=== PATIENT | female | born 1940 | race Caucasian/White ===

== ENCOUNTER 2016-03-04 13:37 | Inpatient (IN) | payer MEDICARE, OTHER ==
[2016-03-04] VITALS (7 sets, daily range): BP systolic 94–186; BP diastolic 56–78; PULSE 72–94; RESP 18–20; O2SAT 92–100
[~2016-03-04] VITALS: Ht 175.3 cm; Wt 72.9 kg
[~2016-03-04 13:37] MED LIST: ALBU8.5H2 INHALATION; AMLO5TAB2 PO; ASPI-973 PO; CHOL400T30 PO; ESOM40CA41 PO; FLUC100T4 PO; HYDR20TA2 PO; HYDR2TAB27 PO; LEVO100T6 PO; LISI-567 PO; LORA-302 PO; METO25TA99 PO; Magic Mouth Wash PO; POTA20TA7 PO; RES30 PO; SLOW MAG PO
[2016-03-04] MEDS ORDERED: Albuterol 2.5 mg/3 mL Inhalation Solution NEB ONE (14:13)
[2016-03-04 14:14] LABS: BASOPHILS % (AUTO) 0.3 % (0-3); EOSINOPHILS % (AUTO) 1.3 % (0-5); MONOCYTES % (AUTO) 7.2 % (4-12); Mean Corpuscular Hemoglobin 31.7 pg (27.0-35.0); Mean Corpuscular Volume 99.8 fL (81-100); NEUTROPHILS % (AUTO) 74.8 % (40-74); Platelet Count 226 bil/L (150-400)
--- NOTE | 2016-03-04 14:25 | ED.REPORT ---
HPI-Dyspnea / Wheezing Date of Service Mar 04, 2016 ED Provider: Liam Gomez MD Pt is a 76 year old female with a hx of HTN, breast cancer left side, and tongue cancer presenting to the ED complaining of a non productive cough onset 2 weeks ago worsened today. Associated symptoms include increasing SOB, and bilateral LE edema. Denies hx of blood clot, recent surgery or travel, fever, sore throat, chest pain, diarrhea, hemoptysis. Pt was seen in UC 1 week ago and had a negative X ray. She is currently taking Levaquin and has 1 dose left. She had a normal echocardiogram in September 2015. Pt denied influenza swab. Nursing Notes Stated Complaint: COUGH Chief Complaint: Respiratory Distress Nursing Notes Reviewed: Yes Allergies: Coded Allergies: morphine (Verified Allergy, Severe, Anxiety and panic attack, 01/16/16) Sulfa (Sulfonamide Antibiotics) (Verified Allergy, Unknown, 01/16/16) Pt. was unable recall reaction to sulfa Scheduled ([Slow-Mag71.5-119 Mg]) 2 TAB PO DAILY Amlodipine (Amlodipine) 5 Mg Tablet 5 MG PO DAILY Aspirin (Aspirin) 81 Mg Tablet 81 MG PO DAILY Cholecalciferol (Vitamin D3) (Vitamin D) 400 Unit Tablet 400 UNIT PO DAILY Esomeprazole Magnesium (Nexium) 40 Mg Capsule.dr 40 MG PO DAILY Fluconazole (Fluconazole) 100 Mg Tablet 100 MG PO DAILY Hydrocortisone (Hydrocortisone) 20 Mg Tablet 60 MG PO BID Levothyroxine (Levothyroxine) 100 Mcg Tablet 100 MCG PO DAILY Lisinopril (Lisinopril) 20 Mg Tablet 20 MG PO DAILY Metoprolol Succinate ER (Metoprolol Succinate ER) 25 Mg Tab.er.24h 25 MG PO DAILY Potassium Chloride ER (Klor-Con M20) 20 Meq Tablet 20 MEQ PO TID Scheduled PRN ([Magic Mouth Wash]) 5 ML PO Q4H PRN PRN Esophageal spasm Albuterol HFA (Proair HFA) 8.5 Gm Hfa.aer.ad 2 PUFFS INHALATION Q4H PRN PRN For Shortness of Breath Hydromorphone (Dilaudid) 2 Mg Tablet 4 MG PO Q4H PRN PRN For Pain Lorazepam (Ativan) 0.5 Mg Tablet 0.5 MG PO DAILY PRN PRN For Insomnia Temazepam (Temazepam) 30 Mg Cap 30 MG PO HS PRN PRN For Insomnia General Time Seen by MD: 13:43 Chief Complaint Cough Hx Obtained From: Patient Arrived By: Walk-in Sudden in Onset?: No Onset Occurred: More than a week ago... (2 weeks) Symptom Duration: Since onset Severity: Current: No pain currently Severity: Maximum: No pain Recent Healthcare: No recent doctor visit, No recent hospitalization Similar Sx Previous: No Past Medical History Past Medical History Hypothyroidism 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 Parathyroid adenoma Reports: Cancer, GERD, Hypertension Reports: Depression Past Surgical History Tongue resection Total mastectomy Reports: Knee replacement Family History Noncontributory Smoking History Former Smoker Social History Resides at [facility] Drug Use: Denies drug use Other Social History: Local resident Ambulatory Status Independent Review of Systems Constitutional: Denies: Fever Ears / Nose / Throat: Denies: Sore throat Respiratory: Reports: Non-productive cough, Shortness of breath Cardiovascular: Denies: Chest pain Musculoskeletal: Reports: Extremity swelling Complete sys rev & neg: except as marked. GI: Denies: Diarrhea Physical Exam Initial Vital Signs Vital Signs (First) Date Time Temp Pulse Resp B/P Pulse Ox O2 Delivery O2 Flow Rate FiO2 03/04/16 13:39 37.1 94 20 94/61 94 Room Air 03/04/16 14:18 2.5 Initial VS: Reviewed Head / Eyes: Atraumatic, Normocephalic, PERRL ENT: Mucous membranes moist, Conjunctiva normal, No scleral icterus Abdomen / GI: Soft, No guarding, No rebound Skin: Warm, Dry, No cyanosis Neurologic: Alert, Oriented, Nonfocal Psychiatric: Mood/affect normal, Behavior normal, Normal thought content General/Constitutional: Awake, Alert Neck: Supple Respiratory / Chest: No respiratory distress Wheezing / Retractions: Positive: Wheeze insp/exp diffuse Scattered wheezes bilaterally Cardiovascular: Heart rate NL, Regular rhythm, Heart sounds NL, No gallop, No murmurs, No rubs Interpretation & Diagnostics Lab Results Interpretation Result Diagram: 03/04/16 1355 03/04/16 1355 Test 03/04/16 13:55 White Blood Count 9.4th/mm3 (3.8-10.1) Red Blood Count 4.54mil/mm3 (3.90-5.20) Hemoglobin 14.4g/dL (12.0-15.6) Hematocrit 45.3% (35.0-46.0) Mean Corpuscular Volume 99.8fL (81-100) Mean Corpuscular Hemoglobin 31.7pg (27.0-35.0) Mean Corpuscular Hemoglobin Concent 31.8% (32.0-37.0) Red Cell Distribution Width 16.7% (12.3-15.4) Platelet Count 226bil/L (150-400) Neutrophils (%) (Auto) 74.8% (40-74) Lymphocytes (%) (Auto) 14.8% (14-46) Monocytes (%) (Auto) 7.2% (4-12) Eosinophils (%) (Auto) 1.3% (0-5) Basophils (%) (Auto) 0.3% (0-3) D-Dimer 4.8mg/L (<0.50) Sodium Level 141mEq/L (134-144) Potassium Level 3.7mEq/L (3.5-5.2) Chloride Level 96mEq/L (97-108) Carbon Dioxide Level 31mmol/L (18-29) Blood Urea Nitrogen 19mg/dL (8-27) Creatinine 1.13mg/dL (0.57-1.00) Estimat Glomerular Filtration Rate 67mL/min (>59) Glucose Level 132mg/dL (60-99) Lactic Acid Level 2.6mmol/L (0.4-2.0) Calcium Level 9.5mg/dL (8.5-10.1) Total Bilirubin 0.9mg/dL (0.0-1.2) Aspartate Amino Transf (AST/SGOT) 21U/L (0-50) Alanine Aminotransferase (ALT/SGPT) 20U/L (0-32) Alkaline Phosphatase 90U/L (25-165) Troponin T < 0.010ug/L (0.0-0.011) Pro-B-Type Natriuretic Peptide 1033pg/mL (0-738) Total Protein 6.0g/dL (6.4-8.4) Albumin 3.4g/dL (3.4-5.0) ECG Interpretation ECG Interpretation: Piked T waves V4V5. No ST elevations or depressions. Time: 14:23 Interpreted by: ED physician Normal ECG Interpretation: Normal rate (84), Normal sinus rhythm X-Ray Chest Interpretation Chest Xray Interpretation: IMPRESSION: A new spiculated density in the right lower lobe medially, most likely related to atelectasis. Recommend followup to resolution. Dictated by: Daniel Delgado M.D. on 03/04/2016 at 14:32 View: Portable, 1 view Interpretation / Wet Read by: Interpret - Radiologist Re-Eval/Medical Decision Med Decision/Clinical Course 76-year-old female history of hypertension, breast cancer status post mastectomy, chemotherapy, radiation presenting with dry cough for 2 weeks. Patient is status post Levaquin. Oxygen 88-94% room air. Patient refusing flu swab and additional IV. She is refusing CT angiogram chest given that would have to put a larger IV in her she is refusing additional IV. Labs with lactic acidosis 2.6. D-dimer is 4.8. Chest x-ray with right lower lobe spiculated density. Complicated patient as she is refusing aspects of her workup but is willing to be admitted. Given her elevated d-dimer, lactic acidosis and hypoxemia, we will admit. I discussed with hospitalist and will place on heparin drip to cover for possible PE and they will attempt to place IV later for CT Angio chest to rule out PE. We will place on one dose Levaquin to cover possible pneumonia given questionable chest x-ray findings. She will be hydrated with IV fluids. Patient is DNR/DNI per patient report. Re-Evaluation/Progress : Time of Eval: 15:38 Patient Status: Condition improved Re-Evaluation/Progress Note: Discussed the importance of the CT scan. Pt is unwilling to have a new IV line, but would like to be admitted. Consultation : Referral / Consult Name: Artur Alegria MD Consulted With: Hospitalist Call Returned at: 15:45 Crystallography Teacher: Will see patient, Agrees with plan, Accepts admit Counseled Regarding: Diagnosis, Lab results, Need for follow-up, When/why to return to ED Discharge & Departure Impression: Primary Impression: Hypoxemia Additional Impressions: Lactic acidosis Elevated d-dimer Pneumonia Aspiration pneumonia type: unspecified Laterality: unspecified laterality Lung location: unspecified part of lung Disposition: ADMITTED TO HOSPITAL Discharge Condition All VS Reviewed: Yes Condition: Improved Referrals: Carlos Edouard MD (PCP) Crit Care Except Billable Proc Time Spent: 30-74 minutes Services Performed: Patient management by me, Time spent at bedside, Reviewing test results, Reviewing imaging, Discussing patient care, Documentation in record Scribe Attestation Portions of this note were transcribed by Marti. I, Dr. Gomez personally performed the history, physical exam and medical decision-making; I reviewed and confirmed the accuracy of the information in the transcribed note. Signed by: Angeles Whalen, 03/04/2016 and 1554. copies to: Carlos Edouard MD, Ben M MD Mar 04, 2016 14:25 MARTI TERAN Mar 04, 2016 14:55
--- NOTE | 2016-03-04 14:35 | DRSVH ---
PROCEDURE: X-RAY CHEST ONE VIEW, PORTABLE ([id number]) INDICATIONS: cough, dyspnea TECHNIQUE: One view of the chest was acquired. COMPARISON: [facility], CR, XR CHEST 2VW, 02/26/2016, 10:48. [facility], CR , XR CHEST 1VW (PORTABLE), 09/05/2015, 19:10. FINDINGS: Surgical changes and devices: Left mastectomy. Multiple surgical clips in the left axilla. Lungs and pleura: There is a spiculated linear density in the right lower lobe medially, new since t he last exam, most likely atelectasis. No pleural effusions or pneumothorax. Mediastinum: Mediastinal contours appear normal. Heart size is normal. Bones and chest wall: No suspicious bony lesions. Overlying soft tissues appear unremarkable. IMPRESSION: A new spiculated density in the right lower lobe medially, most likely related to atelect asis. Recommend followup to resolution. Dictated by: Daniel Delgado M.D. on 03/04/2016 at 14:32 Approved by: Daniel Delgado M.D. on 03/04/2016 at 14:35
[2016-03-04 14:39] LABS: TROPONIN T < 0.010 ug/L (0.0-0.011)
[2016-03-04] MEDS ORDERED: 0.9% Sodium Chloride 1,000 ML IV ONE (14:55)
[2016-03-04] MEDS ORDERED: Heparin 25K Unit/500mL 0.45 NS 25,000 UNIT in IV Premix 1 EACH IV ONE (15:55)
[2016-03-04] MEDS ORDERED: Heparin 5,000 Unit/mL Inj IVPUSH ONE (15:55)
[2016-03-04] MEDS ORDERED: Ondansetron 2 mg/mL 2 mL Inj IVPUSH PRN ×2 (16:00→19:10)
[2016-03-04] MEDS ORDERED: Alum-Mag Hydrox-Simeth 30 mL Suspension PO PRN ×2 (16:00→19:10)
[2016-03-04] MEDS ORDERED: levoFLOXacin Inj 750 MG in IV Premix 1 EACH IV ONE (16:00)
[2016-03-04] MEDS ORDERED: Polyethylene Glycol (PEG) 17 Gm Powder PO PRN (16:10)
[2016-03-04] MEDS ORDERED: Heparin 25K Unit/500mL 0.45 NS 25,000 UNIT in IV Premix 1 EACH IV SCH (16:10)
[2016-03-04] MEDS: 0.9% Sodium Chloride 1,000 ML IV SCH ×2 (16:10→20:06)
--- NOTE | 2016-03-04 16:57 | DRSVH ---
PROCEDURE: US VENOUS LEG DUPLEX BILATERAL INDICATIONS: rule out DVT TECHNIQUE: Real-time imaging, as well as color and pulse Doppler interrogation, were performed of the deep veins of both legs from the inguinal ligament to the popliteal fossa. COMPARISON: None. FINDINGS: The deep veins are normally compressible, and free of intraluminal thrombus. Color and pu lse Doppler demonstrate normal phasic intravascular flow. There is normal augmentation response to d istal compression maneuver. IMPRESSION: No DVT in lower extremities bilaterally. Dictated by: Daniel Delgado M.D. on 03/04/2016 at 16:56 Approved by: Daniel Delgado M.D. on 03/04/2016 at 16:57
[2016-03-04] MEDS ORDERED: OXYC10SY PO (18:21)
--- NOTE | 2016-03-04 18:35 | NUR ---
Admit Pt admitted to PCC at 1800. A&Ox3, Vitals stable, purse at the bedside. Oriented to room and call light. PT voided upon arrival. Tele placed and is in SR 80's with a peaked T. Heparin running at 18 un/kg/hr. No c/o pain. Didn't want anything to eat just some ice water. Will inform MD patient arrived to floor and any questions.
--- NOTE | 2016-03-04 18:36 | PCM.HPMED ---
Subjective Date of Service Mar 04, 2016 Primary Provider: Admitting Physician: Artur Alegria MD Primary Care Physician: Carlos Edouard MD Attending Physician: Artur Alegria MD Allergies Coded Allergies: morphine (Verified Allergy, Severe, Anxiety and panic attack, 01/16/16) Sulfa (Sulfonamide Antibiotics) (Verified Allergy, Unknown, 01/16/16) Pt. was unable recall reaction to sulfa PMH Social History Hx Alcohol Use: Yes Alcoholic Drinks Per Day: a glass of whisky a day Hx Substance Use: No Hx Tobacco Use: No Smoking Status: Former Smoker Exam Vital Signs Vital Sign - Last Date Time Temp Pulse Resp B/P Pulse Ox O2 Delivery O2 Flow Rate FiO2 03/04/16 18:14 80 03/04/16 18:07 36.6 20 156/78 92 1.00 03/04/16 17:23 Nasal Cannula Lab and Diagnostics Result Diagram: 03/04/16 1355 03/04/16 1355 Artur Alegria MD Mar 04, 2016 18:36 1. Decreased but not resolved right lower lobe pneumonia. 2. Mild diffuse interstitial infiltrates and mild cardiomegaly, suggesting mild superimposed congestive heart failure. Artur Alegria MD Mar 04, 2016 18:36 03/04/16 1355 X-Rays, CTs and MRIs CXR: IMPRESSION: 1. Decreased but not resolved right lower lobe pneumonia. 2. Mild diffuse interstitial infiltrates and mild cardiomegaly, suggesting mild superimposed congestive heart failure. Artur Alegria MD Mar 04, 2016 18:36 Result Diagram: 03/04/16 1355 03/04/16 1355 X-Rays, CTs and MRIs CXR: IMPRESSION: 1. Decreased but not resolved right lower lobe pneumonia. 2. Mild diffuse interstitial infiltrates and mild cardiomegaly, suggesting mild superimposed congestive heart failure. Assessment & Plan Elevated troponin - ? NSTEMI - Started on heparin drip Pneumonia - Likely HCAP due to recent admission - Will start on broad spectrum antibiotics, vancomycin and zosyn - Blood culture x 2, Sputum culture CHF exacerbation - elevated pro BNP of 11,887 - Will start on IV lasix GI ppx: Pantoprazole DVT ppx: on heparin Anti emetics / Analgesics prn as per protocol Code: Full code Status: To be admitted as inpatient due to complexity of medical condition that will require more than two days of hospital stay. Pain Evaluation: Adequate Pain Control GI Prophylaxis: H2 morgan VTE Prophylaxis: Sub-Q Heparin (Unfractionated) Resuscitation Status: CPR: Attempt Resuscitation Artur Alegria MD Mar 04, 2016 18:36
--- NOTE | 2016-03-04 19:01 | PCM.HPMED ---
Subjective Date of Service Mar 04, 2016 Primary Provider: Admitting Physician: Artur Alegria MD Primary Care Physician: Carlos Edouard MD Attending Physician: Artur Alegria MD Chief Complaint: Worsening cough and dyspnea 2 weeks History of Present Illness: Pt is a 76 year old female with a hx of HTN, breast cancer left side, and tongue cancer presenting to the ED complaining of a non productive cough onset 2 weeks ago worsened today. Associated symptoms include increasing SOB, and bilateral LE edema. Denies hx of blood clot, recent surgery or travel, fever, sore throat, chest pain, diarrhea, hemoptysis. Pt was seen in 1 week ago and had a negative X ray. She is currently taking Levaquin and has 1 dose left. She had a normal echocardiogram in September 2015. Pt denied influenza swab. Review of Systems: Gen.: No fevers chills weight loss weight gain Eyes: no visual disturbances or blurring vision HEENT: No nose/throat drainage, no pain in ears or throat, no hearing loss Lymph: No lymph nodes noted Cardiac: No chest pain, orthopnea, PND, palpitations , ++pedal edema or dyspnea on exertion Pulmonary: no wheezing or bringing up of sputum + cough/dyspnea GI: No anorexia nausea vomiting blood or black in the stool : no dysuria hematuria urinary frequency or decrease in urine output Musculoskeletal: Joint swelling no joint pain no new muscle aches or back pain Neuro: No syncope, seizures no loss of consciousness no new focal weakness, numbness or tingling Psychiatric: New new anxiety insomnia or depression Endocrine: No new heat or cold intolerances polyuria or polydipsia Hematology: No lymphadenopathy or easy bleeding or bruising noted skin: No new rashes, stasis dermatitis Allergies Coded Allergies: morphine (Verified Allergy, Severe, Anxiety and panic attack, 01/16/16) Sulfa (Sulfonamide Antibiotics) (Verified Allergy, Unknown, 01/16/16) Pt. was unable recall reaction to sulfa Home Medications Scheduled ([Slow-Mag71.5-119 Mg]) 2 TAB PO DAILY Amlodipine (Amlodipine) 5 Mg Tablet 5 MG PO DAILY Aspirin (Aspirin) 81 Mg Tablet 81 MG PO DAILY Cholecalciferol (Vitamin D3) (Vitamin D) 400 Unit Tablet 400 UNIT PO DAILY Esomeprazole Magnesium (Nexium) 40 Mg Capsule.dr 40 MG PO DAILY Fluconazole (Fluconazole) 100 Mg Tablet 100 MG PO DAILY Hydrocortisone (Hydrocortisone) 20 Mg Tablet 60 MG PO BID Levothyroxine (Levothyroxine) 100 Mcg Tablet 100 MCG PO DAILY Lisinopril (Lisinopril) 20 Mg Tablet 20 MG PO DAILY Metoprolol Succinate ER (Metoprolol Succinate ER) 25 Mg Tab.er.24h 25 MG PO DAILY Potassium Chloride ER (Klor-Con M20) 20 Meq Tablet 20 MEQ PO TID Scheduled PRN ([Magic Mouth Wash]) 5 ML PO Q4H PRN PRN Esophageal spasm Albuterol HFA (Proair HFA) 8.5 Gm Hfa.aer.ad 2 PUFFS INHALATION Q4H PRN PRN For Shortness of Breath Hydromorphone (Dilaudid) 2 Mg Tablet 4 MG PO Q4H PRN PRN For Pain Lorazepam (Ativan) 0.5 Mg Tablet 0.5 MG PO DAILY PRN PRN For Insomnia Temazepam (Temazepam) 30 Mg Cap 30 MG PO HS PRN PRN For Insomnia PMH PAST MEDICAL HISTORY: Significant for history of orthostatic hypotension, currently on hydrocortisone therapy, history of hypertension, history of hypothyroidism, history of tongue cancer, status post resection and radiation therapy, history of breast cancer on the left, status post total mastectomy, chemotherapy and radiation, history of parathyroid adenoma, history of GERD, history of depression. ALLERGIES: 1. SULFA. 2. MORPHINE. SOCIAL HISTORY: Lives alone. Smoking, quit in 1991. Alcohol, 1-2 drinks daily. FAMILY MEDICAL HISTORY: No history of coronary artery disease or diabetes. Social History Hx Alcohol Use: Yes Alcoholic Drinks Per Day: a glass of whisky a day Hx Substance Use: No Hx Tobacco Use: No Smoking Status: Former Smoker Exam Vital Signs Vital Sign - Last Date Time Temp Pulse Resp B/P Pulse Ox O2 Delivery O2 Flow Rate FiO2 03/04/16 18:14 80 03/04/16 18:07 36.6 20 156/78 92 1.00 03/04/16 17:23 Nasal Cannula Exam Gen.- A+ O 3 no apparent distress. Thin female lying in bed Eyes- open conjunctiva clear, pupils equal nonicteric Mouth- oral mucosa moist, no exudate, tongue slightly distorted. Definitely been a chunk cut out from the left hip ENT- ears normal, nose normal Neck- supple/trach midline CVS- RRR no murmur or gallop, 1+ edema bilaterally Lungs slight wheeze no accessory muscle usage or evidence of respiratory distress GI- NABS/NT soft Musc- moving 4 no obvious deformity Neuro- cranial nerves II through XII intact to gross examination, nonfocal Skin- warm and dry, no rashes/lesions/wounds noted Psych- pleasant and appropriate, Lab and Diagnostics Labs D-dimer 4.8, PTT 26.1, BNP 1033, troponin less than 0.01, LFTs normal, lactate 2.6 Result Diagram: 03/04/16 1355 03/04/16 1355 X-Rays, CTs and MRIs cxr A new spiculated density in the right lower lobe medially, most likely related to atelectasis. Recommend followup to resolution. 03/04 personally/concurrently reviewed by Dwayne 12-lead ECG Personal/concurrently reviewed by Dwayne 03/04 . Sinus rhythm rate of 84 QTC [address] elevation, anterolateral leads Markedly different from 09/05/15 also personally/concurrently reviewed by me Cardiac Echo Impressions EF 60-65%, normal LV size and function, mild tricuspid regurgitation right ventricular pressure 35 mmHg 09/06/15 [place] Additional Diagnostics: IMPRESSION: No DVT in lower extremities bilaterally. Doppler lower extremities 03/04 Assessment & Plan 76-year-old female admitted with cough and some dyspnea and worsening pedal edema. Her BNP is only slightly elevated, but she does have marked EKG changes different from her August EKG. Her first troponin is normal but were going to check these and CKs. I am also little bit worried about acutely related abnormality on her chest x-ray that will require follow-up and perhaps if there is anything a CAT scan without contrast here. Dyspnea/cough- patient's not any better after 5 days of Levaquin will finish it today, perhaps she has lisinopril/REINA cough so I am going to stop the lisinopril and start losartan in its place. EKG abnormality- patient had a normal echo in September, but the EKG changes are substantial enough that I am going to at least check cardiac enzymes. We will check another EKG hopefully it will normalize/resolved. Elevated d-dimer- patient is bilaterally swollen legs and no DVT but she is on a heparin drip because she did not want a larger bore IV as they had a hard time getting the small one in her to get CT scan so she is settling for a VQ scan. Cancer is certainly a risk factor for PE. Pedal edema/slightly elevated BNP- for now I am not going to pursue that but an echocardiogram repeat might be warranted if there is further evidence of cardiac event. Abnormal chest x-ray- patient's finishing 5 days worth of Levaquin and an albuterol MDI and it is not helping, if this is ongoing and CT of the chest may be warranted given the spiculated mass that is commented on there. I am not going to continue any further antibiotics as there is very little evidence that there is an infectious process. Prophylaxis- DVT patients on a heparin drip and she is getting SCDs, GI not indicated Disposition- patient's full code in from home was independent Ghanhsyam Rice MD Mar 04, 2016 19:01
[2016-03-04] MEDS ORDERED: HYDROcodone-APAP 5-325 mg Tablet PO PRN (19:10)
[2016-03-04] MEDS ORDERED: levoFLOXacin 750 mg Tablet PO ONE (19:50)
[2016-03-04] MEDS ORDERED: Codeine-guaiFENesin 10 mL Syrup PO PRN (19:50)
[2016-03-04] MEDS: Albuterol 2.5 mg/3 mL Inhalation Solution NEB SCH (20:00)
[2016-03-04] MEDS ORDERED: Senna-Docusate 8.6-50 mg Tablet PO PRN (20:10)
[2016-03-04] MEDS ORDERED: Potassium Chloride 20 mEq SR Tablet PO SCH (20:30)
[2016-03-04 20:58] LABS: APPEARANCE,URINE CLEAR (CLEAR,HAZY); COLOR,URINE YELLOW (YELLOW); OCCULT BLOOD,URINE NEGATIVE (NEGATIVE); UROBILINOGEN,URINE NORMAL (NORMAL)
[2016-03-04] MEDS ORDERED: Diphen-Lido-Mylanta 1:1:1 Susp 120 mL PO PRN (22:00)
[2016-03-04 22:28] LABS: Creatine Kinase 11 U/L (21-215)
[2016-03-05] VITALS (8 sets, daily range): BP systolic 148–162; BP diastolic 74–90; PULSE 68–89; RESP 16–18; O2SAT 90–96
[2016-03-05] MEDS: Sodium Chloride LOK Flush 10 mL Syringe IVFLUSH SCH ×4 (00:30→20:33)
[2016-03-05] MEDS: 0.9% Sodium Chloride 1,000 ML IV SCH ×3 (02:10→11:51)
[2016-03-05 02:54] LABS: BASOPHILS % (AUTO) 0.8 % (0-3); EOSINOPHILS % (AUTO) 1.9 % (0-5); MONOCYTES % (AUTO) 9.1 % (4-12); Mean Corpuscular Hemoglobin 30.7 pg (27.0-35.0); NEUTROPHILS % (AUTO) 69.1 % (40-74); Platelet Count 149 bil/L (150-400)
[2016-03-05 03:25] LABS: Creatine Kinase 11 U/L (21-215)
--- NOTE | 2016-03-05 05:31 | NUR ---
Critical Lab Value/Pain/ Lab called with critical lab value at 0330 of: CALCIUM 6.8. was paged and notified of this critical lab value. An albumin level was added to the pt's last blood draw and results are pending. Pt has been c/o lower back pain and was given 15mg roxycodone for 8/10 pain. Pt has been frequently urinating throughout the night and has mentioned that this is not her normal. A UA has been sent and results are pending. Pt's PTT heparin draw at 0530 is 50.7Units/kg/hr and pt's DVT/PE Heparin drip has been increased by 1Units/kg/hr. The new Heparin drip rate is now 16Units/kg/hr. The next PTT heparin draw is ordered for 1130.
[2016-03-05] MEDS: Albuterol 2.5 mg/3 mL Inhalation Solution NEB SCH ×2 (07:00→11:00)
[2016-03-05] MEDS ORDERED: levoFLOXacin Inj 750 MG in IV Premix 1 EACH IV SCH (08:30)
[2016-03-05] MEDS ORDERED: [UNRECOGNIZED DRUG - MIXTURE] PO SCH (08:30)
--- NOTE | 2016-03-05 09:18 | PCM.PNMED ---
Subjective Date of Service Mar 05, 2016 Subjective Patient feels like her cough got better she denies chest pain, dyspnea, nausea vomiting Exam Vital Signs Vital Sign - Last Date Time Temp Pulse Resp B/P Pulse Ox O2 Delivery O2 Flow Rate FiO2 03/05/16 03:48 37.3 89 18 148/86 96 1.00 03/04/16 22:00 Supplement Oxygen Intake and Output 03/04/16 03/04/16 03/05/16 Cumulative From/Thru 15:00 23:00 07:00 03/04/16 13:39 - 03/05/16 06:49 Intake Total 1000 ml 1410 ml 2410 ml Output Total 1200 ml 1200 ml Balance 1000 ml 210 ml 1210 ml Intake Oral 275 ml 275 ml IV Total 1000 ml 1135 ml 2135 ml Output Urine Total 1200 ml 1200 ml # Voids 1 1 Exam Gen.- A+ O 3 no apparent distress. Thin female lying in bed Eyes- open conjunctiva clear, pupils equal nonicteric ENT- ears normal, nose normal Neck- supple/trach midline CVS- RRR Lungs- normal rate no accessory muscle usage or evidence of respiratory distress GI-flat Musc- moving 4 no obvious deformity Neuro- cranial nerves II through XII intact to gross examination, nonfocal Skin- warm and dry, no rashes/lesions/wounds noted Psych- pleasant but flat Lab and Diagnostics TSH 10.6, TRIG 156, HDL 37, LDL 29, ALB 2.3 03/05 Result Diagram: 03/05/16 0230 03/05/16 0230 X-Rays, CTs and MRIs cxr A new spiculated density in the right lower lobe medially, most likely related to atelectasis. Recommend followup to resolution. 03/04 personally/concurrently reviewed by Dwayne 12-lead ECG Personal/concurrently reviewed by Dwayne 03/04 . Sinus rhythm rate of 84 QTC [address] elevation, anterolateral leads Markedly different from 09/05/15 also personally/concurrently reviewed by nh Cardiac Echo Impressions EF 60-65%, normal LV size and function, mild tricuspid regurgitation right ventricular pressure 35 mmHg 09/06/15 [place] Additional Diagnostics IMPRESSION: No DVT in lower extremities bilaterally. Doppler lower extremities 03/04 Assessment & Plan 76-year-old female admitted with cough and some dyspnea and worsening pedal edema. Her BNP is only slightly elevated, but she does have marked EKG changes different from her August EKG. Her first troponin is normal but were going to check these and CKs. I am also little bit worried about acutely related abnormality on her chest x-ray that will require follow-up and perhaps if there is anything a CAT scan without contrast here. HTN- patient on metoprolol 25 mg twice a day, Norvasc 5 mg, SBP is still around 150 starting losartan 50 mg today 03/05 Hypocalcemia-with low albumin corrects to normal no action Hypokalemia-replace and follow up and check magnesium in the morning Anemia-likely dilutional will keep hydrating her will follow up in the morning I am not getting anemia panel just yet. Dyspnea/cough- patient's not any better after 5 days of Levaquin will finish it today, perhaps she has lisinopril/MERRITT cough so I am going to stop the lisinopril and start losartan in its place. Cough is much better 03/05 is not clear why but the Merritt was discontinued she is also gotten cough medicine. EKG abnormality- patient had a normal echo in September, but the EKG changes are substantial enough that I am going to at least check cardiac enzymes. Repeat EKG similar but not read is sinus with ectopics and no concern about the J point type elevations in leads V3 through V6. Elevated d-dimer- patient is bilaterally swollen legs and no DVT but she is on a heparin drip because she did not want a larger bore IV as they had a hard time getting the small one in her to get CT scan or VQ scan was indeterminate . She is reluctant to consider CT I am going to get ultrasound of her upper extremities as well and perhaps will simply discharge her if she refuses further diagnostics and let her decide whether she will be anticoagulated 03/06 if we find no definitive source. Pedal edema/slightly elevated BNP- for now I am not going to pursue that but an echocardiogram repeat might be warranted if there is further evidence of cardiac event. Abnormal chest x-ray- patient's finishing 5 days worth of Levaquin and an albuterol MDI and it is not helping, if this is ongoing and CT of the chest may be warranted given the spiculated mass that is commented on there. I am not going to continue any further antibiotics as there is very little evidence that there is an infectious process. Prophylaxis- DVT patients on a heparin drip and she is getting SCDs, GI not indicated Disposition- patient's full code in from home was independent 35 minutes circling back in evaluating this patient and her labs and trying to talk to her. Ghanshyam Rice MD Mar 05, 2016 09:18
[2016-03-05] MEDS: Pantoprazole 40 mg ER24 Tablet PO SCH (09:39)
[2016-03-05] MEDS: Magnesium Chloride SR 64 mg ER24 Tablet PO SCH (09:40)
[2016-03-05] MEDS: Hydrocortisone 10 mg Tablet PO SCH ×2 (09:41→16:59)
[2016-03-05] MEDS: MeTOProlol XL 25 mg ER24 Tablet PO SCH (09:42)
[2016-03-05] MEDS ORDERED: Potassium Chloride 20 mEq SR Tablet PO ONE (10:20)
[2016-03-05] MEDS: Potassium Chloride 20 mEq SR Tablet PO SCH ×2 (14:48→20:32)
--- NOTE | 2016-03-05 15:50 | DRSVH ---
PROCEDURE: NM LUNG VQ RADIOPHARMACEUTICAL: 26.7 mCi Tc-99m DTPA aerosol by inhalation and 5.2 mCi Tc-99m MAA intravenously. INDICATIONS: shortness of breath positive d-dimer TECHNIQUE: Ventilation images were obtained first with Tc-99m DTPA aerosol. Subsequently, perfusion images were acquired after intravenous injection of Tc-99m MAA. Anterior, posterior, MOHAN, TUVALUAN, RPO, LPO, left and right lateral views were obtained. COMPARISON: [facility], CR, XR CHEST 2VW, 02/26/2016, 10:48. [facility], CR , XR CHEST 1VW (PORTABLE), 03/04/2016, 13:55. FINDINGS: Multiple small to moderate sized matched perfusion and ventilation defects are seen within the bilateral mid and lower lungs. There are moderate defects in perfusion within the left mid lung p osteriorly and left lung base anteriorly, with only mildly reduced ventilation in those locations. IMPRESSION: Intermediate probability for pulmonary embolus. Dictated by: Brandin Godoy M.D. on 03/05/2016 at 15:43 Approved by: Brandin Godoy M.D. on 03/05/2016 at 15:48
--- NOTE | 2016-03-05 16:50 | NUR ---
Social Work: Attempted Assessment D: Per EMR review, pt is a 76 year old female admitted for Pneumonia, Hypoxemia, Lactic Acidosis. Pt is Medicare with [facility] [place] Supplement. PCP is Carlos Edouard MD. NOK is Shilo Watkins, son, . Advanced directives not on file. Readmit score is high, 5/8. MATTING PRESS TENDER attempted to meet with pt at bedside to complete initial assessment; pt is not in room. Nursing notes do not suggest pt is off the floor at this time. MATTING PRESS TENDER unable to locate pt for assessment and will return to complete assessment when pt is present. A: Pt who lives in [place] and has been I during admission. P: Anticipate pt to discharge home via POV once medically stable; MATTING PRESS TENDER to follow up with pt to complete initial assessment and dcp. DEYA Rowell
--- NOTE | 2016-03-05 18:09 | NUR ---
IV Pt had a VQ scan done that showed a possible PE. MD rounded and talked to her about needing a CT done to confirm that there is a PE, with this she would need a larger bore IV. Pt said she would think about it. I asked even if IV therapy would do it and she asked me to leave her be and she would let me know when she comes to a conclusion. Till then the MD ordered a Venous duplex both arms and legs. Pt informed me at 1800 she is declining the IV and CT, she will do a venous duplex of her arms only because she had her legs done yesterday. I will mention this update to MD.
[2016-03-06 04:17] VITALS: BP 182/80; PULSE 66; RESP 16; O2SAT 96
--- NOTE | 2016-03-06 05:13 | NUR ---
Hypertension Pt BP 162/86 at HS; 50mg Cozaar administered with HS medications d/t being unavailable from pharmacy priorly. Pt refused midnight vitals; 0400 vital signs revealed BP of 182/80. PRN 25mg PO hydralazine administered. Pt stated "How bad was my blood pressure? It's been worse than that." Tele SR 60s-70s. Pt on 2L NC at HS d/t RA SPO2 of 90%; SpO2 on 2L NC 96% throughout shift.
[2016-03-06 06:08] LABS: Mean Corpuscular Hemoglobin 30.8 pg (27.0-35.0)
[2016-03-06] MEDS: Pantoprazole 40 mg ER24 Tablet PO SCH (06:20)
[2016-03-06 06:40] LABS: Magnesium 2.2 mg/dL (1.6-2.6)
[2016-03-06 08:30] VITALS: BP 121/77; PULSE 78; O2SAT 93
[2016-03-06] MEDS: Sodium Chloride LOK Flush 10 mL Syringe IVFLUSH SCH (08:30)
--- NOTE | 2016-03-06 08:37 | PCM.DC.MED ---
Discharge Summary Date of Service Mar 06, 2016 Dates of Hospitalization Date of Hospital Admission Mar 04, 2016 at 16:16 Date of Discharge: Mar 06, 2016 Providers: Admitting Physician: Artur Alegria MD Primary Care Physician: Carlos Edouard MD Attending Physician: Artur Alegria MD Diagnosis at Time of Discharge Diagnosis at Time of Discharge Cough and dyspnea, unable to rule out pulmonary embolism as patient refused large-bore IV for CT angiogram and VQ scan was indeterminate Consultations None Procedures XRay, CTs & MRIs cxr A new spiculated density in the right lower lobe medially, most likely related to atelectasis. Recommend followup to resolution. 03/04 personally/concurrently reviewed by Dwayne ECG 12 Lead Personal/concurrently reviewed by Dwayne 03/04 . Sinus rhythm rate of 84 QTC [address] elevation, anterolateral leads Markedly different from 09/05/15 also personally/concurrently reviewed by wy Cardiac Echo Impression EF 60-65%, normal LV size and function, mild tricuspid regurgitation right ventricular pressure 35 mmHg 09/06/15 [place] Other Diagnostics IMPRESSION: No DVT in lower extremities bilaterally. Doppler lower extremities 03/04 Brief History Sudden worsening of dyspnea in a patient with 2 week history of cough being treated for pneumonia Hospital Course 76-year-old female admitted with cough and some dyspnea and worsening pedal edema. Elevated d-dimer the desire was to rule out PE. Unfortunately this was not possible VQ scan was indeterminate, patient had Dopplers done of all extremities to touch show any clots no definitive indication for anticoagulation was found. I discussed the dilemma with the patient and she still did not want to have another IV line to get the CT angiogram and elected to discharge without any anticoagulation. She was warned that more than likely this would be fine but if it were not was concerned about a life threatening event that might precipitate her demise that we could not rule out due to the fact that she did not want the IV to get the defining test. She agreed to accept this risk so I discharged her and gave her a new prescription for losartan. Her cough may have been secondary to reina she is getting better now. HTN- patient on metoprolol 25 mg twice a day, Norvasc 5 mg, SBP is still around 150 losartan 50 mg today 03/05, SBP 121-145 03/06 Hypocalcemia-with low albumin corrects to normal no action. Hypokalemia-replace and follow up and check magnesium in the morning, corrected K+ 3.5, mg 2.2 03/06 Anemia-likely dilutional will keep hydrating her will follow up in the morning I am not getting anemia panel just yet. Hg 11.3 03/06 Dyspnea/cough- patient's not any better after 5 days of Levaquin will finish it today, perhaps she has lisinopril/REINA cough so I am going to stop the lisinopril and start losartan in its place. Cough is much better 03/05 is not clear why but the Reina was discontinued she is also gotten cough medicine. EKG abnormality- patient had a normal echo in September, but the EKG changes trops x3 wnl 03/06. Repeat EKG similar but not read is sinus with ectopics and no concern about the J point type elevations in leads V3 through V6. 03/05 Elevated d-dimer- patient is bilaterally swollen legs and no DVT but she is on a heparin drip because she did not want a larger bore IV as they had a hard time getting the small one in her to get CT scan or VQ scan was indeterminate . She is reluctant to consider CT I am going to get ultrasound of her upper extremities as well and perhaps will simply discharge her if she refuses further diagnostics and let her decide whether she will be anticoagulated 03/06 if we find no definitive source. Pedal edema/slightly elevated BNP- for now I am not going to pursue that but an echocardiogram repeat might be warranted if there is further evidence of cardiac event. Abnormal chest x-ray- patient's finishing 5 days worth of Levaquin and an albuterol MDI and it is not helping, if this is ongoing and CT of the chest may be warranted given the spiculated mass that is commented on there. I am not going to continue any further antibiotics as there is very little evidence that there is an infectious process. Prophylaxis- DVT patients on a heparin drip and she is getting SCDs, GI not indicated Disposition- patient's full code in from home was independent 1) patient to see primary care provider for BP follow-up in the next 2 weeks 2) patient should have follow-up chest x-ray in the next month or 2 Exam Vital Signs (Last) Date Time Temp Pulse Resp B/P Pulse Ox O2 Delivery O2 Flow Rate FiO2 1/30/17 04:17 37.0 66 16 182/80 96 Nasal Cannula 2.00 Exam Gen.- A+ O 3 no apparent distress. Thin female lying in bed Eyes- open conjunctiva clear, pupils equal nonicteric ENT- ears normal, nose normal Neck- supple/trach midline CVS- RRR no murmur or gallop, 1+ edema bilaterally Lungs slight wheeze no accessory muscle usage or evidence of respiratory distress GI- NABS/NT soft Musc- moving 4 no obvious deformity Neuro- cranial nerves II through XII intact to gross examination, nonfocal Skin- warm and dry, no rashes/lesions/wounds noted Psych- pleasant and appropriate, Test 03/04/16 13:55 03/04/16 20:44 03/04/16 21:30 03/05/16 02:30 D-Dimer 4.8mg/L (<0.50) Lactic Acid Level 2.6mmol/L (0.4-2.0) Total Bilirubin 0.9mg/dL (0.0-1.2) Aspartate Amino Transf (AST/SGOT) 21U/L (0-50) Alanine Aminotransferase (ALT/SGPT) 20U/L (0-32) Alkaline Phosphatase 90U/L (25-165) Pro-B-Type Natriuretic Peptide 1033pg/mL (0-738) Total Protein 6.0g/dL (6.4-8.4) Urine Color Yellow (YELLOW) Urine Appearance Clear (CLEAR,HAZY) Urine pH 7.0 (5.0-8.0) Urine Specific [place] 1.020 (1.003-1.035) Urine Protein Negativemg/dL (NEG,TRACE) Urine Glucose (UA) Negativemg/dL (NEGATIVE) Urine Ketones Negativemg/dL (NEGATIVE) Urine Occult Blood Negative (NEGATIVE) Urine Nitrite Negative (NEGATIVE) Urine Bilirubin Negative (NEGATIVE) Urine Urobilinogen Normalmg/dL (NORMAL) Urine Leukocyte Esterase Trace (NEGATIVE) Urine RBC 0-2/hpf (0-2) Urine WBC 6-10/hpf (0-5) Urine Epithelial Cells Moderate/hpf (NONE-MOD) Urine Crystals None seen (NONE SEEN) Urine Bacteria None/hpf (NONE-FEW) Urine Hyaline Casts None/lpf (NONE) Urine Granular Casts None seen (NONE SEEN) Urine Waxy Casts None seen (NONE SEEN) Urine Red Blood Cell Casts None seen (NONE SEEN) Urine White Blood Cell Casts None seen (NONE SEEN) Urine Mucus None seen (None Seen) Urine Trichomonas None seen (NONE SEEN) Urine Yeast None (NONE SEEN) Urinalysis Comment None Urine Culture Reflexed Indicated Thyroid Stimulating Hormone (TSH) 10.610uIU/mL (0.450-4.500) Hold Seay Top Tube Received (Received) Neutrophils (%) (Auto) 69.1% (40-74) Lymphocytes (%) (Auto) 16.4% (14-46) Monocytes (%) (Auto) 9.1% (4-12) Eosinophils (%) (Auto) 1.9% (0-5) Basophils (%) (Auto) 0.8% (0-3) Total Creatine Kinase 11U/L (21-215) Creatine Kinase MB 1.0ng/mL (0.0-5.3) Creatine Kinase MB % % (0.0-5.0) Troponin T 0.010ug/L (0.0-0.011) Albumin 2.3g/dL (3.4-5.0) Triglycerides Level 156mg/dL (0-149) Cholesterol Level 98mg/dL (100-199) LDL Cholesterol, Calculated 29.800mg/dL (0-99) VLDL Cholesterol 31.200mg/dL HDL Cholesterol 37mg/dL (>39) Cholesterol/HDL Ratio 2.65 (0.0-4.4) Test 03/06/16 05:45 White Blood Count 4.5th/mm3 (3.8-10.1) Red Blood Count 3.67mil/mm3 (3.90-5.20) Hemoglobin 11.3g/dL (12.0-15.6) Hematocrit 35.6% (35.0-46.0) Mean Corpuscular Volume 97.0fL (81-100) Mean Corpuscular Hemoglobin 30.8pg (27.0-35.0) Mean Corpuscular Hemoglobin Concent 31.7% (32.0-37.0) Red Cell Distribution Width 15.8% (12.3-15.4) Platelet Count 133bil/L (150-400) Activated Partial Thromboplast Time 128.6sec (22.8-33.0) Sodium Level 143mEq/L (134-144) Potassium Level 3.5mEq/L (3.5-5.2) Chloride Level 105mEq/L (97-108) Carbon Dioxide Level 26mmol/L (18-29) Blood Urea Nitrogen 12mg/dL (8-27) Creatinine 0.79mg/dL (0.57-1.00) Estimat Glomerular Filtration Rate 101mL/min (>59) Glucose Level 120mg/dL (60-99) Calcium Level 8.5mg/dL (8.5-10.1) Magnesium Level 2.2mg/dL (1.6-2.6) Free Thyroxine 1.50ng/dL (0.82-1.77) Discharge Medications Discharge Medications ([Slow-Mag71.5-119 Mg]) 2 TAB PO DAILY (Reported) Amlodipine (Amlodipine) 5 Mg Tablet 5 MG PO DAILY (Reported) Aspirin (Aspirin) 81 Mg Tablet 81 MG PO DAILY (Reported) Cholecalciferol (Vitamin D3) (Vitamin D) 400 Unit Tablet 400 UNIT PO DAILY ( Reported) Esomeprazole Magnesium (Nexium) 40 Mg Capsule.dr 40 MG PO DAILY (Reported) Fluconazole (Fluconazole) 100 Mg Tablet 100 MG PO DAILY (Reported) Hydrocortisone (Hydrocortisone) 20 Mg Tablet 60 MG PO BID (Reported) Levothyroxine (Levothyroxine) 100 Mcg Tablet 100 MCG PO DAILY (Reported) Losartan Potassium (Cozaar) 50 Mg Tablet 50 MG PO DAILY Prescribed by: KRISTAL GREY MD Metoprolol Succinate ER (Metoprolol Succinate ER) 25 Mg Tab.er.24h 25 MG PO DAILY (Reported) Potassium Chloride ER (Klor-Con M20) 20 Meq Tablet 20 MEQ PO TID (Reported) As needed ([Magic Mouth Wash]) 5 ML PO Q4H PRN PRN Esophageal spasm (Reported) Albuterol HFA (Proair HFA) 8.5 Gm Hfa.aer.ad 2 PUFFS INHALATION Q4H PRN PRN For Shortness of Breath Prescribed by: LIZETT DUNBAR MD Benzonatate (Benzonatate) 100 Mg Capsule 100 MG PO TID PRN PRN For Cough Prescribed by: KRISTAL GREY MD Guaifenesin/Codeine Phosphate (Guaifenesin-Codeine Syrup) 10 Ml Liquid 10 ML PO Q4H PRN PRN For Cough Prescribed by: KRISTAL GREY MD Oxycodone HCl (Oxycodone HCl) 10 Mg/0.5 Ml Syringe 15 MG PO QID PRN PRN For Pain (Reported) Temazepam (Temazepam) 30 Mg Cap 30 MG PO HS PRN PRN For Insomnia Prescribed by: [facility] LEE DO Followup Plan Disposition: To home Follow-up plan 1) patient to see primary care provider for BP follow-up in the next 2 weeks 2) patient should have follow-up chest x-ray in the next month or 2 Follow-up Provider: Carlos Edouard MD Follow-up with PCP in: 2 weeks Time spent Greater than 30 minutes copies to: Carlos Edouard MD, Andris E MD Mar 06, 2016 08:36
[2016-03-06] MEDS: Potassium Chloride 20 mEq SR Tablet PO SCH (08:40)
[2016-03-06] MEDS: Hydrocortisone 10 mg Tablet PO SCH (08:41)
[2016-03-06] MEDS: MeTOProlol XL 25 mg ER24 Tablet PO SCH (08:41)
[2016-03-06] MEDS: Magnesium Chloride SR 64 mg ER24 Tablet PO SCH (08:41)
--- NOTE | 2016-03-06 11:09 | DRSVH ---
PROCEDURE: US VENOUS ARM DUPLEX, BILATERAL INDICATIONS: positive d-dimer indeterminant V/Q TECHNIQUE: Real-time imaging, as well as color and pulse Doppler interrogation, was performed of both upper extr emity deep veins from the inferior neck to the antecubital fossa. COMPARISON: None. FINDINGS: The internal jugular veins, visualized portions of the subclavian veins, axillary veins, a nd brachial veins are free of intraluminal thrombus. Where physically possible, the veins are normal ly compressible. Color and pulse Doppler demonstrate normal intraluminal flow, with expected phasici ty and pulsatility. Additional scanning of the cephalic and basilic veins of the superficial system demonstrate normal compressibility, without thrombus. IMPRESSION: Normal upper extremity venous thrombosis present bilaterally. Dictated by: Allen RODGERS Interpreted: Samia Agosto MD on 03/06/2016 at 11:08 Transcribed by: SWATI on 03/06/2016 at 11:08 Approved by: Samia Agosto MD, PhD on 03/06/2016 at 17:08
[2016-03-06 11:22] VITALS: PULSE 60
--- NOTE | 2016-03-06 11:44 | NUR ---
BRANDON Verbal consent DEYA Sharp
--- NOTE | 2016-03-06 11:53 | NUR ---
Social Work Note: Initial Assessment Data& Assessment: EMR reviewed. SW met with pt at bedside to discuss discharge planning, SW role explained. Melva Watkins is a 76 year old female admitted on 03/04/2016 for pneumonia and hypoxemia. Pt has Medicare and [employer] [place] supplement insurance coverage. Pt sees Carlos Edouard MD for primary care. Pt lives in a two story home, but remains on the main level, alone. Pt is independent at baseline. Pt does own a wheelchair at home. Pt is ambulating SBA in her room at this time. Pt has has [facility] in the past and has been to [facility] in the past as well for rehab. Pt does not have LTC insurance or VA benefits. Pt provided with DPOA paperwork to take home and review. SW confirmed with pt son Shilo, he is able to transport pt home when medically ready. Pt denies any other needs. No other discharge needs identified. SW to continue to follow if any needs arise. Plan: Anticipated discharge home via POV when medically ready. Pt denies any other needs. No other discharge needs identified. SW to continue to follow if any needs arise. DEYA Sharp Addendum: 03/06/16 at 1156 by JUANA HARDWICK Amended: Links added.
[2016-03-06 11:55] VITALS: BP 145/68; PULSE 66; RESP 19; O2SAT 92
--- NOTE | 2016-03-06 13:34 | PCM.DIMED ---
Discharge Instructions Date of Service Mar 06, 2016 Dates of Hospitalization Mar 04, 2016 at 16:16 Discharge Diagnosis Discharge Diagnosis Dyspnea, cough, positive d-dimer indeterminant VQ scan, cannot diagnose pulmonary embolism without CT angiogram which requires large bore IV which patient is refusing Test Results Doppler supplement and lower extremities are negative for DVT VQ scan indeterminant Chest x-ray spot likely atelectasis/spiculated mass requires follow-up next month or 2 Diet No restrictions, Heart Healthy Activity No restrictions Call your provider Shortness of breath, Chest pain Patient Instructions Call your primary care provider, explained the situation. He may need a follow- up appointment you might not. You should have a chest x-ray in a month or 2 to follow up on the abnormalities noted this visit. Follow-up Provider: Carlos Edouard MD Follow-up with PCP in: Other (call probably in a month to 6 weeks after repeat chest x-ray done) Attending's Statement Patient refused large bore IV after multiple sticks were difficult to get small bore, therefore CT angiogram was not obtainable to definitively diagnose or rule out pulmonary embolism Ghanshyam Rice MD Mar 06, 2016 13:34
[2016-03-06] MEDS ORDERED: BENZ100C8 PO (13:37)
[2016-03-06] MEDS ORDERED: GUAI10LI PO (13:37)
[2016-03-06] MEDS ORDERED: LOSA50TA3 PO (13:37)
--- NOTE | 2016-03-06 15:42 | NUR ---
Social Work Note: Discharge Data& Assessment: Per pt is medically ready to discharge. Melva Watkins is a 76 year old female admitted on 03/04/2016 for pneumonia, hypoxemia and lactic acidosis. Per pt is medically improved and ready to discharge home via POV. SW met with pt at bedside to confirm discharge plan and assess for any unmet needs. Pt denies any other needs. Pt son Shilo coming to transport pt home. No other discharge needs identified. All updated and agreeable to plan. Plan: SW to follow up with pt regarding home health preferences. Pt denies any other needs at this time. SW to continue to follow. Pt denies any other needs. No other discharge needs identified. All updated and agreeable to plan. DEYA Sharp
--- NOTE | 2016-03-06 15:43 | NUR ---
Discharge The pt discharged from the unit at 1540 with all her belongings and her packet of discharge info. the pt verbalized understanding of all presented discharge teaching, including new scripts and follow up appointment information. The pt left the unit by wheelchair to a private vehicle. Her son will be transporting her home. The pt left with vitals WNL and A&O x3.
--- NOTE | 2016-03-06 16:45 | NUR ---
NEURO UROLOGIST order received. Pt was discharged before evaluation could be completed. Recommend outpatient evaluation due to hx of head/neck cancer s/p resection.
== END 2016-03-06 15:45 | disposition home or self-care (01) | DRG 204 ==
LOC: SED 13:37 → PCC 16:16
PROVIDERS: ADMIT Internal Medicine; ATTEND Internal Medicine
DX: R06.00 Dyspnea, unspecified (principal); R05 Cough; E83.51 Hypocalcemia; E87.6 Hypokalemia; R94.31 Abnormal electrocardiogram [ECG] [EKG]; I10 Essential (primary) hypertension; Z79.51 Long term (current) use of inhaled steroids; Z79.82 Long term (current) use of aspirin; Z87.891 Personal history of nicotine dependence; Z66 Do not resuscitate; Z85.3 Personal history of malignant neoplasm of breast; Z85.810 Personal history of malignant neoplasm of tongue

== ENCOUNTER 2016-03-27 00:51 | Inpatient (IN) | payer MEDICARE, OTHER ==
[~2016-03-27] VITALS: Ht 175.3 cm; Wt 70.0 kg
[2016-03-27] VITALS (10 sets, daily range): BP systolic 121–184; BP diastolic 53–73; PULSE 58–88; RESP 16–22; O2SAT 90–97
[~2016-03-27 00:51] MED LIST changes: +BENZ100C8 PO; +GUAI10LI PO; -HYDR2TAB27 PO; -LISI-567 PO; -LORA-302 PO; +LOSA50TA3 PO; +OXYC10SY PO
--- NOTE | 2016-03-27 01:06 | ED.REPORT ---
HPI-General Illness Date of Service Mar 27, 2016 ED Provider: Dr. Francois Barnes M.D. A 76 year old female with a medical history including hypothyroidism, hypertension, tongue cancer, breast cancer, and parathyroid adenoma presents to the ED via EMS accompanied by her son with shortness of breath onset just prior to arrival. Three days ago the patient twisted her back while getting dressed, aggravating a previous injury and resulting in constant back pain since then. The patient has also gotten progressively more confused. EMS found the patient hypertensive (148/66) and hypoxic with O2 sats of 79% on room air. She was in the hospital recently on 03/04/16 for two night stay with worsening dyspnea. The patient's history is limited due to her confusion. She takes oxycodone regularly. Nursing Notes Stated Complaint: BACK PAIN,DIFF BREATHING Chief Complaint: Respiratory Complaints Nursing Notes Reviewed: Yes Allergies: Coded Allergies: morphine (Verified Allergy, Severe, Anxiety and panic attack, 01/16/16) Sulfa (Sulfonamide Antibiotics) (Verified Allergy, Unknown, 01/16/16) Pt. was unable recall reaction to sulfa Scheduled ([Slow-Mag71.5-119 Mg]) 2 TAB PO DAILY Amlodipine (Amlodipine) 5 Mg Tablet 5 MG PO DAILY Aspirin (Aspirin) 81 Mg Tablet 81 MG PO DAILY Cholecalciferol (Vitamin D3) (Vitamin D) 400 Unit Tablet 400 UNIT PO DAILY Esomeprazole Magnesium (Nexium) 40 Mg Capsule.dr 40 MG PO DAILY Fluconazole (Fluconazole) 100 Mg Tablet 100 MG PO DAILY Hydrocortisone (Hydrocortisone) 20 Mg Tablet 60 MG PO BID Levothyroxine (Levothyroxine) 100 Mcg Tablet 100 MCG PO DAILY Lisinopril (Lisinopril) 20 Mg Tablet 20 MG PO DAILY Metoprolol Succinate ER (Metoprolol Succinate ER) 25 Mg Tab.er.24h 25 MG PO DAILY Nystatin (Nystatin) 100,000 Unit/1 Ml Oral.susp 500,000 UNIT PO 5XD Potassium Chloride ER (Klor-Con M20) 20 Meq Tablet 20 MEQ PO TID Scheduled PRN ([Magic Mouth Wash]) 5 ML PO Q4H PRN PRN Esophageal spasm Albuterol HFA (Proair HFA) 8.5 Gm Hfa.aer.ad 2 PUFFS INHALATION Q4H PRN PRN For Shortness of Breath Oxycodone (Roxicodone) 15 Mg Tablet 1-2 TAB PO QID PRN PRN For Pain Temazepam (Temazepam) 30 Mg Cap 30 MG PO HS PRN PRN For Insomnia General Time Seen by MD: 01:05 Chief Complaint Other (Shortness of Breath) Hx Obtained From: Patient, Son, EMS Arrived By: Ambulance Sudden in Onset?: Yes Onset Occurred: Just prior to arrival Symptom Duration: Since onset Location: : Back Quality: Painful Severity: Current: Moderate Severity: Maximum: Moderate Associated with: Denies: Fever Pertinent Negative: Relieved by nothing Context Related History: Reports Cancer, Reports GERD, Reports Psychiatric history Recent Healthcare: Recent doctor visit, Recent hospitalization Past Medical History Past Medical History Hypothyroidism 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 Parathyroid adenoma Reports: Cancer, GERD, Hypertension Reports: Depression Past Surgical History Tongue resection Total mastectomy Reports: Knee replacement Family History Noncontributory Smoking History Former Smoker Social History Resides at [facility] Alcohol Use: >5 per day Drug Use: Denies drug use Other Social History: Good social support, Local resident Ambulatory Status Independent Review of Systems + Hypertensive (148/66), hypoxic with O2 sats of 79% on room air Full Review of Systems Constitutional: Denies: Fever Respiratory: Reports: Shortness of breath GI: Denies: Vomiting Musculoskeletal: Reports: Back pain Psychiatric: Reports: Confusion Complete sys rev & neg: except as marked. Physical Exam Vital Signs Vital Signs Date Time Temp Pulse Resp B/P Pulse Ox O2 Delivery O2 Flow Rate FiO2 03/27/16 01:00 36.6 88 16 159/64 97 Nasal Cannula 2 Initial VS: Reviewed Head / Eyes: Atraumatic, Normocephalic Respiratory: Breath sounds normal, Clear to auscultation, No respiratory distress Abdomen / GI: Soft, Non-tender Skin: Warm, Dry General/Constitutional: Awake, Alert Alertness: Positive: Confused Distress / Hydration: Positive: Dehydration mild ENT: Airway patent Mouth: Positive: Mucous membranes dry Constricted speech and dysphonia residual from previous cancer treatments Neck: Full range of motion Scarring and radiation gore present from previous cancer treatments Cardiovascular: Heart rate NL, Regular rhythm, Heart sounds NL Trace edema bilaterally Interpretation & Diagnostics Lab Results Interpretation Result Diagram: 03/27/165 03/27/16114 Test 03/27/16 01:15 03/27/16 03:55 White Blood Count 10.4th/mm3 (3.8-10.1) Red Blood Count 4.02mil/mm3 (3.90-5.20) Hemoglobin 12.6g/dL (12.0-15.6) Hematocrit 39.6% (35.0-46.0) Mean Corpuscular Volume 98.5fL (81-100) Mean Corpuscular Hemoglobin 31.3pg (27.0-35.0) Mean Corpuscular Hemoglobin Concent 31.8% (32.0-37.0) Red Cell Distribution Width 16.7% (12.3-15.4) Platelet Count 142bil/L (150-400) Neutrophils (%) (Auto) 79.7% (40-74) Lymphocytes (%) (Auto) 9.4% (14-46) Monocytes (%) (Auto) 9.1% (4-12) Eosinophils (%) (Auto) 0.7% (0-5) Basophils (%) (Auto) 0.3% (0-3) Prothrombin Time 11.6sec (8.1-12.5) Prothromb Time International Ratio 1.08ratio Sodium Level 139mEq/L (134-144) Potassium Level 2.8mEq/L (3.5-5.2) Chloride Level 95mEq/L (97-108) Carbon Dioxide Level 30mmol/L (18-29) Blood Urea Nitrogen 12mg/dL (8-27) Creatinine 1.19mg/dL (0.57-1.00) Estimat Glomerular Filtration Rate 63mL/min (>59) Glucose Level 92mg/dL (60-99) Calcium Level 8.5mg/dL (8.5-10.1) Magnesium Level 2.1mg/dL (1.6-2.6) Total Bilirubin 1.5mg/dL (0.0-1.2) Aspartate Amino Transf (AST/SGOT) 20U/L (0-50) Alanine Aminotransferase (ALT/SGPT) 24U/L (0-32) Alkaline Phosphatase 88U/L (25-165) Ammonia 27ug/dL (18-53) Troponin T 0.010ug/L (0.0-0.011) Pro-B-Type Natriuretic Peptide 736.0pg/mL (0-738) Total Protein 5.6g/dL (6.4-8.4) Albumin 3.2g/dL (3.4-5.0) Hold Seay Top Tube Received (Received) Activated Partial Thromboplast Time 28.4sec (22.8-33.0) Alcohol, Quantitative < 10mg/dL (0-10) ECG Interpretation ECG Interpretation: Sinus rhythm rate 84 No LVH Time: 01:38 Interpreted by: ED physician X-Ray Chest Interpretation Chest Xray Interpretation: Rotated poorly shot film with prominence in right lower lobe Elevated right hemidiaphragm Left mastectomy Lots of clips View: Portable, 1 view Interpretation / Wet Read by: Wet read ED physician CT Head Interpretation CONCLUSION: Mild cerebral/cerebellar atrophy and moderate chronic small vessel disease with no acute intracranial abnormality. Transmitted to ED at 03/27/2016 - 3:11:58 AM PST Study: Head CT no contrast Interpretation / Wet Read by: Interpret - Radiologist CT Chest Interpretation CONCLUSION: Small right lung base pulmonary embolism. Some mild dependent lung changes and more diffuse interstitial abnormality, the latter could indicate some mild edema. Findings discussed with Dr. Barnes at 03/27/2016 - 3:19:47 AM PST Transmitted to ED by Jaxon Henderson D.O. at 03/27/2016 - 3:20:10 AM PST Study type: CT pulm angiogram Interpretation / Wet Read by: Interpret - Radiologist, Discussed w radiologist Re-Eval/Medical Decision Med Decision/Clinical Course 76-year-old female with breast cancer and tongue cancer previously treated, presents with an acute confusional state, hypoxemia, and chest pain. She proves to have a small pulmonary embolus in the right lower lung. Her mental status is really not improve very much and she remained somewhat confused and garbled. CT of the cranium is unrevealing. It is not impossible, given her background history of alcoholism, that she is confused because of a postictal state from withdrawal. No other significant neurological findings. Her oxygen is adequate on supplemental O2 but was quite low in the field. That may also have accounted for some of her symptoms, but her mental status is improved only minimally since correction of her hypoxemia. She is admitted now for heparinized lesion and further evaluation of her mental status. Transported in stable condition. Source of Hx: Old records Time of Eval: 03:23 Patient Status: Condition improved Re-Evaluation/Progress Note: Discussed with patient x-ray, lab, and CT results, diagnosis, and plan admit. Patient agrees with plan for care and all questions were addressed. Consultation : Referral / Consult Name: yJoti Montanez DO Consulted With: Hospitalist Call Returned at: 04:03 Scorer Helper: Agrees with eval, Agrees with plan, Accepts admit Counseled Regarding: Diagnosis, Lab results, Need for admission Discharge & Departure Primary Impression: Acute pulmonary embolism Pulmonary embolism type: other Acute cor pulmonale presence: without acute cor pulmonale Qualified Code: I26.99 - Other pulmonary embolism without acute cor pulmonale Additional Impressions: Respiratory distress Alcohol abuse Altered mental status Altered mental status type: disorientation Qualified Code: R41.0 - Disorientation, unspecified Disposition: ADMITTED TO HOSPITAL Discharge Condition All VS Reviewed: Yes Condition: Improved Referrals: Carlos Edouard MD (PCP) Scribe Attestation Portions of this note were transcribed by Gwen Walters. I, Dr. Barnes, personally performed the history, physical exam, and medical decision-making; I reviewed and confirmed the accuracy of the information in the transcribed note. Signed by: Angeles Gasca, 03/27/2016, 04:51 copies to: Carlos Edouard MD, Christopher W MD Mar 27, 2016 01:06 GWEN WALTERS Mar 27, 2016 01:20
[2016-03-27] MEDS ORDERED: 0.9% Sodium Chloride 1,000 ML IV ONE (01:10)
[2016-03-27] MEDS ORDERED: Ondansetron 2 mg/mL 2 mL Inj IVPUSH ONE (01:10)
[2016-03-27 01:26] LABS: BASOPHILS % (AUTO) 0.3 % (0-3); EOSINOPHILS % (AUTO) 0.7 % (0-5); MONOCYTES % (AUTO) 9.1 % (4-12); Mean Corpuscular Hemoglobin 31.3 pg (27.0-35.0); Mean Corpuscular Volume 98.5 fL (81-100); NEUTROPHILS % (AUTO) 79.7 % (40-74); Platelet Count 142 bil/L (150-400)
[2016-03-27 01:50] LABS: INR 1.08 ratio
[2016-03-27 02:02] LABS: Ammonia 27 ug/dL (18-53)
[2016-03-27 02:14] LABS: Magnesium 2.1 mg/dL (1.6-2.6); TROPONIN T 0.01 ug/L (0.0-0.011)
[2016-03-27] MEDS ORDERED: Heparin 25K Unit/500mL 0.45 NS 25,000 UNIT in IV Premix 1 EACH IV ONE (03:35)
[2016-03-27] MEDS ORDERED: Heparin 1,000 Units/mL 10 mL DVT/PE Bolus Inj IVPUSH ONE (03:35)
[2016-03-27] MEDS ORDERED: Heparin 25K Unit/500mL 0.45 NS 25,000 UNIT in IV Premix 1 EACH IV SCH (04:15)
[2016-03-27] MEDS ORDERED: Polyethylene Glycol (PEG) 17 Gm Powder PO PRN (04:15)
[2016-03-27] MEDS ORDERED: Alum-Mag Hydrox-Simeth 30 mL Suspension PO PRN (04:15)
[2016-03-27] MEDS ORDERED: Ondansetron 2 mg/mL 2 mL Inj IVPUSH PRN (04:15)
--- NOTE | 2016-03-27 05:21 | NUR ---
Admit Patient admitted to room 3003 at 0440 from ED. Answered most admit questions. MED LIST NOT COMPLETED- patient stated that her son has a list and took it home, she does not know her meds. SKIN CHECK NOT COMPLETED- patient refused full assessment because of severe back pain, could not assess backside. Barrington score of 12, will start pressure sore protocol. Oriented to room, call light, plan of care. [place] alarm in place. Call light within reach. Heparin infusion started in ED.
[2016-03-27] MEDS ORDERED: Acetaminophen IV 1,000 MG in IV Premix 1 EACH IV PRN (05:25)
--- NOTE | 2016-03-27 05:37 | PCM.HPMED ---
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 When asked, pt states that she is in the ER due to her chronic back pain. Pt denies any chest pain, shortness of breath, fevers, chills, nausea, vomiting, diarrhea, dysuria or myalgias. Pt reports that her primary concern is her back pain. No family was available at the time of admission/interview. Per ER physician and records, pt called her son due to back pain and shortness of breath, when he arrived at her home, she was found to be confused and ill appearing. Paramedics were called, and patient was found to be hypoxic with saturation of 79% on room air, and supplemental oxygen was provided to the patient. Review of Systems: A comprehensive review of systems was not obtained secondary to patient's confusion. Some questions were answered and are above in the History of Present Illness. Allergies Coded Allergies: morphine (Verified Allergy, Severe, Anxiety and panic attack, 01/16/16) Sulfa (Sulfonamide Antibiotics) (Verified Allergy, Unknown, 01/16/16) Pt. was unable recall reaction to sulfa Home Medications Per list provided to ER physician Amlodipine 5 mg Aspirin 81 mg Fluconazole 100 mg Hydrocortisone 60 mg twice a day Klor-Con M 20,20 mEq 3 times a day Lisinopril 20 mg Metoprolol succinate ER 25 mg Magic mouthwash Nexium 40 mg Nystatin 100,000 units per mL 5 times daily Oxycodone 15 mg 1-2 tablets as needed 4 times daily Pro-air 2 puffs as needed Slo mag 2 tablets daily Synthroid 100 MCG Temazepam 30 mg daily at bedtime Vitamin D 400 units daily PMH Below list obtained from previous records. Hypertension Hypothyroidism Squamous cell cancer of the tongue- status post resection and radiation Breast cancer status post mastectomy and chemotherapy and radiation History of parathyroid adenoma GERD Depression Surgical History Unable to obtain Family History Unable to obtain Social History Hx Alcohol Use: Yes (pt reports 2 drinks whiskey daily, family reported to ER 5 -6 drinks daily) Hx Substance Use: No Hx Tobacco Use: Yes (quit in 1991 per previous records) Smoking Status: Former Smoker Living Arrangement: Alone Exam Vital Signs Vital Sign - Last Date Time Temp Pulse Resp B/P Pulse Ox O2 Delivery O2 Flow Rate FiO2 03/27/16 04:28 79 16 146/53 95 Room Air 2 03/27/16 01:00 36.6 Intake and Output 03/26/16 03/26/16 03/27/16 Cumulative From/Thru 15:00 23:00 07:00 03/27/16 01:00 - 03/27/16 01:43 Intake Total 1000 ml 1000 ml Balance 1000 ml 1000 ml Intake IV Total 1000 ml 1000 ml Exam General: Patient is confused, and forgetful. No acute distress, well-developed, well-nourished. HEENT: Nasal canula in place. Normocephalic, atraumatic. External ears without defect. Pupils equal, round, and reactive to light and accommodation. Moist conjunctivae. Oropharynx with moist mucosa. Neck: Supple with full range of motion.No lymphadenopathy Cardiovascular: Regular rate and rhythm with no murmurs, rubs, or gallops appreciated Pulmonary: Clear to auscultation bilaterally with no crackles, wheezes, or rhonchi. Normal respiratory effort with no use of accessory muscles. Abdomen: Bowel tones present. Soft, nontender, nondistended. Extremities: Trace lower extremity edema bilaterally Skin: Normal temperature, turgor, and texture; no rash, ulcers, or subcutaneous nodules appreciated. Psychiatric: Forgetful and somewhat confused at times. Oriented to person and place, not time. Normal mood and affect. Lab and Diagnostics Result Diagram: 03/27/1611403/27/16 011 X-Rays, CTs and MRIs Imaging done in ER, no formal radiology reports available. CXR Brain CT Angio CT- Reported to ER physician as having right lung base pulmonary embolism Assessment & Plan Acute right lower lung base pulmonary embolism, present on admission, ongoing -Pt was hypoxemic in ER, and started on supplemental oxygen -CT angio done in ER, and reported to ER physician as positive for PE. Formal radiology report not yet available -Pt started on PE heparin protocol in the ER, we will continue this -Pt was recently hospitalized, it is possible this is due to inactivity, will need more information from family to assess -Review of records demonstrate that patient refused VQ scan or CT to assess for PE at her previous hospitalization -Wean O2 as able -Continue to monitor Acute hypoxemia likely secondary to pulmonary embolism, present on admission, ongoing -Pt does not use supplemental oxygen at baseline/home -BNP not elevated, last ECHO demonstrated EF -Pt presented to ER with sat 79% on RA -Currently pt requiring 2L -Will attempt to wean as able Alcohol use, present on admission, ongoing -Pt reports 2 drinks of whiskey daily, and denies any history of seizures or tremors -Per ER report, family reports pt drinks 5-6 glasses daily -Blood alcohol in ER was <10 -CIWA protocol initiated -Continue to monitor Acute encephalopathy, present on admission, ongoing -Pt had CT brain in ER, no formal report available yet -Confusion may be connected to alcohol use, medications(pt is narcotics and benzodiazepines), infection, or hypoxemia from PE -Ammonia 27, glucose within normal range -TSH ordered -UA ordered -Need to speak with family to assess her baseline mentation -Avoiding narcotics and other medications that can worsen confusion Elevated creatinine, present on admission, ongoing -Cr on admission 1.19 -Review of records demonstrate patient had normal creatinine at time of her prior discharge ( 03/06/16) -Avoid nephrotoxic medications -IVF fluids, gentle hydration -Continue to monitor with daily labs Elevated total bilirubin, present on admission, ongoing -Total bili elevated at 1.5 -Review of records demonstrate patient had normal total bilirubin at time of her prior discharge ( 03/06/16) -AST and ALT are normal -No jaundice noted on exam -Continue to monitor with daily labs 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 GERD -Once medication reconciliation is complete, will continue home medications. Hypothyroidism -Once medication reconciliation is complete, will continue home medications. Code Status: Pt is not able to discuss code status at time of admission, thus she is made Full Code, until POLST available or information from family. PCP: Dr Cleveland Patient is admitted under inpatient status with expected length of stay greater than 2 midnights due to severity of presenting symptoms, risk of adverse event, and complexity of treatment plan. Resuscitation Status: CPR: Attempt Resuscitation (NEEDS TO BE DISCUSSED WITH FAMILY, PT UNABLE TO ANSWER) Attending Statement The patient was seen and examined together with house staff on 03/27/2016\ and I agree with the history, exam and plan as outlined in the note above. copies to: Carlos Edouard MD, Tara L DO Mar 27, 2016 05:20 Jyoti Montanez DO Mar 27, 2016 06:39
[2016-03-27] MEDS: Lidocaine Topical 5% Patch TOPICAL SCH ×2 (05:50→14:57)
[2016-03-27] MEDS ORDERED: OXYC15TA45 PO (06:00)
[2016-03-27] MEDS ORDERED: METO25TA99 PO (06:00)
[2016-03-27] MEDS ORDERED: NYST1000 PO (06:00)
[2016-03-27] MEDS ORDERED: LISI-567 PO (06:00)
--- NOTE | 2016-03-27 06:02 | NUR ---
Med List Patient's medication list was found in paper chart. Entered into computer from list.
[2016-03-27] MEDS ORDERED: Albuterol HFA 60 Puff 8 Gm Inhaler INHALATION PRN (07:35)
[2016-03-27] MEDS ORDERED: Albuterol 2.5 mg/3 mL Inhalation Solution NEB PRN (07:50)
--- NOTE | 2016-03-27 08:04 | DRSVH ---
PROCEDURE: CT BRAIN WITHOUT CONTRAST ([id number]) INDICATIONS: 76 year-old woman with confusion. TECHNIQUE: Noncontrast 4.5 mm thick angled axial sections acquired from the foramen magnum to the vertex, with c oronal reformats. COMPARISON: [facility], MR, MR STROKE PROTOCOL, 09/06/2015, 17:08. [facility], CT, CT BRAIN WO CON, 09/05/2015, 20:07. FINDINGS: Image quality: Excellent. CSF spaces: Basal cisterns are patent. No extra-axial fluid collections. The ventricles are symmet rod in size and shape. Brain: No intracranial bleeds or masses. There is mild cerebral volume loss for age, with resultant ventricular and sulcal prominence. There are moderate periventricular and deep white matter chronic small vessel ischemic changes. There is intracranial internal carotid artery atherosclerosis. Skull and face: Calvarium and visualized facial bones appear intact, without suspicious lesions. Sinuses: Visualized sinuses and mastoids are clear. IMPRESSION: 1. No acute intracranial abnormalities. 2. Cerebral volume loss and chronic microvascular ischemic changes. No significant discrepancy with the welder 2nd shift radiology preliminary report. Dictated by: Daniel Delgado M.D. on 03/27/2016 at 8:00 Approved by: Daniel Delgado M.D. on 03/27/2016 at 8:02
[2016-03-27] MEDS ORDERED: Diphen-Lido-Mylanta 1:1:1 Susp 15 mL Syringe PO PRN (08:05)
--- NOTE | 2016-03-27 08:29 | DRSVH ---
PROCEDURE: CT ANGIO CHEST PULMONARY EMBOLISM ([id number]) INDICATIONS: 76 year-old woman with dyspnea and back pain. TECHNIQUE: After the administration of intravenous contrast, 2 mm thick sections acquired from the pulmonary api salma to the posterior costophrenic angles. 3-dimensional maximum intensity projection (MIP) coronal a nd sagittal reformats were then acquired through the thorax. For radiation dose reduction, the follo wing was used: automated exposure control, adjustment of mA and/or kV according to patient size. COMPARISON: [facility], MR, MR THORACIC SPINE W&WO CON, 01/16/2016, 9:15. [facility], NM, NM LUNG VQ, 03/05/2016, 15:11. [facility], CR, XR CHEST 1VW (PORTABLE), , 1:18. [facility], CT, CT ANGIO CHEST PE, 09/05/2015, 21:14. FINDINGS: Image quality: Excellent. Pulmonary arteries: There are small filling defects involving the basal segmental arteries of the rig ht lower lobe consistent with central pulmonary embolism. Lungs and pleura: Bibasilar dependent atelectasis. No focal consolidation or pleural effusion. Lungs are clear. No pleural effusions or pneumothorax. Central and peripheral airways are patent. Mediastinum: Heart size is normal, without pericardial effusion. No mediastinal or hilar adenopathy . Thoracic aorta is normal in caliber and enhancement. Esophagus is normal in caliber, without hiat al hernia. Bones and chest wall: No suspicious bony lesions. There are multiple facial fractures, severe at T7, moderate at T10, and mild at T4. Compared to the prior MRI dated 01/16/2016, severity of compressio n fractures or unchanged. Thyroid gland is not visualized. No axillary or supraclavicular adenopathy . Abdomen: Visualized upper abdominal solid organs appear normal in the early arterial phase of enhanc ement. IMPRESSION: 1. Small pulmonary emboli involving the basilar segment arteries off of the right lower lobe. 2. Bibasilar dependent atelectasis. 3. Multiple non-acute compression fractures seen throughout the spine. No significant discrepancy with the shift commander radiology preliminary report. Dictated by: Daniel Delgado M.D. on 03/27/2016 at 8:18 Approved by: Daniel Delgado M.D. on 03/27/2016 at 8:28
[2016-03-27] MEDS ORDERED: [UNRECOGNIZED DRUG - MIXTURE] PO SCH (08:30)
[2016-03-27] MEDS: Magnesium Chloride SR 64 mg ER24 Tablet PO SCH (08:30)
[2016-03-27] MEDS: Potassium Chloride 20 mEq SR Tablet PO SCH ×3 (08:30→20:30)
[2016-03-27] MEDS ORDERED: HYDROCORTISONE PO SCH (08:30)
[2016-03-27] MEDS: Multivit-Miner-Folic Acid-Iron Tablet PO SCH (08:30)
[2016-03-27 08:45] LABS: BASOPHILS % (AUTO) 0.1 % (0-3); EOSINOPHILS % (AUTO) 1.1 % (0-5); MONOCYTES % (AUTO) 7.9 % (4-12); Mean Corpuscular Hemoglobin 30.9 pg (27.0-35.0); Mean Corpuscular Volume 98.7 fL (81-100); NEUTROPHILS % (AUTO) 77.4 % (40-74); Platelet Count 140 bil/L (150-400)
[2016-03-27] MEDS: 0.9% Sodium Chloride 1,000 ML IV SCH ×2 (09:59→23:57)
[2016-03-27] MEDS: Nystatin 100,000 Unit/mL 59 mL Suspension PO SCH ×4 (10:00→22:00)
[2016-03-27] MEDS: Pantoprazole 40 mg ER24 Tablet PO SCH (10:02)
[2016-03-27] MEDS: MeTOProlol XL 25 mg ER24 Tablet PO SCH (10:04)
--- NOTE | 2016-03-27 10:08 | DRSVH ---
PROCEDURE: X-RAY CHEST ONE VIEW, PORTABLE ([id number]) INDICATIONS: p TECHNIQUE: One view of the chest was acquired. COMPARISON: [facility], CR, XR CHEST 1VW (PORTABLE), 03/04/2016, 13:55. FINDINGS: Surgical changes and devices: Right neck and left axillary surgical clips. Lungs and pleura: No pleural effusions or pneumothorax. Interstitium is prominent and mild edema lee spected. Mediastinum: Mediastinal contours appear normal. Heart size is normal. Bones and chest wall: No suspicious bony lesions. Overlying soft tissues appear unremarkable. IMPRESSION: Interstitial prominence and mild edema is suspected. Dictated by: Allen RODGERS Interpreted: Katelynn Bacon MD on 03/27/2016 at 10:07 Transcribed by: YOBANI on 03/27/2016 at 10:07 Approved by: Katelynn Bacon M.D. on 03/27/2016 at 16:28
[2016-03-27] MEDS: Hydrocortisone 10 mg Tablet PO SCH ×2 (10:14→21:54)
--- NOTE | 2016-03-27 11:07 | NUR ---
Back pain Pt unable to sit up right due to back pain 7/10 on pain scale. Pt sts "I take (3) 15 mg tablets of Oxycodone TID". Per med rec, Rx reads Oxycodone 15 mg PO 1-2 tabs QID PRN pain. Pt unable to recall when last dose was taken. MD notified, order for pain medication generated. Call light with in reach, will continue to monitor.
--- NOTE | 2016-03-27 11:53 | NUR ---
ELECTRIC SCREW DRIVER OPERATOR consultation received. Per case hx interview, baseline diet is likely dysphagia mechanical/thin. Pt would not agree to raise HOB for assessment. Given hx of radiation and chronic dysphagia, it is recommended that the pt be NPO with meds via IV until she can reposition for safe PO intake. Discussed with pt, son, and RN. ELECTRIC SCREW DRIVER OPERATOR will follow and evaluate when appropriate.
[2016-03-27] MEDS ORDERED: HYDROmorphone 1 mg/mL Inj IV PRN (12:15)
--- NOTE | 2016-03-27 12:48 | NUR ---
Social Work Initial Assessment: SW met with patient at bedside to discuss discharge plan. Patient was resting at bedside and requested that contact to son Shilo, be made. Patient resides in [facility] alone. Patient son resides next door to patient and checks in to assist with care. needs. Patient payer as Medicare and [employer]. Patient has no [facility] disability nor VA benefits. Patient PCP as MD Edouard. Patient resides in a 2 story home alone. Patient has previous SNF history at [facility]. Patient primarily uses a wheelchair at baseline. Patient also has a walker at baseline. Patient has no previous HHC history at this time. Patient has AD on file, per son. Patient also active with [employer]. 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 SW met with patient at bedside and provided HHC choice list. SW also presented patient with resource handbook. Patient denied need for services at this time, but SW discussed benefits of HHC services at discharge. SW will continue to follow up with patient to rule out HHC at discharge. SW will continue to follow. PLAN: Home alone with r/o for HHC at discharge. Active with [employer]. Patient denied HHC at this time. Choice list provided. ROMERO will continue to follow pending further clinical course to re-discuss discharge options Estefania FALK Addendum: 03/27/16 at 1259 by CARMITA HARDWICK Amended: Links added.
--- NOTE | 2016-03-27 15:14 | NUR ---
Wound Care [facility] Patient assessed for pressure ulcer protocol. Patient currently using P500 bed. No redness or other skin issues/breakdown noted. Recommend continued P500 bed and q2 hour turning schedule. Reconsult wound care if additional follow up is needed.
[2016-03-27 15:27] LABS: APPEARANCE,URINE HAZY (CLEAR,HAZY); COLOR,URINE STRAW (YELLOW)
[2016-03-27 15:28] LABS: OCCULT BLOOD,URINE TRACE (NEGATIVE); UROBILINOGEN,URINE NORMAL (NORMAL)
[2016-03-27] MEDS: Heparin 5,000 Unit/mL Inj IVPUSH PRN (18:34)
[2016-03-28] VITALS (7 sets, daily range): BP systolic 127–154; BP diastolic 56–80; PULSE 59–86; RESP 16–18; O2SAT 90–99
[2016-03-28] MEDS: Nystatin 100,000 Unit/mL 59 mL Suspension PO SCH ×6 (06:00→20:24)
[2016-03-28] MEDS: Lidocaine Topical 5% Patch TOPICAL SCH (06:02)
[2016-03-28] MEDS: Pantoprazole 40 mg ER24 Tablet PO SCH (06:13)
--- NOTE | 2016-03-28 06:33 | NUR ---
Uneventful Night: Pt rested intermittently through the night. No complaints of back pain or discomfort. NPO until swallow evaluation. CIWA:3 Heparin drip: 24.5 ml/hr. Pt refused Q2 turns. RN educated pt on importance of turning. [place] alarm for safety. Call light within reach, using appropriately.
[2016-03-28 07:41] LABS: BASOPHILS % (AUTO) 0.6 % (0-3); EOSINOPHILS % (AUTO) 0.6 % (0-5); MONOCYTES % (AUTO) 3.7 % (4-12); Mean Corpuscular Hemoglobin 31.6 pg (27.0-35.0); Mean Corpuscular Volume 96.7 fL (81-100); NEUTROPHILS % (AUTO) 87.1 % (40-74); Platelet Count 142 bil/L (150-400)
[2016-03-28 07:51] LABS: Magnesium 1.9 mg/dL (1.6-2.6)
[2016-03-28] MEDS: Heparin 5,000 Unit/mL Inj IVPUSH PRN (08:13)
[2016-03-28] MEDS: Magnesium Chloride SR 64 mg ER24 Tablet PO SCH (10:09)
[2016-03-28] MEDS: Multivit-Miner-Folic Acid-Iron Tablet PO SCH (10:10)
[2016-03-28] MEDS: Hydrocortisone 10 mg Tablet PO SCH ×2 (10:12→20:16)
[2016-03-28] MEDS ORDERED: APIX5TAB PO ×3 (10:16→15:35)
[2016-03-28] MEDS: MeTOProlol XL 25 mg ER24 Tablet PO SCH (10:18)
[2016-03-28] MEDS: Potassium Chloride 20 mEq SR Tablet PO SCH ×3 (10:31→20:17)
--- NOTE | 2016-03-28 12:56 | NUR ---
Social Work Continued Discharge Planning: SW met with patient at bedside to discuss discharge plan. Patient was provided with HHC choice list for review for possible care and assistance at home. Per report in rounds, PT to be consulted for further home safety eval. Patient states that decision has yet to be made at this time regarding need for services. SW to await therapy eval.SW acknowledged script for Eliquis. ROMERO faxed script to [facility], [phone]. SW to follow up with pharmacy to determine copay costs and coverage. SW to follow. PLAN: Home alone. Rule out for possible HHC, pending further therapy eval and clinical course. Patient denies HHC need at this time. ROMERO will continue to follow for further assistance Estefania FALK Addendum: 03/28/16 at 1454 by CARMITA ROMERO SS ROMERO spoke to pharmacist at [facility] who states that patient has a $25 co pay for Eliquis. Patient to obtain medication upon discharge. ROMERO following for therapy eval for home safety. SW to follow. Estefania FALK
[2016-03-28] MEDS: 0.9% Sodium Chloride 1,000 ML IV SCH ×2 (14:38→19:20)
--- NOTE | 2016-03-28 15:10 | NUR ---
Evaluation completed. Please go to "Notes" then click on "Assessments and Notes" (bottom left corner of screen). Then select appropriate discipline tab on top of screen.
[2016-03-28] MEDS ORDERED: Heparin 25K Unit/500mL 0.45 NS 25,000 UNIT in IV Premix 1 EACH IV SCH (16:40)
--- NOTE | 2016-03-28 16:46 | PCM.PNMED ---
Subjective Date of Service Mar 28, 2016 Subjective Patient denied chest pain, palpitation, difficulty breathing No signs of bleeding on heparin drip plan to start Eliquis tomorrow, copay$25, pt is okay Exam Vital Signs Vital Sign - Last Date Time Temp Pulse Resp B/P Pulse Ox O2 Delivery O2 Flow Rate FiO2 03/28/16 13:38 36.7 61 17 144/70 92 Nasal Cannula 2.00 Intake and Output 03/27/16 03/27/16 03/28/16 Cumulative From/Thru 15:00 23:00 07:00 03/27/16 01:00 - 03/28/16 06:27 Intake Total 1217 ml 1752 ml 3969 ml Output Total 1150 ml 1150 ml Balance 1217 ml 602 ml 2819 ml Intake Oral 100 ml 300 ml 400 ml IV Total 667 ml 1452 ml 3119 ml TPN/PPN 450 ml 450 ml Output Urine Total 1150 ml 1150 ml # Bowel Movements 0 0 0 Exam NAD, comfortably laying down on the bed no JVD, MMM, no LAD RRR, nl s1, s2 no mrg CTAB, no w,c S,ND,NT,normoactive BS+ warm, no edema, pulses 2/2 IVs and Medications Medications Reviewed: Medications were reviewed in detail Lab and Diagnostics Result Diagram: 03/28/16 0530 03/28/16 0530 X-Rays, CTs and MRIs Imaging done in ER, no formal radiology reports available. CXR Brain CT Angio CT- Reported to ER physician as having right lung base pulmonary embolism Assessment & Plan acute, active #Acute PE in the setting of immobility, some hospitalization, history of malignancy, CTPE protocol positive for PE, pt was hypoxemic in ER, and started on supplemental oxygen -today pt remained hemodynamically stable, H&H is stable, no s/s of bleeding -Pt started on PE heparin protocol in the ER, with continued until tomorrow morning, switch to Apixaban given stable renal function, 10mg bid for 7d then 5mg bid. #Acute worsening of transaminitis, AST>ALT, could be alcoholic hepatitis given ratio. asymptomatic. -will trends LFT daily for now chronic, stable Acute hypoxemia likely secondary to pulmonary embolism, present on admission -Pt does not use supplemental oxygen at baseline/home -BNP not elevated, last ECHO demonstrated EF -Pt presented to ER with sat 79% on RA -Currently pt requiring 2L -Will attempt to wean as able Alcohol use, present on admission -Pt reports 2 drinks of whiskey daily, and denies any history of seizures or tremors -Per ER report, family reports pt drinks 5-6 glasses daily -Blood alcohol in ER was <10 -CIWA protocol initiated -Continue to monitor Acute encephalopathy, present on admission -Pt had CT brain in ER, no formal report available yet -Confusion may be connected to alcohol use, medications(pt is narcotics and benzodiazepines), infection, or hypoxemia from PE -Ammonia 27, glucose within normal range -TSH ordered -UA ordered -Need to speak with family to assess her baseline mentation -Avoiding narcotics and other medications that can worsen confusion Elevated creatinine, present on admission -Cr on admission 1.19 -Review of records demonstrate patient had normal creatinine at time of her prior discharge ( 03/06/16) -Avoid nephrotoxic medications -IVF fluids, gentle hydration -Continue to monitor with daily labs Elevated total bilirubin, present on admission -Total bili elevated at 1.5 -Review of records demonstrate patient had normal total bilirubin at time of her prior discharge ( 03/06/16) -AST and ALT are normal -No jaundice noted on exam -Continue to monitor with daily labs 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 GERD -Once medication reconciliation is complete, will continue home medications. Hypothyroidism -Once medication reconciliation is complete, will continue home medications. Code Status: Pt is not able to discuss code status at time of admission, thus she is made Full Code, until POLST available or information from family. PCP: Dr Cleveland dispo:d/c being delayed given acute worsening transaminitis, will d/c if it's trending down. diet: advance as tolerated dvt ppx: systemic AC Resuscitation Status: CPR: Attempt Resuscitation (NEEDS TO BE DISCUSSED WITH FAMILY, PT UNABLE TO ANSWER) Time spent 35 minutes Maik Salinas MD Mar 28, 2016 16:46
--- NOTE | 2016-03-28 18:12 | NUR ---
Resp. status/PE- Patient denies chest pain or shortness of breath. Room air Spo2 >92%. Lungs clear. Patient upset at times regarding having VS taken, diet, and having to be in the hospital. Heparin infusing per PE/DVT protocol. No signs of bleeding noted.
[2016-03-29] MEDS: Lidocaine Topical 5% Patch TOPICAL SCH (04:42)
[2016-03-29 04:43] VITALS: BP 161/75; PULSE 78; RESP 18; O2SAT 94
[2016-03-29] MEDS: 0.9% Sodium Chloride 1,000 ML IV SCH (04:43)
[2016-03-29] MEDS: Nystatin 100,000 Unit/mL 59 mL Suspension PO SCH ×3 (06:00→14:00)
[2016-03-29] MEDS: Pantoprazole 40 mg ER24 Tablet PO SCH (06:55)
--- NOTE | 2016-03-29 07:18 | NUR ---
Activities Up to BSC SBA and tolerated well. Pt incompliant with O2 NC. She removes O2 occasionally and SPO2 90-88% Heparin gtt per PE/DVT protocol. Recent Heparin rate = 16 units/kg/hr. No overt complications noted.
[2016-03-29 08:00] LABS: BASOPHILS % (AUTO) 0.2 % (0-3); EOSINOPHILS % (AUTO) 0.2 % (0-5); MONOCYTES % (AUTO) 6.1 % (4-12); Mean Corpuscular Hemoglobin 31.5 pg (27.0-35.0); Mean Corpuscular Volume 97.5 fL (81-100); NEUTROPHILS % (AUTO) 78.7 % (40-74); Platelet Count 133 bil/L (150-400)
[2016-03-29 08:35] LABS: Magnesium 1.9 mg/dL (1.6-2.6); Phosphorus 1.9 mg/dL (2.5-4.9)
[2016-03-29 08:45] VITALS: PULSE 70
[2016-03-29] MEDS: Hydrocortisone 10 mg Tablet PO SCH (08:46)
[2016-03-29] MEDS: Potassium Chloride 20 mEq SR Tablet PO SCH ×2 (08:48→14:30)
[2016-03-29] MEDS: Magnesium Chloride SR 64 mg ER24 Tablet PO SCH (08:49)
[2016-03-29] MEDS: Multivit-Miner-Folic Acid-Iron Tablet PO SCH (08:49)
[2016-03-29] MEDS: MeTOProlol XL 25 mg ER24 Tablet PO SCH (08:49)
[2016-03-29 09:54] VITALS: BP 145/67; PULSE 65; RESP 18; O2SAT 97
[2016-03-29 10:03] VITALS: PULSE 72
--- NOTE | 2016-03-29 10:34 | NUR ---
Social Work: Readiness for d/c Data: Pt is on day 2 of hospitalization. EMR reviewed, pt discussed in rounds. states pt likely to d/c today. PT was previously ordered to see pt, RN requested to walk pt to see how pt is moving. Pt has declined HH. RT to evaluate pt for home O2 needs. INVESTMENT STRATEGIST will continue to follow. Assessment: Pt who is independent at baseline. Plan: Pt will d/c home via POV when medically stable. Pt declining HH. RT to evaluate for home O2. INVESTMENT STRATEGIST will continue to follow. DEYA Mcmahon
--- NOTE | 2016-03-29 12:37 | NUR ---
Heparin Drip At approximately 0900, per PCP orders pt was removed from heparin drip. At time of removal current rate was 16 units/kg/hr. aPTT was 61.1.
--- NOTE | 2016-03-29 14:26 | NUR ---
road test done on pt. RA SaO2 resting is 95%. Pt amb on RA with lowest SaO2 91%. SaO2 93% resting on RA after amb. RN notifed.
--- NOTE | 2016-03-29 14:37 | PCM.DIMED ---
Discharge Instructions Date of Service Mar 29, 2016 Dates of Hospitalization Mar 27, 2016 at 04:10 Discharge Diagnosis Discharge Diagnosis new onset acute pulmonary embolism Medication Instructions Please take Apixaban on 10 mg twice a day for 7days, then 5mg twice a day afterwards Stop taking aspirin to decrease risks of bleeding Diet No restrictions Activity No restrictions Call your provider Shortness of breath, Bleeding Patient Instructions You were hospitalized with both clots in the lungs, treated successfully with blood thinner. Please follow medicine instruction as above Please monitor symptoms of bleeding such as bloody stools, stools, sudden onset of headache or dizziness. If it happens stopped taking blood thinner, return to emergency room. Follow-up plan Please follow-up with your primary doctor in 2 weeks Follow-up Provider: Calros Edouard MD Follow-up with PCP in: 2 weeks Maik Salinas MD Mar 29, 2016 14:37
--- NOTE | 2016-03-29 15:00 | NUR ---
Discharge Reviewed d/c instructions with pt including care notes and new prescriptions, pt signed and given originals, copies to chart. IV d/c intact, tele removed. VS stable at d/c. All belongings packed by pt. Pt's son to worm picker JUDAH and take her home. Care continues in meantime. Addendum: 03/29/16 at 1609 by DANA DUENAS RN Pt taken off unit via WC to son's car by CARISSA with all belongings
--- NOTE | 2016-03-29 15:21 | NUR ---
Social Work: Discharge Data: Pt is on day 2 of hospitalization. EMR reviewed. Pt continues to decline HH. Pt currently has [facility] [facility] and in a wheel chair at baseline. No further d/c planning needs at this time. FIELD ADJUSTER will continue to follow. Assessment: Pt who is independent at baseline, in wheel chair. Plan: Pt discharged home via POV. Pt continues to decline HH. Pt currently has [employer] and in a wheel chair at baseline. No further d/c planning needs at this time. FIELD ADJUSTER will continue to follow. DEYA Mcmahon
--- NOTE | 2016-03-29 16:28 | NUR ---
Discharge 1445 - Pt was discharge was received. Pt was given educational handouts and rx transcripts. IV removed, catheter intact. Tele removed. Pt was sent home without oxygen, pt was 92% on RA. Pt's son arrived to take home via car.
--- NOTE | 2016-03-31 14:02 | PCM.DC.MED ---
Discharge Summary Date of Service Mar 29, 2016 Dates of Hospitalization Date of Hospital Admission Mar 27, 2016 at 04:10 Date of Discharge: Mar 29, 2016 Providers: Admitting Physician: Jyoti Montanez DO Primary Care Physician: Carlos Edouard MD Attending Physician: Jyoti Montanez DO Diagnosis at Time of Discharge Diagnosis at Time of Discharge new onset acute pulmonary embolism, subsegmental transient transaminitis Acute encephalopathy,likely thought to be multifactorial PAULA,likely prerenal, hyperbilirubinemia, likely due to biliary sludge in the setting of acute stress/ illness chronic, stable #Alcohol use #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 TECHNIQUE: After the administration of intravenous contrast, 2 mm thick sections acquired from the pulmonary apices to the posterior costophrenic angles. 3-dimensional maximum intensity projection (MIP) coronal and sagittal reformats were then acquired through the thorax. For radiation dose reduction, the following was used: automated exposure control, adjustment of mA and/or kV according to patient size. COMPARISON: [facility], MR, MR THORACIC SPINE W&WO CON, 01/16/2016 , 9:15. [facility], NM, NM LUNG VQ, 03/05/2016, 15:11. [facility], CR, XR CHEST 1VW (PORTABLE), 03/27/2016, 1:18. [facility], CT, CT ANGIO CHEST PE, 09/05/2015, 21:14. FINDINGS: Image quality: Excellent. Pulmonary arteries: There are small filling defects involving the basal segmental arteries of the right lower lobe consistent with central pulmonary embolism. Lungs and pleura: Bibasilar dependent atelectasis. No focal consolidation or pleural effusion. Lungs are clear. No pleural effusions or pneumothorax. Central and peripheral airways are patent. Mediastinum: Heart size is normal, without pericardial effusion. No mediastinal or hilar adenopathy. Thoracic aorta is normal in caliber and enhancement. Esophagus is normal in caliber, without hiatal hernia. Bones and chest wall: No suspicious bony lesions. There are multiple facial fractures, severe at T7, moderate at T10, and mild at T4. Compared to the prior MRI dated 01/16/2016, severity of compression fractures or unchanged. Thyroid gland is not visualized. No axillary or supraclavicular adenopathy. Abdomen: Visualized upper abdominal solid organs appear normal in the early arterial phase of enhancement. IMPRESSION: 1. Small pulmonary emboli involving the basilar segment arteries off of the right lower lobe. 2. Bibasilar dependent atelectasis. 3. Multiple non-acute compression fractures seen throughout the spine. No significant discrepancy with the cnc machinist 2nd shift radiology preliminary report. Dictated by: Daniel Delgado M.D. on 03/27/2016 at 8:18 Approved by: Daniel Delgado M.D. on 03/27/2016 at 8:28 PROCEDURE: CT BRAIN WITHOUT CONTRAST ([id number]) INDICATIONS: 76 year-old woman with confusion. TECHNIQUE: Noncontrast 4.5 mm thick angled axial sections acquired from the foramen magnum to the vertex, with coronal reformats. COMPARISON: [facility], MR, MR STROKE PROTOCOL, 09/06/2015, 17:08. [facility], CT, CT BRAIN WO CON, 09/05/2015, 20:07. FINDINGS: Image quality: Excellent. CSF spaces: Basal cisterns are patent. No extra-axial fluid collections. The ventricles are symmetric in size and shape. Brain: No intracranial bleeds or masses. There is mild cerebral volume loss for age, with resultant ventricular and sulcal prominence. There are moderate periventricular and deep white matter chronic small vessel ischemic changes. There is intracranial internal carotid artery atherosclerosis. Skull and face: Calvarium and visualized facial bones appear intact, without suspicious lesions. Sinuses: Visualized sinuses and mastoids are clear. IMPRESSION: 1. No acute intracranial abnormalities. 2. Cerebral volume loss and chronic microvascular ischemic changes. No significant discrepancy with the cnc machinist 2nd shift radiology preliminary report. PROCEDURE: X-RAY CHEST ONE VIEW, PORTABLE ([id number]) INDICATIONS: p TECHNIQUE: One view of the chest was acquired. COMPARISON: [facility], CR, XR CHEST 1VW (PORTABLE), 03/04/2016, 13: 55. FINDINGS: Surgical changes and devices: Right neck and left axillary surgical clips. Lungs and pleura: No pleural effusions or pneumothorax. Interstitium is prominent and mild edema suspected. Mediastinum: Mediastinal contours appear normal. Heart size is normal. Bones and chest wall: No suspicious bony lesions. Overlying soft tissues appear unremarkable. IMPRESSION: Interstitial prominence and mild edema is suspected. Dictated by: Allen Pollack RRA Interpreted: Katelynn Bacon MD on 03/27/2016 at 10: 07 Transcribed by: YOBANI on 03/27/2016 at 10:07 Approved by: Katelynn Bacon M.D. on 03/27/2016 at 16:28 Brief History HPI obtained by on 03/27 76 yr old female with history of breast cancer s/p radiation, chemotherapy, mastectomy and squamous cell cancer of tongue s/t radiation, chemo and surgery presented with confusion. When asked, pt states that she is in the ER due to her chronic back pain. Pt denies any chest pain, shortness of breath, fevers, chills, nausea, vomiting, diarrhea, dysuria or myalgias. Pt reports that her primary concern is her back pain. No family was available at the time of admission/interview. Per ER physician and records, pt called her son due to back pain and shortness of breath, when he arrived at her home, she was found to be confused and ill appearing. Paramedics were called, and patient was found to be hypoxic with saturation of 79% on room air, and supplemental oxygen was provided to the patient. Hospital Course acute problems #Acute PE in the setting of immobility, some hospitalization, history of malignancy, CTPE protocol positive for PE, small filling defects involving the basal segmental arteries of the right lower lobe. pt was hypoxemic in ER, and started on supplemental oxygen, Pt started on PE heparin protocol in the ER, switch to Apixaban given stable renal function, 10mg bid for 7d then 5mg bid. patient remained hemodynamically stable, H&H is stable, no s/s of bleeding, deemed safe for d/c. At this point, despite small PE, initial hypoxia, clinical improvement with AC, seemed reasonable to continue AC upon d/c #transient transaminitis, AST>ALT, could be alcoholic hepatitis given ratio. remain asymptomatic, quickly resolved upon d/c, no intervention required. #Acute encephalopathy, CT brain no acute findings, likely thought to be multifactorial-alcohol use, medications(pt is narcotics and benzodiazepines), infection, or hypoxemia from PE, MS back to baseline as pt clinically improved. 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 #History of breast cancer, s/p chemotherapy/radiation/mastectomy, not active #Chronic hypertension, present on admission, ongoing, stable #GERD, continued home medications. #Hypothyroidism, continued home medications. Exam Vital Signs (Last) Date Time Temp Pulse Resp B/P Pulse Ox O2 Delivery O2 Flow Rate FiO2 03/29/16 10:03 72 03/29/16 09:54 36.4 18 145/67 97 Nasal Cannula 2.00 Exam NAD, comfortably laying down on the bed no JVD, MMM, no LAD RRR, nl s1, s2 no mrg CTAB, no w,c S,ND,NT,normoactive BS+ warm, no edema, pulses 2/2 Test 03/27/16 01:15 03/27/16 03:55 03/27/16 08:33 03/27/16 15:08 Prothrombin Time 11.6sec (8.1-12.5) Prothromb Time International Ratio 1.08ratio Ammonia 27ug/dL (18-53) Troponin T 0.010ug/L (0.0-0.011) Pro-B-Type Natriuretic Peptide 736.0pg/mL (0-738) Hold Seay Top Tube Received (Received) Alcohol, Quantitative < 10mg/dL (0-10) Prealbumin 12mg/dL (20-40) Urine Color Straw (YELLOW) Urine Appearance Hazy (CLEAR,HAZY) Urine pH 6.0 (5.0-8.0) Urine Specific [place] 1.015 (1.003-1.035) Urine Protein Negativemg/dL (NEG,TRACE) Urine Glucose (UA) Negativemg/dL (NEGATIVE) Urine Ketones 15mg/dL (NEGATIVE) Urine Occult Blood Trace (NEGATIVE) Urine Nitrite Negative (NEGATIVE) Urine Bilirubin Negative (NEGATIVE) Urine Urobilinogen Normalmg/dL (NORMAL) Urine Leukocyte Esterase Negative (NEGATIVE) Urine RBC 0-2/hpf (0-2) Urine WBC 0-5/hpf (0-5) Urine Epithelial Cells Occasional/hpf (NONE-MOD) Urine Crystals None seen (NONE SEEN) Urine Bacteria Moderate/hpf (NONE-FEW) Urine Hyaline Casts None/lpf (NONE) Urine Granular Casts None seen (NONE SEEN) Urine Waxy Casts None seen (NONE SEEN) Urine Red Blood Cell Casts None seen (NONE SEEN) Urine White Blood Cell Casts None seen (NONE SEEN) Urine Mucus None seen (None Seen) Urine Trichomonas None seen (NONE SEEN) Urine Yeast None (NONE SEEN) Urinalysis Comment None Urine Culture Reflexed Indicated Test 03/29/16 07:40 White Blood Count 5.3th/mm3 (3.8-10.1) Red Blood Count 3.56mil/mm3 (3.90-5.20) Hemoglobin 11.2g/dL (12.0-15.6) Hematocrit 34.7% (35.0-46.0) Mean Corpuscular Volume 97.5fL (81-100) Mean Corpuscular Hemoglobin 31.5pg (27.0-35.0) Mean Corpuscular Hemoglobin Concent 32.3% (32.0-37.0) Red Cell Distribution Width 15.9% (12.3-15.4) Platelet Count 133bil/L (150-400) Neutrophils (%) (Auto) 78.7% (40-74) Lymphocytes (%) (Auto) 14.2% (14-46) Monocytes (%) (Auto) 6.1% (4-12) Eosinophils (%) (Auto) 0.2% (0-5) Basophils (%) (Auto) 0.2% (0-3) Activated Partial Thromboplast Time 61.1sec (22.8-33.0) Sodium Level 141mEq/L (134-144) Potassium Level 3.7mEq/L (3.5-5.2) Chloride Level 104mEq/L (97-108) Carbon Dioxide Level 25mmol/L (18-29) Blood Urea Nitrogen 13mg/dL (8-27) Creatinine 0.63mg/dL (0.57-1.00) Estimat Glomerular Filtration Rate 131mL/min (>59) Glucose Level 152mg/dL (60-99) Calcium Level 7.9mg/dL (8.5-10.1) Phosphorus Level 1.9mg/dL (2.5-4.9) Magnesium Level 1.9mg/dL (1.6-2.6) Total Bilirubin 0.7mg/dL (0.0-1.2) Aspartate Amino Transf (AST/SGOT) 13U/L (0-50) Alanine Aminotransferase (ALT/SGPT) 14U/L (0-32) Alkaline Phosphatase 76U/L (25-165) Total Protein 4.5g/dL (6.4-8.4) Albumin 2.8g/dL (3.4-5.0) Discharge Medications Discharge Medications ([Slow-Mag71.5-119 Mg]) 2 TAB PO DAILY (Reported) Amlodipine (Amlodipine) 5 Mg Tablet 5 MG PO DAILY (Reported) Apixaban (Eliquis) 5 Mg Tablet 5 MG PO DIRECTED take 2tab 10mg twice a day for 7days take 1tab 5mg twice a day afterwards Prescribed by: MAIK BERGERON MD Cholecalciferol (Vitamin D3) (Vitamin D) 400 Unit Tablet 400 UNIT PO DAILY ( Reported) Esomeprazole Magnesium (Nexium) 40 Mg Capsule.dr 40 MG PO DAILY (Reported) Fluconazole (Fluconazole) 100 Mg Tablet 100 MG PO DAILY (Reported) Hydrocortisone (Hydrocortisone) 20 Mg Tablet 60 MG PO BID (Reported) Levothyroxine (Levothyroxine) 100 Mcg Tablet 100 MCG PO DAILY (Reported) Lisinopril (Lisinopril) 20 Mg Tablet 20 MG PO DAILY (Reported) Metoprolol Succinate ER (Metoprolol Succinate ER) 25 Mg Tab.er.24h 25 MG PO DAILY (Reported) Nystatin (Nystatin) 100,000 Unit/1 Ml Oral.susp 500,000 UNIT PO 5XD (Reported) Potassium Chloride ER (Klor-Con M20) 20 Meq Tablet 20 MEQ PO TID (Reported) As needed ([Magic Mouth Wash]) 5 ML PO Q4H PRN PRN Esophageal spasm (Reported) Albuterol HFA (Proair HFA) 8.5 Gm Hfa.aer.ad 2 PUFFS INHALATION Q4H PRN PRN For Shortness of Breath Prescribed by: LIZETT DUNBAR MD Oxycodone (Roxicodone) 15 Mg Tablet 1-2 TAB PO QID PRN PRN For Pain (Reported) Temazepam (Temazepam) 30 Mg Cap 30 MG PO HS PRN PRN For Insomnia Prescribed by: VA LEE, DO Additional med instructions Please take Apixaban on 10 mg twice a day for 7days, then 5mg twice a day afterwards Stop taking aspirin to decrease risks of bleeding Followup Plan Follow-up plan Please follow-up with your primary doctor in 2 weeks Discharge Diet: No restrictions Discharge Activity: No restrictions Patient Instructions You were hospitalized with both clots in the lungs, treated successfully with blood thinner. Please follow medicine instruction as above Please monitor symptoms of bleeding such as bloody stools, stools, sudden onset of headache or dizziness. If it happens stopped taking blood thinner, return to emergency room. Follow-up Provider: Carlos Edouard MD Follow-up with PCP in: 2 weeks Maik Bergeron MD Mar 29, 2016 17:02
== END 2016-03-29 15:21 | disposition home or self-care (01) | DRG 175 ==
LOC: SED 00:51 → MPC 04:10
PROVIDERS: ADMIT Internal Medicine; ATTEND Internal Medicine
DX: I26.99 Other pulmonary embolism without acute cor pulmonale (principal); G93.40 Encephalopathy, unspecified; N17.8 Other acute kidney failure; R17 Unspecified jaundice; Z85.810 Personal history of malignant neoplasm of tongue; Z79.82 Long term (current) use of aspirin; Z85.3 Personal history of malignant neoplasm of breast; Z87.891 Personal history of nicotine dependence; Z90.10 Acquired absence of unspecified breast and nipple; Z72.89 Other problems related to lifestyle; I10 Essential (primary) hypertension; K21.9 Gastro-esophageal reflux disease without esophagitis; E03.9 Hypothyroidism, unspecified

== ENCOUNTER 2016-05-24 14:28 | Inpatient (IN) | payer MEDICARE, OTHER ==
[~2016-05-24] VITALS: Ht 175.3 cm; Wt 69.0 kg
[~2016-05-24 14:28] MED LIST changes: +APIX5TAB PO; -ASPI-973 PO; -BENZ100C8 PO; -GUAI10LI PO; +LISI-567 PO; -LOSA50TA3 PO; +NYST1000 PO; -OXYC10SY PO; +OXYC15TA45 PO
[2016-05-24 14:44] VITALS: BP 118/62; PULSE 67; RESP 14; O2SAT 95
[2016-05-24 15:42] LABS: BASOPHILS % (AUTO) 0.2 % (0-3); EOSINOPHILS % (AUTO) 0.8 % (0-5); MONOCYTES % (AUTO) 8.8 % (4-12); Mean Corpuscular Hemoglobin 28.5 pg (27.0-35.0); Mean Corpuscular Volume 91.3 fL (81-100); NEUTROPHILS % (AUTO) 75.3 % (40-74); Platelet Count 265 bil/L (150-400)
[2016-05-24 15:58] LABS: INR 1.07 ratio
--- NOTE | 2016-05-24 16:05 | ED.REPORT ---
HPI-General Illness Date of Service May 24, 2016 ED Provider: Dez Lr Iliana DO 76 y/o female with a hx of EtOH use, compression fractures and on Eloquis who presents to the ED via EMS complaining of low back pain, onset 5 days ago. Pt also reports difficulty getting out of bed for the past 5 days and is only able to walk a very short distance. As per the EMS, the pt has had a fall but the pt denies any recent fall, abd pain and chest pain. As per the pt's son "in the last 8 or 9 months, she has been falling frequently" but that has decreased since he bought her a walker. Pt lives alone. Pt's son also reports that she has been taking oxycodone for approximately 12 years but was recently denied prescription by her PCP. Pt denies headache, and loss of bowel or bladder function. Nursing Notes Stated Complaint: CHRONIC BACK PAIN Chief Complaint: General Complaint Nursing Notes Reviewed: Yes Allergies: Coded Allergies: morphine (Verified Allergy, Severe, Anxiety and panic attack, 01/16/16) Sulfa (Sulfonamide Antibiotics) (Verified Allergy, Unknown, 01/16/16) Pt. was unable recall reaction to sulfa Scheduled ([Slow-Mag71.5-119 Mg]) 2 TAB PO DAILY Amlodipine (Amlodipine) 5 Mg Tablet 5 MG PO DAILY Apixaban (Eliquis) 5 Mg Tablet 5 MG PO BID Calcitonin [place] (Miacalcin) 30 [place]/3.7 Ml Nasalspr 1 SPRAY NA DAILY [place] in 1 Nostril (Alternating Nostrils) Daily Cholecalciferol (Vitamin D3) (Vitamin D) 400 Unit Tablet 400 UNIT PO DAILY Esomeprazole Magnesium (Nexium) 40 Mg Capsule.dr 40 MG PO DAILY Hydrocortisone (Hydrocortisone) 20 Mg Tablet 60 MG PO BID Levothyroxine (Levothyroxine) 125 Mcg Tablet 125 MCG PO DAILY Lisinopril (Lisinopril) 20 Mg Tablet 20 MG PO DAILY Losartan Potassium (Losartan Potassium) 50 Mg Tablet 50 MG PO DAILY Metoprolol Succinate ER (Metoprolol Succinate ER) 25 Mg Tab.er.24h 25 MG PO DAILY Potassium Chloride ER (Klor-Con M20) 20 Meq Tablet 20 MEQ PO TID Tamsulosin (Flomax) 0.4 Mg Capsule 0.4 MG PO DAILY Scheduled PRN Albuterol HFA (Proair HFA) 8.5 Gm Hfa.aer.ad 2 PUFFS INHALATION Q4H PRN PRN For Shortness of Breath Oxycodone (Roxicodone) 15 Mg Tablet 1-2 TAB PO QID PRN PRN For Pain Temazepam (Temazepam) 30 Mg Cap 30 MG PO HS PRN PRN For Insomnia General Time Seen by MD: 16:00 Chief Complaint Back pain Hx Obtained From: Patient Arrived By: Ambulance Sudden in Onset?: No Onset Occurred: 5 days ago Symptom Duration: Since onset Location: : Back Quality: Painful Severity: Current: Moderate Severity: Maximum: Moderate Past Medical History Past Medical History Hypothyroidism 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 Parathyroid adenoma Reports: Cancer, GERD, Hypertension Reports: Depression Past Surgical History Tongue resection Total mastectomy Reports: Knee replacement Family History Noncontributory Smoking History Former Smoker Social History Resides at [facility] Alcohol Use: >5 per day Drug Use: Denies drug use Other Social History: Good social support, Local resident Ambulatory Status Independent Review of Systems Full Review of Systems Constitutional: Denies: Fever Respiratory: Denies: Shortness of breath Cardiovascular: Denies: Chest pain Musculoskeletal: Reports: Lumbar pain Neurologic: Denies: Bladder dysfunction, Bowel dysfunction, Change LOC, Headache Complete sys rev & neg: except as marked. Physical Exam Vital Signs Vital Signs Date Time Temp Pulse Resp B/P Pulse Ox O2 Delivery O2 Flow Rate FiO2 05/24/16 18:21 60 18 142/69 85 Nasal Cannula 2 05/24/16 17:00 90 14 127/47 93 Room Air 05/24/16 14:44 35.9 67 14 118/62 95 Room Air Initial VS: Reviewed General/Constitutional: Well-developed, Well-nourished Head / Eyes: Atraumatic, Normocephalic, PERRL ENT: Mucous membranes moist, Conjunctiva normal, No scleral icterus Neck: Supple, Non-tender, Full range of motion Respiratory: Breath sounds normal, Clear to auscultation, No respiratory distress Cardiovascular: Regular rate & rhythm, Heart sounds normal, Intact distal pulses Abdomen / GI: Soft, Non-tender, No guarding, No rebound, No distention Extremities: Vascular intact, Neuro intact, No swelling, No tenderness Skin: Warm, Dry, No cyanosis Neurologic: Alert, Oriented, Nonfocal Psychiatric: Mood/affect normal, Behavior normal, Normal thought content Back: Bruising to L posterior rib cage Midlumbar TTP Lower Extremity / Pelvis / MS: Neurologic intact, Vascular intact Intact motosensory in LE. Interpretation & Diagnostics Lab Results Interpretation Result Diagram: 05/24/16 1535 05/24/16 1535 Test 05/24/16 15:35 White Blood Count 8.7th/mm3 (3.8-10.1) Red Blood Count 4.03mil/mm3 (3.90-5.20) Hemoglobin 11.5g/dL (12.0-15.6) Hematocrit 36.8% (35.0-46.0) Mean Corpuscular Volume 91.3fL (81-100) Mean Corpuscular Hemoglobin 28.5pg (27.0-35.0) Mean Corpuscular Hemoglobin Concent 31.3% (32.0-37.0) Red Cell Distribution Width 16.0% (12.3-15.4) Platelet Count 265bil/L (150-400) Neutrophils (%) (Auto) 75.3% (40-74) Lymphocytes (%) (Auto) 14.0% (14-46) Monocytes (%) (Auto) 8.8% (4-12) Eosinophils (%) (Auto) 0.8% (0-5) Basophils (%) (Auto) 0.2% (0-3) Prothrombin Time 11.5sec (8.1-12.5) Prothromb Time International Ratio 1.07ratio Sodium Level 140mEq/L (134-144) Potassium Level 2.9mEq/L (3.5-5.2) Chloride Level 99mEq/L (97-108) Carbon Dioxide Level 27mmol/L (18-29) Blood Urea Nitrogen 18mg/dL (8-27) Creatinine 1.03mg/dL (0.57-1.00) Estimat Glomerular Filtration Rate 74mL/min (>59) Glucose Level 92mg/dL (60-99) Calcium Level 9.5mg/dL (8.5-10.1) Total Bilirubin 0.5mg/dL (0.0-1.2) Aspartate Amino Transf (AST/SGOT) 20U/L (0-50) Alanine Aminotransferase (ALT/SGPT) 20U/L (0-32) Alkaline Phosphatase 101U/L (25-165) Troponin T < 0.010ug/L (0.0-0.011) Pro-B-Type Natriuretic Peptide 1131pg/mL (0-738) Total Protein 5.8g/dL (6.4-8.4) Albumin 3.4g/dL (3.4-5.0) Hold Seay Top Tube Received (Received) Alcohols < 10mg/dL (0-10) General Lab Results Interp 1: Labs reviewed ECG Interpretation ECG Interpretation: Sinus rhythm. Rate 62. Time: 18:53 Interpreted by: ED physician X-Ray Chest Interpretation Chest Xray Interpretation: IMPRESSION: 1. Limited study demonstrates pulmonary vascular prominence compatible with vascular crowding or mild edema. Recommend a repeat PA and lateral study when clinically feasible if indicated. Dictated by: Rayo Arias M.D. on 05/24/2016 at 17:21 View: AP & lat Interpretation / Wet Read by: Interpret - Radiologist X-Ray Interpretation Xray Interpretation: IMPRESSION: 1. Transitional anatomy at the lumbar spine redemonstrated. 2. Superior endplate compression fracture of the L3 vertebral body of indeterminate acuity but new compared to the prior study. No retropulsed bony fragments. 3. Mild aneurysmal dilatation of the abdominal aorta. Dictated by: Rayo Arias M.D. on 05/24/2016 at 17:15 Study Performed: Lumbar spine Interpretation / Wet Read by: Interpret - Radiologist CT Head Interpretation IMPRESSION: 1. No acute intracranial abnormality. 2. Moderate chronic white matter small vessel ischemic changes and mild cerebral volume loss. Dictated by: Rayo Arias M.D. on 05/24/2016 at 19:14 Study: Head CT no contrast Interpretation / Wet Read by: Interpret - Radiologist CT Chest Interpretation IMPRESSION: 1. No evidence of central pulmonary embolism. 2. Septal thickening and scattered groundglass opacities in the lungs compatible with pulmonary edema. 3. Small region of atelectasis or consolidation in the inferior right middle lobe. 4. Multiple compression fractures redemonstrated in the thoracic spine including a severe compression fracture at T7 with associated slight posterior displacement of the vertebral body and associated moderate spinal canal narrowing. Dictated by: Rayo Arias M.D. on 05/24/2016 at 19:44 Study type: CT pulm angiogram Interpretation / Wet Read by: Interpret - Radiologist Re-Eval/Medical Decision Med Decision/Clinical Course Patient has underlying hypoxia which is new and she is not oxygen dependent previously , she should be admitted for supplement oxygen and further delineation as the cause of this. She has back injury and fracture of unclear chronicity without overt signs of cauda equina syndrome or central spinal cord compression of any significance. She is generally been resistant to medical treatment which somewhat obscured our ability to do a workup initially however she has agreed to become more compliant. It should be noted that he was ordered however never given. The admitted. Time of Eval: 16:58 Re-Evaluation/Progress Note: Recheck to talk with son regarding plan. Pt has been denying imaging. Time of Eval: 17:36 Re-Evaluation/Progress Note: updated of imaging. Time of Eval: 18:16 Re-Evaluation/Progress Note: Pt requesting admission, but still refusing medical care. Time of Eval: 18:06 Re-Evaluation/Progress Note: Updated family. Pt o2 sats noted to be 86%. Pt is hypoxic. Needs to be on O2. Time of Eval: 18:28 Re-Evaluation/Progress Note: Plan for admission. Refuses to go home but is also refusing medical care. Consultation : Referral / Consult Name: Jyoti Montanez DO Consulted With: Hospitalist Call Returned at: 19:59 Blanket Weaver: Will see patient, Agrees with eval, Agrees with plan, Accepts admit Counseled Regarding: Diagnosis, Lab results, Need for admission Discharge & Departure Primary Impression: Back injury Encounter type: initial encounter Qualified Code: S39.92XA - Unspecified injury of lower back, initial encounter Additional Impression: Multiple falls Disposition: ADMITTED TO HOSPITAL Discharge Condition All VS Reviewed: Yes Referrals: Carlos Edouard MD (PCP) Scribe Attestation Portions of this note were transcribed by Misty Tomlinson and Christiano Mabry I, (Dr. Nubia Castro) personally performed the history, physical exam and medical decision- making; I reviewed and confirmed the accuracy of the information in the transcribed note. Signed by: Misty Tomlinson. [place], 05/24/20162005 copies to: Carlos Edouadr MD, Timothy S DO May 24, 2016 16:05 Christiano Gaona May 24, 2016 16:08 Misty Tomlinson May 24, 2016 19:43
[2016-05-24] MEDS ORDERED: 0.9% Sodium Chloride 500 ML IV ONE (16:10)
[2016-05-24] MEDS ORDERED: Potassium Chloride 20 mEq SR Tablet PO ONE (16:10)
[2016-05-24 17:00] VITALS: BP 127/47; PULSE 90; RESP 14; O2SAT 93
--- NOTE | 2016-05-24 17:27 | DRSVH ---
PROCEDURE: X-RAY LUMBAR SPINE, 2 OR 3 VIEW INDICATIONS: back pain TECHNIQUE: 3 views of the lumbar spine were acquired. COMPARISON: [facility], CR, XR LUMBAR SPINE 2 OR 3VW, 01/15/2016, 12:27. FINDINGS: Bones: There is transitional anatomy with 4 [id number] lumbar vertebrae redemonstrated. There i s minimal retrolisthesis of T12 on L1 and L1 on L2. There is a superior endplate compression fractur e of the L3 vertebral body which is of indeterminate acuity but new compared to the prior study. Thi s demonstrates approximately 40% loss of height. No retropulsed fragments in the spinal canal. Ther e is a rudimentary disc at the lumbosacral junction. Mild facet arthropathy is demonstrated in the l umbar spine. Soft tissues: Overlying bowel gas pattern is normal. There is extensive vascular calcification with borderline fusiform aneurysm of the abdominal aorta measuring up to 3.0 cm. IMPRESSION: 1. Transitional anatomy at the lumbar spine redemonstrated. 2. Superior endplate compression fracture of the L3 vertebral body of indeterminate acuity but new c ompared to the prior study. No retropulsed bony fragments. 3. Mild aneurysmal dilatation of the abdominal aorta. Dictated by: Rayo Arias M.D. on 05/24/2016 at 17:15 Approved by: Rayo Arias M.D. on 05/24/2016 at 17:21
--- NOTE | 2016-05-24 17:28 | DRSVH ---
PROCEDURE: X-RAY CHEST, TWO VIEWS ([id number]) INDICATIONS: bruising on left posterior rib cage TECHNIQUE: 2 views of the chest were acquired. COMPARISON: [facility], CR, XR CHEST 2VW, 02/26/2016, 10:48. FINDINGS: Surgical changes and devices: Multiple surgical clips are redemonstrated in the left axilla. Lungs and pleura: The medial lung apices are obscured by the patient's neck soft tissues. There are also low lung volumes. No pleural effusions. There is pulmonary vascular prominence compatible wit h mild edema or vascular crowding. Mediastinum: Mediastinal contours are prominent likely due to low lung findings and technique. Hear t size is normal. Bones and chest wall: No suspicious bony abnormalities. Soft tissues appear unremarkable. IMPRESSION: 1. Limited study demonstrates pulmonary vascular prominence compatible with vascular crowding or mil d edema. Recommend a repeat PA and lateral study when clinically feasible if indicated. Dictated by: Rayo Arias M.D. on 05/24/2016 at 17:21 Approved by: Rayo Arias M.D. on 05/24/2016 at 17:22
[2016-05-24 18:21] VITALS: BP 142/69; PULSE 60; RESP 18; O2SAT 85
[2016-05-24] MEDS ORDERED: Ketamine 10 mg/mL 20 mL Inj IM ONE (18:30)
[2016-05-24] MEDS ORDERED: Ketamine 10 mg/mL 20 mL Inj IV ONE (18:45)
--- NOTE | 2016-05-24 19:17 | DRSVH ---
PROCEDURE: CT BRAIN WITHOUT CONTRAST ([id number]) INDICATIONS: fall TECHNIQUE: Noncontrast 4.5 mm thick angled axial sections acquired from the foramen magnum to the vertex, with c oronal reformats. COMPARISON: [facility], CT, HEAD WITHOUT CONTRAST, 05/14/2016, 12:02. FINDINGS: Image quality: Excellent. CSF spaces: Basal cisterns are patent. No extra-axial fluid collections. The ventricles are symmet rod in size and shape. There is mild cerebral volume loss, with resultant ventricular and sulcal pro minence. Brain: No intracranial hemorrhage, mass, or mass effect. There are subcortical, periventricular and deep white matter hypodensities consistent with moderate chronic small vessel ischemic changes. The re is intracranial internal carotid artery atherosclerosis. Skull and face: Calvarium and visualized facial bones appear intact, without suspicious lesions. Sinuses: Visualized sinuses and mastoids are clear. IMPRESSION: 1. No acute intracranial abnormality. 2. Moderate chronic white matter small vessel ischemic changes and mild cerebral volume loss. Dictated by: Rayo Arias M.D. on 05/24/2016 at 19:14 Approved by: Rayo Arias M.D. on 05/24/2016 at 19:15
--- NOTE | 2016-05-24 19:54 | DRSVH ---
PROCEDURE: CT ANGIO CHEST PULMONARY EMBOLISM ([id number]) INDICATIONS: hypoxia TECHNIQUE: After the administration of intravenous contrast, 2 mm thick sections acquired from the pulmonary api salma to the posterior costophrenic angles. 3-dimensional maximum intensity projection (MIP) coronal a nd sagittal reformats were then acquired through the thorax. For radiation dose reduction, the follo wing was used: automated exposure control, adjustment of mA and/or kV according to patient size. COMPARISON: [facility], CT, PE STUDY (CTA CHEST), 04/30/2016, 15:05. FINDINGS: Image quality: There is mild motion artifact. Pulmonary arteries: Pulmonary arteries are normal in size, and demonstrate no intraluminal filling d efects to suggest central pulmonary embolism. Lungs and pleura: There is a small region of consolidation or atelectasis in the inferior right middl e lobe. Mild dependent atelectasis is present bilaterally. There is mild septal thickening and scat tered groundglass opacities consistent with mild pulmonary edema. No pleural effusions or pneumothor ax. Central and peripheral airways are patent. Mediastinum: Heart size is enlarged, without pericardial effusion. There is coronary arterial vascu lar calcification. No mediastinal or hilar adenopathy. Thoracic aorta is normal in caliber and enha ncement. Esophagus is normal in caliber, without hiatal hernia. Bones and chest wall: There is osteopenia. Multiple compression fractures are redemonstrated within the gastric spine including a severe compression fracture of the T7 vertebral body with associated s light posterior displacement of the vertebral body resulting in moderate spinal canal narrowing. Mil d superior endplate compression fractures are also redemonstrated at T4 and T10. No axillary or supr aclavicular adenopathy. Abdomen: Visualized upper abdominal solid organs appear normal in the early arterial phase of enhanc ement. IMPRESSION: 1. No evidence of central pulmonary embolism. 2. Septal thickening and scattered groundglass opacities in the lungs compatible with pulmonary jd a. 3. Small region of atelectasis or consolidation in the inferior right middle lobe. 4. Multiple compression fractures redemonstrated in the thoracic spine including a severe compressio n fracture at T7 with associated slight posterior displacement of the vertebral body and associated m oderate spinal canal narrowing. Dictated by: Rayo Arias M.D. on 05/24/2016 at 19:44 Approved by: Rayo Arias M.D. on 05/24/2016 at 19:53
[2016-05-24 20:02] VITALS: BP 151/93; PULSE 71; RESP 16; O2SAT 95
[2016-05-24] MEDS ORDERED: Polyethylene Glycol (PEG) 17 Gm Powder PO PRN (20:05)
[2016-05-24] MEDS ORDERED: Ondansetron 2 mg/mL 2 mL Inj IVPUSH PRN (20:05)
[2016-05-24] MEDS ORDERED: Alum-Mag Hydrox-Simeth 30 mL Suspension PO PRN (20:05)
[2016-05-24] MEDS ORDERED: LORazepam 1 mg Tablet PO ONE (20:05)
[2016-05-24] MEDS ORDERED: APIX5TAB PO (20:11)
[2016-05-24] MEDS ORDERED: LEVO125T6 PO (20:14)
[2016-05-24] MEDS ORDERED: TAMS0.4C98 PO (20:14)
[2016-05-24] MEDS ORDERED: LOSA50TA37 PO (20:17)
[2016-05-24] MEDS ORDERED: CLC200SP2 (20:17)
[2016-05-24 20:20] VITALS: BP 151/93; PULSE 71; RESP 16; O2SAT 95
--- NOTE | 2016-05-24 20:40 | NUR ---
Admit Took report from [facility] in ED @ 2019, arrived now via tech decline to attempt oob d/t back pain, so did transfer slide.Dx back injury confirmed by imaging new comp fax & mult. falls as evident by multiple bruises and abrasions though patient denies any falls, emanuel alarm placed and bed in lowest position
[2016-05-24 20:55] VITALS: BP 199/76; PULSE 59; RESP 18
--- NOTE | 2016-05-24 23:52 | PCM.HPMED ---
Subjective Date of Service May 24, 2016 Primary Provider: Admitting Physician: Jyoti Montanez DO Primary Care Physician: Carlos Edouard MD Attending Physician: Jyoti Montanez DO Admit Status: From the Emergency Department Chief Complaint: Low Back Pain History of Present Illness: 76yo woman with history of chronic opioid therapy, daily EtOH use, pulmonary embolism, compression fractures, presented to our ER vis EMS with complaint of worsening low back pain over the last 5 days since running out of Oxycodone which her PCP will no longer prescribe for her. She has been using a wheelchair for the last three months and can only take a few steps because of the pain, but has no pain seated or lying down. The pain with weight bearing is in the mid-line low back and does not radiate. She denies falling recently, but according to the ED note her son who lives across the street reports she had been falling frequently until he bought her a walker and then the wheelchair. The son also reported to the ED that she had been taking oxycodone for 12 years and was recently denied by her PCP. She took her last oxycodone last Sunday she reports. She states this happened because her son told the doctor she was drinking 4 to 5 shots of whiskey daily. She says she only has one whiskey before dinner every day. She also states that her son no longer wants to take care of her, that he has a family, and does not have time to take her to her appointments. She reports that she had her last Oxycodone last 05/19/16. She states that she is willing to go to a nursing home facility. She has been incontinent of bladder for some time and did also have problems of urinary retention that have gone away with Flomax. She denies loss of bowel control, denies numbness, tingling, or weakness. In the ED she was found to be hypoxic and did have a negative CTA for PE. Review of Systems: 14 point ROS is negative except as noted above. Allergies Coded Allergies: morphine (Verified Allergy, Severe, Anxiety and panic attack, 01/16/16) Sulfa (Sulfonamide Antibiotics) (Verified Allergy, Unknown, 01/16/16) Pt. was unable recall reaction to sulfa Home Medications Scheduled ([Slow-Mag71.5-119 Mg]) 2 TAB PO DAILY Amlodipine (Amlodipine) 5 Mg Tablet 5 MG PO DAILY Apixaban (Eliquis) 5 Mg Tablet 5 MG PO BID Calcitonin [place] (Miacalcin) 30 [place]/3.7 Ml Nasalspr 1 SPRAY NA DAILY [place] in 1 Nostril (Alternating Nostrils) Daily Cholecalciferol (Vitamin D3) (Vitamin D) 400 Unit Tablet 400 UNIT PO DAILY Esomeprazole Magnesium (Nexium) 40 Mg Capsule.dr 40 MG PO DAILY Hydrocortisone (Hydrocortisone) 20 Mg Tablet 60 MG PO BID Levothyroxine (Levothyroxine) 125 Mcg Tablet 125 MCG PO DAILY Lisinopril (Lisinopril) 20 Mg Tablet 20 MG PO DAILY Losartan Potassium (Losartan Potassium) 50 Mg Tablet 50 MG PO DAILY Metoprolol Succinate ER (Metoprolol Succinate ER) 25 Mg Tab.er.24h 25 MG PO DAILY Potassium Chloride ER (Klor-Con M20) 20 Meq Tablet 20 MEQ PO TID Tamsulosin (Flomax) 0.4 Mg Capsule 0.4 MG PO DAILY Scheduled PRN Albuterol HFA (Proair HFA) 8.5 Gm Hfa.aer.ad 2 PUFFS INHALATION Q4H PRN PRN For Shortness of Breath Temazepam (Temazepam) 30 Mg Cap 30 MG PO HS PRN PRN For Insomnia PMH Hypothyroidism 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 Parathyroid adenoma Reports: Cancer, GERD, Hypertension Reports: Depression Surgical History Tongue resection Total mastectomy Reports: Knee replacement Family History Father of [place] Mother of anal cancer Social History Hx Alcohol Use: Yes (pt reports 2 drinks whiskey daily, family reported to ER 5 -6 drinks daily) Hx Substance Use: No Hx Tobacco Use: Yes (quit in 1991 per previous records) Smoking Status: Former Smoker Exam Vital Signs Vital Sign - Last Date Time Temp Pulse Resp B/P Pulse Ox O2 Delivery O2 Flow Rate FiO2 05/24/16 20:55 36.4 59 18 199/76 Nasal Cannula 2.50 05/24/16 20:20 95 Exam General: Alert, Oriented X3, Cooperative, No Acute Distress Head: Normocephalic, atraumatic. External ears normal. Eyes: PERRLA, EOMI. Anicteric sclerae. Mouth: Mouth Normal, Mucous Membranes Moist/[place] Neck: Neck supple with full range of motion. Chest & Lungs: Clear to auscultation bilaterally with no crackles, wheezes, or rhonchi, poor effort Cardiovascular: Regular Rate/Rhythm, Normal S1, Normal S2, No Murmurs/Rubs/ Gallops Abdomen: Non-tender, Non-distended, No masses, Normoactive bowel tones, Soft Musculoskeletal: midline tenderness of lumbar spine Extremities: 1+edema bilaterally Neurological: Grossly Neurologically Intact, Cranial Nerves 2-12 Intact, Normal Speech, Strength Normal 4/4 in UE, 3/4 in LE, Sensation Intact, Cerebellar Function nl Finger-Nose, unable to perform Cerebellar Function Heel- Ashley due to pain, 1/4 patellar and achilles reflexes. Lab and Diagnostics Labs Laboratory Tests Test 05/24/16 15:35 White Blood Count 8.7th/mm3 (3.8-10.1) Red Blood Count 4.03mil/mm3 (3.90-5.20) Hemoglobin 11.5g/dL (12.0-15.6) Hematocrit 36.8% (35.0-46.0) Mean Corpuscular Volume 91.3fL (81-100) Mean Corpuscular Hemoglobin 28.5pg (27.0-35.0) Mean Corpuscular Hemoglobin Concent 31.3% (32.0-37.0) Red Cell Distribution Width 16.0% (12.3-15.4) Platelet Count 265bil/L (150-400) Neutrophils (%) (Auto) 75.3% (40-74) Lymphocytes (%) (Auto) 14.0% (14-46) Monocytes (%) (Auto) 8.8% (4-12) Eosinophils (%) (Auto) 0.8% (0-5) Basophils (%) (Auto) 0.2% (0-3) Prothrombin Time 11.5sec (8.1-12.5) Prothromb Time International Ratio 1.07ratio Sodium Level 140mEq/L (134-144) Potassium Level 2.9mEq/L (3.5-5.2) Chloride Level 99mEq/L (97-108) Carbon Dioxide Level 27mmol/L (18-29) Blood Urea Nitrogen 18mg/dL (8-27) Creatinine 1.03mg/dL (0.57-1.00) Estimat Glomerular Filtration Rate 74mL/min (>59) Glucose Level 92mg/dL (60-99) Calcium Level 9.5mg/dL (8.5-10.1) Total Bilirubin 0.5mg/dL (0.0-1.2) Aspartate Amino Transf (AST/SGOT) 20U/L (0-50) Alanine Aminotransferase (ALT/SGPT) 20U/L (0-32) Alkaline Phosphatase 101U/L (25-165) Troponin T < 0.010ug/L (0.0-0.011) Pro-B-Type Natriuretic Peptide 1131pg/mL (0-738) Total Protein 5.8g/dL (6.4-8.4) Albumin 3.4g/dL (3.4-5.0) Hold Seay Top Tube Received (Received) Alcohols < 10mg/dL (0-10) Result Diagram: 05/24/16 1535 05/24/16 1535 X-Rays, CTs and MRIs Chest Xray Interpretation: IMPRESSION: 1. Limited study demonstrates pulmonary vascular prominence compatible with vascular crowding or mild edema. Recommend a repeat PA and lateral study when clinically feasible if indicated. Lumbar spine Xray IMPRESSION: 1. Transitional anatomy at the lumbar spine redemonstrated. 2. Superior endplate compression fracture of the L3 vertebral body of indeterminate acuity but new compared to the prior study. No retropulsed bony fragments. 3. Mild aneurysmal dilatation of the abdominal aorta. CT Head Interpretation IMPRESSION: 1. No acute intracranial abnormality. 2. Moderate chronic white matter small vessel ischemic changes and mild cerebral volume loss. CTA Chest IMPRESSION: 1. No evidence of central pulmonary embolism. 2. Septal thickening and scattered groundglass opacities in the lungs compatible with pulmonary edema. 3. Small region of atelectasis or consolidation in the inferior right middle lobe. 4. Multiple compression fractures redemonstrated in the thoracic spine including a severe compression fracture at T7 with associated slight posterior displacement of the vertebral body and associated moderate spinal canal narrowing. 12-lead ECG NSR with rate of 62 Assessment & Plan 76yo woman with history of chronic opioid therapy, daily EtOH use, pulmonary embolism, compression fractures, presented to our ER vis EMS with complaint of worsening low back pain over the last 5 days. She has been using a wheelchair for the last three months and can only take a few steps because of back pain. Family reports frequent falls which patient denies. PCP has stopped her opioids due to family reporting heavy drinking. She was noted to be hypoxic, with O2 sat of 85 in the ER, but has no complaint of SOB. She states that she is willing to go to a nursing home facility. She has been incontinent of bladder for several months she thinks and did also have problems of urinary retention that have gone away with Flomax. 1. Low back pain, POA, new fracture of L3 vertebral body, no pain at rest when not moving -Consider starting a short taper of Prednisone and starting Gabapentin. -She has just withdrawn from opioids so starting them again now may be contraindicated until her living situation is settled. 2. Hypoxia, POA. Patient is asymptomatic, not complaining of SOB or [place] ROSA. CTA negative for PE. CXR indicates low lung volumes and vascular prominence, no indication for pneumonia. No mention of CHF, COPD, Asthma in patient's hospital records. She does have an albuterol inhaler which she uses infrequently. She denies any home O2 use and has not complained of dyspnea. DDX includes hypoxia from low lung volumes and immobility causing chronic alveolar hypoventilation vs new onset CHF which is unlikely with no JVD, no orthopnea, minimal edema. Immobility is also at the top of the DDx because she has undoubtedly become less mobile due to increasing pain over the last 5 days since her supply of Oxycodone ran out. Her mild elevation of BNP at 1131 can also be related to increased work of the heart against low lung volumes. -Continue O2 by nasal cannula -Incentive Spirometer ordered to expand lung volume -Repeat BNP ordered to r/o CHF -repeat CBC w/diff in the morning to r/o infection -Consider Echo if BNP is rising after a night on oxygen 3. Hypertension, POA. Patient not sure which medications she is taking, Lisinopril or Losartan or both -Clarify this in the morning with her pharmacy or PCP, Dr Edouard -Nevertheless Losartan 50mg is ordered for the morning as her pressures were high last night. -Continuing Amlodipine 5mg daily, Metoprolol 25mg daily 4. Hypothyroidism, POA. -continuing home levothyroxine 5.Hypokalemia, POA. Level is 2.9 here. Patient does have ongoing KCl 10mg TID on her list, but cannot say if she has been taking it. -Replete now per protocol -BMP in the morning -Mg ordered, replete as needed. -Patient placed on remote telemetry 6. History of PE. Apixaban held and Heparin 5000units subq q8h started. Patient cannot confirm that she is taking Apixaban currently. -Clarify Apixaban use and start if it has been continued. 7. Disposition. Patient is not likely to do well at home being wheel chair bound and her son apparently no longer willing to enable her drinking or take her to appointments. Past notes state she has been unwilling to have home health or go to SNF, but she says now she is willing as she thinks her son will not be able to do everything she needs. -Social work consult ordered. 8. GERD, POA, -continue pantoprazole. PRN medications for nausea, dyspepsia, constipation: ondansetron, maalox, senna , miralax. Pain Evaluation: Adequate Pain Control Resuscitation Status: DNR/DNI:Do Not Resuscitate/Intubate Limited Interventions: Medications and IV Fluid Attending Statement The patient was seen and examined together with Dr. Frias on 05/25/16 and I agree with the history and exam. The plan as outlined in the note above will have continued discussion with update in addendum. Grady Frias DO May 24, 2016 22:20 Jyoti Montanez DO May 25, 2016 06:26
[2016-05-25] VITALS (11 sets, daily range): BP systolic 122–180; BP diastolic 63–82; PULSE 52–94; RESP 14–20; O2SAT 92–98
[2016-05-25] MEDS ORDERED: Albuterol 2.5 mg/3 mL Inhalation Solution NEB PRN (07:00)
[2016-05-25 07:22] LABS: BASOPHILS % (AUTO) 0.4 % (0-3); EOSINOPHILS % (AUTO) 1.9 % (0-5); MONOCYTES % (AUTO) 9.3 % (4-12); Mean Corpuscular Volume 93.1 fL (81-100); NEUTROPHILS % (AUTO) 73.9 % (40-74); Platelet Count 250 bil/L (150-400)
--- NOTE | 2016-05-25 07:36 | NUR ---
Elevated BP/Diet Contacted Dr. Adorno with the following cook page: Patient's most recent BP 180/79, no PRN meds ordered at this time. Patient does not have a diet ordered at this time. Please advise. Thank you. Elba NEWMAN [id number]
--- NOTE | 2016-05-25 07:41 | NUR ---
BP Meds Received return call from Dr. Adorno, she stated to just give morning BP meds at this time, if HR is above 60 she can have the Metoprolol. Dr. Adorno stated she has put in a diet for patient as well.
--- NOTE | 2016-05-25 08:02 | NUR ---
Pain/Med Request Contacted Dr. Adorno with the following cook page: Patient is complaining of 8/10 lower back pain, no PRN pain medications ordered at this time. Issues with chronic opioid use and ETOH use per hx. Please advise. Thank you. Elba NEWMAN
[2016-05-25 08:12] LABS: Magnesium 2.3 mg/dL (1.6-2.6)
[2016-05-25] MEDS: MeTOProlol XL 25 mg ER24 Tablet PO SCH (08:12)
[2016-05-25] MEDS: Pantoprazole 40 mg ER24 Tablet PO SCH (08:12)
[2016-05-25] MEDS: Ketorolac 15 mg/mL Inj IVPUSH PRN ×3 (08:27→21:48)
[2016-05-25] MEDS ORDERED: Calcitonin 200 IU 3.7 mL Nasal Spray NASAL SCH (08:30)
[2016-05-25] MEDS ORDERED: Potassium Chloride 20 mEq SR Tablet PO SCH (08:30)
--- NOTE | 2016-05-25 09:40 | NUR ---
Social Work Note - Initial Assessment: D/A: See Initial Assessment. The Pt is a 76 y/o female that was admitted under observation status for a back injury. The Pt's PCP is MD Carlos Edouard and her primary insurance is Medicare with a [employer] supplement, no LTC or VA benefits. EMR reviewed. ROMERO met with the Pt to explain role and discuss discharge planning. SW telephone written on white board. The Pt lives at home alone in [place]. Advanced Directive requested. She reports that her son Shilo Watkins [phone] lives nearby and provides some help but is "getting tired of helping". The Pt uses and wheelchair and walker and relies on family to help with transportation. [facility] Notes also report that the Pt has a history of etoh use, 12 year usage of oxycodone (PCP recently denied additional prescription as per notes), and falls. Pt was seen by DEYA in ED, see note. Referral, access, and F2F provided to [facility] (RN/PT) as per Pt request. PT eval to be requested during rounds. SW to follow. P: The Pt is not medically ready for discharge, PT eval to be requested. Pt likely to discharge home with [facility] (RN/PT) vs SNF. SW to follow. DEYA Reardon Ham Passer Addendum: 05/25/16 at 0946 by KHADAR BAIRD SS Amended: Links added.
--- NOTE | 2016-05-25 11:28 | NUR ---
Case Management: BRANDON delivered and explained to pt. Original placed in chart. Copy left at bedside. Zandra Fofana RN
[2016-05-25] MEDS: Lidocaine Topical 5% Patch TOPICAL SCH (13:20)
--- NOTE | 2016-05-25 14:00 | NUR ---
MD on the floor Spoke with Dr. Adorno regarding patient's continued complaints of pain and that current pain medications are not effective, even though history reflects patient's PCP stopped prescribing opioids due to patient drinking daily. Dr. Adorno stated she will assess patient and add medications as necessary.
[2016-05-25] MEDS ORDERED: Furosemide 10 mg/mL 2 mL Inj IVPUSH SCH (14:40)
[2016-05-25] MEDS ORDERED: Furosemide 10 mg/mL 2 mL Inj IVPUSH ONE (14:45)
[2016-05-25] MEDS: Multivit-Miner-Folic Acid-Iron Tablet PO SCH (17:52)
--- NOTE | 2016-05-25 20:41 | PCM.PNMED ---
Subjective Date of Service May 25, 2016 Subjective Patient is seen and examined. She has a lot of back pain states. L4-L5 area. She was given Lidoderm patch ketorolac earlier in the day but it did not provide her with enough relief. Her PCP Dr. mercedes called this a.m. to discuss his new finding of her extreme alcohol usage. Patient denies drinking alcohol at home. She denies tachycardia, chest pain, dyspnea. She denies diaphoresis and anxiety. Exam Vital Signs Vital Sign - Last Date Time Temp Pulse Resp B/P Pulse Ox O2 Delivery O2 Flow Rate FiO2 05/25/16 06:20 36.5 62 18 180/79 94 Nasal Cannula 2.00 Intake and Output 05/24/16 05/24/16 05/25/16 Cumulative From/Thru 15:00 23:00 07:00 05/24/16 14:44 - 05/25/16 06:22 Intake Total 160 ml 120 ml 280 ml Output Total 500 ml 500 ml Balance 160 ml -380 ml -220 ml Intake Oral 160 ml 120 ml 280 ml Output Urine Total 500 ml 500 ml Exam General: NAD, laying in bed HEENT: NCAT, poor dentition Eyes: [place] conjunctivae. No ptosis Neck: No masses, trachea midline, no thyromegaly Lungs: normal respiratory effort, bilateral crackles CV: RRR, no murmurs/rubs/gallops, normal PMI GI: Soft, non-tender with no hepatosplenomegaly Skin: Warm and dry. Psych: A&O X3, with approprate affect IVs and Medications IV Fluids None Medications Reviewed: Medications were reviewed in detail Lab and Diagnostics Result Diagram: 05/25/16 0636 05/24/16 1535 X-Rays, CTs and MRIs Chest Xray Interpretation: IMPRESSION: 1. Limited study demonstrates pulmonary vascular prominence compatible with vascular crowding or mild edema. Recommend a repeat PA and lateral study when clinically feasible if indicated. Lumbar spine Xray IMPRESSION: 1. Transitional anatomy at the lumbar spine redemonstrated. 2. Superior endplate compression fracture of the L3 vertebral body of indeterminate acuity but new compared to the prior study. No retropulsed bony fragments. 3. Mild aneurysmal dilatation of the abdominal aorta. CT Head Interpretation IMPRESSION: 1. No acute intracranial abnormality. 2. Moderate chronic white matter small vessel ischemic changes and mild cerebral volume loss. CTA Chest IMPRESSION: 1. No evidence of central pulmonary embolism. 2. Septal thickening and scattered groundglass opacities in the lungs compatible with pulmonary edema. 3. Small region of atelectasis or consolidation in the inferior right middle lobe. 4. Multiple compression fractures redemonstrated in the thoracic spine including a severe compression fracture at T7 with associated slight posterior displacement of the vertebral body and associated moderate spinal canal narrowing. 12-lead ECG NSR with rate of 62 Assessment & Plan 76yo woman with history of chronic opioid therapy, daily EtOH use, pulmonary embolism, compression fractures, presented to our ER vis EMS with complaint of worsening low back pain over the last 5 days. She has been using a wheelchair for the last three months and can only take a few steps because of back pain. Family reports frequent falls which patient denies. PCP has stopped her opioids due to family reporting heavy drinking. She was noted to be hypoxic, with O2 sat of 85 in the ER, but has no complaint of SOB. She states that she is willing to go to a shelter facility. She has been incontinent of bladder for several months she thinks and did also have problems of urinary retention that have gone away with Flomax. 1. Low back pain, POA, new fracture of L3 vertebral body, no pain at rest when not moving -Consider starting a short taper of Prednisone and starting Gabapentin. -She has just withdrawn from opioids so starting them again now may be contraindicated until her living situation is settled.: She does have an acute lumbar spine fracture, no pain relief with ketorolac and Lidoderm patch. Oxycodone 5 mg every 4 when necessary 2. Hypoxia, POA. Patient is asymptomatic, not complaining of SOB or DE [place] ROS[place]. CTA negative for PE. CXR indicates low lung volumes and vascular prominence, no indication for pneumonia. No mention of CHF, COPD, Asthma in patient's hospital records. She does have an albuterol inhaler which she uses infrequently. She denies any home O2 use and has not complained of dyspnea. DDX includes hypoxia from low lung volumes and immobility causing chronic alveolar hypoventilation vs new onset CHF which is unlikely with no JVD, no orthopnea, minimal edema. Immobility is also at the top of the DDx because she has undoubtedly become less mobile due to increasing pain over the last 5 days since her supply of Oxycodone ran out. Her mild elevation of BNP at 1131 can also be related to increased work of the heart against low lung volumes. -Continue O2 by nasal cannula -Incentive Spirometer ordered to expand lung volume -Repeat BNP ordered to r/o CHF: Echocardiogram is ordered as well as 20 IV Lasix one time -repeat CBC w/diff in the morning to r/o infection -Consider Echo if BNP is rising after a night on oxygen: echocardiogram is ordered 3. Hypertension, POA. Patient not sure which medications she is taking, Lisinopril or Losartan or both -Clarify this in the morning with her pharmacy or PCP, Dr Edouard -Nevertheless Losartan 50mg is ordered for the morning as her pressures were high last night. -Continuing Amlodipine 5mg daily, Metoprolol 25mg daily 4. Hypothyroidism, POA. -continuing home levothyroxine 5.Hypokalemia, POA. Level is 2.9 here. Patient does have ongoing KCl 10mg TID on her list, but cannot say if she has been taking it. Likely due to alcoholism -Replete now per protocol -BMP in the morning -Mg ordered, replete as needed. -Patient placed on remote telemetry 6. History of PE. Apixaban held and Heparin 5000units subq q8h started. Patient cannot confirm that she is taking Apixaban currently. -Clarify Apixaban use and start if it has been continue: They will call PCP Dr. edouard tomorrow a.m. at [phone] 7. Disposition. Patient is not likely to do well at home being wheel chair bound and her son apparently no longer willing to enable her drinking or take her to appointments. Past notes state she has been unwilling to have home health or go to SNF, but she says now she is willing as she thinks her son will not be able to do everything she needs. -Social work consult ordered. 8. GERD, POA, -continue pantoprazole. PRN medications for nausea, dyspepsia, constipation: ondansetron, maalox, senna , miralax. Pain Evaluation: Pain not Controlled VTE Prophylaxis: Sub-Q Heparin (Unfractionated) Resuscitation Status: DNR/DNI:Do Not Resuscitate/Intubate Limited Interventions: Medications and IV Fluid Lizette Adorno DO May 25, 2016 08:05
[2016-05-25] MEDS: Heparin 5,000 Unit/mL Inj SUBQ SCH (23:46)
[2016-05-26] VITALS (7 sets, daily range): BP systolic 124–190; BP diastolic 63–82; PULSE 64–92; RESP 16–18; O2SAT 92–94
[2016-05-26] MEDS: Pantoprazole 40 mg ER24 Tablet PO SCH (07:32)
[2016-05-26] MEDS: MeTOProlol XL 25 mg ER24 Tablet PO SCH (09:04)
[2016-05-26] MEDS: Heparin 5,000 Unit/mL Inj SUBQ SCH ×2 (09:05→17:27)
[2016-05-26] MEDS: Multivit-Miner-Folic Acid-Iron Tablet PO SCH (09:06)
--- NOTE | 2016-05-26 13:52 | NUR ---
Social work note - Continued d/c planning QUALITY IMPROVEMENT COORDINATOR completed EMR review: Pt lives at home alone, pt's son lives nearby and worries that pt is not able to safely return home due to weakness and pain. QUALITY IMPROVEMENT COORDINATOR asked MD in rounds to order PT evaluation. Pt has new lumbar Fx - painful and would benefit from SNF for rehab. MD identifies that pt will likely require hospitalization for 1-2 more days. Plan: Continue to follow - [facility] RN/PT vs SNF for rehab. MAN Delacruz
[2016-05-26] MEDS: Lidocaine Topical 5% Patch TOPICAL SCH (14:19)
[2016-05-26] MEDS: Ketorolac 15 mg/mL Inj IVPUSH PRN (14:19)
[2016-05-26] MEDS ORDERED: Potassium Chloride 20 mEq SR Tablet PO ONE (15:00)
--- NOTE | 2016-05-26 16:40 | DRSVH ---
[facility] [address] [place] [address] Echocardiogram Report Name: COURTNEY ROBIN LStudy Date: 05/26/2016 Height: 69 in Hospital Exam Location: [facility] Weight: 152 lb Gender: Female BSA: 1.8 m2 : 1940 Age: 76 yrs BP: 156/78 mm Hg Reason For Study: ELEVATED BNP, PULM EDEMA Ordering Physician: HOSPITALIST [facility] Performed By: Melanie Rios Referring Physician: Dr. Carlos Edouard Interpretation Summary Left ventricular wall thickness is borderline increased. The ejection fraction is estimated to be 65-70%. There is no significant valvular heart disease. Procedure: A two-dimensional transthoracic echocardiogram with color flow and Doppler was performed. The study quality was technically adequate. Comparison is made with the echocardiogram of 09-06-2015. The subcostal views were difficult to obtain and are suboptimal in quality. The patient was in normal sinus rhythm during the exam. Left Ventricle: The left ventricular cavity is small. Left ventricular wall thickness is borderline increased. Left ventricular systolic function is normal. The ejection fraction is estimated to be 65-70%. Spectral Doppler of the mitral valve is reversed, with an E/A wave ratio < 1.0. Right Ventricle: The right ventricle is normal in size and function. Atria: Both atria are normal in size. There is no Doppler evidence for an atrial septal defect. Mitral Valve: There is mild mitral annular calcification. The mitral valve leaflets appear mildly thickened, but open well. There is no mitral regurgitation noted. Aortic Valve: The aortic valve is trileaflet. The aortic valve opens well. There is mild aortic valve sclerosis. The patient unable to valsalva. No aortic regurgitation is present. Tricuspid Valve: The tricuspid valve leaflets are thin and pliable. Pulmonic Valve: The pulmonic valve leaflets are thin and pliable; valve motion is normal. There is no pulmonic valvular regurgitation. Great Vessels: The aortic root is normal size. Mobile echolucency in the root/prox aorta appears to be artifactual. The dimensions of the ascending aorta are normal. The pulmonary artery is normal size. The inferior vena cava was not visualized. Pericardium/ Pleura There is no pericardial effusion. There is probable pericardial fat pad noted. There is no pleural effusion. MMode/2D Measurements & Calculations LVIDd: 3.5 cm LA dimension: 3.3 cm RA long axis LVOT diam: 2.0 cm LVIDs: 2.3 cm AoV Opening FS: 34.1 % LA A2 area: 18.9 cm RA area EPSS: 0.58 cm LA A4 area: 19.5 cm Ao root diam IVSd: 1.3 cm LA length (vol) : 10.5 cm LVPWd: 1.2 cm RA vol Aortic Jxn: 2.6 cm LA vol: 52.9 ml : 22.0 ml asc Aorta Diam LA vol index RA : 12.0 mm/ Ao Arch Diam (Prox : 28.8 ml/m2 RVDd major Trans): 2.4 cm : 5.2 cm LV raymundo. diameter/BSA LV sys. diameter/BSA RVD1 (basal) RVD2 (mid): 3.0 cm (cm/m^2): 1.9 (cm/m^2): 1.2 Doppler Measurements & Calculations Ao V2 max MV E max ariel MV E/A: 0.52 TR max ariel : 155.7 cm/sec : 54.7 cm/sec Med Peak E' Ariel : 251.8 cm/sec Ao max P.7 mmHg MV A max ariel TR max PG Ao mean P.8 mmHg : 105.2 cm/sec E/E' med: 12.8 : 25.4 mmHg LVOT Max Ariel MV P1/2t: 88.8 msec Lat Peak E' Ariel PA V2 max : 148.8 cm/sec : 100.3 cm/sec SMILEY(I,D): 2.6 cm E/E' lat: 9.2 PA mean PG sev ratio: 0.80 E/e' average PA Accel Time Pulm A Revs Dur : 0.10 sec MV A dur : 0.13 sec MV P1/2t max ariel Ao V2 mean LV V1 max PG PA V2 mean : 103.3 cm/sec : 69.9 cm/sec MVA(P1/2t): 2.5 cm2 Ao V2 VTI: 31.5 cm LV V1 VTI SMILEY(V,D): 3.0 cm2 : 25.2 cm SMILEY indexed to JAY Mcfadden Dur - MV A (cm^2/m^2): 1.4 Dur: -0.01 msec Electronically signed by: Terrance Acevedo on Reading Physician:05/26/2016 04:39 PM
--- NOTE | 2016-05-26 19:30 | PCM.PNMED ---
Subjective Date of Service May 26, 2016 Subjective Patient is seen and examined. Pain is well controlled on oxycodone. She has not triggered the CIWA score overnight. At her last drink could have been before she left home which would be a shot of whiskey. She denies that it is as big a problem as people are making it out to be. She denies tachycardia, diaphoresis and anxiety. She states that going problem because her son is not willing to support. No other concerns today Exam Vital Signs Vital Sign - Last Date Time Temp Pulse Resp B/P Pulse Ox O2 Delivery O2 Flow Rate FiO2 05/26/16 03:56 64 05/25/16 23:32 36.5 18 143/69 95 Room Air 05/25/16 17:51 2.00 Intake and Output 05/25/16 05/25/16 05/26/16 Cumulative From/Thru 15:00 23:00 07:00 05/24/16 14:44 - 05/25/16 19:45 Intake Total 600 ml 880 ml Output Total 775 ml 1275 ml Balance -175 ml -395 ml Intake Oral 600 ml 880 ml IV Total 0 ml 0 ml Output Urine Total 775 ml 1275 ml Exam General: NAD, laying in bed, very calm HEENT: NCAT Eyes: [place] conjunctivae. No ptosis Neck: No masses, trachea midline, no thyromegaly, negative for JVD Lungs: CTA with normal respiratory effort, no crackles or wheezes CV: RRR, no murmurs/rubs/gallops, normal PMI GI: Nondistended MSK: 4 out of 5 in lower extremities bilaterally Vascular: 2+ dorsalis pedis bilaterally Skin: Warm and dry. No rash, lesions or ulcers Psych: A&O X3, with appropriate affect IVs and Medications IV Fluids None Medications Reviewed: Medications were reviewed in detail Lab and Diagnostics Laboratory Tests Test 05/26/16 06:20 Sodium Level 139mEq/L (134-144) Potassium Level 3.3mEq/L (3.5-5.2) Chloride Level 97mEq/L (97-108) Carbon Dioxide Level 25mmol/L (18-29) Blood Urea Nitrogen 15mg/dL (8-27) Creatinine 0.82mg/dL (0.57-1.00) Estimat Glomerular Filtration Rate 97mL/min (>59) Glucose Level 68mg/dL (60-99) Calcium Level 9.0mg/dL (8.5-10.1) Magnesium Level 2.0mg/dL (1.6-2.6) Result Diagram: 05/25/1636 05/25/1636 X-Rays, CTs and MRIs Chest Xray Interpretation: IMPRESSION: 1. Limited study demonstrates pulmonary vascular prominence compatible with vascular crowding or mild edema. Recommend a repeat PA and lateral study when clinically feasible if indicated. Lumbar spine Xray IMPRESSION: 1. Transitional anatomy at the lumbar spine redemonstrated. 2. Superior endplate compression fracture of the L3 vertebral body of indeterminate acuity but new compared to the prior study. No retropulsed bony fragments. 3. Mild aneurysmal dilatation of the abdominal aorta. CT Head Interpretation IMPRESSION: 1. No acute intracranial abnormality. 2. Moderate chronic white matter small vessel ischemic changes and mild cerebral volume loss. CTA Chest IMPRESSION: 1. No evidence of central pulmonary embolism. 2. Septal thickening and scattered groundglass opacities in the lungs compatible with pulmonary edema. 3. Small region of atelectasis or consolidation in the inferior right middle lobe. 4. Multiple compression fractures redemonstrated in the thoracic spine including a severe compression fracture at T7 with associated slight posterior displacement of the vertebral body and associated moderate spinal canal narrowing. 12-lead ECG NSR with rate of 62 Assessment & Plan 76yo woman with history of chronic opioid therapy, daily EtOH use, pulmonary embolism, compression fractures, presented to our ER vis EMS with complaint of worsening low back pain over the last 5 days. She has been using a wheelchair for the last three months and can only take a few steps because of back pain. Family reports frequent falls which patient denies. PCP has stopped her opioids due to family reporting heavy drinking. She was noted to be hypoxic, with O2 sat of 85 in the ER, but has no complaint of SOB. She states that she is willing to go to a detention facility. She has been incontinent of bladder for several months she thinks and did also have problems of urinary retention that have gone away with Flomax. 1. Vertebral fractures, POA, new fracture of L3 vertebral body, no pain at rest when not moving -She has just withdrawn from opioids so starting them again now may be contraindicated until her living situation is settled.: She does have an acute lumbar spine fracture, no pain relief with ketorolac and Lidoderm patch. Oxycodone 5 to 10 mg every 4 when necessary -- Calcitonin spray home medication, vitamin D3 increased to 800 daily -- Consulted with Johny LAWSON. PA were discussed case with : We reviewed the images, do not recommend TLSO brace or surgical procedures on this frail patient. They recommended good pain control and physical therapy. We appreciate their recommendations. 2. Hypoxia, POA. Patient is asymptomatic, not complaining of SOB or [place] ROS[place]. CTA negative for PE. CXR indicates low lung volumes and vascular prominence, no indication for pneumonia. No mention of CHF, COPD, Asthma in patient's hospital records. She does have an albuterol inhaler which she uses infrequently. She denies any home O2 use and has not complained of dyspnea. DDX includes hypoxia from low lung volumes and immobility causing chronic alveolar hypoventilation versus anemia vs new onset CHF which is unlikely with no JVD, no orthopnea, minimal edema. Immobility is also at the top of the DDx because she has undoubtedly become less mobile due to increasing pain over the last 5 days since her supply of Oxycodone ran out. Her mild elevation of BNP at 1131 can also be related to increased work of the heart against low lung volumes. -Continue O2 by nasal cannula -Incentive Spirometer ordered to expand lung volume -Repeat BNP ordered to r/o CHF: Echocardiogram is ordered as well as 20 IV Lasix one time: Echo showed no concern for CHF -Physical Therapy 3. Hypertension, POA. Patient not sure which medications she is taking, Lisinopril or Losartan or both -Clarify this in the morning with her pharmacy or PCP, Dr Edouard -Nevertheless Losartan 50mg is ordered for the morning as her pressures were high last night. - Amlodipine increased to 10 mg to better control her blood pressures - Metoprolol 25mg daily: Increase to 50 daily, and she had a couple of runs of SVT overnight. 4. Tachycardia : Reported from telemetry, could be due to pain versus alcohol withdrawal, increased metoprolol dose as above 5. Hypothyroidism, POA. -continuing home levothyroxine 6.Hypokalemia, POA. Likely due to alcoholism - Continue to monitor -Replete now per protocol -BMP in the morning -Mg ordered, replete as needed. 7. History of PE. Apixaban held and Heparin 5000units subq q8h started. Patient cannot confirm that she is taking Apixaban currently. - I did not hear back from her PCP regarding this however, admission nurse did confirm eliquis on patient's formulary. This really started it today. Discontinue heparin subcutaneous 8. Disposition. Patient is not likely to do well at home being wheel chair bound and her son apparently no longer willing to enable her drinking or take her to appointments. Past notes state she has been unwilling to have home health or go to SNF, but she says now she is willing as she thinks her son will not be able to do everything she needs. -Social work consult ordered. As well as physical therapy 8. GERD, POA, -continue pantoprazole. PRN medications for nausea, dyspepsia, constipation: ondansetron, maalox, senna , miralax. Pain Evaluation: Adequate Pain Control VTE Prophylaxis: Sub-Q Heparin (Unfractionated) Limited Interventions: Medications and IV Fluid Lizette Adorno DO May 26, 2016 05:41
[2016-05-26] MEDS: Magnesium Chloride SR 64 mg ER24 Tablet PO SCH ×2 (21:00→21:22)
[2016-05-26] MEDS: Calcitonin 200 IU 3.7 mL Nasal Spray NASAL SCH (21:31)
[2016-05-27 00:30] VITALS: BP 156/69; PULSE 64; RESP 17; O2SAT 93
[2016-05-27] MEDS: Ketorolac 15 mg/mL Inj IVPUSH PRN ×2 (02:11→16:50)
[2016-05-27 04:28] VITALS: BP 148/72; PULSE 66; RESP 17; O2SAT 93
--- NOTE | 2016-05-27 05:50 | NUR ---
PAIN Pt. complaining of back pain 07/15, repositioned q2, cold compress applied and given prn pain meds with effective results, Calm, pleasant and cooperative to staff and care, Pt. have been slept most of the night, hourly rounds, call light in reach and all needs attended.
[2016-05-27] MEDS: Pantoprazole 40 mg ER24 Tablet PO SCH (06:16)
[2016-05-27 07:50] VITALS: BP 155/80; PULSE 65; RESP 16; O2SAT 88
[2016-05-27] MEDS: MeTOProlol XL 25 mg ER24 Tablet PO SCH (07:58)
[2016-05-27] MEDS: Multivit-Miner-Folic Acid-Iron Tablet PO SCH (07:58)
[2016-05-27] MEDS: Lidocaine Topical 5% Patch TOPICAL SCH ×2 (08:00→08:03)
[2016-05-27] MEDS: Calcitonin 200 IU 3.7 mL Nasal Spray NASAL SCH ×2 (08:01→20:55)
--- NOTE | 2016-05-27 09:36 | NUR ---
Evaluation completed. Please go to "Notes" then click on "Assessments and Notes" (bottom left corner of screen). Then select appropriate discipline tab on top of screen.
--- NOTE | 2016-05-27 10:32 | NUR ---
Evaluation completed. Please go to "Notes" then click on "Assessments and Notes" (bottom left corner of screen). Then select appropriate discipline tab on top of screen.
--- NOTE | 2016-05-27 12:56 | NUR ---
Incont Pt has been incont x2 this am. Informed patient the pros and cons of getting up and voiding in the BSC. Plan to get pt up at 2 pm to BS and start toileting schedule. Addendum: 05/27/16 at 1413 by ALMAZ JACKSON RN Pt refused to get up to try BSC. I have already worked with PT, I don't have to get up anymore. Re-inforced the importance of getting up and PT encourages. Pt abruptly pulled covers back over her.
--- NOTE | 2016-05-27 12:57 | NUR ---
lido patch Pt refuesed lidoderm patch, it doesn't work at all.
--- NOTE | 2016-05-27 13:37 | NUR ---
Son Son called and updated on patient status.
--- NOTE | 2016-05-27 15:40 | NUR ---
BRANDON BRANDON Signed
--- NOTE | 2016-05-27 15:40 | NUR ---
Social Work: Continued Discharge Planning Data & Assessment: SW met with patient at bedside and notified her that PT was recommending SNF as discharge plan. SW provided patient with a choice list and patient stated that she wanted to be referred to [facility] because she has been there before. SW gave [facility] to patient's chart and faxed pace sheet. SW will continue to follow patient for discharge planning needs. Plan: Patient is likely to discharge to SNF. SW will continue to follow. Liz Beckham LMSW, CURLY
[2016-05-27 17:00] VITALS: BP 169/76; PULSE 62; RESP 20; O2SAT 96
--- NOTE | 2016-05-27 18:09 | NUR ---
pain/mobility/O2 PO oxy given every 4 hours. Pain rated between 6-10. Agreed to take toradol, but refused lido patch. pt able to sit at edge of bed with out assistance. Did transfer with 1 assist to BSC x1 Reports unable to transfer with second attempt. Laid back down and incont/joya care provided. Pt continued to require 1 liter of O2. Sats on RA 88%, 1 liter 92-96%. Per MD will attempt to wean in the morning.
[2016-05-27 20:15] VITALS: BP 112/64; PULSE 62; RESP 17; O2SAT 96
--- NOTE | 2016-05-27 20:27 | PCM.PNMED ---
Subjective Date of Service May 27, 2016 Subjective Patient is juan j and examined. Pain is well controlled. non-dyspneic. saturating at 88% on 1L of oxygen. Denies GI problems, denies fevers, chills. Physical therapy has seen the patient and feel that she has good rehabilitation potential Exam Vital Signs Vital Sign - Last Date Time Temp Pulse Resp B/P Pulse Ox O2 Delivery O2 Flow Rate FiO2 05/27/16 04:28 37.0 66 17 148/72 93 Nasal Cannula 1.00 Intake and Output 05/26/16 05/26/16 05/27/16 Cumulative From/Thru 14:59 22:59 06:59 05/24/16 14:44 - 05/27/16 04:28 Intake Total 1120 ml Output Total 150 ml 2075 ml Balance -150 ml -955 ml Intake Oral 1120 ml IV Total 0 ml Output Urine Total 150 ml 2075 ml Exam General: NAD, laying in bed HEENT: NCAT, missing dentition Eyes: [place] conjunctivae. No ptosis Neck: No masses, trachea midline, no thyromegaly, negative for JVD Lungs: CTA with normal respiratory effort, no crackles or wheezes CV: RRR, no murmurs/rubs/gallops, normal PMI GI: Nondistended Skin: Warm and dry. Psych: A&O X3, with appropriate affect Neuro: No focal deficits Extremities negative for edema IVs and Medications IV Fluids None Medications Reviewed: Medications were reviewed in detail Lab and Diagnostics Laboratory Tests Test 05/27/16 07:05 Sodium Level 137mEq/L (134-144) Potassium Level 3.8mEq/L (3.5-5.2) Chloride Level 97mEq/L (97-108) Carbon Dioxide Level 26mmol/L (18-29) Blood Urea Nitrogen 17mg/dL (8-27) Creatinine 0.86mg/dL (0.57-1.00) Estimat Glomerular Filtration Rate 92mL/min (>59) Glucose Level 95mg/dL (60-99) Calcium Level 9.1mg/dL (8.5-10.1) Result Diagram: 05/25/16 0636 05/26/16 0620 X-Rays, CTs and MRIs Chest Xray Interpretation: IMPRESSION: 1. Limited study demonstrates pulmonary vascular prominence compatible with vascular crowding or mild edema. Recommend a repeat PA and lateral study when clinically feasible if indicated. Lumbar spine Xray IMPRESSION: 1. Transitional anatomy at the lumbar spine redemonstrated. 2. Superior endplate compression fracture of the L3 vertebral body of indeterminate acuity but new compared to the prior study. No retropulsed bony fragments. 3. Mild aneurysmal dilatation of the abdominal aorta. CT Head Interpretation IMPRESSION: 1. No acute intracranial abnormality. 2. Moderate chronic white matter small vessel ischemic changes and mild cerebral volume loss. CTA Chest IMPRESSION: 1. No evidence of central pulmonary embolism. 2. Septal thickening and scattered groundglass opacities in the lungs compatible with pulmonary edema. 3. Small region of atelectasis or consolidation in the inferior right middle lobe. 4. Multiple compression fractures redemonstrated in the thoracic spine including a severe compression fracture at T7 with associated slight posterior displacement of the vertebral body and associated moderate spinal canal narrowing. 12-lead ECG NSR with rate of 62 Assessment & Plan 76yo woman with history of chronic opioid therapy, daily EtOH use, pulmonary embolism, compression fractures, presented to our ER vis EMS with complaint of worsening low back pain over the last 5 days. She has been using a wheelchair for the last three months and can only take a few steps because of back pain. Family reports frequent falls which patient denies. PCP has stopped her opioids due to family reporting heavy drinking. She was noted to be hypoxic, with O2 sat of 85 in the ER, but has no complaint of SOB. She states that she is willing to go to a [facility] facility. She has been incontinent of bladder for several months she thinks and did also have problems of urinary retention that have gone away with Flomax. 1. Vertebral fractures, POA, new fracture of L3 vertebral body, no pain at rest when not moving -She has just withdrawn from opioids so starting them again now may be contraindicated until her living situation is settled.: She does have an acute lumbar spine fracture, no pain relief with ketorolac and Lidoderm patch. Oxycodone 5 to 10 mg every 4 when necessary -- Calcitonin spray home medication, vitamin D3 increased to 800 daily -- Consulted with Johny LAWSON. PA were discussed case with : We reviewed the images, do not recommend TLSO brace or surgical procedures on this frail patient. They recommended good pain control and physical therapy. We appreciate their recommendations. -- Calcium supplementation 1000 mg daily -- We will consider Fosamax if there are no contraindications to it -- Encouraged patient to also take nonopiate form of pain control to relieve her pain symptoms to stay ahead of her pain 2. Hypoxia, POA. Patient is asymptomatic, not complaining of SOB or DE [place] ROSA. CTA negative for PE. CXR indicates low lung volumes and vascular prominence, no indication for pneumonia. No mention of CHF, COPD, Asthma in patient's hospital records. She does have an albuterol inhaler which she uses infrequently. She denies any home O2 use and has not complained of dyspnea. DDX includes hypoxia from low lung volumes and immobility causing chronic alveolar hypoventilation versus anemia vs new onset CHF which is unlikely with no JVD, no orthopnea, minimal edema. Immobility is also at the top of the DDx because she has undoubtedly become less mobile due to increasing pain over the last 5 days since her supply of Oxycodone ran out. Her mild elevation of BNP at 1131 can also be related to increased work of the heart against low lung volumes. -Continue O2 by nasal cannula -Incentive Spirometer ordered to expand lung volume -Repeat BNP ordered to r/o CHF: Echocardiogram is ordered as well as 20 IV Lasix one time: Echo showed no concern for CHF -Physical Therapy -- incentive spirometry 3. Hypertension, POA. Patient not sure which medications she is taking, Lisinopril or Losartan or both -Clarify this in the morning with her pharmacy or PCP, Dr Edouard -Nevertheless Losartan 50mg is ordered for the morning as her pressures were high last night. - Amlodipine increased to 10 mg to better control her blood pressures - Metoprolol 25mg daily: Increase to 50 daily, and she had a couple of runs of SVT overnight 05/25/16 4. Tachycardia : Reported from telemetry, could be due to pain versus alcohol withdrawal, increased metoprolol dose as above -- Tolerated changed dose of metoprolol well. 5. Hypothyroidism, POA. -continuing home levothyroxine 6.Hypokalemia, POA. Likely due to alcoholism - Continue to monitor -Replete now per protocol -BMP in the morning -Mg ordered, replete as needed. 7. History of PE. Apixaban held and Heparin 5000units subq q8h started. Patient cannot confirm that she is taking Apixaban currently. - I did not hear back from her PCP regarding this however, admission nurse did confirm eliquis on patient's formulary. This really started it today. Discontinue heparin subcutaneous 8. Disposition. Patient is not likely to do well at home being wheel chair bound and her son apparently no longer willing to enable her drinking or take her to appointments. Past notes state she has been unwilling to have home health or go to SNF, but she says now she is willing as she thinks her son will not be able to do everything she needs. She will be [facility] to [facility] on 05[facility]16 -Social work consult ordered. As well as physical therapy 8. GERD, POA, -continue pantoprazole. PRN medications for nausea, dyspepsia, constipation: ondansetron, maalox, senna , miralax. Pain Evaluation: Adequate Pain Control VTE Prophylaxis: Sub-Q Heparin (Unfractionated) Limited Interventions: Medications and IV Fluid Lizette Adorno DO May 27, 2016 05:16
[2016-05-27] MEDS: Magnesium Chloride SR 64 mg ER24 Tablet PO SCH (20:55)
[2016-05-28 00:30] VITALS: BP 123/72; PULSE 70; RESP 17; O2SAT 97
--- NOTE | 2016-05-28 02:28 | NUR ---
Shift Note Pt. uses call light for assistance, LN assisted pt. to BSC a few times, able to stand with FWW 1 PA, Given prn temazepam upon request, able to sleep, awakened by back pain 5/10 managed by prn oxycodone, repositioning helpful to decrease back discomfort, hourly rounds, call light in reach, all needs attended.
[2016-05-28 04:30] VITALS: BP 133/70; PULSE 68; RESP 17; O2SAT 97
[2016-05-28] MEDS: Pantoprazole 40 mg ER24 Tablet PO SCH (05:50)
[2016-05-28 08:04] VITALS: BP 156/74; PULSE 70; RESP 18; O2SAT 96
[2016-05-28] MEDS: Lidocaine Topical 5% Patch TOPICAL SCH (08:07)
[2016-05-28] MEDS: Ketorolac 15 mg/mL Inj IVPUSH PRN (08:08)
[2016-05-28] MEDS: MeTOProlol XL 25 mg ER24 Tablet PO SCH (08:08)
[2016-05-28] MEDS: Multivit-Miner-Folic Acid-Iron Tablet PO SCH (08:09)
--- NOTE | 2016-05-28 10:29 | NUR ---
Social Work: Continued Discharge Planning Data & Assessment: Syrup Maker spoke with Nancy at [facility] regarding patient's acceptance or denial and Nancy stated that she needed to review the patient more and she would call the SW back with an answer. SW will continue to follow and assist patient. Plan: Patient is likely to discharge to [facility] if accepted. SW will continue to follow. Liz Beckham LMSW, CURLY
[2016-05-28 12:26] VITALS: BP 116/68; PULSE 69; RESP 17; O2SAT 93
[2016-05-28 17:02] VITALS: BP 101/55; PULSE 66; RESP 16; O2SAT 94
--- NOTE | 2016-05-28 17:43 | NUR ---
pain, activity pt. c/o 6-09/14 back pain; receiving prn oxycodone q4hr for pain control; pt. states pain comes down with medication; ice pack to back this afternoon pt. stated helped with the pain; lidocaine patch in place. Pt. stood at eob with 1pa and fww; tolerated standing for several minutes. Worked with PT this afternoon.
[2016-05-28] MEDS ORDERED: LORazepam 0.5 mg Tablet PO ONE (19:35)
[2016-05-28] MEDS: Magnesium Chloride SR 64 mg ER24 Tablet PO SCH (20:05)
[2016-05-28] MEDS: Calcitonin 200 IU 3.7 mL Nasal Spray NASAL SCH (20:05)
--- NOTE | 2016-05-28 20:50 | PCM.PNMED ---
Subjective Date of Service May 28, 2016 Subjective Patient is tearful today, stating that she is very anxious. She does not know why she is very anxious. She is not worried about having to go to the [facility] [place] upon her discharge. States pain is not bothering her. She denies dyspnea and chest pain, denies missing her drinks. Exam Vital Signs Vital Sign - Last Date Time Temp Pulse Resp B/P Pulse Ox O2 Delivery O2 Flow Rate FiO2 05/28/16 04:40 Supplement Oxygen 05/28/16 04:30 36.5 68 17 133/70 97 05/28/16 00:30 1.00 Intake and Output 05/27/16 05/27/16 05/28/16 Cumulative From/Thru 15:00 23:00 07:00 05/24/16 14:44 - 05/28/16 04:40 Intake Total 840 ml 2200 ml Output Total 2075 ml Balance 840 ml 125 ml Intake Oral 840 ml 2200 ml IV Total 0 ml Output Urine Total 2075 ml # Voids 5 7 # Bowel Movements 0 0 Exam General: NAD, laying in bed HEENT: NCAT, missing dentition Eyes: [place] conjunctivae. No ptosis Neck: No masses, trachea midline, no thyromegaly, negative for JVD Lungs: CTA with normal respiratory effort, no crackles or wheezes CV: RRR, no murmurs/rubs/gallops, normal PMI GI: Nondistended Skin: Warm and dry. Psych: A&O X3, tearful and anxious Neuro: No focal deficits Extremities negative for edema IVs and Medications IV Fluids None Medications Reviewed: Medications were reviewed in detail Lab and Diagnostics Result Diagram: 05/25/16 0636 05/27/16 0705 X-Rays, CTs and MRIs Chest Xray Interpretation: IMPRESSION: 1. Limited study demonstrates pulmonary vascular prominence compatible with vascular crowding or mild edema. Recommend a repeat PA and lateral study when clinically feasible if indicated. Lumbar spine Xray IMPRESSION: 1. Transitional anatomy at the lumbar spine redemonstrated. 2. Superior endplate compression fracture of the L3 vertebral body of indeterminate acuity but new compared to the prior study. No retropulsed bony fragments. 3. Mild aneurysmal dilatation of the abdominal aorta. CT Head Interpretation IMPRESSION: 1. No acute intracranial abnormality. 2. Moderate chronic white matter small vessel ischemic changes and mild cerebral volume loss. CTA Chest IMPRESSION: 1. No evidence of central pulmonary embolism. 2. Septal thickening and scattered groundglass opacities in the lungs compatible with pulmonary edema. 3. Small region of atelectasis or consolidation in the inferior right middle lobe. 4. Multiple compression fractures redemonstrated in the thoracic spine including a severe compression fracture at T7 with associated slight posterior displacement of the vertebral body and associated moderate spinal canal narrowing. 12-lead ECG NSR with rate of 62 Assessment & Plan 76yo woman with history of chronic opioid therapy, daily EtOH use, pulmonary embolism, compression fractures, presented to our ER vis EMS with complaint of worsening low back pain over the last 5 days. She has been using a wheelchair for the last three months and can only take a few steps because of back pain. Family reports frequent falls which patient denies. PCP has stopped her opioids due to family reporting heavy drinking. She was noted to be hypoxic, with O2 sat of 85 in the ER, but has no complaint of SOB. She states that she [facility]. She has been incontinent of bladder for several months she thinks and did also have problems of urinary retention that have gone away with Flomax. 1. Vertebral fractures, POA, new fracture of L3 vertebral body, no pain at rest when not moving -She has just withdrawn from opioids so starting them again now may be contraindicated until her living situation is settled.: She does have an acute lumbar spine fracture, no pain relief with ketorolac and Lidoderm patch. Oxycodone 5 to 10 mg every 4 when necessary -- Calcitonin spray home medication, vitamin D3 increased to 800 daily -- Consulted with Johny LAWSON. PA were discussed case with : We reviewed the images, do not recommend TLSO brace or surgical procedures on this frail patient. They recommended good pain control and physical therapy. We appreciate their recommendations. -- Calcium supplementation 1000 mg daily -- We will consider Fosamax if there are no contraindications to it -- Encouraged patient to also take nonopiate form of pain control to relieve her pain symptoms to stay ahead of her pain 2. Hypoxia, POA. Patient is asymptomatic, not complaining of SOB or [place]. CTA negative for PE. CXR indicates low lung volumes and vascular prominence, no indication for pneumonia. No mention of CHF, COPD, Asthma in patient's hospital records. She does have an albuterol inhaler which she uses infrequently. She denies any home O2 use and has not complained of dyspnea. DDX includes hypoxia from low lung volumes and immobility causing chronic alveolar hypoventilation versus anemia vs new onset CHF which is unlikely with no JVD, no orthopnea, minimal edema. Immobility is also at the top of the DDx because she has undoubtedly become less mobile due to increasing pain over the last 5 days since her supply of Oxycodone ran out. Her mild elevation of BNP at 1131 can also be related to increased work of the heart against low lung volumes. -Continue O2 by nasal cannula -Incentive Spirometer ordered to expand lung volume -Repeat BNP ordered to r/o CHF: Echocardiogram is ordered as well as 20 IV Lasix one time: Echo showed no concern for CHF -Physical Therapy -- incentive spirometry -- Asked staff to keep oxygen saturations between 80-92% and wean her oxygen 3 Acute anxiety: It appears Dr. Short has already ordered 0.5 of Ativan, agree with that management. Asked staff also to watch for CIwa and administer medication as needed 4 Hypertension, POA. Patient not sure which medications she is taking, Lisinopril or Losartan or both -Clarify this in the morning with her pharmacy or PCP, Dr Edouard -Nevertheless Losartan 50mg is ordered for the morning as her pressures were high last night. - Amlodipine increased to 10 mg to better control her blood pressures - Metoprolol 25mg daily: Increase to 50 daily, and she had a couple of runs of SVT overnight 05/25/16 5 . Acute Tachycardia : Reported from telemetry, could be due to pain versus alcohol withdrawal, increased metoprolol dose as above -- Tolerated changed dose of metoprolol well. -- Resolved 6. Hypothyroidism, POA. -continuing home levothyroxine 7.Hypokalemia, POA. Likely due to alcoholism - Continue to monitor -Replete now per protocol -BMP in the morning -Mg ordered, replete as needed. 8. History of PE. Apixaban held and Heparin 5000units subq q8h started. Patient cannot confirm that she is taking Apixaban currently. - I did not hear back from her PCP regarding this however, admission nurse did confirm eliquis on patient's formulary. This really started it today. Discontinue heparin subcutaneous 9. Disposition. Patient is not likely to do well at home being wheel chair bound and her son apparently no longer willing to enable her drinking or take her to appointments. Past notes state she has been unwilling to have home health or go to SNF, but she says now she is willing as she thinks her son will not be able to do everything she needs. [facility] -Social work consult ordered. As well as physical therapy 10 GERD, POA, -continue pantoprazole. PRN medications for nausea, dyspepsia, constipation: ondansetron, maalox, senna , miralax. Pain Evaluation: Adequate Pain Control VTE Prophylaxis: Sub-Q Heparin (Unfractionated) Limited Interventions: Medications and IV Fluid Lizette Adorno DO May 28, 2016 05:25
[2016-05-28] MEDS ORDERED: METO25TA99 PO (20:57)
[2016-05-28] MEDS ORDERED: CALC3.8S NASAL (20:57)
[2016-05-28] MEDS ORDERED: LIDO700A6 TOPICAL (20:57)
[2016-05-28] MEDS ORDERED: CALC500T53 PO (20:57)
[2016-05-28] MEDS ORDERED: Hydrocortisone 10 mg Tablet PO SCH (21:00)
[2016-05-28 22:22] VITALS: BP 156/73; PULSE 72; RESP 16; O2SAT 99
--- NOTE | 2016-05-29 05:08 | NUR ---
Anxiety/CIWA Pt had severe anxiety, pt stated there were no precipitating factors, but just that they were very anxious. Pt expressed some suicidal thoughts during this episode as well. Got a one time ativan dose from NOC hospitalist, which was minimally effective. Pt's anxiety then continued to increase, pt became sweaty and had mild tremor, CIWA of 10, given valium dose w/ good anxiety relief and pt has been resting well all night, no returning anxiety.
[2016-05-29] MEDS: Pantoprazole 40 mg ER24 Tablet PO SCH (05:58)
[2016-05-29 06:22] VITALS: BP 124/78; PULSE 61; RESP 16; O2SAT 93
[2016-05-29 07:39] VITALS: BP 121/73; PULSE 67; RESP 17; O2SAT 95
[2016-05-29] MEDS: Lidocaine Topical 5% Patch TOPICAL SCH (08:30)
[2016-05-29] MEDS: Ketorolac 15 mg/mL Inj IVPUSH PRN ×3 (08:35→23:01)
[2016-05-29] MEDS: MeTOProlol XL 25 mg ER24 Tablet PO SCH (08:35)
[2016-05-29] MEDS: Multivit-Miner-Folic Acid-Iron Tablet PO SCH (08:36)
[2016-05-29] MEDS: Hydrocortisone 10 mg Tablet PO SCH ×2 (08:41→21:33)
[2016-05-29 13:16] VITALS: BP 123/66; PULSE 72; RESP 19; O2SAT 90
--- NOTE | 2016-05-29 13:23 | NUR ---
Social Work: Continued Discharge Planning Data & Assessment: Data Entry Associate spoke with Jalyn at [facility] and the are able to accept the patient. SW spoke with patient's attending physician and she reported that the patient may be ready for discharge on 05/31/15. SW notified Jalyn that per patient's attending physician the patient may discharge on 05/30/16. SW also spoke with patient and patient's son to notify them of the estimated discharge date and that the patient was accepted to [facility]. Patient PASRR complete and paperwork on chart. SW will continue to follow patient throughout stay. Plan: Patient will likely discharge to [facility] via cabulance when medically ready. SW will continue to follow. Liz Beckham LMSW, ACRomy
--- NOTE | 2016-05-29 14:07 | NUR ---
[facility] signed
--- NOTE | 2016-05-29 14:54 | NUR ---
Voiding Pt has been calling every half hour to void. She is refusing to get out of bed and use the BSC, pt states she is in to much pain. Pt is getting regularly medicated with pain medication. When pt calls she voids 10ml at at a time, but complains that she feels like she's went. UA and RN have told her she is dry, and we will check on her regularly to see if she is wet.
[2016-05-29 17:07] VITALS: BP 159/74; PULSE 68; RESP 16; O2SAT 91
[2016-05-29 19:53] VITALS: BP 103/61; PULSE 98; RESP 20; O2SAT 95
--- NOTE | 2016-05-29 20:06 | PCM.PNMED ---
Subjective Date of Service May 29, 2016 Subjective Patient is seen and examined. She is currently off of oxygen. She states that she never got anxious like she did last night. She is still saying that she has some residual pain with movement and she was unable to sit with PT OT in the wheelchair for as long as she did the day before. She is hoping to be discharged to correction tomorrow. Denies tachycardia, anxiety, tremors Exam Vital Signs Vital Sign - Last Date Time Temp Pulse Resp B/P Pulse Ox O2 Delivery O2 Flow Rate FiO2 05/29/16 19:53 36.8 98 20 103/61 95 Room Air 05/29/16 07:39 1.00 Intake and Output 05/28/16 05/28/16 05/29/16 Cumulative From/Thru 15:00 23:00 07:00 05/24/16 14:44 - 05/29/16 06:22 Intake Total 420 ml 600 ml 3700 ml Output Total 250 ml 650 ml 2975 ml Balance 170 ml -50 ml 725 ml Intake Oral 600 ml 3280 ml IV Total 420 ml 420 ml Output Urine Total 250 ml 650 ml 2975 ml # Voids 2 1 14 # Bowel Movements 0 Exam General: NAD, laying in bed HEENT: NCAT, missing dentition Eyes: Burrows conjunctivae. No ptosis Neck: No masses, trachea midline, no thyromegaly, negative for JVD Lungs: CTA with normal respiratory effort, no crackles or wheezes CV: Irregularly irregular, no murmurs/rubs/gallopsI GI: Nondistended Skin: Warm and dry. Psych: A&O X3, negative for anxiety Neuro: No focal deficits Extremities negative for edema IVs and Medications IV Fluids None Medications Reviewed: Medications were reviewed in detail Lab and Diagnostics Result Diagram: 05/25/16 0636 05/27/16 0705 X-Rays, CTs and MRIs Chest Xray Interpretation: IMPRESSION: 1. Limited study demonstrates pulmonary vascular prominence compatible with vascular crowding or mild edema. Recommend a repeat PA and lateral study when clinically feasible if indicated. Lumbar spine Xray IMPRESSION: 1. Transitional anatomy at the lumbar spine redemonstrated. 2. Superior endplate compression fracture of the L3 vertebral body of indeterminate acuity but new compared to the prior study. No retropulsed bony fragments. 3. Mild aneurysmal dilatation of the abdominal aorta. CT Head Interpretation IMPRESSION: 1. No acute intracranial abnormality. 2. Moderate chronic white matter small vessel ischemic changes and mild cerebral volume loss. CTA Chest IMPRESSION: 1. No evidence of central pulmonary embolism. 2. Septal thickening and scattered groundglass opacities in the lungs compatible with pulmonary edema. 3. Small region of atelectasis or consolidation in the inferior right middle lobe. 4. Multiple compression fractures redemonstrated in the thoracic spine including a severe compression fracture at T7 with associated slight posterior displacement of the vertebral body and associated moderate spinal canal narrowing. 12-lead ECG NSR with rate of 62 Assessment & Plan 76yo woman with history of chronic opioid therapy, daily EtOH use, pulmonary embolism, compression fractures, presented to our ER vis EMS with complaint of worsening low back pain over the last 5 days. She has been using a wheelchair for the last three months and can only take a few steps because of back pain. Family reports frequent falls which patient denies. PCP has stopped her opioids due to family reporting heavy drinking. She was noted to be hypoxic, with O2 sat of 85 in the ER, but has no complaint of SOB. She states that she is willing to go to a fpc facility. She has been incontinent of bladder for several months she thinks and did also have problems of urinary retention that have gone away with Flomax. 1. Vertebral fractures, POA, new fracture of L3 vertebral body, no pain at rest when not moving -She has just withdrawn from opioids so starting them again now may be contraindicated until her living situation is settled.: She does have an acute lumbar spine fracture, no pain relief with ketorolac and Lidoderm patch. Oxycodone 5 to 10 mg every 4 when necessary -- Calcitonin spray home medication, vitamin D3 increased to 800 daily -- Consulted with Johny LAWSON. PA were discussed case with : We reviewed the images, do not recommend TLSO brace or surgical procedures on this frail patient. They recommended good pain control and physical therapy. We appreciate their recommendations. -- Calcium supplementation 1000 mg daily -- We will consider Fosamax if there are no contraindications to it -- Encouraged patient to also take nonopiate form of pain control to relieve her pain symptoms to stay ahead of her pain 2. Orthostatic hypotension, chronic: -- Discussed home medication hydrocortisone/Solu-Cortef with the PCP on 05/29. He states that he had to have her on it for her chronic orthostatic hypotension nausea and vomiting. Every time he tries to take her off of it she exhibits these symptoms. He is agreeable to her taper of 40 mg twice a day. He states that he will follow up outside and taper her down further to 20 twice a day. He feels that she should be maintained on the dosages for some time in spite of her vertebral fractures. -- Patient was put on twice a day 40 mg Solu-Cortef by mouth last night. 3. Hypoxia, POA. Patient is asymptomatic, not complaining of SOB or [place]. CTA negative for PE. CXR indicates low lung volumes and vascular prominence, no indication for pneumonia. No mention of CHF, COPD, Asthma in patient's hospital records. She does have an albuterol inhaler which she uses infrequently. She denies any home O2 use and has not complained of dyspnea. DDX includes hypoxia from low lung volumes and immobility causing chronic alveolar hypoventilation versus anemia vs new onset CHF which is unlikely with no JVD, no orthopnea, minimal edema. Immobility is also at the top of the DDx because she has undoubtedly become less mobile due to increasing pain over the last 5 days since her supply of Oxycodone ran out. Her mild elevation of BNP at 1131 can also be related to increased work of the heart against low lung volumes. -Continue O2 by nasal cannula -Incentive Spirometer ordered to expand lung volume -Repeat BNP ordered to r/o CHF: Echocardiogram is ordered as well as 20 IV Lasix one time: Echo showed no concern for CHF -Physical Therapy -- incentive spirometry -- Asked staff to keep oxygen saturations between 80-92% and wean her oxygen : She is currently off of her oxygen 4 Acute anxiety: It appears Dr. Short has already ordered 0.5 of Ativan, agree with that management. Asked staff also to watch for CIwa and administer medication as needed 5 Hypertension, POA. Patient not sure which medications she is taking, Lisinopril or Losartan or both -Clarify this in the morning with her pharmacy or PCP, Dr Edouard -Nevertheless Losartan 50mg is ordered for the morning as her pressures were high last night. - Amlodipine increased to 10 mg to better control her blood pressures - Metoprolol 25mg daily: Increase to 50 daily, and she had a couple of runs of SVT overnight 05/25/16 6. Acute Tachycardia : Reported from telemetry, could be due to pain versus alcohol withdrawal, increased metoprolol dose as above -- Tolerated changed dose of metoprolol well. -- Resolved 7. Hypothyroidism, POA. -continuing home levothyroxine 8.Hypokalemia, POA. Likely due to alcoholism - Continue to monitor -Replete now per protocol -BMP in the morning -Mg ordered, replete as needed. 9. History of PE. Apixaban held and Heparin 5000units subq q8h started. Patient cannot confirm that she is taking Apixaban currently. - I did not hear back from her PCP regarding this however, admission nurse did confirm eliquis on patient's formulary. This really started it today. Discontinue heparin subcutaneous : PCP has confirmed her dose of the eliquis this a.m. 10. Disposition. Patient is not likely to do well at home being wheel chair bound and her son apparently no longer willing to enable her drinking or take her to appointments. Past notes state she has been unwilling to have home health or go to SNF, but she says now she is willing as she thinks her son will not be able to do everything she needs. She will be discharged to [facility] home on 05/30/16. Her discharge was held today due to concern for alcohol withdrawal, if it is just a one-time incident last night she is likely okay to go to snf tomorrow -Social work consult ordered. As well as physical therapy 10 GERD, POA, -continue pantoprazole. PRN medications for nausea, dyspepsia, constipation: ondansetron, maalox, senna , miralax. VTE Prophylaxis: Sub-Q Heparin (Unfractionated) Limited Interventions: Medications and IV Fluid Lizette Adorno DO May 29, 2016 20:06
[2016-05-29] MEDS: Magnesium Chloride SR 64 mg ER24 Tablet PO SCH (21:32)
[2016-05-29] MEDS: Calcitonin 200 IU 3.7 mL Nasal Spray NASAL SCH (21:33)
[2016-05-30 01:30] VITALS: BP 153/70; PULSE 57; RESP 20; O2SAT 92
--- NOTE | 2016-05-30 02:01 | NUR ---
PAIN/IV Upon initial assessment patient was quite agitated and refused a full assessment. Continues to report pain at 6-7/10, relieved with toradol and oxycodone. Patient continues to refuse to get out of bed to the bathroom and has been incontinent in her brief and at times will ask for the bedpan. Patient's IV infiltrated and she refused to allow another one to be placed at this time and stated she would decide in the morning if she wanted it placed again. Patient understands that she would not be able to receive any more toradol unless replaced. She is turning herself in the bed and does not need assistance to do so. Will continue to monitor.
[2016-05-30] MEDS: Pantoprazole 40 mg ER24 Tablet PO SCH (05:57)
[2016-05-30 06:19] LABS: Mean Corpuscular Hemoglobin 27.6 pg (27.0-35.0); Mean Corpuscular Volume 88.4 fL (81-100)
[2016-05-30 08:00] VITALS: BP 149/83; PULSE 57; O2SAT 93
[2016-05-30] MEDS: Hydrocortisone 10 mg Tablet PO SCH (08:03)
[2016-05-30] MEDS: MeTOProlol XL 25 mg ER24 Tablet PO SCH (08:04)
[2016-05-30] MEDS: Multivit-Miner-Folic Acid-Iron Tablet PO SCH (08:04)
[2016-05-30] MEDS: Lidocaine Topical 5% Patch TOPICAL SCH (08:08)
--- NOTE | 2016-05-30 13:42 | NUR ---
Social Work Note - Readiness for Discharge: D/A: The Pt is a 76 y/o female that is now on day 6 of admission for back injury. The Pt has been accepted to [facility] with MD Ordoñez to follow. PASSR in folder. Pt's last CIWA is 10, SW informed by that the Pt will likely to hospitalized for an additional 3-5 days. SW to follow. P: The Pt will likely discharge to [facility] with MD Ordoñez to follow when medically stable. CIWA is at 10, will likely need an additional 3-5 days as per . SW to follow. Mandy Andrews, OPERATIONS CLERK [employer]
--- NOTE | 2016-05-30 14:56 | NUR ---
Rosey CURRY called MD as pt asking about discharge. She returned call. DANIELARHONDA scores reviewed with her. Stating she will be over to write orders. Called [facility] program planner re: discharge today. Addendum: 05/30/16 at 1505 by ALMAZ JACKSON RN Plan for transfer around 4:30 pm. Pt calling son to inform him.
--- NOTE | 2016-05-30 15:14 | NUR ---
Social Work Note - Discharge: D/A: The Pt is a 76 y/o female that is now on day 6 of admission for back injury. ROMERO informed from RN that the Pt is to be released today, working on discharge orders. SW placed call to [employer]ining [employer] Operator to update. Refining Still Operator informed SW that [facility] is able to accept Pt today, transportation scheduled for 4:30pm. RN informed. Pt and Pt's son informed and agreeable to plan. No other needs identified at this time, SW to follow if needs arise. P: Pt to discharge to [facility] today at 4:30pm with MD Ordoñez to follow. No other needs identified at this time, SW to follow if needs arise. DEYA Reardon [employer] Bank[employer] Addendum: 05/30/16 at 1550 by MIRTHA LILLY SS ROMERO intern architect note reviewed. DEYA Shi
[2016-05-30] MEDS ORDERED: PREN1TAB25 PO (15:39)
[2016-05-30] MEDS ORDERED: CHOL400T PO (15:39)
[2016-05-30] MEDS ORDERED: Thiamine PO (15:39)
[2016-05-30] MEDS ORDERED: OXYC5TAB72 PO ×2 (15:41→15:52)
--- NOTE | 2016-05-30 15:49 | PCM.DIMED ---
Discharge Instructions Date of Service May 30, 2016 Dates of Hospitalization May 24, 2016 at 19:06 Discharge Diagnosis Discharge Diagnosis Lumbar L3 Fracture, acute , Thoracic compression old fractures, Orthostatic Hypotension, Chronic hypokalemia, alcoholism, anxiety, chronic anticoagulation due to PE Diet Heart Healthy Activity Other (PT/OT at the SNF) Call your provider Fever or Chills, Shortness of breath, Bleeding, Chest pain, Vomitting, Excessive diarrhea, Weakness (unilateral), Other Patient Instructions Assessment * Pt initally agreeable to participate in skilled PT this pm, although after positioned at EOB, pt refused to attempt standing, citing pain as the limiting factor. Per NS report, pt has been transfer[place] [facility] [place] [facility] PT recommendation remains for SNF via cabulance for daily PT and progression of fucntional ind with mobility. Tolerance to Treatment * Poor Current Discharge Recommendations * Long Term Facility Discharge Mode of Transportaion * Cabulance Follow-up plan To be seen by SNF attending upon arrival. She needs a taper protocol for her solucortef. Currently on 20 mg BID PO. We recommend that you manage this dose for 5 more days, then drop to 30 mg PO BID. After a week of that, assess her orthostatic pressures prior to another 20% decrease in dose. Her prev PCP Dr. Edouard feels she will need some level of corticosteroids permanently. Lizette Adorno DO May 30, 2016 15:49
--- NOTE | 2016-05-30 15:58 | PCM.DC.MED ---
Discharge Summary Date of Service May 30, 2016 Dates of Hospitalization Date of Hospital Admission May 24, 2016 at 19:06 Date of Discharge: May 30, 2016 Providers: Admitting Physician: Jyoti Montanez DO Primary Care Physician: Carlos Edouard MD Attending Physician: Jyoti Montanez DO Diagnosis at Time of Discharge Diagnosis at Time of Discharge Lumbar L3 Fracture, acute , Thoracic compression old fractures, Orthostatic Hypotension, Chronic hypokalemia, alcoholism, anxiety, chronic anticoagulation due to PE Consultations PT/OT Procedures XRay, CTs & MRIs Chest Xray Interpretation: IMPRESSION: 1. Limited study demonstrates pulmonary vascular prominence compatible with vascular crowding or mild edema. Recommend a repeat PA and lateral study when clinically feasible if indicated. Lumbar spine Xray IMPRESSION: 1. Transitional anatomy at the lumbar spine redemonstrated. 2. Superior endplate compression fracture of the L3 vertebral body of indeterminate acuity but new compared to the prior study. No retropulsed bony fragments. 3. Mild aneurysmal dilatation of the abdominal aorta. CT Head Interpretation IMPRESSION: 1. No acute intracranial abnormality. 2. Moderate chronic white matter small vessel ischemic changes and mild cerebral volume loss. CTA Chest IMPRESSION: 1. No evidence of central pulmonary embolism. 2. Septal thickening and scattered groundglass opacities in the lungs compatible with pulmonary edema. 3. Small region of atelectasis or consolidation in the inferior right middle lobe. 4. Multiple compression fractures redemonstrated in the thoracic spine including a severe compression fracture at T7 with associated slight posterior displacement of the vertebral body and associated moderate spinal canal narrowing. ECG 12 Lead NSR with rate of 62 Cardiac Echo Impression [facility] Diagnostic Imaging Department [place], [place] [id number] Patient Name: COURTNEY ROBIN MR#: [id number] Location: [facility] [place] Ordering Phys: Lizette Domínguez DO Date of Service: 05/26/[address] [place] [id number] Echocardiogram Report Name: COURTNEY ROBIN LStudy Date: 05/26/2016 Height: 69 in Hospital Exam Location: [facility] Weight: 152 lb Gender: Female BSA: 1.8 m2 : 1940 Age: 76 yrs BP: 156/78 mm Hg Reason For Study: ELEVATED BNP, PULM EDEMA Ordering Physician: HOSPITALIST [facility] Performed By: Melanie Rios Referring Physician: Dr. Carlos Edouard Interpretation Summary Left ventricular wall thickness is borderline increased. The ejection fraction is estimated to be 65-70%. There is no significant valvular heart disease. Procedure: A two-dimensional transthoracic echocardiogram with color flow and Doppler was performed. The study quality was technically adequate. Comparison is made with the echocardiogram of 09-06-2015. The subcostal views were difficult to obtain and are suboptimal in quality. The patient was in normal sinus rhythm during the exam. Left Ventricle: The left ventricular cavity is small. Left ventricular wall thickness is borderline increased. Left ventricular systolic function is normal. The ejection fraction is estimated to be 65-70%. Spectral Doppler of the mitral valve is reversed, with an E/A wave ratio < 1.0. Right Ventricle: The right ventricle is normal in size and function. Atria: Both atria are normal in size. There is no Doppler evidence for an atrial septal defect. Mitral Valve: There is mild mitral annular calcification. The mitral valve leaflets appear mildly thickened, but open well. There is no mitral regurgitation noted. Aortic Valve: The aortic valve is trileaflet. The aortic valve opens well. There is mild aortic valve sclerosis. The patient unable to valsalva. No aortic regurgitation is present. Tricuspid Valve: The tricuspid valve leaflets are thin and pliable. Pulmonic Valve: The pulmonic valve leaflets are thin and pliable; valve motion is normal. There is no pulmonic valvular regurgitation. Great Vessels: The aortic root is normal size. Mobile echolucency in the root/prox aorta appears to be artifactual. The dimensions of the ascending aorta are normal. The pulmonary artery is normal size. The inferior vena cava was not visualized. Pericardium/ Pleura There is no pericardial effusion. There is probable pericardial fat pad noted. There is no pleural effusion. MMode/2D Measurements & Calculations LVIDd: 3.5 cm LA dimension: 3.3 cm RA long axis LVOT diam: 2.0 cm LVIDs: 2.3 cm AoV Opening FS: 34.1 % LA A2 area: 18.9 cm RA area EPSS: 0.58 cm LA A4 area: 19.5 cm Ao root diam IVSd: 1.3 cm LA length (vol) : 10.5 cm LVPWd: 1.2 cm RA vol Aortic Jxn: 2.6 cm LA vol: 52.9 ml : 22.0 ml asc Aorta Diam LA vol index RA : 12.0 mm/ Ao Arch Diam (Prox : 28.8 ml/m2 RVDd major Trans): 2.4 cm : 5.2 cm LV raymundo. diameter/BSA LV sys. diameter/BSA RVD1 (basal) RVD2 (mid): 3.0 cm (cm/m^2): 1.9 (cm/m^2): 1.2 Doppler Measurements & Calculations Ao V2 max MV E max ariel MV E/A: 0.52 TR max ariel : 155.7 cm/sec : 54.7 cm/sec Med Peak E' Ariel : 251.8 cm/sec Ao max P.7 mmHg MV A max ariel TR max PG Ao mean P.8 mmHg : 105.2 cm/sec E/E' med: 12.8 : 25.4 mmHg LVOT Max Ariel MV P1/2t: 88.8 msec Lat Peak E' Ariel PA V2 max : 148.8 cm/sec : 100.3 cm/sec SMILEY(I,D): 2.6 cm E/E' lat: 9.2 PA mean PG sev ratio: 0.80 E/e' average PA Accel Time Pulm A Revs Dur : 0.10 sec MV A dur : 0.13 sec MV P1/2t max ariel Ao V2 mean LV V1 max PG PA V2 mean : 103.3 cm/sec : 69.9 cm/sec MVA(P1/2t): 2.5 cm2 Ao V2 VTI: 31.5 cm LV V1 VTI SMILEY(V,D): 3.0 cm2 : 25.2 cm SMILEY indexed to BSA Pulm A Revs Dur - MV A (cm^2/m^2): 1.4 Dur: -0.01 msec Electronically signed by: Terrance Acevedo on Reading Physician:05/26/2016 04:39 PM Brief History 76yo woman with history of chronic opioid therapy, daily EtOH use, pulmonary embolism, compression fractures, presented to our ER vis EMS with complaint of worsening low back pain over the last 5 days since running out of Oxycodone which her PCP will no longer prescribe for her. She has been using a wheelchair for the last three months and can only take a few steps because of the pain, but has no pain seated or lying down. The pain with weight bearing is in the mid-line low back and does not radiate. She denies falling recently, but according to the ED note her son who lives across the street reports she had been falling frequently until he bought her a walker and then the wheelchair. The son also reported to the ED that she had been taking oxycodone for 12 years and was recently denied by her PCP. She took her last oxycodone last Sunday she reports. She states this happened because her son told the doctor she was drinking 4 to 5 shots of whiskey daily. She says she only has one whiskey before dinner every day. She also states that her son no longer wants to take care of her, that he has a family, and does not have time to take her to her appointments. She reports that she had her last Oxycodone last 05/19/16. She states that she is willing to go to a usp facility. She has been incontinent of bladder for some time and did also have problems of urinary retention that have gone away with Flomax. She denies loss of bowel control, denies numbness, tingling, or weakness. In the ED she was found to be hypoxic and did have a negative CTA for PE. Hospital Course 76yo woman with history of chronic opioid therapy, daily EtOH use, pulmonary embolism, compression fractures, presented to our ER vis EMS with complaint of worsening low back pain over the last 5 days. She has been using a wheelchair for the last three months and can only take a few steps because of back pain. Family reports frequent falls which patient denies. PCP has stopped her opioids due to family reporting heavy drinking. She was noted to be hypoxic, with O2 sat of 85 in the ER, but has no complaint of SOB. She states that she is willing to go to a usp facility. She has been incontinent of bladder for several months she thinks and did also have problems of urinary retention that have gone away with Flomax. 1. Vertebral fractures, POA, new fracture of L3 vertebral body, no pain at rest when not moving -She has just withdrawn from opioids so starting them again now may be contraindicated until her living situation is settled.: She does have an acute lumbar spine fracture, no pain relief with ketorolac and Lidoderm patch. Oxycodone 5 to 10 mg every 4 when necessary -- Calcitonin spray home medication, vitamin D3 increased to 800 daily -- Consulted with Johny LAWSON. PA were discussed case with : We reviewed the images, do not recommend TLSO brace or surgical procedures on this frail patient. They recommended good pain control and physical therapy. We appreciate their recommendations. -- Calcium supplementation 1000 mg daily -- We will consider Fosamax if there are no contraindications to it -- Encouraged patient to also take nonopiate form of pain control to relieve her pain symptoms to stay ahead of her pain 2. Orthostatic hypotension, chronic: -- Discussed home medication hydrocortisone/Solu-Cortef with the PCP on 05/29. He states that he had to have her on it for her chronic orthostatic hypotension nausea and vomiting. Every time he tries to take her off of it she exhibits these symptoms. He is agreeable to her taper of 40 mg twice a day. He states that he will follow up outside and taper her down further to 20 twice a day. He feels that she should be maintained on the dosages for some time in spite of her vertebral fractures. -- Patient was put on twice a day 40 mg Solu-Cortef by mouth last night. 3. Hypoxia, POA. Patient is asymptomatic, not complaining of SOB or [place]. CTA negative for PE. CXR indicates low lung volumes and vascular prominence, no indication for pneumonia. No mention of CHF, COPD, Asthma in patient's hospital records. She does have an albuterol inhaler which she uses infrequently. She denies any home O2 use and has not complained of dyspnea. DDX includes hypoxia from low lung volumes and immobility causing chronic alveolar hypoventilation versus anemia vs new onset CHF which is unlikely with no JVD, no orthopnea, minimal edema. Immobility is also at the top of the DDx because she has undoubtedly become less mobile due to increasing pain over the last 5 days since her supply of Oxycodone ran out. Her mild elevation of BNP at 1131 can also be related to increased work of the heart against low lung volumes. -Continue O2 by nasal cannula -Incentive Spirometer ordered to expand lung volume -Repeat BNP ordered to r/o CHF: Echocardiogram is ordered as well as 20 IV Lasix one time: Echo showed no concern for CHF -Physical Therapy -- incentive spirometry -- Asked staff to keep oxygen saturations between 80-92% and wean her oxygen : She is currently off of her oxygen at the time of d/c, she is saturating fully on RA 4 Acute anxiety: It appears Dr. Short has already ordered 0.5 of Ativan, agree with that management. -- Patient only needed benzo on one day during this admission for one episode of anxiety on 05/28. -- We request that SNF staff monitor for this. She is completely free of anxiety on the day of discharge. 5 Hypertension, POA. Patient not sure which medications she is taking, Lisinopril or Losartan or both -Clarify this in the morning with her pharmacy or PCP, Dr Edouard -Nevertheless Losartan 50mg is ordered for the morning as her pressures were high last night. - Amlodipine increased to 10 mg to better control her blood pressures - Metoprolol 25mg daily: Increase to 50 daily, and she had a couple of runs of SVT overnight 05/25/16 6. Acute Tachycardia : Reported from telemetry, could be due to pain versus alcohol withdrawal, increased metoprolol dose as above -- Tolerated changed dose of metoprolol well. -- Resolved 7. Hypothyroidism, POA. -continuing home levothyroxine 8.Hypokalemia, POA. Likely due to alcoholism - Continue to monitor -Replete now per protocol -BMP in the morning -Mg ordered, replete as needed. 9. History of PE. Apixaban held and Heparin 5000units subq q8h started. Patient cannot confirm that she is taking Apixaban currently. - I did not hear back from her PCP regarding this however, admission nurse did confirm eliquis on patient's formulary. This really started it today. Discontinue heparin subcutaneous : PCP has confirmed her dose of the eliquis this a.m. 10 GERD, POA, -continue pantoprazole. PRN medications for nausea, dyspepsia, constipation: ondansetron, maalox, senna , miralax. Exam Vital Signs (Last) Date Time Temp Pulse Resp B/P Pulse Ox O2 Delivery O2 Flow Rate FiO2 05/30/16 15:22 Supplement Oxygen 05/30/16 08:00 36.6 57 149/83 93 05/30/16 01:30 20 05/29/16 07:39 1.00 Exam General: NAD, laying in bed HEENT: NCAT, missing dentition Eyes: [place] conjunctivae. No ptosis Neck: No masses, trachea midline, no thyromegaly, negative for JVD Lungs: CTA with normal respiratory effort, no crackles or wheezes CV: Irregularly irregular, no murmurs/rubs/gallopsI GI: Nondistended Skin: Warm and dry. Psych: A&O X3, negative for anxiety Neuro: No focal deficits Extremities negative for edema Test 05/24/16 15:35 05/25/16 06:36 05/26/16 06:20 05/30/16 05:32 Prothrombin Time 11.5sec (8.1-12.5) Prothromb Time International Ratio 1.07ratio Total Bilirubin 0.5mg/dL (0.0-1.2) Aspartate Amino Transf (AST/SGOT) 20U/L (0-50) Alanine Aminotransferase (ALT/SGPT) 20U/L (0-32) Alkaline Phosphatase 101U/L (25-165) Troponin T < 0.010ug/L (0.0-0.011) Total Protein 5.8g/dL (6.4-8.4) Albumin 3.4g/dL (3.4-5.0) Hold Seay Top Tube Received (Received) Alcohols < 10mg/dL (0-10) Neutrophils (%) (Auto) 73.9% (40-74) Lymphocytes (%) (Auto) 13.3% (14-46) Monocytes (%) (Auto) 9.3% (4-12) Eosinophils (%) (Auto) 1.9% (0-5) Basophils (%) (Auto) 0.4% (0-3) Pro-B-Type Natriuretic Peptide 796.0pg/mL (0-738) Magnesium Level 2.0mg/dL (1.6-2.6) White Blood Count 6.5th/mm3 (3.8-10.1) Red Blood Count 4.06mil/mm3 (3.90-5.20) Hemoglobin 11.2g/dL (12.0-15.6) Hematocrit 35.9% (35.0-46.0) Mean Corpuscular Volume 88.4fL (81-100) Mean Corpuscular Hemoglobin 27.6pg (27.0-35.0) Mean Corpuscular Hemoglobin Concent 31.2% (32.0-37.0) Red Cell Distribution Width 15.7% (12.3-15.4) Platelet Count 232bil/L (150-400) Sodium Level 137mEq/L (134-144) Potassium Level 4.1mEq/L (3.5-5.2) Chloride Level 97mEq/L (97-108) Carbon Dioxide Level 28mmol/L (18-29) Blood Urea Nitrogen 16mg/dL (8-27) Creatinine 1.09mg/dL (0.57-1.00) Estimat Glomerular Filtration Rate 70mL/min (>59) Glucose Level 142mg/dL (60-99) Calcium Level 9.6mg/dL (8.5-10.1) Discharge Medications Discharge Medications ([Slow-Mag71.5-119 Mg]) 2 TAB PO DAILY (Reported) ([Thiamine]) 100 MG TABLET 100 MG PO DAILY Prescribed by: LIZETTE DOMÍNGUEZ DO Amlodipine (Amlodipine) 5 Mg Tablet 5 MG PO DAILY (Reported) Apixaban (Eliquis) 5 Mg Tablet 5 MG PO BID (Reported) Calcitonin,Sherrill,Synthetic (Calcitonin-Sherrill) 3.7 Ml [place].pump 1 SPRAY NASAL HS Prescribed by: LIZETTE DOMÍNGUEZ DO Calcium Carbonate (Calcium Carbonate) 200 Mg Tab.chew 500 MG PO BIDWM Prescribed by: LIZETTE DOMÍNGUEZ DO Cholecalciferol (Vitamin D3) (Vitamin D) 400 Unit Tablet 400 UNIT PO DAILY ( Reported) Cholecalciferol (Vitamin D3) (Vitamin D3) 400 Unit Tablet 800 UNIT PO DAILY Prescribed by: LIZETTE DOMÍNGUEZ DO Esomeprazole Magnesium (Nexium) 40 Mg Capsule.dr 40 MG PO DAILY (Reported) Levothyroxine (Levothyroxine) 125 Mcg Tablet 125 MCG PO DAILY (Reported) Lidocaine (Lidoderm) 700 Mg Adh..patch 1 PATCH TOPICAL DAILY Prescribed by: LIZETTE DOMÍNGUEZ DO Losartan Potassium (Losartan Potassium) 50 Mg Tablet 50 MG PO DAILY (Reported) Metoprolol Succinate ER (Metoprolol Succinate ER) 25 Mg Tab.er.24h 50 MG PO DAILY Prescribed by: LIZETTE DOMÍNGUEZ DO Potassium Chloride ER (Klor-Con M20) 20 Meq Tablet 20 MEQ PO TID (Reported) Vit#96/Ferrous Fum/FA ( Tablet) 1 Each Tablet 1 TABLET PO DAILY Prescribed by: LIZETTE DOMÍNGUEZ DO Tamsulosin (Flomax) 0.4 Mg Capsule 0.4 MG PO DAILY (Reported) As needed Albuterol HFA (Proair HFA) 8.5 Gm Hfa.aer.ad 2 PUFFS INHALATION Q4H PRN PRN For Shortness of Breath Prescribed by: LIZETT DUNBAR MD Temazepam (Temazepam) 30 Mg Cap 30 MG PO HS PRN PRN For Insomnia Prescribed by: VA LEE DO oxyCODONE (oxyCODONE) 5 Mg Tablet 1-2 MG PO Q4H PRN PRN For Severe Pain Prescribed by: LIZETTE DOMÍNGUEZ DO Followup Plan Follow-up plan To be seen by SNF attending upon arrival. She needs a taper protocol for her solucortef. Currently on 20 mg BID PO. We recommend that you manage this dose for 5 more days, then drop to 30 mg PO BID. After a week of that, assess her orthostatic pressures prior to another 20% decrease in dose. Her prev PCP Dr. Edouard feels she will need some level of corticosteroids permanently. Discharge Diet: Heart Healthy Discharge Activity: Other (PT/OT at the SNF) Patient Instructions Assessment * Pt initally agreeable to participate in skilled PT this pm, although after positioned at EOB, pt refused to attempt standing, citing pain as the limiting factor. Per NSG report, pt has been transfering to [facility] with assist from NSG. PT [facility] and progression of fucntional ind with mobility. Tolerance to Treatment * Poor Current Discharge Recommendations * [facility] Facility Discharge Mode of Transportaion * CabLizette Rucker DO May 30, 2016 15:56
--- NOTE | 2016-05-30 16:35 | NUR ---
Discharge Called report to Samantha at [facility], answered all questions. Nasal spray sent with belongings. Hard script sent in packet for scheduled medications. Pt taken in w/ch, by carry me, to [facility] via [facility]. All belongings including phone and cord in bag with patient. 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
== END 2016-05-30 16:35 | DRG 543 ==
LOC: SED 14:28 → EDUNIT# 14:28 → EDBD 14:28 → OBSVTOIN 19:06 → MOC 19:06
PROVIDERS: ADMIT Internal Medicine; ATTEND Internal Medicine
DX: M48.54XA Collapsed vertebra, not elsewhere classified, thoracic region, initial encounter for fracture (principal); F10.239 Alcohol dependence with withdrawal, unspecified; S32.039A Unspecified fracture of third lumbar vertebra, initial encounter for closed fracture; R29.6 Repeated falls; Z79.51 Long term (current) use of inhaled steroids; E03.9 Hypothyroidism, unspecified; K21.9 Gastro-esophageal reflux disease without esophagitis; I10 Essential (primary) hypertension; Z96.659 Presence of unspecified artificial knee joint; Z87.891 Personal history of nicotine dependence; J45.909 Unspecified asthma, uncomplicated; E87.6 Hypokalemia; Z99.3 Dependence on wheelchair; R32 Unspecified urinary incontinence; R09.02 Hypoxemia; W18.30XA Fall on same level, unspecified, initial encounter; Y92.009 Unspecified place in unspecified non-institutional (private) residence as the place of occurrence of the external cause

== ENCOUNTER 2016-08-23 18:01 | Emergency (ER) | payer MEDICARE, OTHER ==
[~2016-08-23] VITALS: Ht 175.3 cm; Wt 77.3 kg
[~2016-08-23 18:01] MED LIST changes: +CALC3.8S NASAL; +CALC500T53 PO; +CHOL400T PO; -FLUC100T4 PO; -HYDR20TA2 PO; -LEVO100T6 PO; +LEVO125T6 PO; +LIDO700A6 TOPICAL; -LISI-567 PO; +LOSA50TA37 PO; -Magic Mouth Wash PO; -NYST1000 PO; -OXYC15TA45 PO; +OXYC5TAB72 PO; +PREN1TAB25 PO; +TAMS0.4C98 PO; +Thiamine PO
[2016-08-23 18:11] VITALS: BP 162/77; PULSE 70; RESP 16; O2SAT 96
== END 2016-08-23 19:21 | disposition left against medical advice (07) ==
LOC: SED 18:01
DX: Z53.21 Procedure and treatment not carried out due to patient leaving prior to being seen by health care provider (principal)

== ENCOUNTER 2016-08-30 08:20 | Inpatient (IN) | payer MEDICARE, OTHER ==
[2016-08-30] VITALS (9 sets, daily range): BP systolic 137–191; BP diastolic 64–83; PULSE 77–86; RESP 15–22; O2SAT 90–100
[~2016-08-30] VITALS: Ht 175.3 cm; Wt 75.2 kg
--- NOTE | 2016-08-30 08:26 | ED.REPORT ---
HPI-Trauma Minor / Fall Date of Service Aug 30, 2016 ED Provider: Dez Robledo DO The pt is a 76 y/o female w/ a hx of hypothyroidism, HTN, alcoholism, PE, a lumbar spine compression fracture, and depression presenting to the ED via EMS due to a ground level fall last night. She reports sleeping on the floor, waking up and rolled on an ottoman to call EMS. She does not remember how she fell but does not think she hit her head. She has also been experiencing lower back pain for the last week and has skin tears on her arms. Denies chills, vomiting, or diarrhea. Nursing Notes Stated Complaint: GLF Chief Complaint: Multiple Trauma/Fall Nursing Notes Reviewed: Yes Allergies: Coded Allergies: morphine (Verified Allergy, Severe, Anxiety and panic attack, 08/30/16) Sulfa (Sulfonamide Antibiotics) (Verified Allergy, Unknown, 08/30/16) Pt. was unable recall reaction to sulfa Scheduled ([Slow-Mag71.5-119 Mg]) 2 TAB PO DAILY Amlodipine (Amlodipine) 5 Mg Tablet 5 MG PO DAILY Apixaban (Eliquis) 5 Mg Tablet 5 MG PO BID Calcium Carbonate (Calcium Carbonate) 200 Mg Tab.chew 500 MG PO BIDWM Esomeprazole Magnesium (Nexium) 40 Mg Capsule.dr 40 MG PO DAILY Fentanyl 25 mcg/hr Patch (Fentanyl 25 mcg/hr Patch) 1 Each Patch.td72 25 MCG TOPICAL Q72H Gabapentin (Gabapentin) 100 Mg Capsule 300 MG PO TID Hydrocortisone (Hydrocortisone) 20 Mg Tablet 30 MG PO BID Levothyroxine (Levothyroxine) 125 Mcg Tablet 125 MCG PO DAILY Losartan Potassium (Losartan Potassium) 50 Mg Tablet 50 MG PO DAILY Metoprolol Succinate ER (Metoprolol Succinate ER) 50 Mg Tab.er.24h 50 MG PO DAILY Potassium Chloride ER (Klor-Con M20) 20 Meq Tablet 20 MEQ PO TID Vit#96/Ferrous Fum/FA ( Tablet) 1 Each Tablet 1 TABLET PO DAILY Thiamine Mononitrate (Vitamin B-1) 100 Mg Tablet 100 MG PO DAILY Scheduled PRN Albuterol HFA (Proair HFA) 8.5 Gm Hfa.aer.ad 2 PUFFS INHALATION Q4H PRN PRN For Shortness of Breath Hydrocodone-Acetaminophen 5-325 mg (Hydrocodone-Acetaminophen 5-325 mg) 1 Each Tablet 1 EACH PO QID PRN PRN For Pain Temazepam (Temazepam) 30 Mg Cap 30 MG PO HS PRN PRN For Insomnia General Time Seen by MD: 08:25 Chief Complaint Fall Hx Obtained From: Patient, EMS Arrived By: Ambulance Onset Occurred: Yesterday Symptom Duration: Since onset Recent Healthcare: Recent doctor visit, Recent hospitalization Similar Sx Previous: Yes Past Medical History Past Medical History Hypothyroidism 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 Parathyroid adenoma Reports: Cancer, GERD, Hypertension Reports: Depression Past Surgical History Tongue resection Total mastectomy Reports: Knee replacement Family History Noncontributory Smoking History Former Smoker Social History Resides at [facility] Alcohol Use: >5 per day Drug Use: Denies drug use Other Social History: Good social support, Local resident Ambulatory Status Independent Review of Systems Skin tears on arms Constitutional: Denies: Chills Musculoskeletal: Reports: Back pain Complete sys rev & neg: except as marked. GI: Denies: Diarrhea, Vomiting Physical Exam Initial Vital Signs Vital Signs (First) Date Time Temp Pulse Resp B/P Pulse Ox O2 Delivery O2 Flow Rate FiO2 08/30/16 08:20 36.5 77 18 183/67 100 Room Air Initial VS: Reviewed General/Constitutional: Awake, Alert Tremulous Malodorous Diffuse muscle tenderness Neck: Atraumatic, Supple, Full range of motion Head / Eyes: Atraumatic, Normocephalic, PERRL ENT: Atraumatic, Airway patent, Mucous membranes moist Respiratory / Chest: Atraumatic, Breath sounds NL, Breath sounds = bilat Cardiovascular: Heart rate NL, Regular rhythm, Heart sounds NL Abdomen: Atraumatic, Soft, Non-tender Upper Extremity / MS: Full range of motion, No deformity Skin: Warm, Dry Facial telangiectasia Neurologic: Oriented X3, Speech NL Normal motor and sensory from L1-S1 Interpretation & Diagnostics Lab Results Interpretation Result Diagram: 08/30/16 1020 08/30/16 1020 Test 08/30/16 10:20 08/30/16 12:37 White Blood Count 7.6th/mm3 (3.8-10.1) Red Blood Count 3.68mil/mm3 (3.90-5.20) Hemoglobin 11.7g/dL (12.0-15.6) Hematocrit 36.5% (35.0-46.0) Mean Corpuscular Volume 99.2fL (81-100) Mean Corpuscular Hemoglobin 31.8pg (27.0-35.0) Mean Corpuscular Hemoglobin Concent 32.1% (32.0-37.0) Red Cell Distribution Width 19.0% (12.3-15.4) Platelet Count 247bil/L (150-400) Neutrophils (%) (Auto) 70.1% (40-74) Lymphocytes (%) (Auto) 17.4% (14-46) Monocytes (%) (Auto) 9.9% (4-12) Eosinophils (%) (Auto) 0.8% (0-5) Basophils (%) (Auto) 0.5% (0-3) D-Dimer 0.97mg/L FEU (<0.50) Sodium Level 142mEq/L (134-144) Potassium Level 3.6mEq/L (3.5-5.2) Chloride Level 100mEq/L (97-108) Carbon Dioxide Level 19mmol/L (18-29) Blood Urea Nitrogen 20mg/dL (8-27) Creatinine 0.66mg/dL (0.57-1.00) Estimat Glomerular Filtration Rate 124mL/min (>59) Glucose Level 50mg/dL (60-99) Calcium Level 8.4mg/dL (8.5-10.1) Magnesium Level 1.9mg/dL (1.6-2.6) Total Bilirubin 0.5mg/dL (0.0-1.2) Aspartate Amino Transf (AST/SGOT) 28U/L (0-50) Alanine Aminotransferase (ALT/SGPT) 15U/L (0-32) Alkaline Phosphatase 112U/L (25-165) Total Creatine Kinase 154U/L (21-215) Troponin T 0.010ug/L (0.0-0.011) Pro-B-Type Natriuretic Peptide 351.8pg/mL (0-738) Total Protein 5.7g/dL (6.4-8.4) Albumin 3.3g/dL (3.4-5.0) Procalcitonin 2.03ng/mL (0.00-0.08) Alcohols 31mg/dL (0-10) Urine Color Straw (YELLOW) Urine Appearance Hazy (CLEAR,HAZY) Urine pH 5.5 (5.0-8.0) Urine Specific [place] 1.025 (1.003-1.035) Urine Protein Negativemg/dL (NEG,TRACE) Urine Glucose (UA) Negativemg/dL (NEGATIVE) Urine Ketones 40mg/dL (NEGATIVE) Urine Occult Blood Trace (NEGATIVE) Urine Nitrite Negative (NEGATIVE) Urine Bilirubin Negative (NEGATIVE) Urine Urobilinogen Normalmg/dL (NORMAL) Urine Leukocyte Esterase Trace (NEGATIVE) Urine RBC 0-2/hpf (0-2) Urine WBC 6-10/hpf (0-5) Urine Epithelial Cells Occasional/hpf (NONE-MOD) Urine Crystals None seen (NONE SEEN) Urine Bacteria Moderate/hpf (NONE-FEW) Urine Hyaline Casts None/lpf (NONE) Urine Granular Casts None seen (NONE SEEN) Urine Waxy Casts None seen (NONE SEEN) Urine Red Blood Cell Casts None seen (NONE SEEN) Urine White Blood Cell Casts None seen (NONE SEEN) Urine Mucus None seen (None Seen) Urine Trichomonas None seen (NONE SEEN) Urine Yeast None (NONE SEEN) Urinalysis Comment None Urine Culture Reflexed Indicated ECG Interpretation ECG Interpretation: Rate 73 NSR Abnormal R-wave progression, early transition Left ventricular hypertrophy Time: 09:34 Interpreted by: ED physician X-Ray Chest Interpretation Chest Xray Interpretation: IMPRESSION: 1. Indistinct reticular opacities in the left upper lung zone increased in prominence from the prior study. Findings nonspecific and the differential includes pneumonia or possible contusion. Recommend correlation clinically and CT if clinical concern persists. Dictated by: Rayo Arias M.D. on 08/30/2016 at 11:15 Approved by: Rayo Arias M.D. on 08/30/2016 at 11:37 View: Portable, 1 view Interpretation / Wet Read by: Interpret - Radiologist X-Ray Interpretation Xray Interpretation: IMPRESSION: 1. Increasing degree of compression at the L2 level and a new superior endplate compression deformity of L4 are likely acute. Please correlate clinically. 2. Unchanged L3 compression deformity. 3. Osteopenia and degenerative changes of the number spine are similar to the prior study. 4. A few borderline prominent air-filled small bowel loops within the midabdomen are of doubtful significance and may represent focal ileus. If the patient is experiencing continued bowel symptoms, please consider abdominal radiographs and/or CT of the abdomen and pelvis for further evaluation. Dictated by: Shola Fortune M.D. on 08/30/2016 at 10:16 Approved by: Shola Fortune M.D. on 08/30/2016 at 10:25 Study Performed: PROCEDURE: X-RAY LUMBAR SPINE, 2 OR 3 VIEW Interpretation / Wet Read by: Interpret - Radiologist CT Head Interpretation IMPRESSION: 1. No acute intracranial abnormalities. 2. Mild cerebral volume loss and moderate chronic microvascular ischemic changes. Dictated by: Daniel Delgado M.D. on 08/30/2016 at 13:55 Approved by: Daniel Delgado M.D. on 08/30/2016 at 13:57 Study: Head CT no contrast Interpretation / Wet Read by: Interpret - Radiologist CT Abd / Pelvis Interpretation IMPRESSION: 1. Colonic diverticulosis. There is mild sigmoid colon thickening suggesting mild diverticulitis. 2. Cholecystectomy. There is intrahepatic biliary dilation with the common bile duct measuring up to 17 mm. No common bile duct stones identified. 3. Mild stranding in pancreatic head, suggesting focal pancreatitis. Please correlate with pancreatic enzymes. No evidence for pancreatic necrosis. No pancreatic calcification or pseudocyst. 4. Multiple compression fractures in the lower thoracic and lumbar spine. Dictated by: Daniel Delgado M.D. on 08/30/2016 at 13:57 Approved by: Daniel Delgado M.D. on 08/30/2016 at 14:08 Study type: Abdom CT oral contrast Interpretation / Wet Read by: Interpret - Radiologist Re-Eval/Medical Decision Med Decision/Clinical Course Patient arrives tremulous and somewhat confused after spending the night on the ground due to generalized weakness. She has an elevated lactic acid improved calcitonin suggestive of infection. There is a questionable pneumonia on x-ray. For this reason along with her recent hospitalizations broad-spectrum antibiotics are initiated after blood cultures. Additionally she is likely experiencing signs and symptoms of alcohol withdrawal and was treated with IV Valium for this. His profound recurrent low back pain which is acute on chronic and there is evidence of new lumbar spine fractures likely related to her fall yesterday. She has been hypertensive as opposed to hypotensive. Both a banana bag and subsequent IV fluids have been given. Additionally she had hypoglycemia which did not correct with oral intake, she was given 250 mL bag of IV D10 in order to correct this. Patient will be admitted for pain management, treatment of probable alcohol withdrawal as well as possible pneumonia. Source of Hx: Old records Re-Evaluation/Progress #1: Time of Eval: 09:01 Re-Evaluation/Progress Note: Pt rechecked. Pt agreed to CT scan, X-ray, and an EKG. Re-Evaluation/Progress #2: Time of Eval: 11:06 Re-Evaluation/Progress Note: Called the pts son who reports that the pt has recently stopped taking hydrocodone medication and is on a pain patch. Re-Evaluation/Progress #3: Time of Eval: 11:29 Re-Evaluation/Progress Note: Rechecked pt. Discussed lab results. Re-Evaluation/Progress #4: Time of Eval: 12:15 Re-Evaluation/Progress Note: Pt rechecked and agrees to have a catheter placed. Re-Evaluation/Progress #5: Time of Eval: 13:27 Re-Evaluation/Progress Note: Pt rechecked. Informed pt of need for admission. Pt understands and agrees with plan for admission. All questions addressed. Code status discussed: DNR/DNI Consultation : Referral / Consult Name: Claire Steel Consulted With: Hospitalist Call Returned at: 12:45 Coremaker Machine: Will see patient, Agrees with eval, Agrees with plan, Accepts admit Counseled Regarding: Diagnosis, Lab results, Need for admission Discharge & Departure Impression: Primary Impression: SIRS (systemic inflammatory response syndrome) Additional Impressions: ETOH abuse Pneumonia Lactic acidosis Multiple falls Disposition: ADMITTED TO HOSPITAL Discharge Condition All VS Reviewed: Yes Condition: Stable Referrals: Salome Espinoza PA-C (PCP) Crit Care Except Billable Proc Time Spent: 75-104 minutes Services Performed: Patient management by me, Time spent at bedside, Reviewing test results, Reviewing imaging, Discussing patient care, Documentation in record Critical Care Notes: See MDM Scribe Attestation Portions of this note were transcribed by Nnamdi Vargas. I, Dr. Robledo personally performed the history, physical exam and medical decision-making; I reviewed and confirmed the accuracy of the information in the transcribed note. Signed by : Angeles Brice, 08/30/16 and 1030. copies to: Salome Espinoza PA-C, Timothy S DO Aug 30, 2016 08:26 Nnamdi Vargas Aug 30, 2016 09:14
[2016-08-30] MEDS ORDERED: 0.9% Sodium Chloride 1,000 ML IV ONE ×2 (08:50→11:15)
[2016-08-30 10:44] LABS: Mean Corpuscular Hemoglobin 31.8 pg (27.0-35.0); Mean Corpuscular Volume 99.2 fL (81-100)
[2016-08-30 10:45] LABS: BASOPHILS % (AUTO) 0.5 % (0-3); EOSINOPHILS % (AUTO) 0.8 % (0-5); MONOCYTES % (AUTO) 9.9 % (4-12); NEUTROPHILS % (AUTO) 70.1 % (40-74); Platelet Count 247 bil/L (150-400)
[2016-08-30 11:10] LABS: TROPONIN T 0.01 ug/L (0.0-0.011)
[2016-08-30 11:21] LABS: Magnesium 1.9 mg/dL (1.6-2.6)
[2016-08-30] MEDS: HYDROmorphone 0.5 mg/0.5 mL iSecure Syringe IVPUSH PRN ×10 (11:21→16:55)
--- NOTE | 2016-08-30 11:26 | DRSVH ---
PROCEDURE: X-RAY LUMBAR SPINE, 2 OR 3 VIEW INDICATIONS: back pain, recent fall TECHNIQUE: 2 views of the lumbar spine were acquired. COMPARISON: [facility], CR, XR LUMBAR SPINE 2 OR 3VW, 01/15/2016, 12:27. [facility], CR, XR LUMBAR SPINE 2 OR 3VW, 05/24/2016, 16:46. FINDINGS: Bones: Transitional lumbosacral anatomy is evident. 4 msx-hop-rxalsye vertebral bodies are evident w ithin the lumbar region. The lowest intervertebral disk space is designated as L4-S1. Increasing co mpression is evident involving the L2 vertebral body compared to the prior study dated 05/24/16 with a pproximately 40% of vertical height loss (previously estimated at approximately 20%). There also is new superior endplate compression with associated sclerosis involving the L4 vertebral body with appr oximately 10% vertebral height loss (previously not seen). The degree of compression at L3 is unchan ged approximately 40%. Please note that the lower thoracic levels are not well seen. The bone principal examiner alization is diffusely decreased. Moderate multilevel degenerative changes of the lumbar spine are identified, predominantly noted invo lving the facet joints. There is prominent disc height loss at L4-S1, not significantly changed. De generative changes of the sacroiliac joints and bilateral hips are noted. Soft tissues: Extensive aortic atherosclerosis is present. Clips are seen within the right upper alison drant. A few borderline prominent air-filled small bowel loops are identified measuring up to 3 cm i n diameter within the upper abdomen. Air and stool are seen throughout the colon, however. Otherwis e, the soft tissues of the imaged abdomen and pelvis are within normal limits. IMPRESSION: 1. Increasing degree of compression at the L2 level and a new superior endplate compression deformit y of L4 are likely acute. Please correlate clinically. 2. Unchanged L3 compression deformity. 3. Osteopenia and degenerative changes of the number spine are similar to the prior study. 4. A few borderline prominent air-filled small bowel loops within the midabdomen are of doubtful sig nificance and may represent focal ileus. If the patient is experiencing continued bowel symptoms, pl ease consider abdominal radiographs and/or CT of the abdomen and pelvis for further evaluation. Dictated by: Shola Fortune M.D. on 08/30/2016 at 10:16 Approved by: Shola Fortune M.D. on 08/30/2016 at 10:25
[2016-08-30] MEDS ORDERED: 0.9% Sodium Chloride 500 ML IV ONE (11:30)
[2016-08-30 11:34] LABS: TROPONIN T 0.01 ug/L (0.0-0.011)
[2016-08-30] MEDS ORDERED: Thiamine Inj 100 MG, Folic Acid Inj 1 MG, Magnesium Sulfate 50% Inj 2 GM, Multivitamins... IV ONE ×5 (11:35)
--- NOTE | 2016-08-30 11:39 | DRSVH ---
PROCEDURE: X-RAY CHEST ONE VIEW, PORTABLE ([id number]) INDICATIONS: syncope, fall TECHNIQUE: One view of the chest was acquired. COMPARISON: [facility], CR, XR CHEST 2VW, 05/24/2016, 16:46. [facility], CR, XR CHEST 1VW (PORTABLE), 03/27/2016, 1:18. FINDINGS: Surgical changes and devices: Multiple surgical clips are redemonstrated in the left axilla and right neck. Lungs and pleura: No pleural effusions or pneumothorax. There are indistinct reticular opacities in the left upper lung zone laterally. Mediastinum: Mediastinal contours appear unchanged. Heart size is normal. Bones and chest wall: No suspicious bony lesions. Overlying soft tissues appear unremarkable. IMPRESSION: 1. Indistinct reticular opacities in the left upper lung zone increased in prominence from the prior study. Findings nonspecific and the differential includes pneumonia or possible contusion. Recomme nd correlation clinically and CT if clinical concern persists. Dictated by: Rayo Arias M.D. on 08/30/2016 at 11:15 Approved by: Rayo Arisa M.D. on 08/30/2016 at 11:37
[2016-08-30] MEDS ORDERED: Piperacillin-Tazo 3.375 Gm Inj 3.375 GM in Dextrose 5% Minibag Plus 50 ML IV ONE ×2 (12:05→19:20)
[2016-08-30] MEDS ORDERED: Vancomycin Inj 1,500 MG in 0.9% Sodium Chloride 500 ML IV ONE (12:15)
[2016-08-30] MEDS ORDERED: Azithromycin Inj 500 MG in Dextrose 5% w/Vial Mate 250 ML IV ONE (12:25)
[2016-08-30] MEDS ORDERED: Dextrose 10% 250 ML IV ONE (13:00)
[2016-08-30 13:17] LABS: APPEARANCE,URINE HAZY (CLEAR,HAZY); COLOR,URINE STRAW (YELLOW); PH,URINE 5.5 (5.0-8.0)
[2016-08-30 13:18] LABS: OCCULT BLOOD,URINE TRACE (NEGATIVE); UROBILINOGEN,URINE NORMAL (NORMAL)
--- NOTE | 2016-08-30 13:59 | DRSVH ---
PROCEDURE: CT BRAIN WITHOUT CONTRAST ([id number]) INDICATIONS: fall, syncope, on eliquis TECHNIQUE: Noncontrast 4.5 mm thick angled axial sections acquired from the foramen magnum to the vertex, with c oronal reformats. COMPARISON: [facility], CT, CT BRAIN WO CON, 05/24/2016, 19:01. FINDINGS: Image quality: Excellent. CSF spaces: Basal cisterns are patent. No extra-axial fluid collections. The ventricles are symmet rod in size and shape. Brain: No intracranial bleeds or masses. There is mild cerebral volume loss for age, with resultant ventricular and sulcal prominence. There are moderate periventricular and deep white matter chronic small vessel ischemic changes. There is intracranial internal carotid artery atherosclerosis. Skull and face: Calvarium and visualized facial bones appear intact, without suspicious lesions. Sinuses: Visualized sinuses and mastoids are clear. IMPRESSION: 1. No acute intracranial abnormalities. 2. Mild cerebral volume loss and moderate chronic microvascular ischemic changes. Dictated by: Daniel Delgado M.D. on 08/30/2016 at 13:55 Approved by: Daniel Delgado M.D. on 08/30/2016 at 13:57
[2016-08-30] MEDS ORDERED: FENT1PAT7 TOPICAL (14:07)
[2016-08-30] MEDS ORDERED: METO-272 PO (14:07)
[2016-08-30] MEDS ORDERED: HYDR-4003 PO (14:07)
[2016-08-30] MEDS ORDERED: HYDR20TA2 PO (14:07)
[2016-08-30] MEDS ORDERED: GABA-500 PO (14:07)
[2016-08-30] MEDS ORDERED: THIA100T64 PO (14:08)
--- NOTE | 2016-08-30 14:10 | DRSVH ---
PROCEDURE: CT ABDOMEN AND PELVIS WITH CONTRAST ([id number]) INDICATIONS: Lower abdominal pain. TECHNIQUE: After the administration of intravenous contrast, 5 mm thick sections acquired from the diaphragm to the symphysis. 5 mm coronal and sagittal reformats were acquired. For radiation dose reduction, the following was used: automated exposure control, adjustment of mA and/or kV according to patient siz e. COMPARISON: [facility], CR, CHEST 1 VIEW, 05/14/2016, 11:57. [facility], CT, CT ABD PELVIS WO CON, 05/31/2015, 11:47. [facility], CT, CT ANGIO CHEST PE, 05/24/2016, 19:01. [facility], CT, ABD/PELVIS W/CON (PNL), 09/19/2013, 8:27. FINDINGS: Image quality: Excellent. ABDOMEN: Lung bases: Bibasilar atelectasis. Heart size is normal. There is a right mastectomy. Solid organs: Mild hepatic fatty infiltration. Liver and spleen are normal in size and enhancement. Gallbladder is surgically absent. Biliary system is dilated. Common bile duct measures up to 17 mm . Mild stranding of pancreatic head. No pancreatic duct dilation, posterior chain, or pseudocyst.. No adrenal nodules. Kidneys demonstrate normal size and enhancement, without hydronephrosis. Peritoneum and bowel: Bowel loops demonstrate normal wall thickness and caliber. There are scattere d colonic diverticula. There is mild thickening in sigmoid colon. Appendix is not identified. There i s no right lower quadrant stranding, which suggests mild diverticulitis. No free fluid or air. Nodes and vessels: No retroperitoneal or mesenteric adenopathy by size criteria. Aorta and inferior vena cava are normal in size. Severe atherosclerosis in the aorta. Miscellaneous: No ventral hernias. PELVIS: Genitourinary: Bladder is contracted with a Ponce catheter. Miscellaneous: No inguinal hernias or adenopathy. Bones: No suspicious bony lesions. Multiple vertebral body compression fractures, severe at L4, mode rate at T11 and L3 and mild at L5. Nonacute right rib fractures are noted. IMPRESSION: 1. Colonic diverticulosis. There is mild sigmoid colon thickening suggesting mild diverticulitis. 2. Cholecystectomy. There is intrahepatic biliary dilation with the common bile duct measuring up to 17 mm. No common bile duct stones identified. 3. Mild stranding in pancreatic head, suggesting focal pancreatitis. Please correlate with pancreatic enzymes. No evidence for pancreatic necrosis. No pancreatic calcification or pseudocyst. 4. Multiple compression fractures in the lower thoracic and lumbar spine. Dictated by: Daniel Delgado M.D. on 08/30/2016 at 13:57 Approved by: Daniel Delgado M.D. on 08/30/2016 at 14:08
[2016-08-30] MEDS ORDERED: Alum-Mag Hydrox-Simeth 30 mL Suspension PO PRN ×2 (14:15→16:00)
[2016-08-30] MEDS ORDERED: Ondansetron 2 mg/mL 2 mL Inj IVPUSH PRN ×2 (14:15→16:00)
[2016-08-30] MEDS ORDERED: 0.9% Sodium Chloride 1,000 ML IV SCH (14:15)
[2016-08-30] MEDS: 0.9% Sodium Chloride 1,000 ML IV SCH ×2 (15:56→21:32)
[2016-08-30] MEDS ORDERED: Polyethylene Glycol (PEG) 17 Gm Powder PO PRN (16:00)
[2016-08-30 16:20] LABS: Creatine Kinase 152 U/L (21-215); Lipase 10 U/L (13-60)
[2016-08-30] MEDS ORDERED: HYDROcodone-APAP 5-325 mg Tablet PO PRN (16:20)
--- NOTE | 2016-08-30 18:48 | PCM.HPMED ---
Subjective Date of Service Aug 30, 2016 Primary Provider: Admitting Physician: Claire Steel DO Primary Care Physician: Salome Espinoza PA-C Attending Physician: Claire Steel DO Admit Status: From the Emergency Department Chief Complaint: Back Pain History of Present Illness: Melva Watkins is a 76 year old woman with a PMH of EtOH abuse, chronic pain related to multiple compression fractures secondary to multiple falls, breast and mouth cancer s/p mastectomy and resection respectively, hypothyroid, depression and anxiety who presents with severe back pain following an unwitnessed ground level fall. The patient states that she cannot remember the details of her fall, how long she was down, or when she was last normal. She denies any recent alcohol consumption, however her blood alcohol level was elevated after an uncertain but period likely greater than 12 hours. She states that she awoke after an uncertain period to find herself on the floor and unable to get up, she was eventually able to reach a phone and alert EMS to her predicament. She states that she does not think she hit her head. She denies nausea, vomiting, diarrhea, headache, changes in vision or sensation, numbness, or tingling in her extremities. In the ED the patient underwent imaging including a head CT which was negative for acute intracranial process, spinal x-ray which demonstrated likely new L2 and L4 compression fractures, and lab evaluation significant for an elevated lactic acidosis at 4.8 which resolved with IV fluids. Review of Systems: Comprehensive ROS negative except as outlined above in the H&P Allergies Coded Allergies: morphine (Verified Allergy, Severe, Anxiety and panic attack, 08/30/16) Sulfa (Sulfonamide Antibiotics) (Verified Allergy, Unknown, 08/30/16) Pt. was unable recall reaction to sulfa Home Medications ([Slow-Mag71.5-119 Mg]) 2 TAB PO DAILY Amlodipine (Amlodipine) 5 Mg Tablet 5 MG PO DAILY Apixaban (Eliquis) 5 Mg Tablet 5 MG PO BID Calcium Carbonate (Calcium Carbonate) 200 Mg Tab.chew 500 MG PO BIDWM Esomeprazole Magnesium (Nexium) 40 Mg Capsule.dr 40 MG PO DAILY Fentanyl 25 mcg/hr Patch (Fentanyl 25 mcg/hr Patch) 1 Each Patch.td72 25 MCG TOPICAL Q72H Gabapentin (Gabapentin) 100 Mg Capsule 300 MG PO TID Hydrocortisone (Hydrocortisone) 20 Mg Tablet 30 MG PO BID Levothyroxine (Levothyroxine) 125 Mcg Tablet 125 MCG PO DAILY Losartan Potassium (Losartan Potassium) 50 Mg Tablet 50 MG PO DAILY Metoprolol Succinate ER (Metoprolol Succinate ER) 50 Mg Tab.er.24h 50 MG PO DAILY Potassium Chloride ER (Klor-Con M20) 20 Meq Tablet 20 MEQ PO TID Vit#96/Ferrous Fum/FA ( Tablet) 1 Each Tablet 1 TABLET PO DAILY Thiamine Mononitrate (Vitamin B-1) 100 Mg Tablet 100 MG PO DAILY Scheduled PRN Albuterol HFA (Proair HFA) 8.5 Gm Hfa.aer.ad 2 PUFFS INHALATION Q4H PRN PRN For Shortness of Breath Hydrocodone-Acetaminophen 5-325 mg (Hydrocodone-Acetaminophen 5-325 mg) 1 Each Tablet 1 EACH PO QID PRN PRN For Pain Temazepam (Temazepam) 30 Mg Cap 30 MG PO HS PRN PRN For Insomnia . 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 Parathyroid adenoma Reports: Cancer, GERD, Hypertension Reports: Depression . Surgical History Tongue resection Total mastectomy Reports: Knee replacement . Family History Patient unable to recall any family history Social History Hx Alcohol Use: Yes Alcoholic Drinks Per Day: 1-2 DRINKS OF WHISKEY PER DAY Hx Substance Use: Yes (MARIJUANA) Hx Tobacco Use: Yes (quit in 1991 per previous records) Smoking Status: Never Smoker Exam Vital Signs Vital Sign - Last Date Time Temp Pulse Resp B/P Pulse Ox O2 Delivery O2 Flow Rate FiO2 08/30/16 16:23 78 08/30/16 16:00 36.3 20 164/78 94 Room Air Exam Gen: A/O x3 pleasant cooperative elderly woman in moderate acute distress secondary to back pain Neck: Supple, non tender, no thyromegaly, no JVD, Full ROM HEENT: PERRL, EOMI, no scleral icterus, no conjunctival pallor CV: RRR, no murmurs rubs or gallops Resp: Lungs CTA BL, no wheezing rales or rhonchi Abd: Soft, diffuse mild tenderness to palpation most acute in epigastric region Back: Exquisitely tender lumbar region with poor mobility and intolerance of turns or movement Extr: Multiple abrasions and bruises in various stages of healing Neuro: CN 2-12 grossly intact, no focal neurologic deficit Psych: Patient in significant distress secondary to pain Lab and Diagnostics Labs Item Value Date Time Red Blood Count 3.68 mil/mm3 L 08/30/16 1020 Mean Corpuscular Volume 99.2 fL 08/30/16 1020 Mean Corpuscular Hemoglobin 31.8 pg 08/30/16 1020 Mean Corpuscular Hemoglobin Concent 32.1 % 08/30/16 1020 Platelet Count 247 red/L 08/30/16 1020 Red Cell Distribution Width 19.0 % H 08/30/16 1020 Neutrophils (%) (Auto) 70.1 % 08/30/16 1020 Lymphocytes (%) (Auto) 17.4 % 08/30/16 1020 Eosinophils (%) (Auto) 0.8 % 08/30/16 1020 Monocytes (%) (Auto) 9.9 % 08/30/16 1020 Basophils (%) (Auto) 0.5 % 08/30/16 1020 Estimat Glomerular Filtration Rate 124 mL/min 08/30/16 1020 Lactic Acid Level 4.8 mmol/L *H 08/30/16 1020 Lactic Acid Level 1.7 mmol/L 08/30/16 1416 Calcium Level 8.4 mg/dL L 08/30/16 1020 Magnesium Level 1.9 mg/dL 08/30/16 1020 Total Bilirubin 0.5 mg/dL 08/30/16 1020 Aspartate Amino Transf (AST/SGOT) 28 U/L 08/30/16 1020 Alanine Aminotransferase (ALT/SGPT) 15 U/L 08/30/16 1020 Alkaline Phosphatase 112 U/L 08/30/16 1020 Total Creatine Kinase 152 U/L 08/30/16 1020 Troponin T 0.010 ug/L 08/30/16 1020 Pro-B-Type Natriuretic Peptide 351.8 pg/mL 08/30/16 1020 Total Protein 5.7 g/dL L 08/30/16 1020 Albumin 3.3 g/dL L 08/30/16 1020 Amylase Level 17 U/L L 08/30/16 1020 Lipase 10 U/L L 08/30/16 1020 Procalcitonin 2.03 ng/mL H 08/30/16 1020 D-Dimer 0.97 mg/L FEU H 08/30/16 1020 Alcohols 31 mg/dL H 08/30/16 1020 Result Diagram: 08/30/16 1020 08/30/16 1020 Microbiology Blood and urine cultures pending X-Rays, CTs and MRIs CT ABDOMEN AND PELVIS WITH CONTRAST IMPRESSION: 1. Colonic diverticulosis. There is mild sigmoid colon thickening suggesting mild diverticulitis. 2. Cholecystectomy. There is intrahepatic biliary dilation with the common bile duct measuring up to 17 mm. No common bile duct stones identified. 3. Mild stranding in pancreatic head, suggesting focal pancreatitis. Please correlate with pancreatic enzymes. No evidence for pancreatic necrosis. No pancreatic calcification or pseudocyst. 4. Multiple compression fractures in the lower thoracic and lumbar spine. Dictated by: Daniel Delgado M.D. on 08/30/2016 at 13:57 Approved by: Daniel Delgado M.D. on 08/30/2016 at 14:08 X-RAY CHEST ONE VIEW, PORTABLE IMPRESSION: 1. Indistinct reticular opacities in the left upper lung zone increased in prominence from the prior study. Findings nonspecific and the differential includes pneumonia or possible contusion. Recommend correlation clinically and CT if clinical concern persists. Dictated by: Rayo Arias M.D. on 08/30/2016 at 11:15 Approved by: Rayo Arias M.D. on 08/30/2016 at 11:37 CT BRAIN WITHOUT CONTRAST IMPRESSION: 1. No acute intracranial abnormalities. 2. Mild cerebral volume loss and moderate chronic microvascular ischemic changes. Dictated by: Daniel Delgado M.D. on 08/30/2016 at 13:55 Approved by: Daniel Delgado M.D. on 08/30/2016 at 13:57 X-RAY LUMBAR SPINE, 2 OR 3 VIEW IMPRESSION: 1. Increasing degree of compression at the L2 level and a new superior endplate compression deformity of L4 are likely acute. Please correlate clinically. 2. Unchanged L3 compression deformity. 3. Osteopenia and degenerative changes of the number spine are similar to the prior study. 4. A few borderline prominent air-filled small bowel loops within the midabdomen are of doubtful significance and may represent focal ileus. If the patient is experiencing continued bowel symptoms, please consider abdominal radiographs and/or CT of the abdomen and pelvis for further evaluation. Dictated by: Shola Fortune M.D. on 08/30/2016 at 10:16 Approved by: Shola Fortune M.D. on 08/30/2016 at 10:25 . 12-lead ECG NSR with rate 73, possible LVH Assessment & Plan Melva Watkins is a 76 year old woman with a PMH of Breast and tongue cancer, hypothyroid, depression and anxiety, and EtOH abuse with multiple previous falls resulting in multi-level compression fractures who presents following an additional ground level fall following a series of falls in the last week. Imaging of the lumbar spine reveals likely new L2 and L4 compression fractures. Unwitnessed ground level fall, POA, acute on chronic. Active -Patient is unsure how long she was down, or when her last known normal was -She denies EtOH consumption, though her blood alcohol level was positive despite being down for a period likely greater than 12 hours -New L2 and L4 compression fractures -CK normal which renders rhabdo very unlikely -CT head unremarkable -Continue home Fentanyl patch 25 mcg -Increase home Hydrocodone 5-325 q6 to 10-325 q4 -Add Toradol IV PRN -Will obtain palliative consult for pain control and goals of care in the AM Alcohol abuse, POA, chronic. Active -As above patient denies EtOH use, but blood alcohol level was elevated upon arrival despite prolonged period down -CIVA protocol -Will continue to monitor for signs of withdrawal -Any withdrawal would be greatly complicated by above fractures, as patient would be in significant pain and disorientation Hypothyroid, POA, chronic. Active -Continue home thyroid supplementation HTN, POA, chronic. Active -Pressure significantly elevated upon arrival likely secondary to pain -Continue home amlodipine -Continue home Losartan -Continue home Metoprolol History of PE, POA, chronic. Active -Continue home Eliquis Depression and anxiety, POA, chronic. Active -Continue home Temazepam Elevated Procalcitonin, POA, acute. Active -Uncertain source of infection -CXR indicative of either upper lobe pneumonia or pulmonary contusion -Given possible EtOH component of fall will cover for aspiration with Zosyn -Repeat Labs in the AM -Blood culture results pending -UA negative Disposition: Inpatient, anticipated length of stay >2 midnights given severity of condition and complexity of treatment plan. Pain Evaluation: Pain not Controlled (Patient in significant pain, uptitrating dosage) GI Prophylaxis: Not indicated VTE Prophylaxis: Other (Patient on Eliquis) VTE Mechanical Devices: Intermittant Pneumatic CD Resuscitation Status: DNR/DNI:Do Not Resuscitate/Intubate Time spent 1 hour Attending Statement The patient was seen and examined together with Dr. Shearer on 08/30/2016 and I have added additional information to the note above. Finn Shearer DO Aug 30, 2016 18:48 Claire Steel DO Aug 31, 2016 17:08
--- NOTE | 2016-08-30 19:18 | PCM.ADCARE ---
Finn Shearer DO 08/30/168: Advance Care Planning Note Purpose of Encounter: Establish code status and goals of care Parties in Attendance: Patient and Dr. Finn Shearer Decisional Capacity: Patient decisional and lucid Subjective: Patient re-affirms her desire to be DNR/DNI Objective: Patient with evidence of functional decline, self medication with alcohol for pain and depression. Plan: Will continue DNR/DNI status, plan to consult palliative care in the AM for pain management and further elucidation of goals of care. CODE STATUS: DNR/DNI Time Spent Adv.Care Planning: Greater than 16 minutes Claire Steel DO 08/30/162056: Advance Care Planning Note Parties in Attendance: Dr. Steel Objective: Diagnosis: Alcohol dependence Functional decline Multiple fractures Pulmonary Embolism Adv. Care Plan Documenation: The patient was seen and examined together with Dr. Shearer on 08/30/16 and I have added additional information to the note above. Finn Shearer DO Aug 30, 2016 19:18 Claire Steel DO Aug 30, 2016 20:57
--- NOTE | 2016-08-30 19:42 | NUR ---
Admit Pt admitted from the ER, received report from ER nurse. Pt A&O X3, answers questions appropriately. Denies any numbness or tingling. Complains of "12/10" pain. Dilaudid given to pt as well as a fentanyl patch placed and Toradol given IV. Ice pack placed behind patient for comfort. Position changes frequently. Not able to get to wound care for bilat arm skin tears, night RN notified.
[2016-08-30] MEDS: Hydrocortisone 10 mg Tablet PO SCH (20:15)
[2016-08-30] MEDS: HYDROcodone-APAP 10-325 mg PO PRN (20:22)
[2016-08-31] VITALS (9 sets, daily range): BP systolic 163–195; BP diastolic 69–83; PULSE 60–77; RESP 16–22; O2SAT 92–97
[2016-08-31] MEDS: HYDROcodone-APAP 10-325 mg PO PRN ×6 (00:08→22:32)
[2016-08-31] MEDS: Piperacillin-Tazo 3.375 Gm Inj 3.375 GM in Dextrose 5% Minibag Plus 50 ML IV SCH ×3 (02:11→16:57)
--- NOTE | 2016-08-31 04:33 | NUR ---
Pain / wound care Back pain under adequate control with prn Percocet and Toradol along with scheduled meds. Able to transfer safely to [facility] with SBA and FWW; pt moves very well. Using call light appropriately, emanuel alarm engaged for safety related to multiple recent falls. Hourly rounding ongoing.
[2016-08-31] MEDS: Pantoprazole 40 mg ER24 Tablet PO SCH (06:48)
[2016-08-31 07:39] LABS: BASOPHILS % (AUTO) 0.5 % (0-3); EOSINOPHILS % (AUTO) 0.7 % (0-5); MONOCYTES % (AUTO) 7.7 % (4-12); Mean Corpuscular Volume 98.9 fL (81-100); NEUTROPHILS % (AUTO) 71.4 % (40-74); Platelet Count 195 bil/L (150-400)
[2016-08-31] MEDS: Multivit-Miner-Folic Acid-Iron Tablet PO SCH (08:29)
[2016-08-31] MEDS ORDERED: Vancomycin Dose per Pharmacist XX SCH (08:30)
[2016-08-31] MEDS ORDERED: [UNRECOGNIZED DRUG - MIXTURE] PO SCH (08:30)
[2016-08-31] MEDS: MeTOProlol XL 50 mg ER24 Tablet PO SCH (08:32)
[2016-08-31] MEDS: Hydrocortisone 10 mg Tablet PO SCH ×2 (08:32→19:53)
--- NOTE | 2016-08-31 10:23 | NUR ---
Palliative Care Palliative Care received verbal order from Dr Montes (resident) 08/31/16 to assist with pain management. Patient admitted 08/30/16 and may discharge today. Shilo (and Julee) Roland (son) [phone], Lorna (daughter) [phone], Palliative Care to follow. Lakisha Rangel
--- NOTE | 2016-08-31 11:10 | NUR ---
Case Management: IMM given and explained to pt. Agata FLOODRN
--- NOTE | 2016-08-31 11:16 | NUR ---
Evaluation completed. Please go to "Notes" then click on "Assessments and Notes" (bottom left corner of screen). Then select appropriate discipline tab on top of screen.
--- NOTE | 2016-08-31 14:51 | PCM.CONPAL ---
Date of Service Aug 31, 2016 Date of Hospital Admission: Aug 30, 2016 at 13:46 Date of Palliative Consult: Aug 31, 2016 Requesting Provider: Star No DO Reason Palliative Care Consult: Pain Reason for Consultation Palliative Care received verbal order from Dr Montes (resident) 08/31/16 to assist with pain management. Patient admitted 08/30/16 and may discharge today. Shilo (and Julee) Roland (son) [phone], Lorna (daughter) [phone], Hospital Unit @time of consult: [facility] ([id number]) Palliative Care Recommendation Summary of palliative recommendations: -Symptom management (Pain/other): pain appears to be in good control on morning rounds with use of fentanyl patch 25mcg/hr and prn oral pain meds as written. 1. Agree with fentanyl 25mcg/hr for baseline pain 2. Agree with gabapentin 300mg po TID for chronic neuropathic pain 3. Agree with toradol 30mg IV q 8 hours scheduled for acute bone pain/ inflammation. 4. Agree with HC/APAP 10/324 q 4 hours prn breakthrough pain for now, but would try titrate down to q6 hours intervals in the next 24 hours, then q 8 hours after that, due to her past history of rapid affinity for opiate dependence mixed with alcohol dependence. Palliative Care will return tomorrow to f/u pain management. Additional Medical Diagnoses with primary management by Hospitalist team include : Unwitnessed ground level fall, POA, acute on chronic. Active -She denies EtOH consumption, though her blood alcohol level was positive despite being down for a period likely greater than 12 hours -New L2 and L4 compression fractures -CK normal which renders rhabdo very unlikely -CT head unremarkable -Continue home Fentanyl patch 25 mcg -Increase home Hydrocodone 5-325 q6 to 10-325 q4 -Add Toradol PRN Alcohol abuse, POA, chronic. Active -As above patient denies EtOH use, but blood alcohol level was elevated upon arrival despite prolonged period down -[facility] protocol - Hypothyroid, POA, chronic. Active -Continue home thyroid supplementation HTN, POA, chronic. Active History of PE, POA, chronic. Active -Continue home Eliquis Depression and anxiety, POA, chronic. Active -Continue home Temazepam Elevated Procalcitonin, POA, acute. Active -Uncertain source of infection -CXR indicative of either upper lobe pneumonia or pulmonary contusion -Given possible EtOH component of fall will cover for aspiration with Zosyn VTE Prophylaxis: Patient on Eliquis VTE Mechanical Devices: Intermittant Pneumatic CD Problems: Resuscitation Status Resuscitation Status: DNR/DNI:Do Not Resuscitate/Intubate . Pain: Moderate Pt History History of Present Illness Melva Watkins is a 76 year old woman with a PMH of EtOH abuse, chronic pain related to multiple compression fractures secondary to multiple falls, breast and mouth cancer s/p mastectomy and resection respectively, hypothyroid, depression and anxiety who presents with severe back pain following an unwitnessed ground level fall. The patient states that she cannot remember the details of her fall, how long she was down, or when she was last normal. She denies any recent alcohol consumption, however her blood alcohol level was elevated after an uncertain but period likely greater than 12 hours. She states that she awoke after an uncertain period to find herself on the floor and unable to get up, she was eventually able to reach a phone and alert EMS to her predicament. She states that she does not think she hit her head. She denies nausea, vomiting, diarrhea, headache, changes in vision or sensation, numbness, or tingling in her extremities. In the ED the patient underwent imaging including a head CT which was negative for acute intracranial process, spinal x-ray which demonstrated likely new L2 and L4 compression fractures, and lab evaluation significant for an elevated lactic acidosis at 4.8 which resolved with IV fluids. 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 Parathyroid adenoma Reports: GERD, Hypertension Reports: Depression . Surgical History Tongue resection Total mastectomy Reports: Knee replacement . Family History Patient unable to recall relevant family history Social History Hx Alcohol Use: Yes Alcoholic Drinks Per Day: 1-2 DRINKS OF WHISKEY PER DAY Hx Substance Use: Yes (MARIJUANA) Hx Tobacco Use: Yes (quit in 1991 per previous records) Medications Current Medications: Current Medications Hydromorphone HCl 0.25 mg Q15MIN PRN IVPUSH Last administered on 08/30/16t 12: 14; Admin Dose 0.25 MG; Start 08/30/16 at 11:10; Stop 08/30/16 at 18:42; Status DC Pharmacy Consult 1 ea DAILY XX; Start 08/31/16 at 08:30; Stop 08/31/16 at 08:30 ; Status DC Hydromorphone HCl 0.5 mg 0.5 mg Q15MIN PRN IVPUSH Last administered on 16:55; Admin Dose 0.5 MG; Start 08/30/16 at 12:50; Stop 08/30/16 at 18:42; Status DC Sodium Chloride 1,000 ml @ 100 mls/hr Q10H IV Last administered on 08/30/16 16 :12; Admin Dose 100 MLS/HR; Start 08/30/16 at 14:15; Stop 08/30/16 at 18:20; Status DC Al Hydrox/Mg Hydrox/Simethicone 30 ml Q6 PRN PO; Start 08/30/16 at 14:15; Stop 08/30/16 at 16:34; Status DC Ondansetron HCl Dose range: 4 mg to 8 mg Q4H PRN IVPUSH; Start 08/30/16 at 14: 15; Stop 08/30/16 at 16:44; Status DC Sodium Chloride 1,000 ml @ 75 mls/hr [id number] IV Last administered on 08/30/16 21:32; Admin Dose 75 MLS/HR; Start 08/30/16 at 15:56 Famotidine 20 mg BID PO; Start 08/30/16 at 20:30; Stop 08/30/16 at 20:30; Status DC Al Hydrox/Mg Hydrox/Simethicone 30 ml Q6H PRN PO; Start 08/30/16 at 16:00 Ondansetron HCl 4 to 8 mg Q4H PRN IVPUSH Last administered on 08/30/16 21:32; Admin Dose 4 MG; Start 08/30/16 at 16:00 Senna 17.2 mg BID PRN PO; Start 08/30/16 at 16:00 Polyethylene Glycol 17 gm DAILY PRN PO; Start 08/30/16 at 16:00 Amlodipine Besylate 5 mg DAILY PO; Start 08/30/16 at 16:00; Stop 08/30/16 at 16: 07; Status DC Apixaban 5 mg BID PO Last administered on 08/31/16 08:29; Admin Dose 5 MG; Start 08/30/16 at 20:30 Calcium Carbonate 500 mg BIDWM PO Last administered on 08/31/16 08:29; Admin Dose 500 MG; Start 08/30/16 at 17:30 Fentanyl 25 patch Q72H TOPICAL; Start 08/30/16 at 16:00; Stop 08/30/16 at 16:57 ; Status DC Gabapentin 300 mg TID PO Last administered on 08/31/16 14:08; Admin Dose 300 MG ; Start 08/30/16 at 20:30 Acetaminophen/ Hydrocodone Bitart 1 tablet Q6H PRN PO Last administered on 08/30 16:55; Admin Dose 1 TABLET; Start 08/30/16 at 16:20; Stop 08/30/16 at 18: 42; Status DC Levothyroxine Sodium 125 mcg DAILYAC PO Last administered on 08/31/16 06:48; Admin Dose 125 MCG; Start 08/31/16 at 07:30 Losartan Potassium 50 mg DAILY PO; Start 08/31/16 at 08:30; Stop 08/31/16 at 08: 30; Status DC Metoprolol Succinate 50 mg DAILY PO Last administered on 08/31/16 08:32; Admin Dose 50 MG; Start 08/31/16 at 08:30 Prenat Multivit/ Inverform Machine Operator/Iron/Folic Ac 1 tablet DAILY PO Last administered on 08/31 08:29; Admin Dose 1 TABLET; Start 08/31/16 at 08:30 Pantoprazole 40 mg 0630 PO Last administered on 08/31/16 06:48; Admin Dose 40 MG; Start 08/31/16 at 06:30 Hydrocortisone 30 mg BID PO Last administered on 08/31/16 08:32; Admin Dose 30 MG; Start 08/30/16 at 20:30 Temazepam 30 mg HS PRN PO; Start 08/30/16 at 16:25 Non-Formulary Medication 100 mg DAILY PO; Start 08/31/16 at 08:30; Stop at 08:30; Status DC Non-Formulary Medication 2 tab DAILY PO; Start 08/31/16 at 08:30; Stop 08/31/16 at 08:30; Status DC Thiamine HCl 100 mg DAILY PO; Start 09/02/16 at 08:30 Losartan Potassium 50 mg DAILY PO Last administered on 08/31/16 08:32; Admin Dose 50 MG; Start 08/30/16 at 16:05 Amlodipine Besylate 5 mg DAILY PO Last administered on 08/31/16 08:32; Admin Dose 5 MG; Start 08/31/16 at 08:30 Fentanyl 1 patch Q72H TOPICAL Last administered on 08/30/16 17:12; Admin Dose 1 PATCH; Start 08/30/16 at 16:57 Acetaminophen/ Hydrocodone Bitart 1 tablet Q4H PRN PO Last administered on 08/31 14:09; Admin Dose 1 TABLET; Start 08/30/16 at 18:40 Naloxone HCl 0.4 mg PRN PRN IVPUSH; Start 08/30/16 at 19:10 Ketorolac Tromethamine 30 mg 30 mg Q8H PRN IV Last administered on 08/31/16 03 :10; Admin Dose 30 MG; Start 08/30/16 at 19:10; Stop 09/04/16 at 19:11 Piperacillin Sod/ Tazobactam Sod/ Dextrose/Water 50 ml @ 12.5 mls/hr Q8 IV Last administered on 08/31/16 08:32; Admin Dose 12.5 MLS/HR; Start 08/31/16 at 00:30 Scheduled ([Slow-Mag71.5-119 Mg]) 2 TAB PO DAILY Amlodipine (Amlodipine) 5 Mg Tablet 5 MG PO DAILY Apixaban (Eliquis) 5 Mg Tablet 5 MG PO BID Calcium Carbonate (Calcium Carbonate) 200 Mg Tab.chew 500 MG PO BIDWM Esomeprazole Magnesium (Nexium) 40 Mg Capsule.dr 40 MG PO DAILY Fentanyl 25 mcg/hr Patch (Fentanyl 25 mcg/hr Patch) 1 Each Patch.td72 25 MCG TOPICAL Q72H Gabapentin (Gabapentin) 100 Mg Capsule 300 MG PO TID Hydrocortisone (Hydrocortisone) 20 Mg Tablet 30 MG PO BID Levothyroxine (Levothyroxine) 125 Mcg Tablet 125 MCG PO DAILY Losartan Potassium (Losartan Potassium) 50 Mg Tablet 50 MG PO DAILY Metoprolol Succinate ER (Metoprolol Succinate ER) 50 Mg Tab.er.24h 50 MG PO DAILY Potassium Chloride ER (Klor-Con M20) 20 Meq Tablet 20 MEQ PO TID Vit#96/Ferrous Fum/FA ( Tablet) 1 Each Tablet 1 TABLET PO DAILY Thiamine Mononitrate (Vitamin B-1) 100 Mg Tablet 100 MG PO DAILY Scheduled PRN Albuterol HFA (Proair HFA) 8.5 Gm Hfa.aer.ad 2 PUFFS INHALATION Q4H PRN PRN For Shortness of Breath Hydrocodone-Acetaminophen 5-325 mg (Hydrocodone-Acetaminophen 5-325 mg) 1 Each Tablet 1 EACH PO QID PRN PRN For Pain Temazepam (Temazepam) 30 Mg Cap 30 MG PO HS PRN PRN For Insomnia Objective Findings Exam Vital Sign - Last Date Time Temp Pulse Resp B/P Pulse Ox O2 Delivery O2 Flow Rate FiO2 08/31/16 12:14 36.8 61 22 166/83 93 Room Air Intake and Output 08/30/16 08/30/16 08/31/16 Cumulative From/Thru 15:00 23:00 07:00 08/30/16 08:20 - 08/31/16 06:47 Intake Total 2014 ml 750 ml 1751 ml 4516 ml Output Total 2750 ml 1700 ml 4450 ml Balance 2015 ml -1999 ml 51 ml 66 ml Intake Oral 200 ml 200 ml IV Total 2014 ml 550 ml 1551 ml 4116 ml TPN/PPN 200 ml 200 ml Output Urine Total 2750 ml 1700 ml 4450 ml # Bowel Movements 1 1 General: Person, Place, Time, No acute distress, Other ( tender lumbar region with poor mobility and intolerance of turns or movement) HEENT: PERRLA, EOMI, Scleral Anicteric, Mucous Membranes Dry Heart: Normal S1, S2 Lungs: Clear to Auscultation Abdomen: Bowel Tones x4, Soft, Non Tender Neuro: Exam Intact Extremities: Warm Skin: Other Lab/Diagnostics Lab and Imaging results reviewed in detail in EMR. Time spent Total time 30 minutes; >50% face to face with patient and/or family, providing counselling regarding plans and recommendations, and in care coordination with his/her medical teams. Mar Yancey MD Aug 31, 2016 14:51
--- NOTE | 2016-08-31 15:02 | NUR ---
Social Work: Initial Assessment/Multidisciplinary Rounds D: Per EMR review, pt is a 76 year old female admitted for LATISHA, ETOH Abuse. Pt is Medicare and [facility] [place] supplement; Pt has no LTC or VA benefits. PCP is Salome Espinoza PA-C. NOK is is Brisa Watkins, son, . Advanced directives completed- requested copy. Readmit score is high, 6/8. Pt discussed in am rounds. Palliative care consult for pain management. PT Evaluation completed with the jacinto who is recommending SNF. MINISTER OF RELIGION met with the patient and son at bedside. Sw role explained, Contact information and dcp checklist provided. Pt lives at home in [place], [facility]. Pt has multiple readmissions due to ETOH use and related falls. Pt uses a walker for ambulation occasionally but not consistently, per her son. Pt's son lives nearby and checks on the patient daily. PT recommendation for SNF reviewed with the patient and son. Pt adamantly declines SNF placement and states that she will not consider home health or hiring 28/08 care. MINISTER OF RELIGION and son spent a considerable amount of time explaining the risks of readmission, further injury/ if the patient does not make changes in her current level of care. Pt ambivalent about her home needs and ability to care for self. Pt continues to decline all supportive services including SNF, HH and PP caregiving. MINISTER OF RELIGION attempted to discuss pt's substance use. Pt denies regular use and states that she does not have a drinking problem. MINISTER OF RELIGION informed patient of her BAL on time of admission in which the patient continues to deny use. A: Pt who lives home, alone. P: Anticipate pt to discharge home; MINISTER OF RELIGION to continue to follow up with patient re: supportive services to reduce likelihood of readmission. DEYA Rowell Addendum: 08/31/16 at 1516 by DIEGO FOFANA Amended: Links added.
[2016-08-31] MEDS: 0.9% Sodium Chloride 1,000 ML IV SCH (16:57)
--- NOTE | 2016-08-31 18:04 | NUR ---
Pain/POC The pt continues to struggle with back pain. 1 tab norco provides decent relief. The pt was able to get to the [facility] after the carl was pulled this morning with moderate pain - pt reports it's tolerable. The POC is still being determined, as the pt continues to deny alcohol use at home.
--- NOTE | 2016-08-31 18:55 | PCM.PNMED ---
Subjective Date of Service Aug 31, 2016 Subjective Assessment: Patient was sitting up with her legs over the side of bed reading the newspaper upon entering the room. She appears in good spirits, and appears to be able to move her torso without significant pain. Events Overnight: No acute events overnight. ROS: Complains of back pain. Denies fever/chills, nausea/vomiting, headache, weakness, abdominal pain, chest pain, shortness of breath, increased swelling in hands or feet. Exam Vital Signs Vital Sign - Last Date Time Temp Pulse Resp B/P Pulse Ox O2 Delivery O2 Flow Rate FiO2 08/31/16 16:00 36.9 60 22 195/76 96 Room Air Intake and Output 08/30/16 08/30/16 08/31/16 Cumulative From/Thru 15:00 23:00 07:00 08/30/16 08:20 - 08/31/16 06:47 Intake Total 2015 ml 750 ml 1751 ml 4516 ml Output Total 2750 ml 1700 ml 4450 ml Balance 2015 ml -2000 ml 51 ml 66 ml Intake Oral 200 ml 200 ml IV Total 2015 ml 550 ml 1551 ml 4116 ml TPN/PPN 200 ml 200 ml Output Urine Total 2750 ml 1700 ml 4450 ml # Bowel Movements 1 1 Exam General: No acute distress, well-developed, well-nourished HEENT: Normocephalic, atraumatic. External ears without defect. Pupils equal, round, and reactive to light and accommodation. Anicteric sclerae, moist conjunctivae. Cardiovascular: Regular rate and rhythm with no murmurs, rubs, or gallops appreciated Pulmonary: Clear to auscultation bilaterally with no crackles, wheezes, or rhonchi. Normal respiratory effort with no use of accessory muscles. Abdomen: Bowel tones present. Soft, nontender, nondistended. Extremities: No clubbing, cyanosis, edema Skin: Normal temperature, turgor, and texture; no rash, ulcers, or subcutaneous nodules appreciated. Neurological: Cranial nerves grossly intact. Reflexes, coordination, and sensory function within normal limits. Normal muscle strength, tone, and bulk. Psychiatric: Normal mood and affect. Alert and oriented to person, place, and time IVs and Medications IV Fluids 50 mL and given with medications. Medications Reviewed: Medications were reviewed in detail Medications High-risk medications include: Fentanyl Diazepam Temazepam Eliquis Lab and Diagnostics Result Diagram: 08/31/16 0727 08/31/1627 Microbiology Blood and urine cultures pending X-Rays, CTs and MRIs CT ABDOMEN AND PELVIS WITH CONTRAST IMPRESSION: 1. Colonic diverticulosis. There is mild sigmoid colon thickening suggesting mild diverticulitis. 2. Cholecystectomy. There is intrahepatic biliary dilation with the common bile duct measuring up to 17 mm. No common bile duct stones identified. 3. Mild stranding in pancreatic head, suggesting focal pancreatitis. Please correlate with pancreatic enzymes. No evidence for pancreatic necrosis. No pancreatic calcification or pseudocyst. 4. Multiple compression fractures in the lower thoracic and lumbar spine. Dictated by: Daniel Delgado M.D. on 08/30/2016 at 13:57 Approved by: Daniel Delgado M.D. on 08/30/2016 at 14:08 X-RAY CHEST ONE VIEW, PORTABLE IMPRESSION: 1. Indistinct reticular opacities in the left upper lung zone increased in prominence from the prior study. Findings nonspecific and the differential includes pneumonia or possible contusion. Recommend correlation clinically and CT if clinical concern persists. Dictated by: Rayo Arias M.D. on 08/30/2016 at 11:15 Approved by: Rayo Arias M.D. on 08/30/2016 at 11:37 CT BRAIN WITHOUT CONTRAST IMPRESSION: 1. No acute intracranial abnormalities. 2. Mild cerebral volume loss and moderate chronic microvascular ischemic changes. Dictated by: Daniel Delgado M.D. on 08/30/2016 at 13:55 Approved by: Daniel Delgado M.D. on 08/30/2016 at 13:57 X-RAY LUMBAR SPINE, 2 OR 3 VIEW IMPRESSION: 1. Increasing degree of compression at the L2 level and a new superior endplate compression deformity of L4 are likely acute. Please correlate clinically. 2. Unchanged L3 compression deformity. 3. Osteopenia and degenerative changes of the number spine are similar to the prior study. 4. A few borderline prominent air-filled small bowel loops within the midabdomen are of doubtful significance and may represent focal ileus. If the patient is experiencing continued bowel symptoms, please consider abdominal radiographs and/or CT of the abdomen and pelvis for further evaluation. Dictated by: Shola Fortune M.D. on 08/30/2016 at 10:16 Approved by: Shola Fortune M.D. on 08/30/2016 at 10:25 . 12-lead ECG NSR with rate 73, possible LVH Assessment & Plan Melva Watkins is a 76 year old woman with a PMH of Breast and tongue cancer, hypothyroid, depression and anxiety, and EtOH abuse with multiple previous falls resulting in multi-level compression fractures who presents following an additional ground level fall following a series of falls in the last week. Imaging of the lumbar spine reveals likely new L2 and L4 compression fractures. Unwitnessed ground level fall, POA, acute on chronic. Active -Patient is unsure how long she was down, or when her last known normal was -She denies EtOH consumption, though her blood alcohol level was positive despite being down for a period likely greater than 12 hours -New L2 and L4 compression fractures -CK normal which renders rhabdo very unlikely -CT head unremarkable -Continue home Fentanyl patch 25 mcg -Continue Hydrocodone 10-325 q4 PRN -Add Toradol IV PRN -psych social worker consulted, since the patient lives alone and continues to have these episodes of falling at home, after a long discussion with the patient, she is absolutely unwilling to be admitted to [facility], assisted living, or any other outpatient facility. She is also unwilling to live with family members or have family members come live with her. Alcohol abuse, POA, chronic. Active -As above patient denies EtOH use, but blood alcohol level was elevated upon arrival despite prolonged period down -[facility] protocol -Will continue to monitor for signs of withdrawal -Any withdrawal would be greatly complicated by above fractures, as patient would be in significant pain and disorientation Hypothyroid, POA, chronic. Active -Continue home thyroid supplementation -TSH pending HTN, POA, chronic. Active -Pressure significantly elevated upon arrival likely secondary to pain -Continue home amlodipine -Continue home Losartan -Continue home Metoprolol - Pressures continue elevated despite home antihypertension meds. History of PE, POA, chronic. Active -Continue home Eliquis Depression and anxiety, POA, chronic. Active -Continue home Temazepam Elevated Procalcitonin, POA, acute. Active -Uncertain source of infection -CXR indicative of either upper lobe pneumonia or pulmonary contusion -Given possible EtOH component of fall will cover for aspiration with Zosyn -Blood culture results negative x 24 hours -UA questionable, urine culture reflexed pending, expect results tomorrow morning Disposition: Pending results of the urine culture, patient may be discharged tomorrow GI Prophylaxis: Not indicated VTE Prophylaxis: Other (Patient on Eliquis) VTE Mechanical Devices: Intermittant Pneumatic CD Resuscitation Status: DNR/DNI:Do Not Resuscitate/Intubate Attending Statement The patient was seen and examined together with Dr. No on 08/31/16 and I have added additional information to the note above. Star No DO Aug 31, 2016 18:55 Claire Steel DO Aug 31, 2016 20:14
--- NOTE | 2016-08-31 22:55 | NUR ---
Transfer to 3006 Report given to Maggy. Explained to pt need to transfe. Transferred with all belongings, meds and chart to room 3006 via wheelchair. Pt has been using bsc with [facility]. Calls staff frequently for assistance. Alert and oriented x3. Pt gets slightly anxious at times.
[2016-08-31] MEDS ORDERED: HYDROmorphone 1 mg/mL Inj IVPUSH ONE (23:20)
[2016-09-01] VITALS (8 sets, daily range): BP systolic 148–183; BP diastolic 70–88; PULSE 59–70; RESP 16–20; O2SAT 92–95
[2016-09-01] MEDS: Piperacillin-Tazo 3.375 Gm Inj 3.375 GM in Dextrose 5% Minibag Plus 50 ML IV SCH (00:11)
[2016-09-01] MEDS: HYDROcodone-APAP 10-325 mg PO PRN ×3 (02:47→19:31)
--- NOTE | 2016-09-01 05:28 | NUR ---
Blood Pressure Upon arrival from [facility], pt blood pressure 195/75; paged, orders received for 1mg Dilaudid IVP and given to pt along with temazepam per pt request for sleeping aid. Upon reassessment, BP reduced to 161/77; updated with results. Addendum: 09/01/16 at 0627 by ANA MARINO RN This AM, BP increased again to 183/88; upon recheck, BP further increased to 205 systolic. Pt stated "What do you want now? She just took my blood pressure! You guys moved me in the middle of the night, and the door is constantly slamming, and I'm just tired of being nice!" paged, BP rechecked manually with systolic approx. 214; orders given to administered AM blood pressure medications early.
[2016-09-01 05:41] LABS: Mean Corpuscular Hemoglobin 31.2 pg (27.0-35.0); Mean Corpuscular Volume 99.5 fL (81-100)
[2016-09-01] MEDS: MeTOProlol XL 50 mg ER24 Tablet PO SCH (06:12)
[2016-09-01] MEDS: Pantoprazole 40 mg ER24 Tablet PO SCH (06:12)
[2016-09-01] MEDS ORDERED: FENTANYL TOPICAL SCH ×2 (09:50)
[2016-09-01] MEDS: Multivit-Miner-Folic Acid-Iron Tablet PO SCH (09:53)
--- NOTE | 2016-09-01 09:54 | PCM.PALLBR ---
Palliative Care Recommendation Summary of palliative recommendations: -Symptom management (Pain/other): Her pain has been somewhat worse in the last 24 hours and her blood pressure is also increasing, which may be 2ndary to pain (or part of alcohol withdrawal). Her amlodipine has been increased to help with BP control. In the last 24 hours she had 6 doses of 10mg HC/APAP, which is equal to 60mg of morphine or about a 50mcg/hr fentanyl patch. She is currently on 25mcg/hr. Since I am not sure whether her BP elevation is due solely to compression fracture pain, I will only increase her fentanyl patch by 12.5 mcg/ hr for a total dose of 37mcg/hr. 1. I ordered an increase of fentanyl 25mcg/hr to 37.5mcg/hr for baseline pain. Discussed with pharmacist who will put the order in. 2. Continue gabapentin 300mg po TID for chronic neuropathic pain 3. Thank you for discontinuation of Toradol and replacement with ibuprofen last night. Ibuprofen scheduled for acute bone pain/inflammation. 4. Thank you for titrating down HC/APAP 10/324 from q 4 hours prn breakthrough pain to q 6 hours intervals today. I recommend decreasing HC/APAP to q 8 hours tomorrow as her added dose of fentanyl should be activated by then and helping with steady pain relief. We are all mindful of her history of rapid affinity for opiate dependence mixed with alcohol dependence, and once she leaves hospital setting, I prefer she has a higher dose of the patch with a lower number of pain pills. 5. Needs follow-up in outpatient setting with her PCP, SHERLYN Teixeira in [place]. Palliative Care will sign off today. Thank you for the referral. Problems: Resuscitation Status Resuscitation Status: DNR/DNI:Do Not Resuscitate/Intubate Total time 25 minutes; >50% face to face with patient and/or family, providing counselling regarding plans and recommendations, and in care coordination with his/her medical teams. Palliative Brief Note Date of Service Sep 01, 2016 . Patient Identification: Melva Watkins is a 76 year old woman with a PMH of EtOH abuse, chronic pain related to multiple compression fractures secondary to multiple falls, breast and mouth cancer s/p mastectomy and resection respectively, hypothyroid, depression and anxiety who presents with severe back pain following an unwitnessed ground level fall. The patient states that she cannot remember the details of her fall, how long she was down, or when she was last normal. She denies any recent alcohol consumption, however her blood alcohol level was elevated after an uncertain but period likely greater than 12 hours. She states that she awoke after an uncertain period to find herself on the floor and unable to get up, she was eventually able to reach a phone and alert EMS to her predicament. She states that she does not think she hit her head. She denies nausea, vomiting, diarrhea, headache, changes in vision or sensation, numbness, or tingling in her extremities. Hospital Course: Part of her workup included a head CT which was negative for acute intracranial process, and spinal x-ray showing two new L2 and L4 compression fractures, and lab evaluation significant for an elevated lactic acidosis at 4.8 which resolved with IV fluids. She has been complaining of more pain and getting all available prn pain pills as well as having increased systolic BP, which has been addressed by her Attending. (See Plan). Subjective: "I'm ok at lying still, but as soon as I move, I have pain." Denies any cloudiness of consciousness or sleepiness, says she was awake most of the night due to pain. Denies SOB, nausea, constipation. Exam: General: Person, Place, Time, No acute distress, HEENT: PERRLA, EOMI, Scleral Anicteric, Mucous Membranes Dry Back: tender at lower lumbar bilaterally Heart: Normal S1, S2 Lungs: Clear to Auscultation Abdomen: Bowel Tones x4, Soft, Non Tender Neuro: Exam Intact Extremities: Warm, no edema Skin: Other Mar Yancey MD Sep 01, 2016 09:54
[2016-09-01] MEDS: Hydrocortisone 10 mg Tablet PO SCH ×2 (09:56→19:31)
[2016-09-01] MEDS: cefTRIAXone Inj 2,000 MG in Dextrose 5% Minibag Plus 50 ML IV SCH (11:53)
[2016-09-01] MEDS ORDERED: HYDROcodone-APAP 10-325 mg PO PRN (12:40)
--- NOTE | 2016-09-01 14:24 | NUR ---
Social Work: Continued d/c planning Data: Pt is on day 2 of hospitalization. EMR reviewed. Pt discussed in multidisciplinary rounds. PT recommending SNF at this time. RN SHIFT MGR met with pt to provide resources and discuss SNF / HH options. Pt continues to decline SNF at this time. RN SHIFT MGR asked about HH, pt agreeable to this at this time and states she has had [facility] in the past and would like to have them again if needed. Pt accepted [facility] booklet from RN SHIFT MGR. Assessment: Pt who is independent at baseline, currently not capable of self care. Plan: Pt will d/c home via POV, likely with [facility]. RN SHIFT MGR will continue to follow. DEYA Mcmahon
--- NOTE | 2016-09-01 15:10 | PCM.PNMED ---
Subjective Date of Service Sep 01, 2016 Subjective pt c/o back pain, partially controlled required toradol, percocet q4h prn still has chronic incontinence of urine, denied dysuria prelim UCX showed GNR remained afebrile, zosyn switched to ceftriaxone today pt denied cough, sputum, sob refusing SNF again BP noted to have 170-180s, additional [id number] given Exam Vital Signs Vital Sign - Last Date Time Temp Pulse Resp B/P Pulse Ox O2 Delivery O2 Flow Rate FiO2 09/01/16 05:17 36.4 60 18 183/88 95 Room Air Intake and Output 08/31/16 08/31/16 09/01/16 Cumulative From/Thru 15:00 23:00 07:00 08/30/16 08:20 - 09/01/16 05:39 Intake Total 610 ml 68 ml 5194 ml Output Total 650 ml 5100 ml Balance -40 ml 68 ml 94 ml Intake Oral 550 ml 750 ml IV Total 60 ml 68 ml 4244 ml TPN/PPN 200 ml Output Urine Total 650 ml 5100 ml # Bowel Movements 0 1 Exam elderly female, AAOX3 no tremors, tongue fasciculations tenderness on lower L-spines RRR, nl s1, s2 no mrg CTAB, no w,c S,ND,NT,normoactive BS+ warm, no edema, pulses 2/2 IVs and Medications Medications Reviewed: Medications were reviewed in detail Lab and Diagnostics Result Diagram: 09/01/16 0525 08/31/16 0727 Microbiology Blood and urine cultures pending X-Rays, CTs and MRIs CT ABDOMEN AND PELVIS WITH CONTRAST IMPRESSION: 1. Colonic diverticulosis. There is mild sigmoid colon thickening suggesting mild diverticulitis. 2. Cholecystectomy. There is intrahepatic biliary dilation with the common bile duct measuring up to 17 mm. No common bile duct stones identified. 3. Mild stranding in pancreatic head, suggesting focal pancreatitis. Please correlate with pancreatic enzymes. No evidence for pancreatic necrosis. No pancreatic calcification or pseudocyst. 4. Multiple compression fractures in the lower thoracic and lumbar spine. Dictated by: Daniel Delgado M.D. on 08/30/2016 at 13:57 Approved by: Daniel Delgado M.D. on 08/30/2016 at 14:08 X-RAY CHEST ONE VIEW, PORTABLE IMPRESSION: 1. Indistinct reticular opacities in the left upper lung zone increased in prominence from the prior study. Findings nonspecific and the differential includes pneumonia or possible contusion. Recommend correlation clinically and CT if clinical concern persists. Dictated by: Rayo Arias M.D. on 08/30/2016 at 11:15 Approved by: Rayo Arias M.D. on 08/30/2016 at 11:37 CT BRAIN WITHOUT CONTRAST IMPRESSION: 1. No acute intracranial abnormalities. 2. Mild cerebral volume loss and moderate chronic microvascular ischemic changes. Dictated by: Daniel Delgado M.D. on 08/30/2016 at 13:55 Approved by: Daniel Delgado M.D. on 08/30/2016 at 13:57 X-RAY LUMBAR SPINE, 2 OR 3 VIEW IMPRESSION: 1. Increasing degree of compression at the L2 level and a new superior endplate compression deformity of L4 are likely acute. Please correlate clinically. 2. Unchanged L3 compression deformity. 3. Osteopenia and degenerative changes of the number spine are similar to the prior study. 4. A few borderline prominent air-filled small bowel loops within the midabdomen are of doubtful significance and may represent focal ileus. If the patient is experiencing continued bowel symptoms, please consider abdominal radiographs and/or CT of the abdomen and pelvis for further evaluation. Dictated by: Shola Fortune M.D. on 08/30/2016 at 10:16 Approved by: Shola Fortune M.D. on 08/30/2016 at 10:25 . 12-lead ECG NSR with rate 73, possible LVH Assessment & Plan Melva Watkins is a 76 year old woman with a PMH of Breast and tongue cancer, hypothyroid, depression and anxiety, and EtOH abuse with multiple previous falls resulting in multi-level compression fractures who presents following an additional ground level fall following a series of falls in the last week. Imaging of the lumbar spine reveals likely new L2 and L4 compression fractures. acute, active Unwitnessed ground level fall, POA, unclear downtime, likely in the setting of etoh abuse although pt denied(etoh level+ on adm). Fall resulted acute L2 and L4 compression fractures. CTH was unremarkable. -continue pain control, appreciate palliative care input: increased Fentanyl patch 25 mcg to 37.5mcg/hr, percocet 10-325 q4 PRN to q6h prn, q8h tomorrow, dced Toradol IV PRN, switched to ibuprofen. UTI, POA, UCX showed GNR, pt was started zosyn for possible aspiration PNA, CXR indicative of either upper lobe pneumonia or pulmonary contusion. -respiratory status remained unchanged, no overt signs of PNA, therefore, abx switch to ceftriaxone given positive UCX -trend PCT, wbc, fever curve, -awaits final UCX chronic, stable Alcohol abuse, POA, As above patient denies EtOH use, but blood alcohol level was elevated upon arrival despite prolonged period down. pt was [facility] protocol, currently no signs of WD. Hypothyroid, POA, chronic. Active, TSH12, FT4 WNL, will continue home thyroid 125mcg, likely need adjustment in the clinic if TSH continues to high. HTN, uncontrolled at baseline and from pain response, Continue home amlodipine, increased to 10mg, Continue home Losartan, Continue home Metoprolol History of PE, POA, chronic. Active Continue home Eliquis Depression and anxiety, POA, chronic. Active Continue home Temazepam Disposition: d/c home with FRANKO, RN, PT in 1-2days, pt refusing SNF GI Prophylaxis: Not indicated VTE Prophylaxis: Other (Patient on Eliquis) VTE Mechanical Devices: Intermittant Pneumatic CD Resuscitation Status: DNR/DNI:Do Not Resuscitate/Intubate Time spent 35min Maik Salinas MD Sep 01, 2016 09:21
[2016-09-01] MEDS: 0.9% Sodium Chloride 1,000 ML IV SCH (15:59)
[2016-09-02] VITALS (8 sets, daily range): BP systolic 163–219; BP diastolic 75–93; PULSE 50–75; RESP 18; O2SAT 91–98
[2016-09-02] MEDS ORDERED: HYDROmorphone 1 mg/mL Inj IVPUSH ONE (01:20)
--- NOTE | 2016-09-02 01:51 | NUR ---
PAIN Pt complained of back pain 11/14. notified. New order: Dilaudid 1mg Iv pus. One time dose, effective. Pt resting in bed with eyes closed. No s/sx of pain or discomfort at this time. Will continue to monitor. Call light within reach, using appropriately. Frequent rounding in place. Pleasant and cooperative with care.
[2016-09-02] MEDS: HYDROcodone-APAP 10-325 mg PO PRN ×4 (04:36→21:43)
[2016-09-02] MEDS: 0.9% Sodium Chloride 1,000 ML IV SCH ×3 (04:37→23:56)
[2016-09-02] MEDS ORDERED: cloNIDine 0.1 mg Tablet PO SCH (05:03)
[2016-09-02] MEDS: Pantoprazole 40 mg ER24 Tablet PO SCH (05:07)
--- NOTE | 2016-09-02 05:50 | NUR ---
Pain Pt continues to complain of back pain 11/14. Pt refused [place] stating, "It doesn't help there's no point in taking it." RN gave pt an ice pack for back. Within 5 minutes, pt changed her mind and requested [place]. She is resting quietly resting in bed with eyes closed. No s/sx while at rest. Continuing to monitor pt. Call light within reach, using appropriately. Frequent rounding during the night. Pleasant and cooperative with care.
--- NOTE | 2016-09-02 05:56 | NUR ---
BP Pt BP 219/93. notified. New order: Catapress PO. One time dose. Will continue to monitor. Call light within reach. Bed locked, low position. Frequent rounding in place. Care continues.
[2016-09-02 06:05] LABS: BASOPHILS % (AUTO) 0.5 % (0-3); EOSINOPHILS % (AUTO) 0.5 % (0-5); MONOCYTES % (AUTO) 7.6 % (4-12); Mean Corpuscular Hemoglobin 31.8 pg (27.0-35.0); NEUTROPHILS % (AUTO) 69.4 % (40-74); Platelet Count 221 bil/L (150-400)
--- NOTE | 2016-09-02 09:00 | NUR ---
BRANDON signed. DEYA Shi
[2016-09-02] MEDS: cefTRIAXone Inj 2,000 MG in Dextrose 5% Minibag Plus 50 ML IV SCH (10:42)
[2016-09-02] MEDS: Multivit-Miner-Folic Acid-Iron Tablet PO SCH (10:43)
[2016-09-02] MEDS: Hydrocortisone 10 mg Tablet PO SCH ×2 (10:44→21:42)
--- NOTE | 2016-09-02 13:15 | PCM.PNMED ---
Subjective Date of Service Sep 02, 2016 Subjective pt c/o back pain but looked comfortable, oxycodone mildly helped denied any associated LEAL, dizziness, chest pain with BP 200-220s overnight, received clonidine 0.2mg, which was discontinued this AM increased toprol to 100mg and losartan to 100mg q hs pt developed diarrhea, c.diff sent this AM she noted her abdomen became very distended rapidly since she came in , denied n/v, constipation Exam Vital Signs Vital Sign - Last Date Time Temp Pulse Resp B/P Pulse Ox O2 Delivery O2 Flow Rate FiO2 09/02/16 05:41 61 09/02/16 04:43 36.2 18 219/93 94 Room Air Intake and Output 09/01/16 09/01/16 09/02/16 Cumulative From/Thru 15:00 23:00 07:00 08/30/16 08:20 - 09/02/16 06:51 Intake Total 200 ml 962 ml 1301 ml 7657 ml Output Total 830 ml 850 ml 1350 ml 8130 ml Balance -630 ml 112 ml -49 ml -473 ml Intake Oral 200 ml 962 ml 250 ml 2162 ml IV Total 1051 ml 5295 ml TPN/PPN 200 ml Output Urine Total 830 ml 850 ml 1350 ml 8130 ml # Voids 5 5 # Bowel Movements 0 1 Exam Cushinoid face elderly female, AAOX3 no tremors, tongue fasciculations tenderness on lower L-spines RRR, nl s1, s2 no mrg CTAB, no w,c S,distended abdomen,NT,normoactive BS+ warm, no edema, pulses 2/2 IVs and Medications Medications Reviewed: Medications were reviewed in detail Lab and Diagnostics Result Diagram: 09/02/16 0524 08/31/16 0727 Microbiology Blood and urine cultures pending X-Rays, CTs and MRIs CT ABDOMEN AND PELVIS WITH CONTRAST IMPRESSION: 1. Colonic diverticulosis. There is mild sigmoid colon thickening suggesting mild diverticulitis. 2. Cholecystectomy. There is intrahepatic biliary dilation with the common bile duct measuring up to 17 mm. No common bile duct stones identified. 3. Mild stranding in pancreatic head, suggesting focal pancreatitis. Please correlate with pancreatic enzymes. No evidence for pancreatic necrosis. No pancreatic calcification or pseudocyst. 4. Multiple compression fractures in the lower thoracic and lumbar spine. Dictated by: Daniel Delgado M.D. on 08/30/2016 at 13:57 Approved by: Daniel Delgado M.D. on 08/30/2016 at 14:08 X-RAY CHEST ONE VIEW, PORTABLE IMPRESSION: 1. Indistinct reticular opacities in the left upper lung zone increased in prominence from the prior study. Findings nonspecific and the differential includes pneumonia or possible contusion. Recommend correlation clinically and CT if clinical concern persists. Dictated by: Rayo Arias M.D. on 08/30/2016 at 11:15 Approved by: Rayo Arias M.D. on 08/30/2016 at 11:37 CT BRAIN WITHOUT CONTRAST IMPRESSION: 1. No acute intracranial abnormalities. 2. Mild cerebral volume loss and moderate chronic microvascular ischemic changes. Dictated by: Daniel Delgado M.D. on 08/30/2016 at 13:55 Approved by: Daniel Delgado M.D. on 08/30/2016 at 13:57 X-RAY LUMBAR SPINE, 2 OR 3 VIEW IMPRESSION: 1. Increasing degree of compression at the L2 level and a new superior endplate compression deformity of L4 are likely acute. Please correlate clinically. 2. Unchanged L3 compression deformity. 3. Osteopenia and degenerative changes of the number spine are similar to the prior study. 4. A few borderline prominent air-filled small bowel loops within the midabdomen are of doubtful significance and may represent focal ileus. If the patient is experiencing continued bowel symptoms, please consider abdominal radiographs and/or CT of the abdomen and pelvis for further evaluation. Dictated by: Shola Fortune M.D. on 08/30/2016 at 10:16 Approved by: Shola Fortune M.D. on 08/30/2016 at 10:25 . 12-lead ECG NSR with rate 73, possible LVH Assessment & Plan Melva Watkins is a 76 year old woman with a PMH of Breast and tongue cancer, hypothyroid, depression and anxiety, and EtOH abuse with multiple previous falls resulting in multi-level compression fractures who presents following an additional ground level fall following a series of falls in the last week. Imaging of the lumbar spine reveals likely new L2 and L4 compression fractures. acute, active Unwitnessed ground level fall, POA, unclear downtime, likely in the setting of etoh abuse although pt denied(etoh level+ on adm). Fall resulted acute L2 and L4 compression fractures. CTH was unremarkable. -pain is not optimally controlled, although pt looked comfortable -continue pain control, appreciate palliative care input: increased Fentanyl patch 25 mcg to 37.5mcg/hr, percocet 10-325 q4 PRN to q6h prn, q8h tomorrow, dced Toradol IV PRN, switched to ibuprofen. UTI, POA, UCX showed Citrobacter sensitive to CFX, pt was started zosyn for possible aspiration PNA, CXR indicative of either upper lobe pneumonia or pulmonary contusion. -respiratory status remained unchanged, no overt signs of PNA, therefore, abx switch to ceftriaxone given positive UCX, continue until d/c -trend PCT, wbc, fever curve, HTN, uncontrolled likely due to iatrogenic with chronic steroid tx, partially from pain. pt was started on Hydrocortisone 30mg bid by PCP in 06/08/2016 for possible adrenal insufficiency given labile HTN. Plan was to taper it. 30mg bid was resumed on admission. -BP remained uncontrolled 170-200s, metoprolol/losartan increased -will taper off steroid given possible iatrogenic lynda -continue amlodipine 10mg chronic, stable Alcohol abuse, POA, As above patient denies EtOH use, but blood alcohol level was elevated upon arrival despite prolonged period down. pt was CIWA protocol, currently no signs of WD. Hypothyroid, POA, chronic. Active, TSH12, FT4 WNL, will continue home thyroid 125mcg, likely need adjustment in the clinic if TSH continues to high. History of PE, POA, chronic. Active Continue home Eliquis Depression and anxiety, POA, chronic. Active Continue home Temazepam Disposition: d/c home with FRANKO, RN, PT in 1-2days, pt refusing SNF GI Prophylaxis: Not indicated VTE Prophylaxis: Other (Patient on Eliquis) VTE Mechanical Devices: Intermittant Pneumatic CD Resuscitation Status: DNR/DNI:Do Not Resuscitate/Intubate Time spent 35min Maik Salinas MD Sep 02, 2016 08:47
--- NOTE | 2016-09-02 15:07 | NUR ---
Social Work-readiness for discharge: Data:EMR reviewed. Pt is on day 3 of hospitalization for SIRS per H&P. Pt is not medically stable anticipate 1-2 more days. MD order received for SNF. PT continues to recommend SNF placement for pt. SW followed up with pt regarding SNF, choice list provided. Pt realizes that she needs to go to SNF for rehab and is agreeable to a referral to [facility]. SW faxed PASRR and facesheet and provided access in [employer]. SW placed a call to Son Shilo and provided him with update, he is agreeable to plan. Paperwork placed in the chart. SW will continue to follow. Assessment:Pt who would benefit from SNF. Plan:[facility]. Paperwork placed in the chart. SW will continue to follow. DEYA Shi
--- NOTE | 2016-09-02 15:10 | NUR ---
SNF choice list provided. DEYA Shi
--- NOTE | 2016-09-02 19:29 | NUR ---
Activity: Patient refused PT today. She has been up and down out of her bed throughout the day to toilet on her Bedside commode. Her strength has improved since yesterday and she is an easy stand by assist to the commode. Patient has had small loose stools x6 today. Her stool sample results were negative for C Diff.
[2016-09-03] VITALS (10 sets, daily range): BP systolic 149–187; BP diastolic 68–98; PULSE 55–76; RESP 18–20; O2SAT 94–98
[2016-09-03] MEDS ORDERED: HYDROmorphone 1 mg/mL Inj IVPUSH ONE (02:40)
[2016-09-03] MEDS: HYDROcodone-APAP 10-325 mg PO PRN ×4 (03:59→23:41)
[2016-09-03 05:43] LABS: BASOPHILS % (AUTO) 0.4 % (0-3); EOSINOPHILS % (AUTO) 1.1 % (0-5); MONOCYTES % (AUTO) 7.9 % (4-12); Mean Corpuscular Hemoglobin 31.5 pg (27.0-35.0); Mean Corpuscular Volume 100.5 fL (81-100); NEUTROPHILS % (AUTO) 68.3 % (40-74); Platelet Count 214 bil/L (150-400)
[2016-09-03] MEDS: 0.9% Sodium Chloride 1,000 ML IV SCH (05:50)
[2016-09-03 06:14] LABS: Phosphorus 2.3 mg/dL (2.5-4.9)
[2016-09-03] MEDS: Pantoprazole 40 mg ER24 Tablet PO SCH (06:49)
--- NOTE | 2016-09-03 06:51 | NUR ---
Urinary Frequency/Pain/HTN Pt up to [facility] frequently overnight to urinate, only scant stool, pt denies burning w/ urination. Low back pain increased w/ activity, given PRN [place] for pain relief. notified that pt c/o 8-10 low back pain despite fentanyl patches and Q6 [place] which could not yet be given, one time dose of Dilaudid was ordered. Pt was sleeping by this time and did not wake for a couple hours, so Dilaudid not given. Once awake again pt able to take [place] again, effective when at rest as pt appears to sleep but pain returns when pt needs toileting and this also does not allow pt to move much in bed. SBP 170s-180s, notified. No reported symptoms with this. Addendum: 09/03/16 at 0728 by FRANKO MATHUR RN Took over care of pt around midnight.
[2016-09-03] MEDS: Hydrocortisone 10 mg Tablet PO SCH ×2 (07:53→20:52)
[2016-09-03] MEDS: MeTOProlol XL 50 mg ER24 Tablet PO SCH (07:54)
[2016-09-03] MEDS: Multivit-Miner-Folic Acid-Iron Tablet PO SCH (07:54)
[2016-09-03] MEDS: cefTRIAXone Inj 2,000 MG in Dextrose 5% Minibag Plus 50 ML IV SCH (08:02)
[2016-09-03] MEDS ORDERED: Hydrocortisone 10 mg Tablet PO SCH (08:30)
[2016-09-03] MEDS ORDERED: Potassium Chloride 20 mEq SR Tablet PO ONE (10:20)
--- NOTE | 2016-09-03 10:37 | PCM.PNMED ---
Subjective Date of Service Sep 03, 2016 Subjective BP remained 170-180s hydrocortisone tapered to 20mg pt denied LEAL, dizziness, pt still has severe back pain, required percocet q6h, requested changed to q4h however, explained that given overall improvement, decided to keep q6h Exam Vital Signs Vital Sign - Last Date Time Temp Pulse Resp B/P Pulse Ox O2 Delivery O2 Flow Rate FiO2 09/03/16 08:58 73 09/03/16 04:47 36.3 20 180/84 95 Room Air Intake and Output 09/02/16 09/02/16 09/03/16 Cumulative From/Thru 15:00 23:00 07:00 08/30/16 08:20 - 09/03/16 05:52 Intake Total 1302 ml 910 ml 9869 ml Output Total 1650 ml 9780 ml Balance -348 ml 910 ml 89 ml Intake Oral 550 ml 2712 ml IV Total 752 ml 910 ml 6957 ml TPN/PPN 200 ml Output Urine Total 1650 ml 9780 ml # Voids 4 9 # Bowel Movements 2 3 Exam Cushinoid face elderly female, AAOX3 tenderness on lower L-spines RRR, nl s1, s2 no mrg CTAB, no w,c S,distended abdomen,NT,normoactive BS+ warm, no edema, pulses 2/2 IVs and Medications Medications Reviewed: Medications were reviewed in detail Lab and Diagnostics Result Diagram: 09/03/16 0525 09/03/16 0525 Microbiology Blood and urine cultures pending X-Rays, CTs and MRIs CT ABDOMEN AND PELVIS WITH CONTRAST IMPRESSION: 1. Colonic diverticulosis. There is mild sigmoid colon thickening suggesting mild diverticulitis. 2. Cholecystectomy. There is intrahepatic biliary dilation with the common bile duct measuring up to 17 mm. No common bile duct stones identified. 3. Mild stranding in pancreatic head, suggesting focal pancreatitis. Please correlate with pancreatic enzymes. No evidence for pancreatic necrosis. No pancreatic calcification or pseudocyst. 4. Multiple compression fractures in the lower thoracic and lumbar spine. Dictated by: Daniel Delgado M.D. on 08/30/2016 at 13:57 Approved by: Daniel Delgado M.D. on 08/30/2016 at 14:08 X-RAY CHEST ONE VIEW, PORTABLE IMPRESSION: 1. Indistinct reticular opacities in the left upper lung zone increased in prominence from the prior study. Findings nonspecific and the differential includes pneumonia or possible contusion. Recommend correlation clinically and CT if clinical concern persists. Dictated by: Rayo Arias M.D. on 08/30/2016 at 11:15 Approved by: Rayo Arias M.D. on 08/30/2016 at 11:37 CT BRAIN WITHOUT CONTRAST IMPRESSION: 1. No acute intracranial abnormalities. 2. Mild cerebral volume loss and moderate chronic microvascular ischemic changes. Dictated by: Daniel Delgado M.D. on 08/30/2016 at 13:55 Approved by: Daniel Delgado M.D. on 08/30/2016 at 13:57 X-RAY LUMBAR SPINE, 2 OR 3 VIEW IMPRESSION: 1. Increasing degree of compression at the L2 level and a new superior endplate compression deformity of L4 are likely acute. Please correlate clinically. 2. Unchanged L3 compression deformity. 3. Osteopenia and degenerative changes of the number spine are similar to the prior study. 4. A few borderline prominent air-filled small bowel loops within the midabdomen are of doubtful significance and may represent focal ileus. If the patient is experiencing continued bowel symptoms, please consider abdominal radiographs and/or CT of the abdomen and pelvis for further evaluation. Dictated by: Shola Fortune M.D. on 08/30/2016 at 10:16 Approved by: Shola Fortune M.D. on 08/30/2016 at 10:25 . 12-lead ECG NSR with rate 73, possible LVH Assessment & Plan Melva Watkins is a 76 year old woman with a PMH of Breast and tongue cancer, hypothyroid, depression and anxiety, and EtOH abuse with multiple previous falls resulting in multi-level compression fractures who presents following an additional ground level fall following a series of falls in the last week. Imaging of the lumbar spine reveals likely new L2 and L4 compression fractures. acute, active Unwitnessed ground level fall, POA, unclear downtime, likely in the setting of etoh abuse although pt denied(etoh level+ on adm). Fall resulted acute L2 and L4 compression fractures. CTH was unremarkable. -pain is not optimally controlled, although pt looked comfortable -continue pain control, appreciate palliative care input: increased Fentanyl patch 25 mcg to 37.5mcg/hr, percocet 10-325 q4 PRN to q6h prn, q8h tomorrow, dced Toradol IV PRN, switched to ibuprofen. UTI, POA, UCX showed Citrobacter sensitive to CFX, pt was started zosyn for possible aspiration PNA, CXR indicative of either upper lobe pneumonia or pulmonary contusion. -respiratory status remained unchanged, no overt signs of PNA, therefore, abx switch to ceftriaxone given positive UCX, continue until d/c -trend PCT, wbc, fever curve, HTN, uncontrolled likely due to iatrogenic with chronic steroid tx, partially from pain. pt was started on Hydrocortisone 30mg bid by PCP in 06/08/2016 for possible adrenal insufficiency given labile HTN. Plan was to taper it. 30mg bid was resumed on admission. increased metoprolol/losartan dose on 09/03 given uncontrolled BP. -BP remained uncontrolled but trend better with steroid taper, increased metoprolol/losartan 180s, continue current regimen now. -will taper off steroid given possible iatrogenic lynda -continue amlodipine 10mg hypernatremia, hypokalemia, developed 09/03, likely due to mineralocoritocid effect from steroid, replete K as needed chronic, stable Alcohol abuse, POA, As above patient denies EtOH use, but blood alcohol level was elevated upon arrival despite prolonged period down. pt was CIWA protocol, currently no signs of WD. Hypothyroid, POA, chronic. Active, TSH12, FT4 WNL, will continue home thyroid 125mcg, likely need adjustment in the clinic if TSH continues to high. History of PE, POA, chronic. Active Continue home Eliquis Depression and anxiety, POA, chronic. Active Continue home Temazepam Disposition: d/c home with FRANKO, RN, PT in 1-2days, pt refusing SNF GI Prophylaxis: Not indicated VTE Prophylaxis: Other (Patient on Eliquis) VTE Mechanical Devices: Intermittant Pneumatic CD Resuscitation Status: DNR/DNI:Do Not Resuscitate/Intubate Time spent 35min Maik Salinas MD Sep 03, 2016 10:36
--- NOTE | 2016-09-03 11:29 | NUR ---
Patient is tolerate her baseline diet. No further speech therapy is warranted. Please re-refer with any new or worsening condition.
--- NOTE | 2016-09-03 18:27 | NUR ---
Diarrhea: Patient continues to have loose brown stools. She had a large incontinent stool episode today that required 2 people to help clean her up. Patient has been tolerating her diet without nausea. She continues to recieve IV ABT . The source of the diarrhea is unknown and patient is negative for C Diff.
[2016-09-04] VITALS (8 sets, daily range): BP systolic 157–197; BP diastolic 76–94; PULSE 54–73; RESP 14–20; O2SAT 92–97
[2016-09-04] MEDS: 0.9% Sodium Chloride 1,000 ML IV SCH ×2 (02:36→15:56)
[2016-09-04] MEDS: HYDROcodone-APAP 10-325 mg PO PRN ×3 (05:27→17:58)
--- NOTE | 2016-09-04 05:32 | NUR ---
Pain/BP: Pt c/o back pain -10/15, PRN pain medication administered; effective, allows pt to sleep, Fentanyl patch in place. Pt denies chest pain and SOB, slept on/off throughout the night, pleasant and cooperative with care. Pt BP elevated during shift, HS BP meds administered, BP did come down some but remains high. prog note states MD's are aware.
[2016-09-04 05:50] LABS: BASOPHILS % (AUTO) 0.4 % (0-3); EOSINOPHILS % (AUTO) 1.2 % (0-5); MONOCYTES % (AUTO) 8.7 % (4-12); Mean Corpuscular Hemoglobin 31.7 pg (27.0-35.0); Mean Corpuscular Volume 98.7 fL (81-100); NEUTROPHILS % (AUTO) 66.1 % (40-74); Platelet Count 215 bil/L (150-400)
[2016-09-04 06:15] LABS: Magnesium 1.9 mg/dL (1.6-2.6); Phosphorus 3.5 mg/dL (2.5-4.9)
[2016-09-04] MEDS: cefTRIAXone Inj 2,000 MG in Dextrose 5% Minibag Plus 50 ML IV SCH (08:21)
[2016-09-04] MEDS: Multivit-Miner-Folic Acid-Iron Tablet PO SCH (08:21)
[2016-09-04] MEDS: Pantoprazole 40 mg ER24 Tablet PO SCH (08:22)
[2016-09-04] MEDS: Hydrocortisone 10 mg Tablet PO SCH ×2 (08:22→22:21)
[2016-09-04] MEDS: MeTOProlol XL 50 mg ER24 Tablet PO SCH (08:22)
[2016-09-04] MEDS ORDERED: Hydrocortisone 10 mg Tablet PO SCH (08:30)
[2016-09-04] MEDS: Potassium Chloride 20 mEq SR Tablet PO SCH ×2 (08:37→22:20)
--- NOTE | 2016-09-04 08:42 | PCM.PNMED ---
Subjective Date of Service Sep 04, 2016 Subjective pain is slightly better controlled, BP trend generally better but still high 160s this AM noted hypernatremia and hypokalemia on labs, hydrocortisone continued still has loose stools x2 Exam Vital Signs Vital Sign - Last Date Time Temp Pulse Resp B/P Pulse Ox O2 Delivery O2 Flow Rate FiO2 09/04/16 04:41 36.4 68 20 163/92 97 Room Air Intake and Output 09/03/16 09/03/16 09/04/16 Cumulative From/Thru 15:00 23:00 07:00 08/30/16 08:20 - 09/04/16 06:53 Intake Total 300 ml 2250 ml 600 ml 38640 ml Output Total 800 ml 1050 ml 1450 ml 66730 ml Balance -500 ml 1200 ml -850 ml -61 ml Intake Oral 300 ml 2250 ml 600 ml 5862 ml IV Total 6957 ml TPN/PPN 200 ml Output Urine Total 800 ml 1050 ml 1450 ml 28234 ml # Voids 4 7 20 # Bowel Movements 5 2 10 Exam Cushinoid face elderly female, AAOX3 tenderness on lower L-spines RRR, nl s1, s2 no mrg CTAB, no w,c S,distended abdomen,NT,normoactive BS+ warm, no edema, pulses 2/2 IVs and Medications Medications Reviewed: Medications were reviewed in detail Lab and Diagnostics Result Diagram: 09/04/1651909/04/16519 Microbiology Blood and urine cultures pending X-Rays, CTs and MRIs CT ABDOMEN AND PELVIS WITH CONTRAST IMPRESSION: 1. Colonic diverticulosis. There is mild sigmoid colon thickening suggesting mild diverticulitis. 2. Cholecystectomy. There is intrahepatic biliary dilation with the common bile duct measuring up to 17 mm. No common bile duct stones identified. 3. Mild stranding in pancreatic head, suggesting focal pancreatitis. Please correlate with pancreatic enzymes. No evidence for pancreatic necrosis. No pancreatic calcification or pseudocyst. 4. Multiple compression fractures in the lower thoracic and lumbar spine. Dictated by: Daniel Delgado M.D. on 08/30/2016 at 13:57 Approved by: Daniel Delgado M.D. on 08/30/2016 at 14:08 X-RAY CHEST ONE VIEW, PORTABLE IMPRESSION: 1. Indistinct reticular opacities in the left upper lung zone increased in prominence from the prior study. Findings nonspecific and the differential includes pneumonia or possible contusion. Recommend correlation clinically and CT if clinical concern persists. Dictated by: Rayo Arias M.D. on 08/30/2016 at 11:15 Approved by: Rayo Arias M.D. on 08/30/2016 at 11:37 CT BRAIN WITHOUT CONTRAST IMPRESSION: 1. No acute intracranial abnormalities. 2. Mild cerebral volume loss and moderate chronic microvascular ischemic changes. Dictated by: Daniel Delgado M.D. on 08/30/2016 at 13:55 Approved by: Daniel Delgado M.D. on 08/30/2016 at 13:57 X-RAY LUMBAR SPINE, 2 OR 3 VIEW IMPRESSION: 1. Increasing degree of compression at the L2 level and a new superior endplate compression deformity of L4 are likely acute. Please correlate clinically. 2. Unchanged L3 compression deformity. 3. Osteopenia and degenerative changes of the number spine are similar to the prior study. 4. A few borderline prominent air-filled small bowel loops within the midabdomen are of doubtful significance and may represent focal ileus. If the patient is experiencing continued bowel symptoms, please consider abdominal radiographs and/or CT of the abdomen and pelvis for further evaluation. Dictated by: Shola Fortune M.D. on 08/30/2016 at 10:16 Approved by: Shola Fortune M.D. on 08/30/2016 at 10:25 . 12-lead ECG NSR with rate 73, possible LVH Assessment & Plan Melva Watkins is a 76 year old woman with a PMH of Breast and tongue cancer, hypothyroid, depression and anxiety, and EtOH abuse with multiple previous falls resulting in multi-level compression fractures who presents following an additional ground level fall following a series of falls in the last week. Imaging of the lumbar spine reveals likely new L2 and L4 compression fractures. acute, active Unwitnessed ground level fall, POA, unclear downtime, likely in the setting of etoh abuse although pt denied(etoh level+ on adm). Fall resulted acute L2 and L4 compression fractures. CTH was unremarkable. -pain is relatively controlled, pt looked comfortable -continue pain control, appreciate palliative care input: increased Fentanyl patch 25 mcg to 37.5mcg/hr, percocet 10-325 q4 PRN to q6h prn, q8h tomorrow, dced Toradol IV PRN, switched to ibuprofen. UTI, POA, UCX showed Citrobacter sensitive to CFX, pt was started zosyn for possible aspiration PNA, CXR indicative of either upper lobe pneumonia or pulmonary contusion. -respiratory status remained unchanged, no overt signs of PNA, therefore, abx switch to ceftriaxone given positive UCX, continue until d/c -trend PCT, wbc, fever curve, HTN, uncontrolled likely due to iatrogenic with chronic steroid tx, partially from pain. pt was started on Hydrocortisone 30mg bid by PCP in 06/08/2016 for possible adrenal insufficiency given labile HTN. Plan was to taper it. 30mg bid was resumed on admission. increased metoprolol/losartan dose on 09/03 given uncontrolled BP. -BP remained uncontrolled but trend better with steroid taper, increased metoprolol/losartan, continue current regimen now. -will taper off steroid given possible iatrogenic lynda, noted that pt was at least on 30mg bid for 2months, will pursue very slow taper, continue 20mg bid for now -continue amlodipine 10mg hypernatremia, hypokalemia, developed 09/03, likely due to mineralocoritocid effect from steroid, replete K as needed waterry diarrhea, POA, c.diff negative 09/03, but seems unchanged, will sent stool PCR today chronic, stable Alcohol abuse, POA, As above patient denies EtOH use, but blood alcohol level was elevated upon arrival despite prolonged period down. pt was CIWA protocol, currently no signs of WD. Hypothyroid, POA, chronic. Active, TSH12, FT4 WNL, will continue home thyroid 125mcg, likely need adjustment in the clinic if TSH continues to high. History of PE, POA, chronic. Active Continue home Eliquis Depression and anxiety, POA, chronic. Active Continue home Temazepam Disposition: d/c home with FRANKO, RN, PT in 1-2days, pt refusing SNF GI Prophylaxis: Not indicated VTE Prophylaxis: Other (Patient on Eliquis) VTE Mechanical Devices: Intermittant Pneumatic CD Resuscitation Status: DNR/DNI:Do Not Resuscitate/Intubate Time spent 35min Maik Salinas MD Sep 04, 2016 08:42
--- NOTE | 2016-09-04 11:49 | NUR ---
[facility] can accept with Dr. Ordoñez to follow. DEYA Shi
--- NOTE | 2016-09-04 12:20 | NUR ---
Social Work-readiness for discharge: Data:EMR Reviewed. Pt is on day 5 of hospitalization for SIRS per H&P. Pt is not medically stable anticipate 1-2 more days. PT continues to recommend SNF. [facility]. ROMERO updated pt at bedside and she is agreeable to plan, pt requesting a private room if possible. ROMERO updated Jalyn who states she will work on a private room for pt. SW updated pt's son Shilo via phone as well. Paperwork and PASRR in the chart. SW will continue to follow. Assessment:Pt who would benefit from SNF. Plan:Pt to discharge to [facility] when medically stable. Paperwork and PASRR in the chart. SW will continue to follow. DEYA Shi
--- NOTE | 2016-09-04 18:40 | NUR ---
Diet AMA Patient signed a Diet AMA. Explained to patient risk involved in choosing a diet different from what was ordered by speech pathologist (Dysphasia Mechanical). Explained to patient that diet she chosen could lead a aspiration pneumonia. Patient verbalized understanding and signed the paper work.
[2016-09-05] VITALS (7 sets, daily range): BP systolic 154–188; BP diastolic 72–88; PULSE 54–75; RESP 16–17; O2SAT 92–98
[2016-09-05] MEDS: HYDROcodone-APAP 10-325 mg PO PRN ×4 (00:34→20:13)
--- NOTE | 2016-09-05 05:12 | NUR ---
Pain/BP: Pt c/o back pain -09/14, PRN pain medication administered; effective, allows pt to sleep, Fentanyl patch in place. Pt denies chest pain and SOB, slept on/off throughout the night, pleasant and cooperative with care. Pt BP elevated during shift, HS BP meds administered, BP did come down some but remains high. prog note states MD's are aware.
[2016-09-05 06:04] LABS: BASOPHILS % (AUTO) 0.5 % (0-3); MONOCYTES % (AUTO) 6.8 % (4-12); Mean Corpuscular Hemoglobin 31.8 pg (27.0-35.0); Mean Corpuscular Volume 99.5 fL (81-100); NEUTROPHILS % (AUTO) 71.7 % (40-74); Platelet Count 240 bil/L (150-400)
[2016-09-05 06:54] LABS: Magnesium 1.9 mg/dL (1.6-2.6); Phosphorus 4.2 mg/dL (2.5-4.9)
[2016-09-05] MEDS: Pantoprazole 40 mg ER24 Tablet PO SCH (07:54)
[2016-09-05] MEDS: Hydrocortisone 10 mg Tablet PO SCH ×2 (07:56→21:20)
[2016-09-05] MEDS: Multivit-Miner-Folic Acid-Iron Tablet PO SCH (07:56)
[2016-09-05] MEDS: Potassium Chloride 20 mEq SR Tablet PO SCH ×2 (07:57→20:13)
[2016-09-05] MEDS: MeTOProlol XL 50 mg ER24 Tablet PO SCH (07:59)
--- NOTE | 2016-09-05 09:10 | PCM.PNMED ---
Subjective Date of Service Sep 05, 2016 Subjective pt's overall BP trend is better but still hypertensive 160-180s labs showed stable electrolytes on KCL 40meq bid pt still has severe back pain, but pt thinks it's stable pt agreed on SNF pt had diarrhea last time yesterday, no BM yet, recorded having 3BM yesterday, repeat stool PCR neg Exam Vital Signs Vital Sign - Last Date Time Temp Pulse Resp B/P Pulse Ox O2 Delivery O2 Flow Rate FiO2 09/05/16 07:47 36.8 68 16 188/82 92 09/05/16 05:47 Room Air Intake and Output 09/04/16 09/04/16 09/05/16 Cumulative From/Thru 15:00 23:00 07:00 08/30/16 08:20 - 09/05/16 06:33 Intake Total 1575 ml 660 ml 90133 ml Output Total 1450 ml 900 ml 73966 ml Balance 125 ml -240 ml -176 ml Intake Oral 1575 ml 660 ml 8097 ml IV Total 6957 ml TPN/PPN 200 ml Output Urine Total 1450 ml 450 ml 30661 ml Urine/Stool Mix 450 ml 450 ml # Voids 3 23 # Bowel Movements 1 11 Exam Cushinoid face elderly female, AAOX3 tenderness on lower L-spines RRR, nl s1, s2 no mrg CTAB, no w,c S,distended abdomen,NT,normoactive BS+ warm, no edema, pulses 2/2 IVs and Medications Medications Reviewed: Medications were reviewed in detail Lab and Diagnostics Result Diagram: 09/05/16 0520 09/05/16 0520 Microbiology Blood and urine cultures pending X-Rays, CTs and MRIs CT ABDOMEN AND PELVIS WITH CONTRAST IMPRESSION: 1. Colonic diverticulosis. There is mild sigmoid colon thickening suggesting mild diverticulitis. 2. Cholecystectomy. There is intrahepatic biliary dilation with the common bile duct measuring up to 17 mm. No common bile duct stones identified. 3. Mild stranding in pancreatic head, suggesting focal pancreatitis. Please correlate with pancreatic enzymes. No evidence for pancreatic necrosis. No pancreatic calcification or pseudocyst. 4. Multiple compression fractures in the lower thoracic and lumbar spine. Dictated by: Daniel Delgado M.D. on 08/30/2016 at 13:57 Approved by: Daniel Delgado M.D. on 08/30/2016 at 14:08 X-RAY CHEST ONE VIEW, PORTABLE IMPRESSION: 1. Indistinct reticular opacities in the left upper lung zone increased in prominence from the prior study. Findings nonspecific and the differential includes pneumonia or possible contusion. Recommend correlation clinically and CT if clinical concern persists. Dictated by: Rayo Arias M.D. on 08/30/2016 at 11:15 Approved by: Rayo Arias M.D. on 08/30/2016 at 11:37 CT BRAIN WITHOUT CONTRAST IMPRESSION: 1. No acute intracranial abnormalities. 2. Mild cerebral volume loss and moderate chronic microvascular ischemic changes. Dictated by: Daniel Delgado M.D. on 08/30/2016 at 13:55 Approved by: Daniel Delgado M.D. on 08/30/2016 at 13:57 X-RAY LUMBAR SPINE, 2 OR 3 VIEW IMPRESSION: 1. Increasing degree of compression at the L2 level and a new superior endplate compression deformity of L4 are likely acute. Please correlate clinically. 2. Unchanged L3 compression deformity. 3. Osteopenia and degenerative changes of the number spine are similar to the prior study. 4. A few borderline prominent air-filled small bowel loops within the midabdomen are of doubtful significance and may represent focal ileus. If the patient is experiencing continued bowel symptoms, please consider abdominal radiographs and/or CT of the abdomen and pelvis for further evaluation. Dictated by: Shola Fortune M.D. on 08/30/2016 at 10:16 Approved by: Shola Fortune M.D. on 08/30/2016 at 10:25 . 12-lead ECG NSR with rate 73, possible LVH Assessment & Plan Melva Watkins is a 76 year old woman with a PMH of Breast and tongue cancer, hypothyroid, depression and anxiety, and EtOH abuse with multiple previous falls resulting in multi-level compression fractures who presents following an additional ground level fall following a series of falls in the last week. Imaging of the lumbar spine reveals likely new L2 and L4 compression fractures. acute, active Unwitnessed ground level fall, POA, unclear downtime, likely in the setting of etoh abuse although pt denied(etoh level+ on adm). Fall resulted acute L2 and L4 compression fractures. CTH was unremarkable. -pain is relatively controlled, pt looked comfortable -continue pain control, appreciate palliative care input: increased Fentanyl patch 25 mcg to 37.5mcg/hr, percocet 10-325 q4 PRN to q6h prn, q8h tomorrow, dced Toradol IV PRN, switched to ibuprofen. HTN, uncontrolled likely due to iatrogenic with chronic steroid tx, partially from pain. pt was started on Hydrocortisone 30mg bid by PCP in 06/08/2016 for possible adrenal insufficiency given labile HTN. Plan was to taper it. 30mg bid was resumed on admission. increased metoprolol/losartan dose on 09/03 given uncontrolled BP. -BP remained uncontrolled but trend better with steroid taper, increased metoprolol/losartan, continue current regimen now. -will taper off steroid given possible iatrogenic lynda, noted that pt was at least on 30mg bid for 2months, will pursue very slow taper, continue 20mg bid for now -continue amlodipine 10mg hypernatremia, hypokalemia, developed 09/03, likely due to mineralocoritocid effect from steroid, replete K as needed waterry diarrhea, POA, c.diff negative 09/03, but seems unchanged, repeat stool PCR negative. will consider imodium if continues. chronic, stable, resolved UTI, POA, UCX showed Citrobacter sensitive to CFX, pt was started zosyn for possible aspiration PNA, CXR indicative of either upper lobe pneumonia or pulmonary contusion. Respiratory status remained unchanged, no overt signs of PNA, therefore, abx switch to ceftriaxone given positive UCX, received 5days. Alcohol abuse, POA, As above patient denies EtOH use, but blood alcohol level was elevated upon arrival despite prolonged period down. pt was CIWA protocol, currently no signs of WD. Hypothyroid, POA, chronic. Active, TSH12, FT4 WNL, will continue home thyroid 125mcg, likely need adjustment in the clinic if TSH continues to high. History of PE, POA, chronic. Active Continue home Eliquis Depression and anxiety, POA, chronic. Active Continue home Temazepam Disposition: SNF in 1-2days GI Prophylaxis: Not indicated VTE Prophylaxis: Other (Patient on Eliquis) VTE Mechanical Devices: Intermittant Pneumatic CD Resuscitation Status: DNR/DNI:Do Not Resuscitate/Intubate Time spent 35min Maik Salinas MD Sep 05, 2016 09:10
--- NOTE | 2016-09-05 19:42 | NUR ---
Transfer to [facility] [place] arrived to [facility] at 1720 via stretcher. Pt oriented to room and call light. Pt a&ox3, pt states comfort and no needs upon arrival.
[2016-09-06] MEDS: HYDROcodone-APAP 10-325 mg PO PRN ×2 (02:14→09:55)
[2016-09-06 02:15] VITALS: BP 153/83; PULSE 61
--- NOTE | 2016-09-06 05:31 | NUR ---
Bp assumed pt care at 1900, pt's systolic Bp's range 190-150's (see vitals), asymptomatic throughout night, call light in reach at all times.
[2016-09-06] MEDS: Pantoprazole 40 mg ER24 Tablet PO SCH (06:11)
[2016-09-06 06:14] VITALS: BP 170/83; PULSE 60
[2016-09-06 07:10] LABS: BASOPHILS % (AUTO) 0.3 % (0-3); EOSINOPHILS % (AUTO) 1.3 % (0-5); MONOCYTES % (AUTO) 5.7 % (4-12); Mean Corpuscular Hemoglobin 31.7 pg (27.0-35.0); NEUTROPHILS % (AUTO) 70.6 % (40-74); Platelet Count 232 bil/L (150-400)
[2016-09-06 07:56] LABS: Magnesium 1.9 mg/dL (1.6-2.6); Phosphorus 3.8 mg/dL (2.5-4.9)
[2016-09-06] MEDS: Multivit-Miner-Folic Acid-Iron Tablet PO SCH (09:55)
[2016-09-06] MEDS: MeTOProlol XL 50 mg ER24 Tablet PO SCH (09:55)
[2016-09-06] MEDS: Potassium Chloride 20 mEq SR Tablet PO SCH (09:56)
[2016-09-06 10:36] VITALS: PULSE 71
--- NOTE | 2016-09-06 10:55 | PCM.DIMED ---
Discharge Instructions Date of Service Sep 06, 2016 Dates of Hospitalization Aug 30, 2016 at 13:46 Discharge Diagnosis Discharge Diagnosis lumbar vcertebral fracture acute sec to GLF,ETOH intoxication Diet Discharge Diet: Heart Healthy, Other (as tolerated with assistance) Activity Discharge Activity: Other (Physical Therapy,Occupational therapy) Call your provider Call your provider for: Fever or Chills, Shortness of breath, Chest pain, Vomitting, Excessive diarrhea, Weakness (unilateral) Whit Felipe MD Sep 06, 2016 10:55
[2016-09-06] MEDS ORDERED: FENT1PAT7 TOPICAL (11:02)
[2016-09-06] MEDS ORDERED: HYDR-3740 PO (11:02)
[2016-09-06] MEDS ORDERED: TEMA15CA3 PO (11:02)
[2016-09-06] MEDS ORDERED: LEVO500T16 PO (11:05)
[2016-09-06 11:37] VITALS: BP 167/75; PULSE 60; RESP 14; O2SAT 95
--- NOTE | 2016-09-06 11:42 | NUR ---
HALFWAY TRANSFER: Called and spoke with Jalyn and she is arranging transport for 1300 pick up worker. Addendum: 09/06/16 at 1211 by [facility] [employer] CM Faxed orders to [facility] and placed copy in the chart. She confirmed 1300 pick up worker with [facility] [facility]. Updated BRAID FOLDER
[2016-09-06] MEDS: Hydrocortisone 10 mg Tablet PO SCH (12:10)
--- NOTE | 2016-09-06 12:48 | NUR ---
Social Work- Discharge/ Multidisciplinary Rounds Data: EMR reviewed. Pt is on day 7 of hospitalization for SIRS per H&P. Pt discussed in multidisciplinary rounds. Pt is medically stable for discharge. Pt to discharge to [facility] with [facility] to follow. Paperwork and PASRR are in chart. FLOOR CASHIER created packet and faxed orders. T/C to pt's NOK Shilo regarding discharge. Shilo is agreeable to plan. [facility] arranged transportation at 1300 via wheelchair van. RN, pt/family, UC, and [facility] all updated and agreeable to plan. Assessment: Pt for whom is SNF is medically necessary Plan: Pt to discharge to 1300 via wheelchair van to [facility]. RN, pt/family, UC, and [facility] all updated and agreeable to plan. DEYA Monroe
--- NOTE | 2016-09-06 15:54 | NUR ---
discharge Pt c/o pain in low back. Medicated with norco 10mg, pt states pain does not decrease but states when she isn't moving it is a 3/10 and up to a 7-8/10 with movement. Pt has fentanyl patches (37.5 mcg total) present on her right thigh. Pt having loose BM. BP slightly elevated, URG=390-291's, pt asymptomatic. Report called to [facility] at 1245. Pt picked up at 1315 for transfer via w/c with transporter. pt left with all belongings including her cell phone, [employer] and robe.
--- NOTE | 2016-09-06 15:57 | PCM.DC.MED ---
Discharge Summary Date of Service Sep 06, 2016 Dates of Hospitalization Date of Hospital Admission Aug 30, 2016 at 13:46 Date of Discharge: Sep 06, 2016 Providers: Admitting Physician: Maik Salinas MD Primary Care Physician: Salome Espinoza PA-C Attending Physician: Maik Salinas MD Diagnosis at Time of Discharge Diagnosis at Time of Discharge lumbar vcertebral fracture acute sec to GLF,ETOH intoxication Consultations Palliative care Procedures XRay, CTs & MRIs CT ABDOMEN AND PELVIS WITH CONTRAST IMPRESSION: 1. Colonic diverticulosis. There is mild sigmoid colon thickening suggesting mild diverticulitis. 2. Cholecystectomy. There is intrahepatic biliary dilation with the common bile duct measuring up to 17 mm. No common bile duct stones identified. 3. Mild stranding in pancreatic head, suggesting focal pancreatitis. Please correlate with pancreatic enzymes. No evidence for pancreatic necrosis. No pancreatic calcification or pseudocyst. 4. Multiple compression fractures in the lower thoracic and lumbar spine. Dictated by: Daniel Delgado M.D. on 08/30/2016 at 13:57 Approved by: Daniel Delgado M.D. on 08/30/2016 at 14:08 X-RAY CHEST ONE VIEW, PORTABLE IMPRESSION: 1. Indistinct reticular opacities in the left upper lung zone increased in prominence from the prior study. Findings nonspecific and the differential includes pneumonia or possible contusion. Recommend correlation clinically and CT if clinical concern persists. Dictated by: Rayo Arias M.D. on 08/30/2016 at 11:15 Approved by: Rayo Arias M.D. on 08/30/2016 at 11:37 CT BRAIN WITHOUT CONTRAST IMPRESSION: 1. No acute intracranial abnormalities. 2. Mild cerebral volume loss and moderate chronic microvascular ischemic changes. Dictated by: Daniel Delgado M.D. on 08/30/2016 at 13:55 Approved by: Daniel Delgado M.D. on 08/30/2016 at 13:57 X-RAY LUMBAR SPINE, 2 OR 3 VIEW IMPRESSION: 1. Increasing degree of compression at the L2 level and a new superior endplate compression deformity of L4 are likely acute. Please correlate clinically. 2. Unchanged L3 compression deformity. 3. Osteopenia and degenerative changes of the number spine are similar to the prior study. 4. A few borderline prominent air-filled small bowel loops within the midabdomen are of doubtful significance and may represent focal ileus. If the patient is experiencing continued bowel symptoms, please consider abdominal radiographs and/or CT of the abdomen and pelvis for further evaluation. Dictated by: Shola Fortune M.D. on 08/30/2016 at 10:16 Approved by: Shola Fortune M.D. on 08/30/2016 at 10:25 . ECG 12 Lead NSR with rate 73, possible LVH Brief History Melva Watkins is a 76 year old woman with a PMH of EtOH abuse, chronic pain related to multiple compression fractures secondary to multiple falls, breast and mouth cancer s/p mastectomy and resection respectively, hypothyroid, depression and anxiety who presents with severe back pain following an unwitnessed ground level fall. The patient states that she cannot remember the details of her fall, how long she was down, or when she was last normal. She denies any recent alcohol consumption, however her blood alcohol level was elevated after an uncertain but period likely greater than 12 hours. She states that she awoke after an uncertain period to find herself on the floor and unable to get up, she was eventually able to reach a phone and alert EMS to her predicament. She states that she does not think she hit her head. She denies nausea, vomiting, diarrhea, headache, changes in vision or sensation, numbness, or tingling in her extremities. In the ED the patient underwent imaging including a head CT which was negative for acute intracranial process, spinal x-ray which demonstrated likely new L2 and L4 compression fractures, and lab evaluation significant for an elevated lactic acidosis at 4.8 which resolved with IV fluids. Hospital Course Melva Watkins is a 76 year old woman with a PMH of Breast and tongue cancer, hypothyroid, depression and anxiety, and EtOH abuse with multiple previous falls resulting in multi-level compression fractures who presents following an additional ground level fall following a series of falls in the last week. Imaging of the lumbar spine reveals likely new L2 and L4 compression fractures. acute, active Unwitnessed ground level fall, POA, unclear downtime, likely in the setting of etoh abuse although pt denied(etoh level+ on adm). Fall resulted acute L2 and L4 compression fractures. CTH was unremarkable. -pain is relatively controlled, pt looked comfortable -continue pain control, appreciate palliative care input: increased Fentanyl patch 25 mcg to 37.5mcg/hr, percocet 10-325 q4 PRN to q6h prn, q8h tomorrow, dced Toradol IV PRN, switched to ibuprofen. HTN, uncontrolled likely due to iatrogenic with chronic steroid tx, partially from pain. pt was started on Hydrocortisone 30mg bid by PCP in 06/08/2016 for possible adrenal insufficiency given labile HTN. Plan was to taper it. 30mg bid was resumed on admission. increased metoprolol/losartan dose on 09/03 given uncontrolled BP. -BP remained uncontrolled but trend better with steroid taper, increased metoprolol/losartan, continue current regimen now. -will taper off steroid given possible iatrogenic lynda, noted that pt was at least on 30mg bid for 2months, will pursue very slow taper, continue 20mg bid for now -continue amlodipine 10mg hypernatremia, hypokalemia, developed 09/03, likely due to mineralocoritocid effect from steroid, replete K as needed waterry diarrhea, POA, c.diff negative 09/03, but seems unchanged, repeat stool PCR negative. will consider imodium if continues. chronic, stable, resolved UTI, POA, UCX showed Citrobacter sensitive to CFX, pt was started zosyn for possible aspiration PNA, CXR indicative of either upper lobe pneumonia or pulmonary contusion. Respiratory status remained unchanged, no overt signs of PNA, therefore, abx switch to ceftriaxone given positive UCX, received 7 days. Alcohol abuse, POA, As above patient denies EtOH use, but blood alcohol level was elevated upon arrival despite prolonged period down. pt was CIWA protocol, currently no signs of WD. Hypothyroid, POA, chronic. Active, TSH12, FT4 WNL, will continue home thyroid 125mcg, likely need adjustment in the clinic if TSH continues to high. History of PE, POA, chronic. Active Continue home Eliquis Depression and anxiety, POA, chronic. Active Continue home Temazepam Disposition: SNF Exam Vital Signs (Last) Date Time Temp Pulse Resp B/P Pulse Ox O2 Delivery O2 Flow Rate FiO2 09/06/16 11:37 36.6 60 14 167/75 95 Room Air Exam Constitutional: Elderly female in no acute distress Head: Normocephalic atraumatic Chest: Clear to auscultation Cor: Regular rate and rhythm S1-S2 Abdomen: Soft nontender bowel sounds present Extremities: No pedal edema Skin: No rashes Neuro: Alert and oriented 3, motor strength is intact bilaterally Psych: Mood and affect are appropriate Test 08/30/16 10:20 08/30/16 12:37 08/30/16 14:16 08/31/16 04:27 D-Dimer 0.97mg/L FEU (<0.50) Total Creatine Kinase 152U/L (21-215) Troponin T 0.010ug/L (0.0-0.011) Pro-B-Type Natriuretic Peptide 351.8pg/mL (0-738) Amylase Level 17U/L (28-100) Alcohols 31mg/dL (0-10) Urine Color Straw (YELLOW) Urine Appearance Hazy (CLEAR,HAZY) Urine pH 5.5 (5.0-8.0) Urine Specific [place] 1.025 (1.003-1.035) Urine Protein Negativemg/dL (NEG,TRACE) Urine Glucose (UA) Negativemg/dL (NEGATIVE) Urine Ketones 40mg/dL (NEGATIVE) Urine Occult Blood Trace (NEGATIVE) Urine Nitrite Negative (NEGATIVE) Urine Bilirubin Negative (NEGATIVE) Urine Urobilinogen Normalmg/dL (NORMAL) Urine Leukocyte Esterase Trace (NEGATIVE) Urine RBC 0-2/hpf (0-2) Urine WBC 6-10/hpf (0-5) Urine Epithelial Cells Occasional/hpf (NONE-MOD) Urine Crystals None seen (NONE SEEN) Urine Bacteria Moderate/hpf (NONE-FEW) Urine Hyaline Casts None/lpf (NONE) Urine Granular Casts None seen (NONE SEEN) Urine Waxy Casts None seen (NONE SEEN) Urine Red Blood Cell Casts None seen (NONE SEEN) Urine White Blood Cell Casts None seen (NONE SEEN) Urine Mucus None seen (None Seen) Urine Trichomonas None seen (NONE SEEN) Urine Yeast None (NONE SEEN) Urinalysis Comment None Urine Culture Reflexed Indicated Lactic Acid Level 1.7mmol/L (0.4-2.0) Thyroid Stimulating Hormone (TSH) 12.070uIU/mL (0.450-4.500) Test 09/01/16 05:25 09/05/16 05:20 09/06/16 06:37 Lipase 12U/L (13-60) Free Thyroxine 0.93ng/dL (0.82-1.77) Procalcitonin 0.08ng/mL (0.00-0.08) White Blood Count 7.1th/mm3 (3.8-10.1) Red Blood Count 4.04mil/mm3 (3.90-5.20) Hemoglobin 12.8g/dL (12.0-15.6) Hematocrit 40.4% (35.0-46.0) Mean Corpuscular Volume 100.0fL (81-100) Mean Corpuscular Hemoglobin 31.7pg (27.0-35.0) Mean Corpuscular Hemoglobin Concent 31.7% (32.0-37.0) Red Cell Distribution Width 18.3% (12.3-15.4) Platelet Count 232bil/L (150-400) Neutrophils (%) (Auto) 70.6% (40-74) Lymphocytes (%) (Auto) 21.5% (14-46) Monocytes (%) (Auto) 5.7% (4-12) Eosinophils (%) (Auto) 1.3% (0-5) Basophils (%) (Auto) 0.3% (0-3) Sodium Level 142mEq/L (134-144) Potassium Level 3.9mEq/L (3.5-5.2) Chloride Level 100mEq/L (97-108) Carbon Dioxide Level 30mmol/L (18-29) Blood Urea Nitrogen 12mg/dL (8-27) Creatinine 0.88mg/dL (0.57-1.00) Estimat Glomerular Filtration Rate 89mL/min (>59) Glucose Level 123mg/dL (60-99) Calcium Level 9.6mg/dL (8.5-10.1) Phosphorus Level 3.8mg/dL (2.5-4.9) Magnesium Level 1.9mg/dL (1.6-2.6) Total Bilirubin 0.4mg/dL (0.0-1.2) Aspartate Amino Transf (AST/SGOT) 19U/L (0-50) Alanine Aminotransferase (ALT/SGPT) 13U/L (0-32) Alkaline Phosphatase 109U/L (25-165) Total Protein 5.8g/dL (6.4-8.4) Albumin 3.8g/dL (3.4-5.0) Microbiology Results Blood and urine cultures pending Discharge Medications Discharge Medications ([Slow-Mag71.5-119 Mg]) 2 TAB PO DAILY (Reported) Amlodipine (Amlodipine) 5 Mg Tablet 5 MG PO DAILY (Reported) Apixaban (Eliquis) 5 Mg Tablet 5 MG PO BID (Reported) Calcium Carbonate (Calcium Carbonate) 200 Mg Tab.chew 500 MG PO BIDWM Prescribed by: JACOB DOMÍNGUEZ DO Esomeprazole Magnesium (Nexium) 40 Mg Capsule.dr 40 MG PO DAILY (Reported) Fentanyl 25 mcg/hr Patch (Fentanyl 25 mcg/hr Patch) 1 Each Patch.td72 25 MCG TOPICAL Q72H Prescribed by: WHIT FELIPE MD Gabapentin (Gabapentin) 100 Mg Capsule 300 MG PO TID (Reported) Hydrocortisone (Hydrocortisone) 20 Mg Tablet 30 MG PO BID (Reported) Levothyroxine (Levothyroxine) 125 Mcg Tablet 125 MCG PO DAILY (Reported) Losartan Potassium (Losartan Potassium) 50 Mg Tablet 50 MG PO DAILY (Reported) Metoprolol Succinate ER (Metoprolol Succinate ER) 50 Mg Tab.er.24h 50 MG PO DAILY (Reported) Potassium Chloride ER (Klor-Con M20) 20 Meq Tablet 20 MEQ PO TID (Reported) Vit#96/Ferrous Fum/FA ( Tablet) 1 Each Tablet 1 TABLET PO DAILY Prescribed by: JACOB DOMÍNGUEZ DO Thiamine Mononitrate (Vitamin B-1) 100 Mg Tablet 100 MG PO DAILY (Reported) As needed Albuterol HFA (Proair HFA) 8.5 Gm Hfa.aer.ad 2 PUFFS INHALATION Q4H PRN PRN For Shortness of Breath Prescribed by: LIZETT DUNBAR MD Hydrocodone-Acetaminophen 10-325 mg (Hydrocodone-Acetaminophen 10-325 mg) 1 Each Tablet 1 TABLET PO Q6H PRN PRN For Pain Prescribed by: WHIT FELIPE MD Temazepam (Restoril) 15 Mg Capsule 30 MG PO HS PRN PRN For Insomnia Prescribed by: WHIT FELIPE MD Followup Plan Disposition: [facility] Discharge Diet: Heart Healthy, Other (as tolerated with assistance) Discharge Activity: Other (Physical Therapy,Occupational therapy) Time spent 60 minutes Whit Felipe MD Sep 06, 2016 15:57
== END 2016-09-06 13:15 | DRG 552 ==
LOC: SED 08:20 → PCC 13:46 → OBSVTOIN 13:46 → SOU 15:06 → PCC 15:09 → MPC 08-31 22:49 → MOC 09-05 16:05
PROVIDERS: ADMIT Internal Medicine; ATTEND Neuromusculoskeletal Medicine & OMM
DX: S32.048A Other fracture of fourth lumbar vertebra, initial encounter for closed fracture (principal); F10.230 Alcohol dependence with withdrawal, uncomplicated; N39.0 Urinary tract infection, site not specified; E87.0 Hyperosmolality and hypernatremia; S32.028A Other fracture of second lumbar vertebra, initial encounter for closed fracture; Y90.1 Blood alcohol level of 20-39 mg/100 ml; E03.9 Hypothyroidism, unspecified; I10 Essential (primary) hypertension; W18.30XA Fall on same level, unspecified, initial encounter; Y93.89 Activity, other specified; Y92.009 Unspecified place in unspecified non-institutional (private) residence as the place of occurrence of the external cause; Z92.3 Personal history of irradiation; Z85.3 Personal history of malignant neoplasm of breast; Z85.810 Personal history of malignant neoplasm of tongue; Z92.21 Personal history of antineoplastic chemotherapy; Z90.12 Acquired absence of left breast and nipple; Z90.89 Acquired absence of other organs; Z87.891 Personal history of nicotine dependence; G89.29 Other chronic pain; Z86.711 Personal history of pulmonary embolism; Z79.01 Long term (current) use of anticoagulants; Z66 Do not resuscitate; R32 Unspecified urinary incontinence; R19.7 Diarrhea, unspecified

== ENCOUNTER 2016-10-13 13:09 | Emergency (ER) | payer MEDICARE, OTHER ==
[~2016-10-13] VITALS: Ht 175.3 cm; Wt 75.0 kg
[~2016-10-13 13:09] MED LIST changes: -CALC3.8S NASAL; -CHOL400T PO; -CHOL400T30 PO; +FENT1PAT7 TOPICAL; +GABA-500 PO; +HYDR-3740 PO; +HYDR20TA2 PO; -LIDO700A6 TOPICAL; +METO-369 PO; -METO25TA99 PO; -OXYC5TAB72 PO; -RES30 PO; -TAMS0.4C98 PO; +TEMA15CA3 PO; +THIA100T64 PO; -Thiamine PO
[2016-10-13 13:49] VITALS: BP 105/72; PULSE 86; RESP 16; O2SAT 95
[2016-10-14] MEDS ORDERED: CALC3.8S NASAL (09:46)
== END 2016-10-13 14:54 | disposition left against medical advice (07) ==
LOC: SED 13:09
DX: Z53.20 Procedure and treatment not carried out because of patient's decision for unspecified reasons (principal)

== ENCOUNTER 2016-10-13 19:34 | Inpatient (IN) | payer MEDICARE, OTHER ==
[~2016-10-13] VITALS: Ht 175.3 cm; Wt 74.0 kg
--- NOTE | 2016-10-13 20:04 | DRSVH ---
PROCEDURE: CT BRAIN WITHOUT CONTRAST ([id number]) INDICATIONS: Stroke TECHNIQUE: Noncontrast 4.5 mm thick angled axial sections acquired from the foramen magnum to the vertex, with c oronal reformats. COMPARISON: [facility], CT, CT BRAIN WO CON, 08/30/2016, 13:49. FINDINGS: Image quality: Excellent. CSF spaces: Basal cisterns are patent. No extra-axial fluid collections. The ventricles are symmet rod in size and shape. Brain: No intracranial bleeds or masses. There is cerebral volume loss for age, with resultant vent ricular and sulcal prominence. There are periventricular and deep white matter chronic small vessel ischemic changes. There is intracranial internal carotid artery atherosclerosis. Skull and face: Calvarium and visualized facial bones appear intact, without suspicious lesions. Sinuses: Visualized sinuses and mastoids are clear. IMPRESSION: No acute intracranial abnormality. Dictated by: Brandin Godoy M.D. on 10/13/2016 at 20:02 Approved by: Brandin Godoy M.D. on 10/13/2016 at 20:02
[2016-10-13 20:06] LABS: BASOPHILS % (AUTO) 0.3 % (0-3); EOSINOPHILS % (AUTO) 1.3 % (0-5); MONOCYTES % (AUTO) 8.3 % (4-12); Mean Corpuscular Hemoglobin 32.6 pg (27.0-35.0); Mean Corpuscular Volume 94.2 fL (81-100); NEUTROPHILS % (AUTO) 62.8 % (40-74); Platelet Count 220 bil/L (150-400)
[2016-10-13 20:10] LABS: INR 0.96 ratio
[2016-10-13 20:16] LABS: Lipase 12 U/L (13-60); Magnesium 1.7 mg/dL (1.6-2.6)
[2016-10-13 20:21] LABS: TROPONIN T < 0.010 ug/L (0.0-0.011)
--- NOTE | 2016-10-13 20:30 | ABG ---
DateTimeAnalyzed 20:24:00 -_ pH ____7.435 - 7.320 7.420 pCO2 ___38.4__ -mmHg 41.0 51.0 pO2 ___24.4__ -mmHg 24.0 40.0 HCO3- ___25.4__ -mmol/L ABE ____1.7__ -mmol/L tHb ___12.6__ -g/dL 12.0 18.0 O2Hb ___38.4__ -% COHb ____1.0__ -% 0.0 1.5 MetHb ____1.3__ -% 0.4 1.5 sO2 ___39.3__ -% FIO2 ___21.0__ -% Drawn By MK - Date/Time Notified____ 20:30:00 -_ B 756 -mmHg tO2 ____6.8__ -Vol% Jonny test N/A -
--- NOTE | 2016-10-13 20:56 | DRSVH ---
PROCEDURE: CT FACE WITHOUT CONTRAST ([id number]) INDICATIONS: fall, AMS; back, abd pain; facial trauma TECHNIQUE: Noncontrast 1.5 mm thick axial images acquired from the mandible through the frontal sinuses, with co stephanie and sagittal reformatting. For radiation dose reduction, the following was used: automated ex posure control. COMPARISON: None. FINDINGS: Image quality: Excellent. Bones and teeth: Orbital rendon are intact. Sinus rendon show no fracture or deformity. Nasal bones and septum are intact. Visualized portions of the mandible demonstrate no fractures or subluxation. Zygomatic arches are intact. Pterygoid plates are intact. Visualized portions of the skull base an d auditory canals are intact. Sinuses: Paranasal sinuses are aerated, without fluid levels, mucosal thickening, or mucoceles. Mas toid air cells are aerated. Soft tissues: No edema, masses, or fluid collections. No enlarged lymph nodes. No soft tissue lace rations or debris. Vascular: Visualized vascular structures appear normal in the absence of contrast. Bony vascular fo ramina and canals are intact. IMPRESSION: No fracture. Dictated by: Brandin Godoy M.D. on 10/13/2016 at 20:54 Approved by: Brandin Godoy M.D. on 10/13/2016 at 20:55
--- NOTE | 2016-10-13 21:00 | DRSVH ---
PROCEDURE: CT CERVICAL SPINE WITHOUT CONTRAST ([id number]) INDICATIONS: fall, AMS; back, abd pain; facial trauma TECHNIQUE: Noncontrast 3 mm thick sections acquired from the skull base to the T4 level. Sagittal and coronal r eformats were then constructed. For radiation dose reduction, the following was used: automated exp osure control, adjustment of mA and/or kV according to patient size. COMPARISON: [facility], CT, CT THORACIC SPINE WO CON, 01/15/2016, 15:09. FINDINGS: Image quality: Excellent. Bones: No acute ractures or dislocations. T no change in mild chronic wedging of T4. here is loss o f normal cervical lordosis. There is mild kyphosis at C4-C6. Mild grade 1 anterolisthesis of C4 on C5 is present. Visualized superior ribs are intact. Soft tissues: Prevertebral soft tissues are normal in thickness. No paravertebral hematomas. No ap ical pneumothoraces. IMPRESSION: No acute fracture. Dictated by: Brandin Godoy M.D. on 10/13/2016 at 20:55 Approved by: Brandin Godoy M.D. on 10/13/2016 at 20:59
--- NOTE | 2016-10-13 21:06 | DRSVH ---
PROCEDURE: CT CHEST, ABDOMEN AND PELVIS WITH CONTRAST ([id number]) INDICATIONS: fall, AMS; back, abd pain; facial trauma TECHNIQUE: After the administration of intravenous contrast, 5 mm thick sections acquired from the lung apices t o the symphysis. 5 mm thick coronal and sagittal reformats were acquired. Additional 7 mm thick cor onal maximum intensity projection (MIP) reformats acquired through the lungs. Optional 10-minute del ayed imaging may be performed from the kidneys to the bladder. For radiation dose reduction, the fol lowing was used: automated exposure control, adjustment of mA and/or kV according to patient size. COMPARISON: [facility], CT, CT ABD PELVIS W CON[facility]2016[facility] 13[facility], [facility]/2016, 19:01. FINDINGS: Image quality: Excellent. CHEST: Lungs: No pulmonary contusions or lacerations. No acute airspace opacities. No pneumothorax or hem othorax. Central and peripheral airways appear patent and normal in caliber. Mediastinum: No mediastinal hematomas. Heart size is normal. No pericardial effusion. Thoracic ao rta and pulmonary arteries demonstrate normal size and enhancement. No mediastinal or hilar adenopat hy. Esophagus is normal in caliber. No hiatal hernia. Chest wall: No rib fractures. No subcutaneous emphysema. No axillary or supraclavicular adenopathy . Thyroid gland is not seen. ABDOMEN: Solid organs: Liver and spleen are normal in size and enhancement, without lacerations. Gallbladder is surgically absent.. There is mild intrahepatic biliary ductal dilatation , as before. Pancreas en hances normally, without transection. No adrenal hematomas. Both kidneys enhance normally, without hydronephrosis or lacerations. Peritoneum and bowel: No free fluid or air. Unenhanced bowel loops demonstrate normal wall thicknes s and caliber. Nodes and vessels: No retroperitoneal or mesenteric adenopathy. Aorta and inferior vena cava are no rmal in size and enhancement. Miscellaneous: No ventral hernias. PELVIS: Genitourinary: Bladder wall thickness is normal. Miscellaneous: No inguinal hernias or adenopathy. Bones: Pelvic ring and hip joints appear intact. No acute vertebral compression fractures. Multile solomon chronic compression fractures are present, as before. There is increased, mild wedging of L1 comp ared to 7.26.17, which appears subacute/chronic. Remaining compression fractures are not significantl y changed. Severe T8 compression fracture is present , as before. IMPRESSION: 1. No evidence of acute injury to the chest, abdomen, nor pelvis following ground-level fall. 2. Multilevel compression fracture within the thoracic spine, as described above. There is increased, mild wedging of L1 compared to 7.26.17, which appears chronic versus subacute. Dictated by: Brandin Godoy M.D. on 10/13/2016 at 20:59 Approved by: Brandin Godoy M.D. on 10/13/2016 at 21:05
--- NOTE | 2016-10-13 21:06 | ED.REPORT ---
HPI-General Illness Date of Service Oct 13, 2016 ED Provider: Ernie Kumar MD Pt is a 76 year old female with a hx of chronic back pain, hypothyroidism, cancer, HTN, and depression on Eliquis presenting to the ED via EMS after a GLF around 1900 tonight. She was last known well 4 hours ago. Pt was seen here earlier today and left without being seen and went home and drank whiskey. She denies any lightheadedness prior to the fall, however history is difficult to obtain secondary to patient's mental status. She states that she only had 1 alcoholic drink. Nursing Notes Stated Complaint: ETOH, GLF, LOSS OF CONCIOUSNESS Chief Complaint: Trauma/Critical Care Nursing Notes Reviewed: Yes Allergies: Coded Allergies: morphine (Verified Allergy, Severe, Anxiety and panic attack, 10/13/16) Sulfa (Sulfonamide Antibiotics) (Verified Allergy, Unknown, 10/13/16) Pt. was unable recall reaction to sulfa Scheduled ([Slow-Mag71.5-119 Mg]) 2 TAB PO DAILY Amlodipine (Amlodipine) 5 Mg Tablet 5 MG PO DAILY Apixaban (Eliquis) 5 Mg Tablet 5 MG PO BID Calcium Carbonate (Calcium Carbonate) 200 Mg Tab.chew 500 MG PO BIDWM Esomeprazole Magnesium (Nexium) 40 Mg Capsule.dr 40 MG PO DAILY Fentanyl 25 mcg/hr Patch (Fentanyl 25 mcg/hr Patch) 1 Each Patch.td72 25 MCG TOPICAL Q72H Gabapentin (Gabapentin) 100 Mg Capsule 300 MG PO TID Hydrocortisone (Hydrocortisone) 20 Mg Tablet 30 MG PO BID Levothyroxine (Levothyroxine) 125 Mcg Tablet 125 MCG PO DAILY Losartan Potassium (Losartan Potassium) 50 Mg Tablet 50 MG PO DAILY Metoprolol Succinate ER (Metoprolol Succinate ER) 50 Mg Tab.er.24h 50 MG PO DAILY Potassium Chloride ER (Klor-Con M20) 20 Meq Tablet 20 MEQ PO TID Vit#96/Ferrous Fum/FA ( Tablet) 1 Each Tablet 1 TABLET PO DAILY Thiamine Mononitrate (Vitamin B-1) 100 Mg Tablet 100 MG PO DAILY Scheduled PRN Albuterol HFA (Proair HFA) 8.5 Gm Hfa.aer.ad 2 PUFFS INHALATION Q4H PRN PRN For Shortness of Breath Hydrocodone-Acetaminophen 10-325 mg (Hydrocodone-Acetaminophen 10-325 mg) 1 Each Tablet 1 TABLET PO Q6H PRN PRN For Pain Temazepam (Restoril) 15 Mg Capsule 30 MG PO HS PRN PRN For Insomnia General Time Seen by MD: 19:55 Chief Complaint Other (GLF) Hx Obtained From: Patient, EMS Unable to Obtain Hx: Mental status Arrived By: Ambulance Sudden in Onset?: Yes Onset Occurred: 1 - 4 hours ago Symptom Duration: Since onset Caused by: Fall on ground Recent Healthcare: No recent hospitalization, Recent doctor visit Similar Sx Previous: Yes Past Medical History Past Medical History Hypothyroidism 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 Parathyroid adenoma Reports: Cancer, GERD, Hypertension Reports: Depression Past Surgical History Tongue resection Total mastectomy Reports: Knee replacement Family History Noncontributory Smoking History Never Smoker Social History Resides at [facility] Alcohol Use: >5 per day Drug Use: Denies drug use Other Social History: Good social support, Local resident Ambulatory Status Wheelchair Review of Systems Unable to Obtain ROS Mental status Physical Exam Nursing note and vitals reviewed. Constitutional: Elderly female lying in bed appears somewhat dishevelled. Head: Normocephalic and atraumatic. Mouth/Throat: Oropharynx is clear and dry. No oropharyngeal exudate. Eyes: EOM are normal. Pupils are equal, round, and reactive to light. Neck: Supple, no tracheal deviation. Cardiovascular: Normal rate, regular rhythm. Equal and intact distal pulses throughout. Pulmonary/Chest: Effort normal and breath sounds normal. No respiratory distress. Abdominal: Soft. No distension. There is no tenderness, rebound, or guarding. Bowel sounds present. Musculoskeletal: Range of motion grossly intact, moving all extremities. No edema or tenderness appreciated. Neurological: She is alert, however is slow to respond to questioning. Not oriented. Otherwise grossly nonfocal exam. Strength and sensation intact and equal to bilateral upper and lower extremities. Skin: Warm and dry, no rashes or pallor appreciated. Ecchymosis around right eye no proptosis. Psychiatric: Unable to assess secondary to patient condition. Back: Diffuse lower thoracic and lumbar tenderness to palpation, no stepoffs. Vital Signs HR: 83 BP: 176/74 Resp Rate: 18 O2: 96 Initial VS: Reviewed Interpretation & Diagnostics FACE CT NO CONTRAST: IMPRESSION: No fracture. Dictated by: Brandin Godoy M.D. on 10/13/2016 at 20:54 Lab Results Interpretation Result Diagram: 10/13/16194410/13/161944 Test 10/13/16 19:45 10/13/16 20:57 10/13/16 23:35 10/14/16 00:26 White Blood Count 6.9th/mm3 (3.8-10.1) Red Blood Count 3.96mil/mm3 (3.90-5.20) Hemoglobin 12.9g/dL (12.0-15.6) Hematocrit 37.3% (35.0-46.0) Mean Corpuscular Volume 94.2fL (81-100) Mean Corpuscular Hemoglobin 32.6pg (27.0-35.0) Mean Corpuscular Hemoglobin Concent 34.6% (32.0-37.0) Red Cell Distribution Width 14.1% (12.3-15.4) Platelet Count 220bil/L (150-400) Neutrophils (%) (Auto) 62.8% (40-74) Lymphocytes (%) (Auto) 27.0% (14-46) Monocytes (%) (Auto) 8.3% (4-12) Eosinophils (%) (Auto) 1.3% (0-5) Basophils (%) (Auto) 0.3% (0-3) Prothrombin Time 10.3sec (8.1-12.5) Prothromb Time International Ratio 0.96ratio Activated Partial Thromboplast Time 32.1sec (22.8-33.0) Sodium Level 126mEq/L (134-144) Potassium Level 3.4mEq/L (3.5-5.2) Chloride Level 87mEq/L (97-108) Carbon Dioxide Level 21mmol/L (18-29) Blood Urea Nitrogen 6mg/dL (8-27) Creatinine 0.48mg/dL (0.57-1.00) Estimat Glomerular Filtration Rate 180mL/min (>59) Glucose Level 96mg/dL (60-99) Calcium Level 8.4mg/dL (8.5-10.1) Magnesium Level 1.7mg/dL (1.6-2.6) Total Bilirubin 0.6mg/dL (0.0-1.2) Aspartate Amino Transf (AST/SGOT) 19U/L (0-50) Alanine Aminotransferase (ALT/SGPT) 10U/L (0-32) Alkaline Phosphatase 131U/L (25-165) Troponin T < 0.010ug/L (0.0-0.011) Total Protein 5.9g/dL (6.4-8.4) Albumin 3.4g/dL (3.4-5.0) Lipase 12U/L (13-60) Alcohols 245mg/dL (0-10) Urine Color Straw (YELLOW) Urine Appearance Clear (CLEAR,HAZY) Urine pH 5.5 (5.0-8.0) Urine Specific [place] 1.005 (1.003-1.035) Urine Protein Negativemg/dL (NEG,TRACE) Urine Glucose (UA) Negativemg/dL (NEGATIVE) Urine Ketones Negativemg/dL (NEGATIVE) Urine Occult Blood Negative (NEGATIVE) Urine Nitrite Negative (NEGATIVE) Urine Bilirubin Negative (NEGATIVE) Urine Urobilinogen Normalmg/dL (NORMAL) Urine Leukocyte Esterase Negative (NEGATIVE) Urine RBC 0-2/hpf (0-2) Urine WBC 0-5/hpf (0-5) Urine Epithelial Cells Few/hpf (NONE-MOD) Urine Crystals None seen (NONE SEEN) Urine Bacteria Few/hpf (NONE-FEW) Urine Hyaline Casts None/lpf (NONE) Urine Granular Casts None seen (NONE SEEN) Urine Waxy Casts None seen (NONE SEEN) Urine Red Blood Cell Casts None seen (NONE SEEN) Urine White Blood Cell Casts None seen (NONE SEEN) Urine Mucus None seen (None Seen) Urine Trichomonas None seen (NONE SEEN) Urine Yeast None (NONE SEEN) Urinalysis Comment None Urine Osmolality 225mOs/kH2O (250-1200) Urine Random Sodium 57mEq/L Osmolality 305 (275-300) ECG Interpretation ECG Interpretation: Unable to assess secondary to artefact. Time: 20:08 Interpreted by: ED physician Normal ECG Interpretation: Normal rate (75) CT Head Interpretation IMPRESSION: No acute intracranial abnormality. Dictated by: Brandin Godoy M.D. on 10/13/2016 at 20:02 Study: Head CT no contrast Interpretation / Wet Read by: Interpret - Radiologist CT Abd / Pelvis Interpretation IMPRESSION: 1. No evidence of acute injury to the chest, abdomen, nor pelvis following ground-level fall. 2. Multilevel compression fracture within the thoracic spine, as described above. There is increased, mild wedging of L1 compared to 7.26.17, which appears chronic versus subacute. Dictated by: Brandin Godoy M.D. on 10/13/2016 at 20:59 Study type: Abdominal CT IV contrast Interpretation / Wet Read by: Interpret - Radiologist CT C-Spine Interpretation IMPRESSION: No acute fracture. Dictated by: Brandin Godoy M.D. on 10/13/2016 at 20:55 Study type: CT no contrast Interpretation / Wet Read by: Interpret - Radiologist Re-Eval/Medical Decision Med Decision/Clinical Course In summary, 76-year-old female presenting to the ED for evaluation of altered mental status and fall in the setting of being in the ED earlier today. History is somewhat difficult to obtain secondary to patient condition, however she is altered upon arrival and CT scans of the patient's head, cervical spine, chest, abdomen, and pelvis were obtained. She has no new acute changes on these scans, however does have chronic, multilevel compression fractures of the thoracic spine and a possible chronic versus subacute wedging of L1. Laboratory studies notable for blood alcohol 245, lipase 1.2, Troponin negative , sodium 126, urinalysis no evidence of infection. CBC grossly within normal limits. Given the above, plan admission for further management and evaluation. Time of Eval: 22:57 Patient Status: Condition improved Re-Evaluation/Progress Note: Discussed plan for admission. Pt understands and agrees with plan. Consultation : Referral / Consult Name: Jann Fajardo MD Consulted With: Hospitalist Call Returned at: 23:09 Interior Design Consultant: Will see patient, Agrees with plan, Accepts admit Counseled Regarding: Diagnosis, Lab results, Need for admission Discharge & Departure Primary Impression: Hyponatremia Additional Impressions: Altered mental status Altered mental status type: unspecified Qualified Code: R41.82 - Altered mental status, unspecified Alcohol intoxication Complication of substance-induced condition: uncomplicated Qualified Code: F10.120 - Alcohol abuse with intoxication, uncomplicated Disposition: ADMITTED TO HOSPITAL Discharge Condition All VS Reviewed: Yes Condition: Improved Referrals: NOPCP (PCP) Scribe Attestation Portions of this note were transcribed by Marti Teran. I, Dr. Kumar personally performed the history, physical exam and medical decision-making; I reviewed and confirmed the accuracy of the information in the transcribed note. Signed by: Angeles Whalen, 10/13/2016. Ernie Kumar MD Oct 13, 2016 21:06 MARTI TERAN Oct 13, 2016 21:38
[2016-10-13 21:12] LABS: APPEARANCE,URINE CLEAR (CLEAR,HAZY); COLOR,URINE STRAW (YELLOW); OCCULT BLOOD,URINE NEGATIVE (NEGATIVE); PH,URINE 5.5 (5.0-8.0); UROBILINOGEN,URINE NORMAL (NORMAL)
[2016-10-13] MEDS ORDERED: 0.9% Sodium Chloride 1,000 ML IV SCH (23:44)
[2016-10-13] MEDS ORDERED: Polyethylene Glycol (PEG) 17 Gm Powder PO PRN (23:45)
[2016-10-13] MEDS ORDERED: Alum-Mag Hydrox-Simeth 30 mL Suspension PO PRN (23:45)
[2016-10-13 23:53] LABS: OSMOLALITY, URINE 225 mOs/kH2O (250-1200)
[2016-10-14] VITALS (11 sets, daily range): BP systolic 149–200; BP diastolic 72–95; PULSE 79–100; RESP 16–18; O2SAT 91–99
[2016-10-14] MEDS ORDERED: Ketorolac 15 mg/mL Inj IVPUSH ONE (00:05)
[2016-10-14] MEDS ORDERED: Thiamine Inj 100 MG, Folic Acid Inj 1 MG, Magnesium Sulfate 50% Inj 2 GM, Multivitamins... IV ONE ×10 (00:45→05:05)
--- NOTE | 2016-10-14 01:04 | PCM.HPMED ---
Subjective Date of Service Oct 13, 2016 Primary Provider: Admitting Physician: Primary Care Physician: Aleja Attending Physician: Chief Complaint: Intoxicated Ground-level fall History of Present Illness: 76-year-old female with history of alcohol abuse, chronic back pain, hypothyroidism, hypertension, pulmonary embolism in May on a Apixaban, and history of breast cancer who presented to emergency department due to ground- level fall around 1900 while intoxicated and subsequently found to have hyponatremia. Patient states that she present to emergency room earlier today due to worsening of her chronic low back pain which is secondary to compression fractures, but returned home after not seeing. Around 4 PM her son dropped her off and she states that she drank 1 glass of whiskey. She is very defensive about her drinking and denies any additional alcohol consumption. Around 0 the patient had a fall hitting the right orbital region of her head. EMS was called and she was brought in to the emergency department. She denies any headedness, syncope, fever, chills, vomiting, diarrhea, decreased oral intake, shortness breath, chest pain, racing heartbeats, or abdominal pain. Patient does complain of continued back pain. In the emergency department the patient was found to be hyponatremic, mild hypokalemic, hypochloremic, and blood alcohol greater than 240. Multiple imaging studies were done and are included in this note, all which are unremarkable for acute pathology. Review of Systems: Complete review of systems performed; pertinent positives and negatives per history of present illness, all other systems reviewed and are negative Allergies Coded Allergies: morphine (Verified Allergy, Severe, Anxiety and panic attack, 10/13/16) Sulfa (Sulfonamide Antibiotics) (Verified Allergy, Unknown, 10/13/16) Pt. was unable recall reaction to sulfa Home Medications Amlodipine (Amlodipine) 5 Mg Tablet 5 MG PO DAILY Apixaban (Eliquis) 5 Mg Tablet 5 MG PO BID Calcium Carbonate (Calcium Carbonate) 200 Mg Tab.chew 500 MG PO BIDWM Esomeprazole Magnesium (Nexium) 40 Mg Capsule.dr 40 MG PO DAILY Fentanyl 25 mcg/hr Patch (Fentanyl 25 mcg/hr Patch) 1 Each Patch.td72 25 MCG TOPICAL Q72H Gabapentin (Gabapentin) 100 Mg Capsule 300 MG PO TID Hydrocortisone (Hydrocortisone) 20 Mg Tablet 30 MG PO BID Levothyroxine (Levothyroxine) 125 Mcg Tablet 125 MCG PO DAILY Losartan Potassium (Losartan Potassium) 50 Mg Tablet 50 MG PO DAILY Metoprolol Succinate ER (Metoprolol Succinate ER) 50 Mg Tab.er.24h 50 MG PO DAILY Potassium Chloride ER (Klor-Con M20) 20 Meq Tablet 20 MEQ PO TID Vit#96/Ferrous Fum/FA ( Tablet) 1 Each Tablet 1 TABLET PO DAILY Thiamine Mononitrate (Vitamin B-1) 100 Mg Tablet 100 MG PO DAILY Albuterol HFA (Proair HFA) 8.5 Gm Hfa.aer.ad 2 PUFFS INHALATION Q4H PRN PRN For Shortness of Breath Hydrocodone-Acetaminophen 10-325 mg (Hydrocodone-Acetaminophen 10-325 mg) 1 Each Tablet 1 TABLET PO Q6H PRN PRN For Pain Temazepam (Restoril) 15 Mg Capsule 30 MG PO HS PRN PRN For Insomnia PMH Hypothyroidism 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 Parathyroid adenoma Reports: Cancer, GERD, Hypertension Reports: Depression Surgical History Tongue resection Total mastectomy Reports: Knee replacement Family History Patient is unable to provide history Social History Hx Alcohol Use: Yes Hx Substance Use: Yes (MARIJUANA) Hx Tobacco Use: Yes (quit in 1991 per previous records) Smoking Status: Never Smoker Living Arrangement: Alone Exam Exam General: Mildly distressed female HEENT: PERRLA, EOMI, nonicteric, membranes moist Lymph: No lymphadenopathy Cardio: irregular Respiratory: CTA bilaterally, no wheezes, no crackles Abdomen: Soft, positive bowel sounds, nontender, nondistended Extremities: No edema, sensation intact Psych: defensive Neuro: CN II through XII grossly intact, sensation intact throughout Skin: No rash Musc: tender in lumbar region over spinous process Lab and Diagnostics Result Diagram: 10/13/16194410/13/161944 X-Rays, CTs and MRIs CT brain IMPRESSION: No acute intracranial abnormality. Dictated by: Brandin Godoy M.D. on 10/13/2016 at 20:[address] IMPRESSION: No fracture. Dictated by: Brandin Godoy M.D. on 10/13/2016 at 20:[address] 1. No evidence of acute injury to the chest, abdomen, nor pelvis following ground-level fall. 2. Multilevel compression fracture within the thoracic spine, as described above. There is increased, mild wedging of L1 compared to 7.26.17, which appears chronic versus subacute. Dictated by: Brandin Godoy M.D. on 10/13/2016 at 20:[address] IMPRESSION: No acute fracture. Dictated by: Brandin Godoy M.D. on 10/13/2016 at 20:55 12-lead ECG questionable atrial fibrillation with rate of 75 Assessment & Plan 76-year-old female with history of alcohol abuse, chronic back pain, hypothyroidism, hypertension, and history of breast cancer who presented to emergency department due to ground-level fall while intoxicated and subsequently found to have hyponatremia. 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 -Recheck BMP in a.m. -Serum osmolality pending -Urine osmolality to 225 and random sodium 57 -cortisol and TSH pending Ground-level fall secondary to intoxication with alcohol dependence; present on admission; ongoing -Patient denies more than 1 glass of whiskey which she states is the cause for her BAL greater than 240 -Patient gets angry with additional questioning -She has had 3 falls recently and changes the subject when asked if alcohol is involved -Monitor for withdrawal -Up with assist only -hold Apixaban tonight; consider restarting after withdrawal -Banana bag Mild AG acidosis second to EtOH abuse and hypokalemia; present on admission; ongoing -AG of 18 in setting of BAL of 240 -Repeat BMP in AM -ABG appears to have been venous -20 mg of potassium Atrial fibrillation; present on admission; ongoing -EKG showed an irregularly irregular rhythm -Patient on metoprolol 50 mg by mouth daily at home as well as Apixaban although she states this is for recent PE -She denies history of atrial fibrillation -Rate is currently controlled so will continue home metoprolol -EKG in AM Chronic back pain; is on admission; ongoing -Patient is on Vicodin but denies taking this medication or even having a prescription -Awaiting confirmation of pain medication -Patient also using gabapentin although she denies radicular pain -Kidneys appear to be okay so trial of Toradol for pain Hypothyroidism-continue 125 g of levothyroxine GERD-famotidine 20 mg twice a day Hypertension-continue amlodipine, losartan Depression--no home medications Insomnia-hold temazepam for now Disposition: Patient is being admitted to inpatient status with expected length of stay greater than two midnights due to to severity of presentation, duration of treatment, and risks of adverse events disposition At time of dictation med rec has not been confirmed Pain Evaluation: Pain not Controlled GI Prophylaxis: H2 morgan VTE Prophylaxis Indicated: VTE on Admission VTE Mechanical Devices: Intermittant Pneumatic CD Resuscitation Status: DNR/DNI:Do Not Resuscitate/Intubate Attending Statement The patient was seen and examined together with Dr. Zavala on 10/13 and I agree with the history, exam and plan as outlined in the note above. Jb Zavala DO Oct 13, 2016 23:29 Jann Fajardo MD Oct 14, 2016 19:33
--- NOTE | 2016-10-14 01:54 | NUR ---
Admission Pt here for ETOH withdrawal, back pain, and hyponatremia. Her mouth is very dry. MD approves of her taking ice chips. C/O back pain. Given IV toradol. Pt refuses to get up OOB due to back pain Difficult to assess skin due to pt's unwillingness to turn in the bed. Scattered bruises noted. Pt has urinary frequency and urgency Given bedpan 3 x in 1 hour. Will cont to monitor
--- NOTE | 2016-10-14 03:12 | NUR ---
Blood pressure Blood pressure is elevated. 200/92. Reported to MD Pt has lower back pain. Treated earlier this evening with IV toradol. Will cont to monitor
[2016-10-14 04:47] LABS: BASOPHILS % (AUTO) 0.3 % (0-3); EOSINOPHILS % (AUTO) 0.5 % (0-5); MONOCYTES % (AUTO) 9.2 % (4-12); Mean Corpuscular Hemoglobin 32.6 pg (27.0-35.0); Mean Corpuscular Volume 94.4 fL (81-100); NEUTROPHILS % (AUTO) 75.2 % (40-74); Platelet Count 207 bil/L (150-400)
--- NOTE | 2016-10-14 05:10 | NUR ---
CIWA Pt is very anxious/restless/tremulous and c/o mild LEAL. Requested WA protocol Pt aware that anti anxiety medications have been ordered.
--- NOTE | 2016-10-14 07:07 | NUR ---
Behavior Pt now resting quietly. Eyes closed. Respirations regular and even. BP decreased following administration of ativan
[2016-10-14] MEDS ORDERED: CALC3.8S NASAL (09:46)
[2016-10-14] MEDS: Potassium Chloride 20 mEq SR Tablet PO SCH (10:20)
[2016-10-14] MEDS: Multivit-Miner-Folic Acid-Iron Tablet PO SCH (10:20)
--- NOTE | 2016-10-14 11:47 | PCM.PNMED ---
Subjective Date of Service Oct 14, 2016 Subjective 76-year-old female with history of alcohol abuse, chronic back pain, hypothyroidism, hypertension, and history of breast cancer who presented to emergency department due to ground-level fall while intoxicated and subsequently found to have hyponatremia. Today, patient notes that her back continues to hurt as a result of a ground level fall. She feels nauseated but denies vomiting and abdominal pain. Overnight, patient was very anxious but no other acute events. On ROS, patient denies chest pain, SOB, headaches, visual changes and dysuria. Exam Vital Signs Vital Sign - Last Date Time Temp Pulse Resp B/P Pulse Ox O2 Delivery O2 Flow Rate FiO2 10/14/16 10:17 36.6 86 18 155/72 94 Room Air Intake and Output 10/13/16 10/13/16 10/14/16 Cumulative From/Thru 15:00 23:00 07:00 10/14/16 01:07 - 10/14/16 05:24 Intake Total 200 ml 200 ml Output Total 800 ml 800 ml Balance -600 ml -600 ml Intake Oral 200 ml 200 ml Output Urine Total 800 ml 800 ml Exam General: Patient is lying comfortably on bed, AAOX3, not in acute distress, cooperative and pleasant. HEENT: head normocephalic, right periorbital ecchymosis, PERRLA, EOMI, no scleral icterus, noninjected conjunctiva Neck: neck supple, non-tender, no lymphadenopathy, trachea midline, no JVD CV: regular rate and rhythm, s1 and s2 heard, no murmur, radial pulses 2+ and equal bilaterally, no rubs murmurs or gallops, no edema Lungs: Clear to auscultation bilaterally, no wheezes, rales or rhonchi, no increased work of breathing Abdomen: normoactive bowel sounds on 4Q, soft, non-distended, non-tender to palpation, no organomegally, Skin: warm and dry, evidence of ecchymoses in upper extremities Musculoskeletal: Decreased UE and LE strength bilaterally, full ROM bilaterally , tenderness to palpation of lumbar spinous process Neuro: Grossly neurologically intact, cranial nerves II through XII intact, unsteady gait Psych: Normal mood and affect IVs and Medications Medications Reviewed: Medications were reviewed in detail Medications High Risks medications include hydrocodone Lab and Diagnostics Result Diagram: 10/14/16 0425 10/14/16 0425 X-Rays, CTs and MRIs CT brain IMPRESSION: No acute intracranial abnormality. Dictated by: Brandin Godoy M.D. on 10/13/2016 at 20:[address] IMPRESSION: No fracture. Dictated by: Brandin Godoy M.D. on 10/13/2016 at 20:[address] 1. No evidence of acute injury to the chest, abdomen, nor pelvis following ground-level fall. 2. Multilevel compression fracture within the thoracic spine, as described above. There is increased, mild wedging of L1 compared to 7.26.17, which appears chronic versus subacute. Dictated by: Brandin Godoy M.D. on 10/13/2016 at 20:[address] IMPRESSION: No acute fracture. Dictated by: Brandin Godoy M.D. on 10/13/2016 at 20:55 12-lead ECG questionable atrial fibrillation with rate of 75 Assessment & Plan 76-year-old female with history of alcohol abuse, chronic back pain, hypothyroidism, hypertension, and history of breast cancer who presented to emergency department due to ground-level fall while intoxicated and subsequently found to have hyponatremia. CIWA today was about 16. 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 -BMP shows improved sodium to 134 -Serum osmolality 305 -Urine osmolality to 225 and random sodium 57 -cortisol pending -TSH 6.01 , T4-1.43 Ground-level fall secondary to intoxication with alcohol dependence; present on admission; ongoing -Patient denies more than 1 glass of whiskey which she states is the cause for her BAL greater than 240 -Patient gets angry with additional questioning -She has had 3 falls recently and changes the subject when asked if alcohol is involved -Monitor for withdrawal -Up with assist only -Banana bag, thiamine Mild AG acidosis second to EtOH abuse and hypokalemia; present on admission; ongoing -AG of 18 in setting of BAL of 240 -Repeat BMP ishows anion gap of 21 -ABG appears to have been venous -20 meQ of potassium daily for hypokalemia Atrial fibrillation; present on admission; ongoing -EKG showed an irregularly irregular rhythm -Patient on metoprolol 50 mg by mouth daily at home as well as Apixaban although she states this is for recent PE -She denies history of atrial fibrillation -Rate is currently controlled so will continue home metoprolol Chronic back pain; is on admission; ongoing -Patient is on Vicodin but denies taking this medication or even having a prescription -Awaiting confirmation of pain medication -Patient also using gabapentin although she denies radicular pain -Kidneys appear to be okay so trial of Toradol for pain Hypothyroidism-continue 125 g of levothyroxine GERD-famotidine 20 mg twice a day Hypertension-continue amlodipine, losartan Depression--no home medications Insomnia-hold temazepam for now Disposition: Patient is being admitted to inpatient status with expected length of stay greater than two midnights due to to severity of presentation, duration of treatment, and risks of adverse events disposition At time of dictation med rec has not been confirmed Pain Evaluation: Adequate Pain Control GI Prophylaxis: H2 morgan VTE Mechanical Devices: Intermittant Pneumatic CD Resuscitation Status: DNR/DNI:Do Not Resuscitate/Intubate Attending Statement The patient was seen and examined together with Dr. Good on 10/14/16 and I agree with the history, exam and plan as outlined in the note above. Nena Good DO Oct 14, 2016 11:47 Claire Steel DO Oct 15, 2016 15:30
[2016-10-14] MEDS ORDERED: Albuterol 2.5 mg/3 mL Inhalation Solution NEB PRN (12:29)
[2016-10-14] MEDS: HYDROcodone-APAP 10-325 mg PO PRN ×2 (13:00→18:55)
--- NOTE | 2016-10-14 18:44 | NUR ---
CIWA/behavior The pt's CIWA scores ranged from 6-14 throughout day shift; needing ativan 2x with good results. At times, the pt's behavior becomes spontaneously erratic; pulling at lines/ thinking there are "messes to clean up" and becoming tearful. The pt remains A&Ox3 throughout the behavior with VSS. Deep bed alarm is ON for safety and the pt is currently in bed sleeping.
[2016-10-14] MEDS: Hydrocortisone 10 mg Tablet PO SCH (19:51)
[2016-10-15] VITALS (9 sets, daily range): BP systolic 148–201; BP diastolic 86–99; PULSE 74–88; RESP 16–20; O2SAT 91–95
[2016-10-15] MEDS: HYDROcodone-APAP 10-325 mg PO PRN ×3 (03:40→15:12)
[2016-10-15 06:01] LABS: Mean Corpuscular Hemoglobin 32.4 pg (27.0-35.0); Mean Corpuscular Volume 96.8 fL (81-100)
--- NOTE | 2016-10-15 06:37 | NUR ---
CIWA/pain: pt's CIWA score 9-10 last noc, medicated w/ ativan x1, pt. medicated w/ one percocet for back pain, slept well through the night, less restless and more oriented, pt. asked "is today sunday?" which is correct.
[2016-10-15] MEDS: Potassium Chloride 20 mEq SR Tablet PO SCH (09:26)
[2016-10-15] MEDS: Pantoprazole 40 mg ER24 Tablet PO SCH (09:26)
[2016-10-15] MEDS: Multivit-Miner-Folic Acid-Iron Tablet PO SCH (09:27)
[2016-10-15] MEDS: Hydrocortisone 10 mg Tablet PO SCH ×2 (09:27→20:01)
[2016-10-15] MEDS: Ondansetron 2 mg/mL 2 mL Inj IVPUSH PRN ×2 (10:13→15:10)
--- NOTE | 2016-10-15 15:01 | NUR ---
Social Work Note: Initial Assessment Data& Assessment: EMR Reviewed. Melva Watkins is a 76 year old female admitted on 10/14/2016 for hyponatremia and AMS and ETOH Intoxication. Pt has Medicare and [facility] Supplemental insurance coverage. Pt does not have a PCP at this time and declined offer to help arrange a PCP appointment for her. Pt lives in [place] alone and is independent with all ADL's at baseline. Pt remains on the first floor of her home so she does not have to climb stairs. Pt uses a manual wheelchair for ambulation and is independent with transfers at baseline. Pt does not have LTC insurance or VA benefits. Pt has had [facility] before and has been to [facility] in the past. Pt states she has DPOA/AD paperwork completed, AIRPLANE C[employer] requested a copy when possible. Pt son will transport her home at time of discharge or she will pay privately for a cab. No MD order for pt ETOH use. MD denies any other [employer]PLANE [employer] needs. MD does not identify any concerns for capacity for self care at this time. Pt denies any needs. AIRPLANE COVER MAKER to continue to follow if any pt needs or MD orders arise. Plan: Anticipated discharge home via POV when medically ready. AIRPLANE [employer]ER to continue to follow if any pt needs or MD orders arise. DEYA Sharp Addendum: 10/15/16 at 1506 by JUANA HARDWICK Amended: Links added.
[2016-10-15] MEDS: oxyCODONE-Acetamin 5-325 mg Tablet PO PRN ×2 (18:06→22:14)
--- NOTE | 2016-10-15 18:45 | NUR ---
Pain Pt reports improved relief of generalized back, neck, head pain, after additional meds/doses of Toradol & Hydrocodone.
--- NOTE | 2016-10-15 20:57 | PCM.PNMED ---
Subjective Date of Service Oct 15, 2016 Subjective Overnight: Patient had a CIWA score of 9-10 overnight with 1 dose of Ativan given Today: The patient states that she is unsure if she will continue drinking alcohol when she goes home. The patient states that she feels fairly well otherwise. She is eating breakfast without issue. Exam Vital Signs Vital Sign - Last Date Time Temp Pulse Resp B/P Pulse Ox O2 Delivery O2 Flow Rate FiO2 10/15/16 05:48 87 10/15/16 03:16 37.1 17 175/87 91 Room Air Intake and Output 10/14/16 10/14/16 10/15/16 Cumulative From/Thru 15:00 23:00 07:00 10/14/16 01:07 - 10/15/16 04:57 Intake Total 350 ml 100 ml 650 ml Output Total 300 ml 200 ml 1300 ml Balance 50 ml -100 ml -650 ml Intake Oral 350 ml 100 ml 650 ml Output Urine Total 300 ml 200 ml 1300 ml # Bowel Movements 1 0 1 Exam General: Patient is lying comfortably on bed, AAOX3, not in acute distress, cooperative and pleasant. Eyes: Pupils equal round reactive to light, no scleral icterus, noninjected conjunctiva HENT: normocephalic and atraumatic, right periorbital ecchymosis, moist mucous membranes without central cyanosis Neck: neck supple, non-tender, no lymphadenopathy, trachea midline, no JVD CV: Irregularly irregular rhythm due to high PVC burden, s1 and s2 heard, systolic ejection murmur noted at right upper sternal border radial pulses 2+ and equal bilaterally, no rubs murmurs or gallops, no edema Lungs: Clear to auscultation bilaterally, no wheezes, rales or rhonchi, no increased work of breathing Abdomen: normoactive bowel sounds on 4Q, soft, non-distended, non-tender to palpation, no organomegally, Skin: warm and dry, evidence of ecchymoses in upper extremities Neuro: Nonfocal neurologic exam, no significant noted resting or intention tremor Psych: Normal mood and affect : No Ponce catheter in place IVs and Medications Medications Reviewed: Medications were reviewed in detail Lab and Diagnostics Result Diagram: 10/15/1645 10/15/1645 X-Rays, CTs and MRIs CT brain IMPRESSION: No acute intracranial abnormality. Dictated by: Brandin Godoy M.D. on 10/13/2016 at 20:[address] IMPRESSION: No fracture. Dictated by: Brandin Godoy M.D. on 10/13/2016 at 20:[address] 1. No evidence of acute injury to the chest, abdomen, nor pelvis following ground-level fall. 2. Multilevel compression fracture within the thoracic spine, as described above. There is increased, mild wedging of L1 compared to 7.26.17, which appears chronic versus subacute. Dictated by: Brandin Godoy M.D. on 10/13/2016 at 20:[address] IMPRESSION: No acute fracture. Dictated by: Brandin Godoy M.D. on 10/13/2016 at 20:55 12-lead ECG questionable atrial fibrillation with rate of 75 Assessment & Plan 76-year-old female with history of alcohol abuse, chronic back pain, hypothyroidism, hypertension, and history of breast cancer who presented to emergency department due to ground-level fall while intoxicated and subsequently found to have hyponatremia. CIWA today was about 16. 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, although TSH was mildly high at 6.01 and patient reports hx of [place]'s disease -Fluid restriction 1500 mL/day -BMP sodium 134 to 133 on fluid restriction inconsistent with SIADH, will monitor for 1 more day and consider other causes of hyponatremia -Serum osmolality 305 -Urine osmolality to 225 and random sodium 57 -cortisol 14.5 normal -TSH 6.01 , T4-1.43 Ground-level fall secondary to intoxication with alcohol dependence; present on admission; ongoing -Patient denies more than 1 glass of whiskey which she states is the cause for her BAL greater than 240 -Patient gets angry with additional questioning -She has had 3 falls recently and changes the subject when asked if alcohol is involved -Monitor for withdrawal -Up with assist only -Banana bag, thiamine Mild AG acidosis second to EtOH abuse and hypokalemia; present on admission; ongoing -AG of 18 in setting of BAL of 240 -Repeat BMP ishows anion gap of 21 -ABG appears to have been venous -20 meQ of potassium daily for hypokalemia Atrial fibrillation; present on admission; ongoing -EKG showed an irregularly irregular rhythm -Patient on metoprolol 50 mg by mouth daily at home as well as Apixaban although she states this is for recent PE -She denies history of atrial fibrillation -Rate is currently controlled so will continue home metoprolol Chronic back pain; is on admission; ongoing -Patient is on Vicodin but denies taking this medication or even having a prescription -Awaiting confirmation of pain medication -Patient also using gabapentin although she denies radicular pain -Kidneys appear to be okay so trial of Toradol for pain Hypothyroidism-continue 125 g of levothyroxine GERD-famotidine 20 mg twice a day Hypertension-continue amlodipine, losartan Depression--no home medications Insomnia-hold temazepam for now Patient will likely remain inpatient for 1-2 more days and will likely discharge home pending physical therapy evaluation with recommendations for placement. GI Prophylaxis: H2 morgan VTE Mechanical Devices: Intermittant Pneumatic CD Resuscitation Status: DNR/DNI:Do Not Resuscitate/Intubate Attending Statement The patient was seen and examined together with Dr. Edwards on 10/15/16 and I have added additional information to the note above. Willis Edwards DO Oct 15, 2016 07:44 Claire Steel DO Oct 21, 2016 01:16
--- NOTE | 2016-10-16 00:11 | NUR ---
ANXIETY Pt became extremely anxious r/t discomfort. Pt was only mildly relieved by 2 Percocets, gave 4mg IV ativan on assembler 1st shift with good results. VSS, no other issues noted at this time.
[2016-10-16 03:30] VITALS: BP 124/91; PULSE 60; RESP 16; O2SAT 95
[2016-10-16 05:59] LABS: Mean Corpuscular Hemoglobin 32.9 pg (27.0-35.0); Mean Corpuscular Volume 98.9 fL (81-100)
[2016-10-16 06:16] LABS: Phosphorus 4.2 mg/dL (2.5-4.9)
[2016-10-16 07:52] VITALS: BP 148/79; PULSE 69; RESP 16; O2SAT 94
[2016-10-16 08:10] VITALS: PULSE 69; RESP 16; O2SAT 94
[2016-10-16 09:01] VITALS: PULSE 68
[2016-10-16] MEDS: Pantoprazole 40 mg ER24 Tablet PO SCH (09:13)
[2016-10-16] MEDS: Hydrocortisone 10 mg Tablet PO SCH (09:13)
[2016-10-16] MEDS: oxyCODONE-Acetamin 5-325 mg Tablet PO PRN (09:13)
[2016-10-16] MEDS: Potassium Chloride 20 mEq SR Tablet PO SCH (09:14)
[2016-10-16] MEDS: Multivit-Miner-Folic Acid-Iron Tablet PO SCH (09:15)
[2016-10-16] MEDS ORDERED: LORazepam 2 mg Tablet PO PRN (11:45)
[2016-10-16 12:27] VITALS: BP 153/78; PULSE 70; RESP 16; O2SAT 95
--- NOTE | 2016-10-16 14:58 | PCM.DIMED ---
Nena Good DO 10/16/16 1455: Discharge Instructions Date of Service Oct 16, 2016 Dates of Hospitalization Oct 14, 2016 at 00:31 Discharge Diagnosis Discharge Diagnosis Hyponatremia and electrolyte imbalance Ground-level fall Mild AG acidosis second to EtOH abuse and hypokalemia Atrial fibrillation Chronic back pain Hypothyroidism GERD Hypertension Depression Insomnia Diet Discharge Diet: Heart Healthy, Other (Restrict fluid to less than 2 Liters per day) Activity Discharge Activity: No restrictions Call your provider Call your provider for: Fever or Chills, Shortness of breath, Bleeding, Chest pain, Vomitting, Excessive diarrhea, Weakness (unilateral) Patient Instructions Patient Instructions You presented to the ED after having a fall, likely related to alcohol use. We did a CT of your brain, face, abdomen, pelvis, and spine which did not show any acute problems or fractures. We found that your sodium and potassium were low and you were undergoing alcohol withdrawals. We tried to correct your potassium by giving you more and your sodium by restricting your fluid intake. We also gave you fluids/vitamins/thiamine for your alcohol withdrawals. This afternoon, you state that you want to leave the hospital. I explained that your sodium is still somewhat low and you are still undergoing withdrawals. You explained your understanding with regards to this. For your low sodium, we ask that you try to restrict your fluid intake to less than 2 Liters in a day. In addition, we discussed the importance of staying away from alcohol use. We also resumed the medicine Valsartan that you were taking to control your blood pressure because your blood pressure was high when you came in. Please continue to take valsartan 40 mg daily and follow-up with your primary care doctor in a week. Follow-up plan Please follow-up with your primary care doctor, Dr. Escobar Follow-up Provider: Anthony Escobar MD Follow-up with PCP in: 1 week Benny Nazario MD 10/17/16 1404: Discharge Instructions Attending's Statement The patient was seen and examined together with Dr. Good in on 10/16/2016 and I agree with the history, exam and plan as outlined in the note above. . Nena Good DO Oct 16, 2016 14:55 Benny Nazario MD Oct 17, 2016 14:04
--- NOTE | 2016-10-16 14:58 | NUR ---
Social Work: Discharge/Chemical Dependency Evaluation/Multidisciplinary Rounds D: Pt discussed in multidisciplinary rounds, the patient will be medically stable for discharge later today. CM order placed to complete CD assessment. PT order placed although patient has refused to participate in assessment. FUR DYER met with the patient at bedside to discuss discharge planning and assess for unmet needs. Pt states that she lives alone in [place]. She uses a w/c at baseline and is I with all of her transfers. Pt adamantly declines any supportive services from or skilled rehab/nursing. FUR DYER explained risks which patient states she understands. FUR DYER inquired about pt's alcohol use as she was on CIAL protocol. The patient became angry at the mention of her being "an alcoholic" and states "I resent whoever said that I was one." Pt reports that she drinks approximately 1-2 shots of whiskey at night before bed. She has never gone to treatment, never experienced withdrawal symptoms and declined to provide any further information to FUR DYER about her drinking. FUR DYER offered outpatient CD resources per hospital policy. The pt declined resources. Pt's [id number] Windy was at the very end of the conversation. She expresses no concerns about discharge and states that the patient's son, Shilo will be transporting her home. A: Pt who is w/c bound at baseline and I with transfers P: Anticipate pt to discharge home today via POV. Pt declined supportive services and outpatient CD resources. DEYA Rowell
[2016-10-16] MEDS ORDERED: VALS80TA25 PO (14:59)
--- NOTE | 2016-10-16 16:05 | NUR ---
Discharge Pt discharged home today at 15:55. Pt off floor via wheelchair, with all belongings, in the company of the SUCTION PLATE CARRIER CLEANER and her son, to a private vehicle. Pt was provided with a prescription, education materials on the med, pt was also given instruction on following up with her PCP. Pt has been having a hard time finding a PCP that she likes, she was encouraged to keep trying and it was impressed upon her how important it was to initiate and maintain care with a PCP. Pt was instructed in using and schedule of home meds and encouraged to limit fluids to 2L/day and limit alcohol intake. Pt verbalizes understanding.
--- NOTE | 2016-10-16 17:49 | PCM.DC.MED ---
Discharge Summary Date of Service Oct 16, 2016 Dates of Hospitalization Date of Hospital Admission Oct 14, 2016 at 00:31 Date of Discharge: Oct 16, 2016 Providers: Admitting Physician: Jann Fajardo MD Primary Care Physician: Nopbecca Attending Physician: Benny Nazario MD Diagnosis at Time of Discharge Diagnosis at Time of Discharge Hyponatremia and electrolyte imbalance Ground-level fall Mild AG acidosis second to EtOH abuse and hypokalemia Atrial fibrillation Chronic back pain Hypothyroidism GERD Hypertension Depression Insomnia Procedures XRay, CTs & MRIs CT brain IMPRESSION: No acute intracranial abnormality. Dictated by: Brandin Godoy M.D. on 10/13/2016 at 20:[address] IMPRESSION: No fracture. Dictated by: Brandin Godoy M.D. on 10/13/2016 at 20:[address] 1. No evidence of acute injury to the chest, abdomen, nor pelvis following ground-level fall. 2. Multilevel compression fracture within the thoracic spine, as described above. There is increased, mild wedging of L1 compared to 7.26.17, which appears chronic versus subacute. Dictated by: Brandin Godoy M.D. on 10/13/2016 at 20:[address] IMPRESSION: No acute fracture. Dictated by: Brandin Godoy M.D. on 10/13/2016 at 20:55 ECG 12 Lead questionable atrial fibrillation with rate of 75 Brief History Per H&P by Dr. Zavala on 10/14/16 76-year-old female with history of alcohol abuse, chronic back pain, hypothyroidism, hypertension, pulmonary embolism in May on a Apixaban, and history of breast cancer who presented to emergency department due to ground- level fall around 1899 while intoxicated and subsequently found to have hyponatremia. Patient states that she present to emergency room earlier today due to worsening of her chronic low back pain which is secondary to compression fractures, but returned home after not seeing. Around 4 PM her son dropped her off and she states that she drank 1 glass of whiskey. She is very defensive about her drinking and denies any additional alcohol consumption. Around 1899 the patient had a fall hitting the right orbital region of her head. EMS was called and she was brought in to the emergency department. She denies any headedness, syncope, fever, chills, vomiting, diarrhea, decreased oral intake, shortness breath, chest pain, racing heartbeats, or abdominal pain. Patient does complain of continued back pain. In the emergency department the patient was found to be hyponatremic, mild hypokalemic, hypochloremic, and blood alcohol greater than 240. Multiple imaging studies were done including CT of the brain, face, chest, abdomen, pelvis and cervical spine all which are unremarkable for acute pathology. 10/16/16 Patient was very insistent on leaving and did not want to participate in medical care anymore. We explained that her sodium is still slightly low and she is still going through some alcohol withdrawals. However, she states that she wanted to leave. Hospital Course 76-year-old female with history of alcohol abuse, chronic back pain, hypothyroidism, hypertension, and history of breast cancer who presented to emergency department due to ground-level fall while intoxicated and subsequently found to have hyponatremia. CIWA today was about 12. Patient was very insistent on leaving and did not want to participate in medical care anymore. We explained that her sodium is still slightly low and she is still going through some alcohol withdrawals. However, she states that she still wanted to leave. 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 -Fluid restriction 1500 mL/day -BMP sodium 134 to 133 on fluid restriction inconsistent with SIADH, will monitor for 1 more day and consider other causes of hyponatremia -Serum osmolality 305 -Urine osmolality to 225 and random sodium 57 -cortisol 14.5 normal -TSH 6.01 , T4-1.43 -Upon discharge, Sodium was 130 Ground-level fall secondary to intoxication with alcohol dependence; present on admission; ongoing -Patient denies more than 1 glass of whiskey which she states is the cause for her BAL greater than 240 -Patient gets angry with additional questioning -She has had 3 falls recently and changes the subject when asked if alcohol is involved -Monitor for withdrawal -Up with assist only -Banana bag, thiamine Mild AG acidosis second to EtOH abuse and hypokalemia; present on admission; resolved -AG of 18 in setting of BAL of 240 -Today, Repeat BMP shows anion gap of 13 -20 meQ of potassium daily for hypokalemia, which has resolved -Potassium at discharge 4.3 Atrial fibrillation; present on admission; resolved -EKG showed an irregularly irregular rhythm -Patient on metoprolol 50 mg by mouth daily at home as well as Apixaban although she states this is for recent PE -She denies history of atrial fibrillation -Patient was sinus rhythm per telemetry while she was on the medical floor Chronic back pain; is on admission; ongoing -Patient is on Vicodin but denies taking this medication or even having a prescription -Awaiting confirmation of pain medication -Patient also using gabapentin although she denies radicular pain -Kidneys appear to be okay so trial of Toradol for pain, this was stopped today as creatinine increased to 1.19 today Hypothyroidism-continue 125 g of levothyroxine GERD-famotidine 20 mg twice a day Hypertension-continue losartan Depression--no home medications Insomnia-held temazepam while inpatient . Exam Vital Signs (Last) Date Time Temp Pulse Resp B/P Pulse Ox O2 Delivery O2 Flow Rate FiO2 10/16/16 12:27 36.5 70 16 153/78 95 Room Air Exam General: Patient is lying comfortably on bed, AAOX3, not in acute distress, cooperative and anxious. HEENT: head normocephalic, right periorbital ecchymosis, PERRLA, EOMI, no scleral icterus, noninjected conjunctiva Neck: neck supple, non-tender, no lymphadenopathy, trachea midline, no JVD CV: regular rate and rhythm, s1 and s2 heard, no murmur, radial pulses 2+ and equal bilaterally, no rubs murmurs or gallops, no edema Lungs: Clear to auscultation bilaterally, no wheezes, rales or rhonchi, no increased work of breathing Abdomen: normoactive bowel sounds on 4Q, soft, non-distended, non-tender to palpation, no organomegally, Skin: warm and dry, evidence of ecchymoses in upper extremities Musculoskeletal: Decreased UE and LE strength bilaterally, full ROM bilaterally , tenderness to palpation of lumbar spinous process Neuro: Grossly neurologically intact, cranial nerves II through XII intact, unsteady gait Psych: Normal mood and affect Test 10/13/16 19:45 10/13/16 20:57 10/13/16 23:35 10/14/16 00:26 Prothrombin Time 10.3sec (8.1-12.5) Prothromb Time International Ratio 0.96ratio Activated Partial Thromboplast Time 32.1sec (22.8-33.0) Troponin T < 0.010ug/L (0.0-0.011) Lipase 12U/L (13-60) Alcohols 245mg/dL (0-10) Urine Color Straw (YELLOW) Urine Appearance Clear (CLEAR,HAZY) Urine pH 5.5 (5.0-8.0) Urine Specific [place] 1.005 (1.003-1.035) Urine Protein Negativemg/dL (NEG,TRACE) Urine Glucose (UA) Negativemg/dL (NEGATIVE) Urine Ketones Negativemg/dL (NEGATIVE) Urine Occult Blood Negative (NEGATIVE) Urine Nitrite Negative (NEGATIVE) Urine Bilirubin Negative (NEGATIVE) Urine Urobilinogen Normalmg/dL (NORMAL) Urine Leukocyte Esterase Negative (NEGATIVE) Urine RBC 0-2/hpf (0-2) Urine WBC 0-5/hpf (0-5) Urine Epithelial Cells Few/hpf (NONE-MOD) Urine Crystals None seen (NONE SEEN) Urine Bacteria Few/hpf (NONE-FEW) Urine Hyaline Casts None/lpf (NONE) Urine Granular Casts None seen (NONE SEEN) Urine Waxy Casts None seen (NONE SEEN) Urine Red Blood Cell Casts None seen (NONE SEEN) Urine White Blood Cell Casts None seen (NONE SEEN) Urine Mucus None seen (None Seen) Urine Trichomonas None seen (NONE SEEN) Urine Yeast None (NONE SEEN) Urinalysis Comment None Urine Osmolality 225mOs/kH2O (250-1200) Urine Random Sodium 57mEq/L Osmolality 305 (275-300) Test 10/14/16 04:25 10/15/16 05:45 10/16/16 05:30 Neutrophils (%) (Auto) 75.2% (40-74) Lymphocytes (%) (Auto) 14.5% (14-46) Monocytes (%) (Auto) 9.2% (4-12) Eosinophils (%) (Auto) 0.5% (0-5) Basophils (%) (Auto) 0.3% (0-3) Total Creatine Kinase 51U/L (21-215) Thyroid Stimulating Hormone (TSH) 6.010uIU/mL (0.450-4.500) Free Thyroxine 1.43ng/dL (0.82-1.77) Cortisol 14.5ug/dL (.) Total Bilirubin 1.0mg/dL (0.0-1.2) Aspartate Amino Transf (AST/SGOT) 18U/L (0-50) Alanine Aminotransferase (ALT/SGPT) 10U/L (0-32) Alkaline Phosphatase 137U/L (25-165) Total Protein 5.4g/dL (6.4-8.4) Albumin 3.2g/dL (3.4-5.0) White Blood Count 5.4th/mm3 (3.8-10.1) Red Blood Count 3.53mil/mm3 (3.90-5.20) Hemoglobin 11.6g/dL (12.0-15.6) Hematocrit 34.9% (35.0-46.0) Mean Corpuscular Volume 98.9fL (81-100) Mean Corpuscular Hemoglobin 32.9pg (27.0-35.0) Mean Corpuscular Hemoglobin Concent 33.2% (32.0-37.0) Red Cell Distribution Width 14.8% (12.3-15.4) Platelet Count 175bil/L (150-400) Sodium Level 130mEq/L (134-144) Potassium Level 4.3mEq/L (3.5-5.2) Chloride Level 93mEq/L (97-108) Carbon Dioxide Level 24mmol/L (18-29) Blood Urea Nitrogen 16mg/dL (8-27) Creatinine 1.19mg/dL (0.57-1.00) Estimat Glomerular Filtration Rate 63mL/min (>59) Glucose Level 120mg/dL (60-99) Calcium Level 8.6mg/dL (8.5-10.1) Phosphorus Level 4.2mg/dL (2.5-4.9) Magnesium Level 2.0mg/dL (1.6-2.6) Discharge Medications Discharge Medications Apixaban (Eliquis) 5 Mg Tablet 5 MG PO BID (Reported) Calcitonin,[place],Synthetic (Calcitonin-[place]) 3.7 Ml [place].pump 1 SPRAY NASAL every other day (Reported) Calcium Carbonate (Calcium Carbonate) 200 Mg Tab.chew 500 MG PO BIDWM Prescribed by: JACOB DOMÍNGUEZ DO Esomeprazole Magnesium (Nexium) 40 Mg Capsule.dr 40 MG PO DAILY (Reported) Gabapentin (Gabapentin) 100 Mg Capsule 300 MG PO TID (Reported) Hydrocortisone (Hydrocortisone) 20 Mg Tablet 10 MG PO BID (Reported) Levothyroxine (Levothyroxine) 125 Mcg Tablet 125 MCG PO DAILY (Reported) Vit#96/Ferrous Fum/FA ( Tablet) 1 Each Tablet 1 TABLET PO DAILY Prescribed by: JACOB DOMÍNGUEZ DO Thiamine Mononitrate (Vitamin B-1) 100 Mg Tablet 100 MG PO DAILY (Reported) Valsartan (Valsartan) 80 Mg Tablet 40 MG PO DAILY Prescribed by: Inez LUCAS As needed Albuterol HFA (Proair HFA) 8.5 Gm Hfa.aer.ad 2 PUFFS INHALATION Q4H PRN PRN For Shortness of Breath Prescribed by: LIZETT DUNBAR MD Followup Plan Disposition: Patient was discharged to home Follow-up plan Please follow-up with your primary care doctor, Dr. Escobar Discharge Diet: Heart Healthy, Other (Restrict fluid to less than 2 Liters per day) Discharge Activity: No restrictions Patient Instructions You presented to the ED after having a fall, likely related to alcohol use. We did a CT of your brain, face, abdomen, pelvis, and spine which did not show any acute problems or fractures. We found that your sodium and potassium were low and you were undergoing alcohol withdrawals. We tried to correct your potassium by giving you more and your sodium by restricting your fluid intake. We also gave you fluids/vitamins/thiamine for your alcohol withdrawals. This afternoon, you state that you want to leave the hospital. I explained that your sodium is still somewhat low and you are still undergoing withdrawals. You explained your understanding with regards to this. For your low sodium, we ask that you try to restrict your fluid intake to less than 2 Liters in a day. In addition, we discussed the importance of staying away from alcohol use. We also resumed the medicine Valsartan that you were taking to control your blood pressure because your blood pressure was high when you came in. Please continue to take valsartan 40 mg daily and follow-up with your primary care doctor in a week. Follow-up Provider: Anthony Escobar MD Follow-up with PCP in: 1 week Time spent Greater than 30 minutes was spent in preparation of discharge with greater than 50% of that time dedicated to patient counseling and coordination of care. . Attending Statement The patient was seen and examined together with Dr. Good on 10/16/2016 and I agree with the history, exam and plan as outlined in the note above. . copies to: Anthony Escobar MD, Alexa N DO Oct 16, 2016 17:49 Benny Nazario MD Oct 17, 2016 14:05
== END 2016-10-16 15:55 | disposition home or self-care (01) | DRG 644 ==
LOC: SED 19:34 → PCC 10-14 00:31
PROVIDERS: ADMIT Hospitalist; ATTEND Internal Medicine
PROC: 4A033R1 Measurement of Arterial Saturation, Peripheral, Percutaneous Approach (ICD-10-PCS; principal; 2016-10-13)
DX: E22.2 Syndrome of inappropriate secretion of antidiuretic hormone (principal); E87.2 Acidosis; F10.239 Alcohol dependence with withdrawal, unspecified; F10.229 Alcohol dependence with intoxication, unspecified; Y90.8 Blood alcohol level of 240 mg/100 ml or more; Z85.3 Personal history of malignant neoplasm of breast; W18.30XA Fall on same level, unspecified, initial encounter; Z91.81 History of falling; Y92.019 Unspecified place in single-family (private) house as the place of occurrence of the external cause; M54.9 Dorsalgia, unspecified; E03.9 Hypothyroidism, unspecified; K21.9 Gastro-esophageal reflux disease without esophagitis; I10 Essential (primary) hypertension; Z66 Do not resuscitate; Z91.19 Patient's noncompliance with other medical treatment and regimen

== ENCOUNTER 2016-10-19 19:52 | Observation (INO) | payer MEDICARE, OTHER ==
[~2016-10-19] VITALS: Ht 175.3 cm; Wt 72.2 kg
[~2016-10-19 19:52] MED LIST changes: -AMLO5TAB2 PO; +CALC3.8S NASAL; -FENT1PAT7 TOPICAL; -HYDR-3740 PO; -LOSA50TA37 PO; -METO-369 PO; -POTA20TA7 PO; -SLOW MAG PO; -TEMA15CA3 PO; +VALS80TA25 PO
[2016-10-19 20:02] VITALS: BP 165/72; PULSE 81; RESP 16; O2SAT 96
--- NOTE | 2016-10-19 20:02 | ED.REPORT ---
HPI-Trauma Minor / Fall Date of Service Oct 19, 2016 ED Provider: Stephen Rossi DO Pt is a 76 year old female with a history of alcohol abuse, chronic back pain, hypothyroidism, hypertension, pulmonary embolism who presents to the ED complaining of worsening lower lumber back pain onset 1 week ago. She denies abdominal pain, GLF, numbness, and any other symptoms. She reports bilateral paresthesia in her feet, but states that this is chronic for her. Pt lives alone. The pt presented to the ED on after a ground level fall resulting in her back pain. She was discharged with a normal CT scan. Pt reports that she was not prescribed pain medication for her back pain. Nursing Notes Stated Complaint: GLF, LOWER BACK PAIN Chief Complaint: Back Pain or Injury Nursing Notes Reviewed: Yes Allergies: Coded Allergies: morphine (Verified Allergy, Severe, Anxiety and panic attack, 10/13/16) Sulfa (Sulfonamide Antibiotics) (Verified Allergy, Unknown, 10/13/16) Pt. was unable recall reaction to sulfa Scheduled Apixaban (Eliquis) 5 Mg Tablet 5 MG PO BID Calcitonin,Metaline,Synthetic (Calcitonin-Metaline) 3.7 Ml [place].pump 1 SPRAY NASAL every other day Calcium Carbonate (Calcium Carbonate) 200 Mg Tab.chew 500 MG PO BIDWM Esomeprazole Magnesium (Nexium) 40 Mg Capsule.dr 40 MG PO DAILY Gabapentin (Gabapentin) 100 Mg Capsule 300 MG PO TID Hydrocortisone (Hydrocortisone) 20 Mg Tablet 10 MG PO BID Levothyroxine (Levothyroxine) 125 Mcg Tablet 125 MCG PO DAILY Vit#96/Ferrous Fum/FA ( Tablet) 1 Each Tablet 1 TABLET PO DAILY Thiamine Mononitrate (Vitamin B-1) 100 Mg Tablet 100 MG PO DAILY Valsartan (Valsartan) 80 Mg Tablet 40 MG PO DAILY Scheduled PRN Albuterol HFA (Proair HFA) 8.5 Gm Hfa.aer.ad 2 PUFFS INHALATION Q4H PRN PRN For Shortness of Breath General Time Seen by MD: 20:02 Chief Complaint Other (back pain) Hx Obtained From: Patient, EMS Arrived By: Ambulance Onset Occurred: 1 week ago Symptom Duration: Since onset Caused by: Accidental Location: Back Quality: Painful Severity: Current: Moderate Severity: Maximum: Moderate Recent Healthcare: Recent doctor visit Similar Sx Previous: Yes Past Medical History Past Medical History Hypothyroidism 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 Parathyroid adenoma Reports: Cancer, GERD, Hypertension Reports: Atrial fibrillation, Depression Past Surgical History Tongue resection Total mastectomy Reports: Knee replacement Family History Noncontributory Smoking History Never Smoker Social History Resides at [facility] Alcohol Use: >5 per day Drug Use: Denies drug use Other Social History: Good social support, Local resident Ambulatory Status Wheelchair Review of Systems + paresthesia in feet, bilaterally, chronic Musculoskeletal: Reports: Back pain, Denies: Extremity pain Neurologic: Denies: Numbness Complete sys rev & neg: except as marked. GI: Denies: Abdominal pain Physical Exam Initial Vital Signs Vital Signs (First) Date Time Temp Pulse Resp B/P Pulse Ox O2 Delivery O2 Flow Rate FiO2 10/19/16 20:02 36.9 81 16 165/72 96 Room Air Initial VS: Reviewed Respiratory: Breath sounds normal, Clear to auscultation, No respiratory distress Cardiovascular: Regular rate & rhythm, Heart sounds normal, Intact distal pulses Abdomen / GI: Soft, Non-tender Extremities: Vascular intact, Neuro intact Skin: Warm, Dry, No cyanosis Neurologic: Alert, Oriented, Nonfocal Psychiatric: Mood/affect normal, Behavior normal General/Constitutional: Awake, Alert Neck: Atraumatic, Full range of motion Head / Eyes: Atraumatic, Normocephalic Right eye ecchymosis Back: Full range of motion Tender lumbar spine. Lower Extremity / Pelvis / MS: Atraumatic, Full range of motion, Neurologic intact, Vascular intact, Pelvis stable, Pelvis non-tender Ankle / Foot: Neurologic intact, Vascular intact Strong pedal pulses Interpretation & Diagnostics Lab Results Interpretation Result Diagram: 10/19/16213810/19/162138 Test 10/19/16 21:33 10/19/16 21:39 Urine Color Yellow (YELLOW) Urine Appearance Clear (CLEAR,HAZY) Urine pH 6.0 (5.0-8.0) Urine Specific [place] 1.010 (1.003-1.035) Urine Protein Negativemg/dL (NEG,TRACE) Urine Glucose (UA) Negativemg/dL (NEGATIVE) Urine Ketones Negativemg/dL (NEGATIVE) Urine Occult Blood Negative (NEGATIVE) Urine Nitrite Negative (NEGATIVE) Urine Bilirubin Negative (NEGATIVE) Urine Urobilinogen Normalmg/dL (NORMAL) Urine Leukocyte Esterase Negative (NEGATIVE) Urine RBC 0-2/hpf (0-2) Urine WBC 0-5/hpf (0-5) Urine Epithelial Cells Few/hpf (NONE-MOD) Urine Crystals None seen (NONE SEEN) Urine Bacteria Few/hpf (NONE-FEW) Urine Hyaline Casts None/lpf (NONE) Urine Granular Casts None seen (NONE SEEN) Urine Waxy Casts None seen (NONE SEEN) Urine Red Blood Cell Casts None seen (NONE SEEN) Urine White Blood Cell Casts None seen (NONE SEEN) Urine Mucus None seen (None Seen) Urine Trichomonas None seen (NONE SEEN) Urine Yeast None (NONE SEEN) Urinalysis Comment None Urine Culture Reflexed Not indicated White Blood Count 6.9th/mm3 (3.8-10.1) Red Blood Count 4.12mil/mm3 (3.90-5.20) Hemoglobin 13.5g/dL (12.0-15.6) Hematocrit 40.0% (35.0-46.0) Mean Corpuscular Volume 97.1fL (81-100) Mean Corpuscular Hemoglobin 32.8pg (27.0-35.0) Mean Corpuscular Hemoglobin Concent 33.8% (32.0-37.0) Red Cell Distribution Width 14.8% (12.3-15.4) Platelet Count 217bil/L (150-400) Neutrophils (%) (Auto) 69.3% (40-74) Lymphocytes (%) (Auto) 19.3% (14-46) Monocytes (%) (Auto) 9.6% (4-12) Eosinophils (%) (Auto) 1.0% (0-5) Basophils (%) (Auto) 0.4% (0-3) Prothrombin Time 11.6sec (8.1-12.5) Prothromb Time International Ratio 1.08ratio Sodium Level 134mEq/L (134-144) Potassium Level 4.5mEq/L (3.5-5.2) Chloride Level 97mEq/L (97-108) Carbon Dioxide Level 23mmol/L (18-29) Blood Urea Nitrogen 11mg/dL (8-27) Creatinine 0.97mg/dL (0.57-1.00) Estimat Glomerular Filtration Rate 80mL/min (>59) Glucose Level 105mg/dL (60-99) Lactic Acid Level 1.5mmol/L (0.4-2.0) Calcium Level 9.7mg/dL (8.5-10.1) Magnesium Level 2.0mg/dL (1.6-2.6) Total Bilirubin 0.5mg/dL (0.0-1.2) Aspartate Amino Transf (AST/SGOT) 18U/L (0-50) Alanine Aminotransferase (ALT/SGPT) 10U/L (0-32) Alkaline Phosphatase 123U/L (25-165) Total Protein 6.5g/dL (6.4-8.4) Albumin 3.7g/dL (3.4-5.0) Alcohols < 10mg/dL (0-10) Re-Eval/Medical Decision Source of Hx: Old records Re-Evaluation/Progress : Time of Eval: 00:33 Re-Evaluation/Progress Note: Pt rechecked. Pt was provided dilaudid, but when we tried to get her up for a road test, she cried secondary to her back pain. She had an L1 compression fracture that was subacute 1 week ago. Informed pt of plan for admission. Pt understands and agrees with plan for admission. All questions addressed. Consultation : Referral / Consult Name: Jyoti Montanez DO Consulted With: Hospitalist Call Returned at: 00:51 Outside Contractor Sales: Will see patient, Agrees with eval, Agrees with plan, Accepts admit Counseled Regarding: Diagnosis, Lab results, Need for admission Discharge & Departure Impression: Primary Impression: Intractable back pain Additional Impression: Lumbar compression fracture Encounter type: initial encounter Fracture type: closed Qualified Code: S32.000A - Wedge compression fracture of unspecified lumbar vertebra, initial encounter for closed fracture Disposition: ADMITTED TO HOSPITAL Discharge Condition All VS Reviewed: Yes Condition: Stable Referrals: BERTA (PCP) Angeles Attestation Portions of this note were transcribed by Mariaa Porter. I, Dr. Rossi personally performed the history, physical exam and medical decision-making; I reviewed and confirmed the accuracy of the information in the transcribed note. Signed by : Angeles Amanda, 10/19/16. copies to: Stephen Gonzalez DO Oct 19, 2016 20:02 Mariaa Umaña Oct 19, 2016 20:13
[2016-10-19 21:48] LABS: BASOPHILS % (AUTO) 0.4 % (0-3); MONOCYTES % (AUTO) 9.6 % (4-12); Mean Corpuscular Hemoglobin 32.8 pg (27.0-35.0); Mean Corpuscular Volume 97.1 fL (81-100); NEUTROPHILS % (AUTO) 69.3 % (40-74); Platelet Count 217 bil/L (150-400)
[2016-10-19] MEDS: HYDROmorphone 0.5 mg/0.5 mL iSecure Syringe IVPUSH PRN ×2 (21:50→22:34)
[2016-10-19 22:00] LABS: APPEARANCE,URINE CLEAR (CLEAR,HAZY); COLOR,URINE YELLOW (YELLOW); OCCULT BLOOD,URINE NEGATIVE (NEGATIVE); UROBILINOGEN,URINE NORMAL (NORMAL)
[2016-10-19 22:04] LABS: INR 1.08 ratio
[2016-10-20] VITALS (10 sets, daily range): BP systolic 125–167; BP diastolic 63–82; PULSE 68–81; RESP 16–18; O2SAT 94–97
[2016-10-20] MEDS: HYDROmorphone 0.5 mg/0.5 mL iSecure Syringe IVPUSH PRN ×3 (00:33→09:49)
--- NOTE | 2016-10-20 01:08 | PCM.HPMED ---
Subjective Date of Service Oct 20, 2016 Primary Provider: Admitting Physician: Primary Care Physician: Aleja Attending Physician: Admit Status: From the Emergency Department Chief Complaint: Intractable back pain History of Present Illness: Patient is a 76-year-old female that presents to the emergency department with intractable back pain due to multilevel compression fractures. Patient has a history of alcohol abuse, multiple falls, hypothyroidism, pulmonary embolism on Apixaban, hypertension, tongue cancer Patient was seen in the ED on 10/13/2016 after a ground-level fall likely secondary to alcohol consumption. At that time patient underwent CT of brain, face, chest abdomen pelvis, and cervical spine. The only abnormalities found was multiple compression fractures in the thoracic spine and in L1. Patient reports that since that time she has had continued if not worsening pain. She denies weakness, numbness, loss of bowel, saddle anesthesia. She admits to chronic bilateral paresthesias of feet, incontinence of urine predating the fall. Currently patient is using a wheelchair for mobility. Patient lives alone and has limited capacity to transfer. Review of Systems: Complete ROS was performed and pertinent positives and negatives included in the history of present illness. All other findings were negative. Allergies Coded Allergies: morphine (Verified Allergy, Severe, Anxiety and panic attack, 10/13/16) Sulfa (Sulfonamide Antibiotics) (Verified Allergy, Unknown, 10/13/16) Pt. was unable recall reaction to sulfa Home Medications Apixaban (Eliquis) 5 Mg Tablet 5 MG PO BID Calcitonin,[place],Synthetic (Calcitonin-[place]) 3.7 Ml [place].pump 1 SPRAY NASAL every other day Calcium Carbonate (Calcium Carbonate) 200 Mg Tab.chew 500 MG PO BIDWM Esomeprazole Magnesium (Nexium) 40 Mg Capsule.dr 40 MG PO DAILY Gabapentin (Gabapentin) 100 Mg Capsule 300 MG PO TID Hydrocortisone (Hydrocortisone) 20 Mg Tablet 10 MG PO BID Levothyroxine (Levothyroxine) 125 Mcg Tablet 125 MCG PO DAILY Vit#96/Ferrous Fum/FA ( Tablet) 1 Each Tablet 1 TABLET PO DAILY Thiamine Mononitrate (Vitamin B-1) 100 Mg Tablet 100 MG PO DAILY Valsartan (Valsartan) 80 Mg Tablet 40 MG PO DAILY Albuterol HFA (Proair HFA) 8.5 Gm Hfa.aer.ad 2 PUFFS INHALATION Q4H PRN PRN For Shortness of Breath PMH Hypothyroidism 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 Parathyroid adenoma GERD Hypertension Atrial fibrillation Depression Surgical History Tongue resection Total mastectomy Reports: b/l knee replacement Family History No history of nerve problems Father, [place] at 78, cause of Grandmother, stroke Grandmother, uterine cancer Social History Hx Alcohol Use: Yes (two drinks per day) Hx Substance Use: No Hx Tobacco Use: Yes (quit in 1991 per previous records) Smoking Status: Never Smoker Living Arrangement: Alone Exam Vital Signs Vital Sign - Last Date Time Temp Pulse Resp B/P Pulse Ox O2 Delivery O2 Flow Rate FiO2 10/20/16 00:33 81 144/65 94 Room Air 10/19/16 20:02 36.9 16 Exam General: Nondistressed, well-developed well-nourished female HEENT: NC/AT, PERRLA, EOM intact. Nontender sinuses, no nasal discharge. Poor dentation, no erythema, nor exudate present in oropharynx. Surgical tongue. No thyromegaly appreciated. Surgical scar is apparent on neck and chin on the right CV: Regular rate and rhythm, no murmurs, gallops, or rubs appreciated RESP: Clear to auscultation bilaterally, no wheezes or rhonchi appreciated ABD: Bowel sounds normal, nondistended, nontender to palpation. EXT: No joint swelling, no edema appreciated LYMPH: No cervical or axillary adenopathy appreciated NEURO: No droop appreciated in face, cranial nerves grossly intact, strength intact bilaterally upper and lower extremities, sensation to light touch intact bilaterally upper and lower extremities. PSYCH: Oriented 4. Linear and appropriate conversation. Skin: No rashes appreciated. Periorbital ecchymosis left eye Lab and Diagnostics Result Diagram: 10/19/16213810/19/162138 X-Rays, CTs and MRIs XRay, CTs & MRIs CT brain IMPRESSION: No acute intracranial abnormality. Dictated by: Brandin Godoy M.D. on 10/13/2016 at 20:[address] IMPRESSION: No fracture. Dictated by: Brandin Godoy M.D. on 10/13/2016 at 20:[address] 1. No evidence of acute injury to the chest, abdomen, nor pelvis following ground-level fall. 2. Multilevel compression fracture within the thoracic spine, as described above. There is increased, mild wedging of L1 compared to 7.26.17, which appears chronic versus subacute. Dictated by: Brandin Godoy M.D. on 10/13/2016 at 20:[address] IMPRESSION: No acute fracture. Dictated by: Brandin Godoy M.D. on 10/13/2016 at 20:55 Assessment & Plan Patient is a 76-year-old female with intractable back pain secondary to multilevel compression fracture of spine. She has a history of alcoholism, hypothyroidism, hypertension 1. Compression fractures of spine, multilevel, present on admission and ongoing -Patient was diagnosed with multiple compression fractures of the spine on 10/13. She returns with uncontrolled pain. She denies additional injury -Patient lives alone and has limited capacity for self-care as she is currently using a wheelchair to be mobile -PT request placed -Dilaudid for pain control, patient is allergic to morphine 2. Hypertension, present upon admission and ongoing -Blood pressure 165/72 upon admission to the emergency department. Most recent blood pressure of 144/65. -Continue home regimen 3. Hypothyroidism, present upon admission and ongoing -On 10/14/2016 patient TSH was 6.01. Patient will be continued on her levothyroxine -Patient should follow-up outpatient Patient is being admitted as observation status. I expect her to spend less than 2 midnights in the hospital Pain Evaluation: Adequate Pain Control GI Prophylaxis: Proton Pump Inhibitor VTE Prophylaxis: Other (Apixaban) Resuscitation Status: DNR/DNI:Do Not Resuscitate/Intubate Attending Statement The patient was seen and examined together with house staff on 10/20/2016 and I agree with the history, exam and plan as outlined in the note above. Sharlene Maguire DO Oct 20, 2016 00:56 Jyoti Montanez DO Oct 20, 2016 06:37
[2016-10-20] MEDS ORDERED: HYDROmorphone 0.5 mg/0.5 mL iSecure Syringe IVPUSH PRN (01:35)
[2016-10-20] MEDS ORDERED: Polyethylene Glycol (PEG) 17 Gm Powder PO PRN (01:35)
[2016-10-20] MEDS ORDERED: Ondansetron 2 mg/mL 2 mL Inj IVPUSH PRN (01:35)
[2016-10-20] MEDS ORDERED: Alum-Mag Hydrox-Simeth 30 mL Suspension PO PRN (01:35)
--- NOTE | 2016-10-20 02:49 | NUR ---
Admit Admitted pt on the floor with low back pain 11/14. Dilaudid administered PRN. Pt states that she's still having pain with movement. Denies sob, n/v or bad disomfort. Continuing care.
[2016-10-20] MEDS ORDERED: Albuterol 2.5 mg/3 mL Inhalation Solution NEB PRN (08:07)
[2016-10-20] MEDS: Multivit-Miner-Folic Acid-Iron Tablet PO SCH (08:23)
[2016-10-20] MEDS: Polyethylene Glycol (PEG) 17 Gm Powder PO SCH ×2 (08:28→20:11)
[2016-10-20] MEDS: Pantoprazole 40 mg ER24 Tablet PO SCH (08:54)
[2016-10-20] MEDS: Hydrocortisone 10 mg Tablet PO SCH ×2 (08:54→20:11)
--- NOTE | 2016-10-20 10:43 | NUR ---
upset about DC pt is teary eyed and upset about her possible DC tomorrow. pt states that she doesn't know what she will do or how she will take care of herself after discharge. This RN let her know that we will not discharge her until it is deemed appropriate by a doctor. This RN also let her know that the hospital social problems specialist will be in touch to line up any resources that she may need at discharge.
[2016-10-20] MEDS: Calcitonin 200 IU 3.7 mL Nasal Spray NASAL SCH (10:48)
--- NOTE | 2016-10-20 10:53 | NUR ---
chest pain pt reports sharp chest pain. Dilaudid given for pain, nitro given, EKG ordered. After approximately 5 minutes patient reports that the chest pain has improved.
--- NOTE | 2016-10-20 12:23 | NUR ---
Case Management: TIA given and explained to pt. Agata FLOODRN
[2016-10-21] VITALS (9 sets, daily range): BP systolic 130–156; BP diastolic 75–84; PULSE 63–92; RESP 16–18; O2SAT 94–98
--- NOTE | 2016-10-21 04:12 | NUR ---
Insomnia Patient reported at 0100 that she feels restless and unable to sleep. paged, new order for OT Temazepam. Administered, patient is now sleeping.
[2016-10-21] MEDS: Polyethylene Glycol (PEG) 17 Gm Powder PO SCH ×2 (08:30→20:07)
[2016-10-21] MEDS: HYDROcodone-APAP 5-325 mg Tablet PO PRN ×3 (09:51→19:31)
[2016-10-21] MEDS: Multivit-Miner-Folic Acid-Iron Tablet PO SCH (09:52)
[2016-10-21] MEDS: Pantoprazole 40 mg ER24 Tablet PO SCH (09:52)
[2016-10-21] MEDS: Hydrocortisone 10 mg Tablet PO SCH ×2 (09:52→20:07)
[2016-10-21] MEDS: Calcitonin 200 IU 3.7 mL Nasal Spray NASAL SCH (11:01)
--- NOTE | 2016-10-21 12:16 | NUR ---
Evaluation completed. Please go to "Notes" then click on "Assessments and Notes" (bottom left corner of screen). Then select appropriate discipline tab on top of screen.
--- NOTE | 2016-10-21 15:56 | NUR ---
Social Work- Initial Assessment/Multidisciplinary Rounds Data: See attached CM initial assessment. Pt is a 76 year old female admitted for intractable back pain per H&P. Pt's insurance is [facility]. Pt reports that she has no current PCP, history of Salome Espinoza PA-C and Anthony Escobar MD. Pt's readmit risk score is 4/8 high risk. Pt discussed at bedside multidisciplinary rounds, pt is unhappy to be under observation status. SW to discuss with pt options at discharge. PT has evaluated pt, recommending SNF at this time. SW met with pt at bedside to discuss discharge, SW role explained. Pt alert and oriented x3. Pt resides at home in [facility]. Pt is not independent at baseline and requires assistance at home with ADLs but does not currently have anyone available. Pt uses a wheelchair at baseline. Pt has history of HH RN PT through [facility]. Pt has history of Milagros Argyle x5. Pt has no LTC or VA benefits. Per pt, pt's son is available to assist at home. Pt declined SW request to speak with her son to assist with d/c planning. Discussed with pt the following options: 1) private pay SNF, pt declines private pay SNF 2) Pt has no PCP and would be unable to receive HH services at this time. Pt declined HH services at this time as well. 3) respite bed at assisted living, declined respite at assisted living 4) home with private pay caregivers. pt declined this option at this time. Pt understands that if she declines all of these options she will d/c home with no supportive services. Pt declines having [employer] contact her son. Pt provided with HH and SNF choice list, list of private caregivers and caregiving companies. Pt declines information regarding respite at assisted living. SW explored with pt the factors that contribute to her falling, pt denies that etoh consumption is a contributing factor. Was not willing to engage any further regarding this. SW provided phone number and plan on whiteboard, encouraged pt to think about her options and contact her son. D/C planning checklist provided for pt at bedside. SW will continue to follow. Assessment: Pt who requires assistance at home, is not agreeable to this at this time. Plan: Pt who is not agreeable to any of the options listed above. SW provided phone number and plan on whiteboard, encouraged pt to think about her options and contact her son. D/C planning checklist provided for pt at bedside. SW will continue to follow. DEYA Monroe Addendum: 10/21/16 at 1607 by GAUTAM HDZ SS Amended: Links added. Addendum: 10/21/16 at 1740 by GAUTAM HDZ SS Pt notified [employer] that she is agreeable to referral to [facility] for private pay SNF. notified, SNF order received. T/C to admissions at [facility] regarding bed availability, will not be able to accept tonight due to late hour. Access given, [facility] will review and SW will follow up tomorrow morning. SW will continue to follow. DEYA Monroe
--- NOTE | 2016-10-21 18:12 | PCM.PNMED ---
Subjective Date of Service Oct 21, 2016 Subjective Still continues to have significant back pain and does not feel she can manage at home. She says her tramadol dose was increased and she felt quite shaky and anxious with this. Exam Vital Signs Vital Sign - Last Date Time Temp Pulse Resp B/P Pulse Ox O2 Delivery O2 Flow Rate FiO2 10/21/16 16:19 91 10/21/16 13:08 36.3 18 140/78 96 Room Air Intake and Output 10/20/16 10/20/16 10/21/16 Cumulative From/Thru 15:00 23:00 07:00 10/19/16 20:02 - 10/21/16 05:47 Intake Total 657 ml 318 ml 1143 ml Output Total 550 ml 350 ml 1000 ml Balance 107 ml -32 ml 143 ml Intake Oral 657 ml 318 ml 1143 ml Output Urine Total 550 ml 350 ml 1000 ml # Bowel Movements 0 0 0 Exam General: Alert, no acute distress Heart: Regular Lungs: Clear Abdomen: Soft, non-tender Extremities: No pedal edema IVs and Medications Medications Reviewed: Medications were reviewed in detail Lab and Diagnostics Result Diagram: 10/19/16213810/19/162138 X-Rays, CTs and MRIs XRay, CTs & MRIs CT brain IMPRESSION: No acute intracranial abnormality. Dictated by: Brandin Godoy M.D. on 10/13/2016 at 20:[address] IMPRESSION: No fracture. Dictated by: Brandin Godoy M.D. on 10/13/2016 at 20:[address] 1. No evidence of acute injury to the chest, abdomen, nor pelvis following ground-level fall. 2. Multilevel compression fracture within the thoracic spine, as described above. There is increased, mild wedging of L1 compared to 7.26.17, which appears chronic versus subacute. Dictated by: Brandin Godoy M.D. on 10/13/2016 at 20:[address] IMPRESSION: No acute fracture. Dictated by: Brandin Godoy M.D. on 10/13/2016 at 20:55 Assessment & Plan Patient is a 76-year-old female with intractable back pain secondary to multilevel compression fracture of spine. She has a history of alcoholism, hypothyroidism, hypertension 1. Compression fractures of spine, multilevel, present on admission and ongoing -Patient was diagnosed with multiple compression fractures of the spine on 10/13. She returns with uncontrolled pain. She denies additional injury -Patient lives alone and has limited capacity for self-care as she is currently using a wheelchair to be mobile -PT request placed, had not yet been seen as of this morning -Dilaudid for pain control, patient is allergic to morphine - We'll try Vicodin instead of the tramadol 2. Hypertension, present upon admission and ongoing -Blood pressure 165/72 upon admission to the emergency department. Most recent systolic blood pressures in 140's -Continue home regimen 3. Hypothyroidism, present upon admission and ongoing -On 10/14/2016 patient TSH was 6.01. Patient will be continued on her levothyroxine -Patient should follow-up outpatient Patient is being admitted as observation status. I expect her to spend less than 2 midnights in the hospital GI Prophylaxis: Proton Pump Inhibitor VTE Prophylaxis: Other Resuscitation Status: DNR/DNI:Do Not Resuscitate/Intubate Meli Wang MD Oct 21, 2016 18:12
[2016-10-22 00:24] VITALS: BP 166/98; PULSE 74; RESP 16; O2SAT 95
[2016-10-22] MEDS: HYDROcodone-APAP 5-325 mg Tablet PO PRN ×5 (02:08→20:07)
--- NOTE | 2016-10-22 05:03 | NUR ---
NOC shift note Patient reported that Vicodin is working better to control pain than, rates pain 4-7/10. Up with SBA to BSC. Patient requested sleeping aid- MD ordered one time dose of Temazepam. Patient concerned about not receiving home med, María- paged, no new orders, said she'd pass it on to the day team. Vitals stable. Intentional rounding in place.
[2016-10-22 05:39] VITALS: BP 160/77; PULSE 60; RESP 16; O2SAT 94
[2016-10-22 06:32] VITALS: PULSE 81
[2016-10-22] MEDS: Multivit-Miner-Folic Acid-Iron Tablet PO SCH (08:21)
[2016-10-22] MEDS: Pantoprazole 40 mg ER24 Tablet PO SCH (08:22)
[2016-10-22] MEDS: Hydrocortisone 10 mg Tablet PO SCH ×3 (08:22→20:12)
[2016-10-22] MEDS: Polyethylene Glycol (PEG) 17 Gm Powder PO SCH ×3 (08:23→20:12)
[2016-10-22] MEDS: Calcitonin 200 IU 3.7 mL Nasal Spray NASAL SCH (08:31)
[2016-10-22 13:28] VITALS: BP 144/86; PULSE 64; RESP 18; O2SAT 90
--- NOTE | 2016-10-22 14:22 | PCM.PNMED ---
Subjective Date of Service Oct 22, 2016 Subjective Fairly good control of her back pain with Vicodin, feels ready to transfer to SNF today Exam Vital Signs Vital Sign - Last Date Time Temp Pulse Resp B/P Pulse Ox O2 Delivery O2 Flow Rate FiO2 10/22/16 13:28 36.9 64 18 144/86 90 Room Air Intake and Output 10/21/16 10/21/16 10/22/16 Cumulative From/Thru 15:00 23:00 07:00 10/19/16 20:02 - 10/22/16 05:39 Intake Total 1400 ml 550 ml 3093 ml Output Total 1400 ml 900 ml 3300 ml Balance 0 ml -350 ml -207 ml Intake Oral 1400 ml 550 ml 3093 ml Output Urine Total 1400 ml 900 ml 3300 ml # Bowel Movements 0 1 1 Exam General: Alert and oriented, no acute distress Heart: Regular Lungs: Clear Abdomen: Soft, non-tender Extremities: No pedal edema IVs and Medications Medications Reviewed: Medications were reviewed in detail Lab and Diagnostics Result Diagram: 10/19/16213810/19/162138 X-Rays, CTs and MRIs XRay, CTs & MRIs CT brain IMPRESSION: No acute intracranial abnormality. Dictated by: Brandin Godoy M.D. on 10/13/2016 at 20:[address] IMPRESSION: No fracture. Dictated by: Brandin Godoy M.D. on 10/13/2016 at 20:[address] 1. No evidence of acute injury to the chest, abdomen, nor pelvis following ground-level fall. 2. Multilevel compression fracture within the thoracic spine, as described above. There is increased, mild wedging of L1 compared to 7.26.17, which appears chronic versus subacute. Dictated by: Brandin Godoy M.D. on 10/13/2016 at 20:[address] IMPRESSION: No acute fracture. Dictated by: Brandin Godoy M.D. on 10/13/2016 at 20:55 Assessment & Plan Patient is a 76-year-old female with intractable back pain secondary to multilevel compression fracture of spine. She has a history of alcoholism, hypothyroidism, hypertension 1. Compression fractures of spine, multilevel, present on admission and ongoing -Patient was diagnosed with multiple compression fractures of the spine on 10/13. She returns with uncontrolled pain. She denies additional injury -Patient lives alone and has limited capacity for self-care as she is currently using a wheelchair to be mobile -PT evaluation done yesterday and felt to be appropriate for SNF. She will be private pay and only wants to go to [facility] who does not have an admit nurse today. Declines other options. -Vicodin prn for pain control 2. Hypertension, present upon admission and ongoing -Blood pressure 165/72 upon admission to the emergency department. Most recent systolic blood pressures in 140's - 160s -We'll increase valsartan from 40 to 80 mg daily 3. Hypothyroidism, present upon admission and ongoing -On 10/14/2016 patient TSH was 6.01. Patient will be continued on her levothyroxine -Patient should follow-up outpatient 4. Chronic anticoagulation which patient says is for a history of pulmonary embolus - Resume Eliquis 5. Chronic pain (patti feet) -Takes Gabapentin 600 mg tid at home and wants back on this dose (only getting 300 mg bid currently) Patient was admitted as observation status which has been prolonged, see #1 above GI Prophylaxis: Proton Pump Inhibitor VTE Prophylaxis: Other Resuscitation Status: DNR/DNI:Do Not Resuscitate/Intubate Meli Wang MD Oct 22, 2016 14:21
--- NOTE | 2016-10-22 15:17 | NUR ---
Social Work: Continued Discharge Planning / Multidisciplinary Rounds Data: EMR reviewed. Patient is on day 2 of hospitalization for intractable low back pain per H&P. Patient was discussed in morning rounds. MD informed staff that patient is medically ready to discharge to SNF today. Per previous SW note, plan was for patient to discharge to [facility] for a private pay bed pending acceptance. ROMERO called [facility] to obtain an update in status of admission. ROMERO was informed that the DON was not available today to make a final decision. There was also no admission nurse available today either. ROMERO was instructed to call back tomorrow and speak with DON to obtain final determination. ROMERO was also informed that due to patient agreeing to be private pay, patient is required to pay an upfront cost of $8,100.00. ROMERO updated MD, primary RN, and patient. Patient expressed understanding and stated that she would like an update in the morning. ROMERO will continue to follow. Assessment: Patient from home; SNF pending. Plan: Patient will likely discharge to [facility] tomorrow pending acceptance. ROMERO will contact DON at [facility] tomorrow to confirm. ROMERO will continue to follow. DEYA Benjamin
[2016-10-22 19:48] VITALS: BP 149/79; PULSE 73; RESP 18; O2SAT 92
[2016-10-22] MEDS ORDERED: HYDROcodone-APAP 5-325 mg Tablet PO ONE (22:35)
[2016-10-23] MEDS: HYDROcodone-APAP 5-325 mg Tablet PO PRN (03:24)
--- NOTE | 2016-10-23 04:06 | NUR ---
Noc/Back Pain Pt reports of back pain most of the time. Administered vicodin as ordered. HS meds as directed. Pt's VSS and has been afebrilev over night.
[2016-10-23 06:56] VITALS: BP 164/82; PULSE 65; RESP 18; O2SAT 94
[2016-10-23] MEDS: Pantoprazole 40 mg ER24 Tablet PO SCH (08:24)
[2016-10-23] MEDS: Multivit-Miner-Folic Acid-Iron Tablet PO SCH (08:24)
[2016-10-23] MEDS: Calcitonin 200 IU 3.7 mL Nasal Spray NASAL SCH (08:25)
[2016-10-23] MEDS: Hydrocortisone 10 mg Tablet PO SCH (08:25)
[2016-10-23] MEDS: Polyethylene Glycol (PEG) 17 Gm Powder PO SCH (08:26)
[2016-10-23 10:47] VITALS: BP 155/81; PULSE 85; RESP 18; O2SAT 92
--- NOTE | 2016-10-23 11:10 | PCM.DIMED ---
Discharge Instructions Date of Service Oct 23, 2016 Dates of Hospitalization Oct 20, 2016 at 01:26 Discharge Diagnosis Discharge Diagnosis Acute Lumbar Compression Fracture Diet Discharge Diet: No restrictions Activity Discharge Activity: No restrictions Patient Instructions Patient Instructions Physical Therapy at [facility] Meli Wang MD Oct 23, 2016 11:10
[2016-10-23] MEDS ORDERED: OXYC-530 PO (11:28)
[2016-10-23] MEDS ORDERED: Acetaminophen PO (11:28)
[2016-10-23] MEDS ORDERED: GABA-500 PO (11:28)
[2016-10-23] MEDS ORDERED: VALS80TA25 PO (11:28)
--- NOTE | 2016-10-23 11:34 | PCM.DC.MED ---
Discharge Summary Date of Service Oct 23, 2016 Dates of Hospitalization Date of Hospital Admission Oct 20, 2016 at 01:26 Date of Discharge: Oct 23, 2016 Providers: Admitting Physician: Jyoti Montanez DO Primary Care Physician: Aleja Attending Physician: Zoey Torres MD Diagnosis at Time of Discharge Diagnosis at Time of Discharge Acute Lumbar Compression Fracture Procedures XRay, CTs & MRIs XRay, CTs & MRIs CT brain IMPRESSION: No acute intracranial abnormality. Dictated by: Brandin Godoy M.D. on 10/13/2016 at 20:[address] IMPRESSION: No fracture. Dictated by: Barndin Godoy M.D. on 10/13/2016 at 20:[address] 1. No evidence of acute injury to the chest, abdomen, nor pelvis following ground-level fall. 2. Multilevel compression fracture within the thoracic spine, as described above. There is increased, mild wedging of L1 compared to 7.26.17, which appears chronic versus subacute. Dictated by: rBandin Godoy M.D. on 10/13/2016 at 20:[address] IMPRESSION: No acute fracture. Dictated by: Brandin Godoy M.D. on 10/13/2016 at 20:55 Brief History Patient is a 76-year-old female that presents to the emergency department with intractable back pain due to multilevel compression fractures. Patient has a history of alcohol abuse, multiple falls, hypothyroidism, pulmonary embolism on Apixaban, hypertension, tongue cancer Patient was seen in the ED on 10/13/2016 after a ground-level fall likely secondary to alcohol consumption. At that time patient underwent CT of brain, face, chest abdomen pelvis, and cervical spine. The only abnormalities found was multiple compression fractures in the thoracic spine and in L1. Patient reports that since that time she has had continued if not worsening pain. She denies weakness, numbness, loss of bowel, saddle anesthesia. She admits to chronic bilateral paresthesias of feet, incontinence of urine predating the fall. Currently patient is using a wheelchair for mobility. Patient lives alone and has limited capacity to transfer. Hospital Course 1. Compression fractures of spine, multilevel, present on admission and ongoing -Patient was diagnosed with multiple compression fractures of the spine on 10/13. She returned with uncontrolled pain. She denies additional injury -Patient lives alone and has limited capacity for self-care as she is currently using a wheelchair to be mobile -PT evaluation done and felt to be appropriate for SNF. She will be private pay and only wants to go to [facility] so discharge delayed until they were able to accept her (on Sunday) -Tylenol plus Oxycodne prn for pain control. On day of discharges says 5 mg not strong enough so will give rx for 5-10 mg q 4 prn 2. Hypertension, present upon admission and ongoing -Blood pressure 165/72 upon admission to the emergency department. Most recent systolic blood pressures in 140's - 160s -increased valsartan from 40 to 80 mg daily on the day prior to discharge 3. Hypothyroidism, present upon admission and ongoing -On 10/14/2016 patient TSH was 6.01. Patient will be continued on her levothyroxine -Patient should follow-up outpatient 4. Chronic anticoagulation which patient says is for a history of pulmonary embolus - Resume Eliquis 5. Chronic pain (patti feet) -Takes Gabapentin 600 mg tid at home and wants back on this dose (initially only getting 300 mg bid here) so back to her usual dose Exam Vital Signs (Last) Date Time Temp Pulse Resp B/P Pulse Ox O2 Delivery O2 Flow Rate FiO2 10/23/16 10:47 36.4 85 18 155/81 92 Room Air Exam General: Alert and oriented, no acute distress Heart: Regular Lungs: Clear Abdomen: Soft, non-tender Extremities: No pedal edema Test 10/19/16 21:33 10/19/16 21:39 Urine Color Yellow (YELLOW) Urine Appearance Clear (CLEAR,HAZY) Urine pH 6.0 (5.0-8.0) Urine Specific [place] 1.010 (1.003-1.035) Urine Protein Negativemg/dL (NEG,TRACE) Urine Glucose (UA) Negativemg/dL (NEGATIVE) Urine Ketones Negativemg/dL (NEGATIVE) Urine Occult Blood Negative (NEGATIVE) Urine Nitrite Negative (NEGATIVE) Urine Bilirubin Negative (NEGATIVE) Urine Urobilinogen Normalmg/dL (NORMAL) Urine Leukocyte Esterase Negative (NEGATIVE) Urine RBC 0-2/hpf (0-2) Urine WBC 0-5/hpf (0-5) Urine Epithelial Cells Few/hpf (NONE-MOD) Urine Crystals None seen (NONE SEEN) Urine Bacteria Few/hpf (NONE-FEW) Urine Hyaline Casts None/lpf (NONE) Urine Granular Casts None seen (NONE SEEN) Urine Waxy Casts None seen (NONE SEEN) Urine Red Blood Cell Casts None seen (NONE SEEN) Urine White Blood Cell Casts None seen (NONE SEEN) Urine Mucus None seen (None Seen) Urine Trichomonas None seen (NONE SEEN) Urine Yeast None (NONE SEEN) Urinalysis Comment None Urine Culture Reflexed Not indicated White Blood Count 6.9th/mm3 (3.8-10.1) Red Blood Count 4.12mil/mm3 (3.90-5.20) Hemoglobin 13.5g/dL (12.0-15.6) Hematocrit 40.0% (35.0-46.0) Mean Corpuscular Volume 97.1fL (81-100) Mean Corpuscular Hemoglobin 32.8pg (27.0-35.0) Mean Corpuscular Hemoglobin Concent 33.8% (32.0-37.0) Red Cell Distribution Width 14.8% (12.3-15.4) Platelet Count 217bil/L (150-400) Neutrophils (%) (Auto) 69.3% (40-74) Lymphocytes (%) (Auto) 19.3% (14-46) Monocytes (%) (Auto) 9.6% (4-12) Eosinophils (%) (Auto) 1.0% (0-5) Basophils (%) (Auto) 0.4% (0-3) Prothrombin Time 11.6sec (8.1-12.5) Prothromb Time International Ratio 1.08ratio Sodium Level 134mEq/L (134-144) Potassium Level 4.5mEq/L (3.5-5.2) Chloride Level 97mEq/L (97-108) Carbon Dioxide Level 23mmol/L (18-29) Blood Urea Nitrogen 11mg/dL (8-27) Creatinine 0.97mg/dL (0.57-1.00) Estimat Glomerular Filtration Rate 80mL/min (>59) Glucose Level 105mg/dL (60-99) Lactic Acid Level 1.5mmol/L (0.4-2.0) Calcium Level 9.7mg/dL (8.5-10.1) Magnesium Level 2.0mg/dL (1.6-2.6) Total Bilirubin 0.5mg/dL (0.0-1.2) Aspartate Amino Transf (AST/SGOT) 18U/L (0-50) Alanine Aminotransferase (ALT/SGPT) 10U/L (0-32) Alkaline Phosphatase 123U/L (25-165) Total Protein 6.5g/dL (6.4-8.4) Albumin 3.7g/dL (3.4-5.0) Alcohols < 10mg/dL (0-10) Discharge Medications Discharge Medications Apixaban (Eliquis) 5 Mg Tablet 5 MG PO BID (Reported) Calcitonin,[place],Synthetic (Calcitonin-[place]) 3.7 Ml [place].pump 1 SPRAY NASAL every other day (Reported) Calcium Carbonate (Calcium Carbonate) 200 Mg Tab.chew 500 MG PO BIDWM Prescribed by: JACOB DOMÍNGUEZ DO Esomeprazole Magnesium (Nexium) 40 Mg Capsule.dr 40 MG PO DAILY (Reported) Gabapentin (Gabapentin) 100 Mg Capsule 600 MG PO TID Prescribed by: ZOEY TORRES MD Hydrocortisone (Hydrocortisone) 20 Mg Tablet 10 MG PO BID (Reported) Levothyroxine (Levothyroxine) 125 Mcg Tablet 125 MCG PO DAILY (Reported) Vit#96/Ferrous Fum/FA ( Tablet) 1 Each Tablet 1 TABLET PO DAILY Prescribed by: JACOB DOMÍNGUEZ DO Thiamine Mononitrate (Vitamin B-1) 100 Mg Tablet 100 MG PO DAILY (Reported) Valsartan (Valsartan) 80 Mg Tablet 80 MG PO DAILY Prescribed by: ZOEY TORRES MD As needed ([Acetaminophen]) 325 MG TABLET 650 MG PO QID PRN PRN For Pain Prescribed by: ZOEY TORRES MD Albuterol HFA (Proair HFA) 8.5 Gm Hfa.aer.ad 2 PUFFS INHALATION Q4H PRN PRN For Shortness of Breath Prescribed by: LIZETT DUNBAR MD oxyCODONE (oxyCODONE) 5 Mg Tablet 5-10 MG PO Q4H PRN PRN For Moderate Pain Prescribed by: ZOEY TORRES MD Followup Plan Discharge Diet: No restrictions Discharge Activity: No restrictions Patient Instructions Physical Therapy at [facility] Zoey Torres MD Oct 23, 2016 11:34
--- NOTE | 2016-10-23 11:47 | NUR ---
Social Work-discharge: Data:EMR reviewed. Pt is on day 3 of hospitalization for intractable back pain per H&P. Pt is medically stable for discharge. Pt has been under observation status and does not have three days stay in the last month for SNF or hospital, verified with Milagros Navarrete. Pt will have to pay privately for SNF. ROMERO spoke with Sonia from [facility] who is agreeable to accepting pt, but states that pt will need to bring $8,900.00 today. SW spoke with pt who states she will arrange for her son to bring her checkbook to facility, pt declines having SW call her son. PT continues to recommend SNF placement. SW faxed orders and created packet for SNF. SW confirmed orders have been received. Sonia at [facility] has arranged for transport at 1330. Pt updated and agreeable to plan. RN,ELEONORA,pt, and [facility] all updated and agreeable to plan. Assessment:Pt who is [facility]. Plan: Pt to discharge to [facility] today at 1330 via cabulance. RN,UC,pt, and [facility] all updated and agreeable to plan. DEYA Shi
--- NOTE | 2016-10-23 13:38 | NUR ---
Discharge Patient discharged to [facility]. Transportation took her out in wheelchair. All discharge instructions given to transporter. Patient's IV D/C'd, intact, dressing applied. Pt showed no s/s of distress upon discharge.
== END 2016-10-23 13:38 ==
LOC: SED 19:52 → MPC 10-20 01:26
PROVIDERS: ADMIT Internal Medicine; ATTEND Internal Medicine
DX: S32.009A Unspecified fracture of unspecified lumbar vertebra, initial encounter for closed fracture (principal); W19.XXXA Unspecified fall, initial encounter; G89.4 Chronic pain syndrome; Z86.711 Personal history of pulmonary embolism; I10 Essential (primary) hypertension; E03.9 Hypothyroidism, unspecified; F10.10 Alcohol abuse, uncomplicated; Z79.01 Long term (current) use of anticoagulants
CPT/HCPCS: 36415; 80053; 81000; 83605; 83735; 85025; 85610; 93005; 96374; 96376; 97161; 97530; 99285; G0378; G0480; G8978; G8979; J1170